=== PATIENT | male | born 1985 | race Caucasian/White ===

== ENCOUNTER → 2019-05-06 | Outpatient (CLI) | payer SELFPAY ==
[2019-05-06 14:40] LABS: Absolute Lymphocyte Count 1.83 X10^3/uL (0.83-4.51); Absolute Neutrophil Count 2.9 X10^3/uL (2.0-7.7); Basophil% 0.9 % (0-1); Eosinophils% 6.4 % (0-5); Hematocrit 45.2 % (40-54); Hemoglobin 15.2 g/dL (13.0-16.5); Lymphocyte # 1.83 X10^3/ul (4.0); Lymphocyte % 32.3 % (19-41); Mean Corp Hgb Conc 33.6 g/dL (32-36); Mean Corpuscular Hgb 28.5 pg (27.0-32.0); Mean Corpuscular Volume 84.8 fL (80-94); Mean Platelet Vol. 10.6 fl (6.2-12.0); Monocyte# 0.46 X10^3/uL; Monocyte% 8.1 % (0-10); Neutrophil # 2.94 X10^3/uL (2.7-7.7); Neutrophil % 51.9 % (47-70); Platelet Count 257 K/mm3 (150-450); RBC Distribution Width CV 11.6 % (11.6-14.6); RBC Distribution Width SD 35.4 fl (35.1-43.9); Red Blood Count 5.33 M/mm3 (4.6-6.2); White Blood Count 5.7 K/mm3 (4.4-11.0)
[2019-05-06 14:41] LABS: Basophil# 0.05 X10^3/uL; Eosinophil# 0.36 X10^3/uL; NRBC Flagged by Analyzer 0 % (0-5)
[2019-05-06 15:07] LABS: Valproic Acid (Depakene) Level 48 ug/mL (50-100)
[2019-05-06 15:09] LABS: ALB/GLOB Ratio 1.2 RATIO (0.9-2.4); AST(SGOT) 20 U/L (15-37); Alanine Aminotransfer ALT/SGPT 34 U/L (16-61); Albumin, Serum 4.1 g/dL (3.2-5.0); Alkaline Phosphatase 98 U/L (45-117); Anion Gap 7 (5-15); BUN 17 mg/dL (7-18); BUN/Creat Ratio 18.2 RATIO (10-20); Calcium,Total 8.7 mg/dL (8.5-10.1); Chloride 108 mmol/L (98-107); Creatinine, Serum 0.93 mg/dL (0.70-1.30); EST Glomerular Filtration Rate 100 mL/min (>60); Est Glom Filt Rate - Afr Amer 121 mL/min (>60); Globulin 3.5 g/dL (2.2-4.2); Glucose 80 mg/dL (74-106); Potassium 4.3 mmol/L (3.5-5.1); Protein, Total 7.6 g/dL (6.4-8.2); Sodium Level 141 mmol/L (136-145); Thyroid Stim Hormone (TSH) 0.94 uIU/mL (0.358-3.74)
== END | disposition home or self-care (01) ==
LOC: LAB 13:13
PROVIDERS: Referring Provider Nurse Practitioner Family; Visit Provider Nurse Practitioner Family
DX: Z79.899 Other long term (current) drug therapy (principal); F19.10 Other psychoactive substance abuse, uncomplicated; R53.83 Other fatigue
CPT/HCPCS: 36415; 80053; 80164; 82140; 84443; 85025

== ENCOUNTER → 2019-06-12 | Outpatient (CLI) | payer SELFPAY ==
[2019-06-12 15:29] LABS: Ammonia < 10.0 umol/L (11-32)
[2019-06-12 17:25] LABS: Cholesterol 180 mg/dL (200); High Density Lipoprotein 47 mg/dL; Triglycerides 76 mg/dL; Very Low Density Lipoprotein 15 mg/dL (5-40)
[2019-06-12 17:32] LABS: Valproic Acid (Depakene) Level 41 ug/mL (50-100)
== END | disposition home or self-care (01) ==
LOC: LAB 14:33
PROVIDERS: Referring Provider Nurse Practitioner Family; Visit Provider Nurse Practitioner Family
DX: R69 Illness, unspecified (principal)
CPT/HCPCS: 36415; 80061; 80164; 82140

== ENCOUNTER 2023-01-16 09:27 | Emergency (ER) | payer MEDICAID, SELFPAY ==
[2023-01-16 09:28] VITALS: BP 158/93; PULSE 80; RESP 14; TEMP 36.2; O2SAT 98; BMI 35.9
--- NOTE | 2023-01-16 09:43 | EKG12_ITS ---
Test Reason : [facility] [place] Pressure : / mmHG Vent. Rate : 076 BPM Atrial Rate : 076 BPM P-R Int : 154 ms QRS Dur : 078 ms QT Int : 346 ms P-R-T Axes : 052 043 023 degrees QTc Int : 389 ms Normal sinus rhythm Normal ECG Confirmed by REBEKA HARRIS MD ([id number]), online editor ISABELLA LUZ ([id number]) on 01/18/2023 11:36:43 AM Referred By: DEIDRA Confirmed By:REBEKA HARRIS MD
--- NOTE | 2023-01-16 09:43 | EX.ED.VIS.PS ---
HPI HPI - Psych History of Present Illness Chief Complaint: Suicidal Narrative Narrative: 37-year-old male with past medical history of depression and anxiety, cutting and burning behavior, presents at the recommendation of his psychiatrist. Usually takes Wellbutrin and Vistaril as needed. He has been taking his Vistaril secondary to anxiety. He had a telehealth visit with his psychiatrist in [place] today who recommended that he come to the emergency department for evaluation. He states he is never been placed in a psychiatric facility. He states he has been holding ice cubes all weekend as a deterrent for cutting himself or burning himself. Is urged to perform self harm has increased. He denies suicidal ideation, but states he wants to cut and burn himself even more. PFSH PFSH Medical History no medical history Allergy/AdvReac Type Severity Reaction Status Date / Time No Known Allergies Allergy Verified 01/16/23 09:31 Social History Smoking Status: Unknown if ever smoked ROS ROS ED ROS Narrative Constitutional: No fever, no chills. HEENT: No sore throat. No neck pain. No loss of vision. No rhinorrhea. Cardiovascular: No chest pain. No palpitations. No pedal edema. Respiratory: No cough, no shortness of breath. Abdominal: No abdominal pain. No nausea. No vomiting. Genitourinary: No dysuria. No hematuria. Musculoskeletal: No myalgias. No arthralgias. Neurologic: No headaches. No dizziness. No lightheadedness. Skin: No rash. No change in color. Psychiatric: Positive depression and anxiety. Increased thoughts of self-harm, especially cutting and burning. EXAM Physical Exam Narrative Exam Narrative: Afebrile. Vital signs noted. HEENT: Normocephalic. Atraumatic. PERRL, EOMI. Neck soft and supple. No point tenderness or step off. Cardiovascular: Regular rate and rhythm. No murmurs, rubs, or gallops appreciated. Respiratory: No tachypnea. Lungs clear to auscultation bilaterally. Gastrointestinal: Abdomen soft, nontender, with normoactive bowel sounds. No rebound or guarding. Neurological: Awake. Alert. Nonfocal, nonlateralizing. Skin: No rash. Normal color. No pallor. Musculoskeletal: No pedal edema. Full range of motion extremities. Psychiatric: Thoughts of self-harm. Positive anxiety. Flat affect/depressed affect. Const Vital Signs: 01/16/23 09:28 Temperature 97.1 F L Temperature Source Temporal Pulse Rate 80 Respiratory Rate 14 Blood Pressure 158/93 H Blood Pressure Mean 114 Pulse Ox 98 Oxygen Delivery Method Room Air MDM MDM MDM Narrative Medical decision making narrative: Medical screening labs will be obtained. I do feel that he will require evaluation by social work or mental health/crisis. I reviewed his laboratory work, and he has a normal white count of 9.3, hemoglobin normal at 15.6, platelet count normal at 306. CMP is grossly unremarkable. Ethyl alcohol less than 3 urine for drugs of abuse positive for cannabinoids and MDMA. At this point in time, after evaluation by crisis, I had a discussion with the counselor. He has an appointment with [facility] on Monday, 2 days from now. Additionally, he is not suicidal, but is just trying to get rid of his thoughts of self-harm, and his cutting behavior and burning behavior. He has been taking his Vistaril for anxiety. He is able to contract for safety without ambivalence. At this point in time, he will be discharged to follow-up with [facility] in 2 days. Return instructions were reviewed. Disposition is discharged home in stable condition. History & Record Review Discussion w/independent historian: Patient Additional record(s) reviewed:: No prior records Lab Data Attestation: I reviewed the patient's lab results. Labs: Laboratory Results - last 24 hr 01/16/23 01/16/23 01/16/23 10:03 10:03 10:03 WBC 9.3 RBC 6.10 Hgb 15.6 Hct 47.7 MCV 78.2 L MCH 25.6 L MCHC 32.7 RDW Std Deviation 37.4 RDW Coeff of Thanh 13.2 Plt Count 306 MPV 10.4 Immature Gran % (Auto) 0.400 Neut % (Auto) 49.3 Lymph % (Auto) 34.5 [place] % (Auto) 7.7 Eos % (Auto) 7.2 H Baso % (Auto) 0.9 Absolute Neuts (auto) 4.6 Absolute Lymphs (auto) 3.20 Nucleated RBC % 0 Sodium 136 Potassium 4.1 Chloride 107 Carbon Dioxide 21.0 Anion Gap 8 BUN 15 Creatinine 1.12 Estim Creat Clear Calc 107.03 Est GFR (MDRD) Af Amer 96 Est GFR (MDRD) Non-Af 79 BUN/Creatinine Ratio 13.4 Glucose 108 H Calcium 9.3 Total Bilirubin 0.30 AST 20 ALT 46 Alkaline Phosphatase 105 Total Protein 7.8 Albumin 3.8 Globulin 4.0 Albumin/Globulin Ratio 1.0 Urine Opiates Screen Urine Methadone Screen Ur Barbiturates Screen Ur Phencyclidine Scrn Ur Amphetamines Screen MDMA (Ecstasy) Screen U Benzodiazepines Scrn Urine Cocaine Screen U Cannabinoids Screen Ur Drug Screen Comment Ethyl Alcohol < 3.0 01/16/23 10:09 WBC RBC Hgb Hct MCV MCH MCHC RDW Std Deviation RDW Coeff of Thanh Plt Count MPV Immature Gran % (Auto) Neut % (Auto) Lymph % (Auto) [place] % (Auto) Eos % (Auto) Baso % (Auto) Absolute Neuts (auto) Absolute Lymphs (auto) Nucleated RBC % Sodium Potassium Chloride Carbon Dioxide Anion Gap BUN Creatinine Estim Creat Clear Calc Est GFR (MDRD) Af Amer Est GFR (MDRD) Non-Af BUN/Creatinine Ratio Glucose Calcium Total Bilirubin AST ALT Alkaline Phosphatase Total Protein Albumin Globulin Albumin/Globulin Ratio Urine Opiates Screen NEGATIVE Urine Methadone Screen NEGATIVE Ur Barbiturates Screen NEGATIVE Ur Phencyclidine Scrn NEGATIVE Ur Amphetamines Screen NEGATIVE MDMA (Ecstasy) Screen POSITIVE H U Benzodiazepines Scrn NEGATIVE Urine Cocaine Screen NEGATIVE U Cannabinoids Screen POSITIVE H Ur Drug Screen Comment Ethyl Alcohol Discharge Plan Triage Chief Complaint: Suicidal ED Provider: Juan Pierson Dx/Rx/DC Orders Clinical Impression: Thoughts of self-harm, Anxiety Instructions: ED Anxiety Reaction, ED Personality Disorder Primary Care Provider: Eliane Beckett Referrals: Care Physician,No Primary [Non-Staff] - Activity Restrictions/Additional Instructions: Follow-up with IOP on Monday. Return with increased thoughts of self-harm, new or worsening symptoms. Disposition Disposition: Home, Self Care
--- NOTE | 2023-01-16 09:49 | NURSING ---
NO OLD EKGS
[2023-01-16 10:25] LABS: Absolute Neutrophil Count 4.6 X10^3/uL (2.0-7.7); Basophil# 0.08 X10^3/uL; Basophil% 0.9 % (0-1); Eosinophil# 0.67 X10^3/uL; Eosinophils% 7.2 % (0-5); Hematocrit 47.7 % (40-54); Hemoglobin 15.6 g/dL (13.0-16.5); Lymphocyte % 34.5 % (19-41); Mean Corp Hgb Conc 32.7 g/dL (32-36); Mean Corpuscular Hgb 25.6 pg (27.0-32.0); Mean Corpuscular Volume 78.2 fL (80-94); Mean Platelet Vol. 10.4 fl (6.2-12.0); Monocyte# 0.71 X10^3/uL; Monocyte% 7.7 % (0-10); NRBC Flagged by Analyzer 0 % (0-5); Neutrophil # 4.57 X10^3/uL (2.7-7.7); Neutrophil % 49.3 % (47-70); Platelet Count 306 K/mm3 (150-450); RBC Distribution Width CV 13.2 % (11.6-14.6); RBC Distribution Width SD 37.4 fl (35.1-43.9); White Blood Count 9.3 K/mm3 (4.4-11.0)
[2023-01-16 10:35] LABS: AST(SGOT) 20 U/L (15-37); Alanine Aminotransfer ALT/SGPT 46 U/L (16-61); Albumin, Serum 3.8 g/dL (3.2-5.0); Alkaline Phosphatase 105 U/L (45-117); Anion Gap 8 (5-15); BUN 15 mg/dL (7-18); BUN/Creat Ratio 13.4 RATIO (10-20); Calcium,Total 9.3 mg/dL (8.5-10.1); Chloride 107 mmol/L (98-107); Creatinine, Serum 1.12 mg/dL (0.70-1.30); EST Glomerular Filtration Rate 79 mL/min (>60); Est Glom Filt Rate - Afr Amer 96 mL/min (>60); Estimated Creatinine Clearance 107.03 ml/min; Glucose 108 mg/dL (74-106); Potassium 4.1 mmol/L (3.5-5.1); Protein, Total 7.8 g/dL (6.4-8.2); Sodium Level 136 mmol/L (136-145)
[2023-01-16 10:51] LABS: Amphetamine Urine VISTA NEGATIVE (<1000 ng/mL); Barbiturate Urine VISTA NEGATIVE (< 200 ng/mL); Benzodiazepine Urine VISTA NEGATIVE (< 200 ng/mL); Cocaine Urine VISTA NEGATIVE (< 300 ng/mL); Ecstacy Urine VISTA POSITIVE (< 500 ng/mL); Methadone Urine VISTA NEGATIVE (< 300 ng/mL); PCP Urine VISTA NEGATIVE (< 25 ng/mL); THC Urine VISTA POSITIVE (< 50 ng/mL); Vista UDS pH Range 5
[2023-01-16 10:59] LABS: Alcohol, Blood (Medical)-Serum < 3.0 mg/dL
[2023-01-16 12:35] VITALS: RESP 16
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
== END 2023-01-16 12:40 | disposition home or self-care (01) ==
PROVIDERS: Emergency Provider Emergency Medicine; PCP Internal Medicine; Visit Provider Emergency Medicine
DX: R45.88 Nonsuicidal self-harm (principal); F41.9 Anxiety disorder, unspecified; F32.A Depression, unspecified; Z79.899 Other long term (current) drug therapy
CPT/HCPCS: 80053; 80307; 82077; 85025; 87426; 93005; 99283

== ENCOUNTER 2023-09-14 10:21 | Emergency (ER) | payer MEDICAID, SELFPAY ==
[2023-09-14 10:22] VITALS: BP 130/97; PULSE 98; RESP 14; TEMP 37.2; O2SAT 99; BMI 31.8
[2023-09-14 10:24] VITALS: BP 130/97; PULSE 98; RESP 14; TEMP 37.2; O2SAT 99
--- NOTE | 2023-09-14 11:27 | EX.ED.DYSGE1 ---
HPI <MILO Vaca - Last Filed: 09/14/23 13:03> History of Present Illness Chief Complaint: Weakness Narrative Narrative: 38-year-old male with history of anxiety, depression, ADHD who presents to the emergency department for 5 days of worsening weakness. Patient states he had a fever, had significant nausea, vomiting and diarrhea. Patient states today, he actually has no pain, however he is just so incredibly weak that he had difficulty getting around. Patient states when he got to the ER, he was collapsed because he was so weak. Patient denies any blood in stool or vomit. Denies any alcohol or drug abuse other than marijuana which she has a prescription for. Patient is here for weakness. [facility] <MILO Vaca - Last Filed: 09/14/23 13:03> [facility] Medical History (Updated 09/14/23 @ 13:02 by MILO Vaca) History of depression Home Medications bupropion HCl 150 mg 24 hr tablet, extended release 150 mg PO DAILY 09/14/23 [History Last Taken Unknown] bupropion HCl 300 mg 24 hr tablet, extended release 300 mg PO DAILY 09/14/23 [History Last Taken Unknown] hydroxyzine pamoate 50 mg capsule 50 mg PO TID PRN PRN anxiety 09/14/23 [History Last Taken Unknown] lisdexamfetamine 30 mg capsule (Vyvanse) 60 mg PO DAILY 09/14/23 [History Last Taken Unknown] ondansetron 4 mg disintegrating tablet 4 mg PO Q8H PRN PRN Nausea #10 tabs 09/14/23 [Rx Last Taken Unknown] Allergy/AdvReac Type Severity Reaction Status Date / Time No Known Allergies Allergy Verified 09/14/23 10:22 Social History Smoking Status: Unknown if ever smoked ROS <MILO Vaca - Last Filed: 09/14/23 13:03> ROS ED ROS Narrative Constitutional: Negative for fever, chills, weight loss. Positive for generalized weakness Eyes: Negative for vision loss, vision change, double vision ENT: Negative for any sore throat, ear pain, congestion Cardiovascular: Negative for any chest pain, tightness, palpitations Respiratory: Negative for any cough, sputum production, hemoptysis, dyspnea, dyspnea on exertion, orthopnea Gastrointestinal: Negative for any abdominal pain,constipation, blood in stool, blood in vomit. Positive for nausea, vomiting, diarrhea : Negative for any urinary frequency, dysuria, retention, blood in urine Muscle skeletal: Negative for any myalgias, arthralgias, neck pain, back pain Neurological: Negative for any headache, syncope, paresthesias, dizziness Skin: Negative for any rashes, lumps, itching, abrasions, lacerations Psychiatric: Negative for any depression, anxiety, stress, suicidal ideation, homicidal ideation Hematologic: Negative for any easy bruising, excessive bruising, easy bleeding Allergies: Negative for any eczema, hives, rash EXAM <MILO Vaca - Last Filed: 09/14/23 13:03> Physical Exam Narrative Exam Narrative: Vital signs reviewed. Patient looks generally well, patient is in no distress. HEET: Head normocephalic atraumatic, TMs clear bilaterally. Posterior pharynx is clear, dry mucous membranes. Nares clear bilaterally. Neck: Supple with no lymphadenopathy or tenderness. No signs of meningismus. Cardiac: Regular rate and rhythm no murmurs gallops or rubs, equal peripheral pulses bilaterally. Respiratory: Lungs clear to auscultation bilaterally. No chest tenderness. Abdomen: Soft, nontender, nondistended. No abdominal bruit or pulsatile masses. No hepatosplenomegaly Extremities: No peripheral edema, no signs of gross trauma or deformity. Active full range of motion of all extremities. Neuro: Cranial nerves II through XII intact, no focal neurological deficits. Skin: Clean dry and intact with no rash, purpura, petechiae, vesicles or pustules. Backs/flank: No CVA tenderness, no midline spinal tenderness, no deformity. Psych: Normal mood and affect. No SI, HI or acute psychosis. Const Vital Signs: 09/14/23 10:22 09/14/23 10:24 09/14/23 10:54 Temperature 99 F 99 F Temperature Source Temporal Temporal Pulse Rate 98 98 Respiratory Rate 14 14 Respiratory Effort Normal Respiratory Pattern Normal Blood Pressure 130/97 H 130/97 H Blood Pressure Mean 108 108 Pulse Ox 99 99 Oxygen Delivery Method Room Air Room Air 09/14/23 12:21 09/14/23 13:57 Temperature Temperature Source Pulse Rate 68 71 Respiratory Rate 16 16 Respiratory Effort Respiratory Pattern Blood Pressure 132/79 H 141/74 H Blood Pressure Mean 96 96 Pulse Ox 97 98 Oxygen Delivery Method Room Air <Dr. Puneet Rao DO - Last Filed: 09/14/23 16:11> Physical Exam Const Vital Signs: 09/14/23 10:22 09/14/23 10:24 09/14/23 10:54 Temperature 99 F 99 F Temperature Source Temporal Temporal Pulse Rate 98 98 Respiratory Rate 14 14 Respiratory Effort Normal Respiratory Pattern Normal Blood Pressure 130/97 H 130/97 H Blood Pressure Mean 108 108 Pulse Ox 99 99 Oxygen Delivery Method Room Air Room Air 09/14/23 12:21 09/14/23 13:57 Temperature Temperature Source Pulse Rate 68 71 Respiratory Rate 16 16 Respiratory Effort Respiratory Pattern Blood Pressure 132/79 H 141/74 H Blood Pressure Mean 96 96 Pulse Ox 97 98 Oxygen Delivery Method Room Air [facility] <MILO Vaca - Last Filed: 09/14/23 13:03> [facility] Lab Data Labs: Laboratory Results - last 24 hr 09/14/23 11:40 WBC 9.0 RBC 6.76 H Hgb 17.1 H Hct 51.1 MCV 75.6 L MCH 25.3 L MCHC 33.5 RDW Std Deviation 34.6 L RDW Coeff of Thanh 13.1 Plt Count 387 MPV 9.7 Immature Gran % (Auto) 0.400 Neut % (Auto) 44.6 L Lymph % (Auto) 40.7 Bertie % (Auto) 10.7 H Eos % (Auto) 2.3 Baso % (Auto) 1.3 H Absolute Neuts (auto) 4.0 Absolute Lymphs (auto) 3.66 Nucleated RBC % 0 Reactive Lymphocytes RARE Sodium 137 Potassium 3.7 Chloride 106 Carbon Dioxide 29.0 Anion Gap 2 L BUN 13 Creatinine 1.24 Estim Creat Clear Calc 109.82 Est GFR (MDRD) Af Amer 85 Est GFR (MDRD) Non-Af 70 BUN/Creatinine Ratio 10.5 Glucose 97 Calcium 9.2 Total Bilirubin 0.50 AST 16 ALT 40 Alkaline Phosphatase 111 Total Protein 8.2 Albumin 4.0 Globulin 4.2 Albumin/Globulin Ratio 1.0 Urine Color Yellow Urine Clarity Sl. Cloudy Urine pH 6.0 Ur Specific [place] 1.025 Urine Protein 30 H Urine Glucose (UA) Normal Urine Ketones 5 H Urine Occult Blood Negative Urine Nitrite Negative Urine Bilirubin 1 H Urine Urobilinogen 1 H Ur Leukocyte Esterase 25 H Urine RBC 0 SEEN Urine WBC 0-5 SEEN Ur Squamous Epith Cells 0-5 SEEN Urine Bacteria 1+ Urine Mucus 0 SEEN Treatment and Re-Evaluation :: Patient appears generally well, patient appears nontoxic, vital signs are stable. Presenting to the emergency department for complaints of weakness, nausea and vomiting. Patient states the nausea vomiting abdominal pain has ceased, however he is still incredibly weak. Patient will receive basic laboratory values, look for electrolyte abnormalities, leukocytosis. Patient be tested for COVID-19 influenza RSV. Urinalysis will also be tested. Differential diagnosis includes viral-like illness, electrolyte abnormality, gastroenteritis. Patient will be reevaluated after receiving IV fluids and IV Zofran. Patient CBC shows some hemoconcentration with a RBCs of 6.76, hemoglobin of 17.1. Patient's chemistries were unremarkable. Patient responded well to IV fluids, patient's urinalysis did show some bacteria however there was squamous cells, negative for any nitrites, I do not believe this is infection. Urine culture will be sent. Patient's COVID-19, influenza, RSV was negative. Patient will be given nausea medicine for home, he will maintain hydration. Patient is happy the plan of care, states he does feel better after the IV fluids. Patient will follow-up outpatient, all questions answered, patient stable for discharge. <Dr. Puneet Rao, DO - Last Filed: 09/14/23 16:11> [facility] Narrative Medical decision making narrative: Patient appears generally well, patient appears nontoxic, vital signs are stable. Presenting to the emergency department for complaints of weakness, nausea and vomiting. Patient states the nausea vomiting abdominal pain has ceased, however he is still incredibly weak. Patient will receive basic laboratory values, look for electrolyte abnormalities, leukocytosis. Patient be tested for COVID-19 influenza RSV. Urinalysis will also be tested. Differential diagnosis includes viral-like illness, electrolyte abnormality, gastroenteritis. Patient will be reevaluated after receiving IV fluids and IV Zofran. Patient CBC shows some hemoconcentration with a RBCs of 6.76, hemoglobin of 17.1. Patient's chemistries were unremarkable. Patient responded well to IV fluids, patient's urinalysis did show some bacteria however there was squamous cells, negative for any nitrites, I do not believe this is infection. Urine culture will be sent. Patient's COVID-19, influenza, RSV was negative. Patient will be given nausea medicine for home, he will maintain hydration. Patient is happy the plan of care, states he does feel better after the IV fluids. Patient will follow-up outpatient, all questions answered, patient stable for discharge. This patient was seen with a PA/ORGAN RECOVERY COORDINATOR Individually assessed they patient including history and physical. I have reviewed everything on the chart that is available and agree with the documentation provided by the PA/ORGAN RECOVERY COORDINATOR including discussion about the assessment, treatment plan, discussion, and return precautions. Patient's workup ultimately normal. Viral testing negative. He is feeling better after being treated with IV fluids, Zofran. He is offered medication for home but states he is no longer symptomatic and wants to be discharged. Return precautions discussed. Lab Data Attestation: I reviewed the patient's lab results. Labs: Laboratory Results - last 24 hr 09/14/23 11:40 WBC 9.0 RBC 6.76 H Hgb 17.1 H Hct 51.1 MCV 75.6 L MCH 25.3 L MCHC 33.5 RDW Std Deviation 34.6 L RDW Coeff of Thanh 13.1 Plt Count 387 MPV 9.7 Immature Gran % (Auto) 0.400 Neut % (Auto) 44.6 L Lymph % (Auto) 40.7 Bertie % (Auto) 10.7 H Eos % (Auto) 2.3 Baso % (Auto) 1.3 H Absolute Neuts (auto) 4.0 Absolute Lymphs (auto) 3.66 Nucleated RBC % 0 Reactive Lymphocytes RARE Sodium 137 Potassium 3.7 Chloride 106 Carbon Dioxide 29.0 Anion Gap 2 L BUN 13 Creatinine 1.24 Estim Creat Clear Calc 109.82 Est GFR (MDRD) Af Amer 85 Est GFR (MDRD) Non-Af 70 BUN/Creatinine Ratio 10.5 Glucose 97 Calcium 9.2 Total Bilirubin 0.50 AST 16 ALT 40 Alkaline Phosphatase 111 Total Protein 8.2 Albumin 4.0 Globulin 4.2 Albumin/Globulin Ratio 1.0 Urine Color Yellow Urine Clarity Sl. Cloudy Urine pH 6.0 Ur Specific [place] 1.025 Urine Protein 30 H Urine Glucose (UA) Normal Urine Ketones 5 H Urine Occult Blood Negative Urine Nitrite Negative Urine Bilirubin 1 H Urine Urobilinogen 1 H Ur Leukocyte Esterase 25 H Urine RBC 0 SEEN Urine WBC 0-5 SEEN Ur Squamous Epith Cells 0-5 SEEN Urine Bacteria 1+ Urine Mucus 0 SEEN Discharge Plan Triage Chief Complaint: Weakness ED Midlevel Provider: Leonel Cameron ED Provider: Puneet Rao Dx/Rx/DC Orders Clinical Impression: Acute dehydration, Viral syndrome Instructions: Dehydration, ED Viral Syndrome (Adult) Prescriptions: New ondansetron 4 mg tablet,disintegrating 4 mg PO Q8H PRN PRN (Reason: Nausea) Qty: 10 0RF No Action bupropion HCl 300 mg tablet extended release 24 hr 300 mg PO DAILY Patient Comments: take 1 tablet by mouth every morning ; TAKE WITH 150 MG XL TO TOTAL 450 MG XL DAILY bupropion HCl 150 mg tablet extended release 24 hr 150 mg PO DAILY Patient Comments: TAKE 1 TABLET BY MOUTH EVERY MORNING DIRECTED WITH 300MG FOR TOTAL DOSE OF 450MG hydroxyzine pamoate 50 mg capsule 50 mg PO TID PRN PRN (Reason: anxiety) Patient Comments: Take 1 capsule by mouth three times a day as needed FOR ANXIETY AND SLEEP lisdexamfetamine [Vyvanse] 30 mg capsule 60 mg PO DAILY Patient Comments: take 2 capsules by mouth daily Primary Care Provider: Eliane Beckett Referrals: Eliane Beckett MD [Primary Care Provider] - Activity Restrictions/Additional Instructions: Please ensure that you maintain hydration. Eat a balanced diet. Return for any worsening symptoms. Disposition Disposition: Home, Self Care Discharge Date/Time: 09/14/23 13:58
[2023-09-14] MEDS: 0.9% Normal Saline (1000mL) 1,000 ML 1000 ML IV (11:38)
[2023-09-14 11:49] LABS: Mucous, Urine 0 SEEN /hpf (<or=2+); Red Blood Cells-Urine 0 SEEN /hpf (0-5)
[2023-09-14 11:51] LABS: Absolute Lymphocyte Count 3.66 X10^3/uL (0.83-4.51); Basophil# 0.12 X10^3/uL; Basophil% 1.3 % (0-1); Eosinophil# 0.21 X10^3/uL; Eosinophils% 2.3 % (0-5); Hematocrit 51.1 % (40-54); Hemoglobin 17.1 g/dL (13.0-16.5); Lymphocyte # 3.66 X10^3/ul (0.83-4.51); Lymphocyte % 40.7 % (19-41); Mean Corp Hgb Conc 33.5 g/dL (32-36); Mean Corpuscular Hgb 25.3 pg (27.0-32.0); Mean Corpuscular Volume 75.6 fL (80-94); Mean Platelet Vol. 9.7 fl (6.2-12.0); Monocyte# 0.96 X10^3/uL; Monocyte% 10.7 % (0-10); NRBC Flagged by Analyzer 0 % (0-5); Neutrophil % 44.6 % (47-70); POSITIVE MORPHOLOGY YES; Platelet Count 387 K/mm3 (150-450); RBC Distribution Width CV 13.1 % (11.6-14.6); RBC Distribution Width SD 34.6 fl (35.1-43.9); Red Blood Count 6.76 M/mm3 (4.6-6.2)
[2023-09-14 11:55] LABS: Color, Urine Yellow (Yellow); Differential Indicated SCAN CRITERIA MET; Glucose, Dipstick Normal (Normal); Ketone-Dipstick 5 mg/dl (Negative); Leukocyte Esterase-Dipstick 25 /ul (Negative); Nitrite-Dipstick Negative (Negative); Occult Blood-Urine Negative /ul (Negative); Protein-Dipstick 30 mg/dl (Negative); Specific Gravity, Urine 1.025 (1.002-1.030); Urine Clarity Sl. Cloudy (Clear); Urine Urobilinogen 1 mg/dl (Normal)
[2023-09-14 11:57] LABS: Urine Bilirubin Dipstick 1 mg/dL (Negative)
[2023-09-14 12:00] LABS: Reactive Lymphocyte RARE
[2023-09-14 12:03] LABS: Bacteria 1+ /hpf (None Seen); Squamous Epithelial Cells - UA 0-5 SEEN /hpf (0-5); White Blood Cells 0-5 SEEN /hpf (0-5)
--- OUTSIDE RECORDS SUMMARY | 2023-09-14 12:06 | XMS RPT_ITS | CCD ---
Author Name Unknown Address [phone] [place] [address] Organization [facility] Care Team Providers Care Research Administrator Name Role Phone Pcp, No Primary Care Provider Bautista Ocampo Primary Care Provider Unavailable Primary Care Provider Ramesh Beckett MD, All D Primary Care Provider RONEY FRASER Referring Unavailable TALAMPAS, ALL D Primary Care Unavailable TALAMPAS, ALL D Primary Care Unavailable TALAMPAS, ALL D Primary Care Unavailable TALAMPAS, ALL D Primary Care Unavailable TALAMPAS, ALL D Primary Care Unavailable TALAMPAS, ALL D Primary Care Unavailable DO, LUIS ANTONIO Attending Unavailable TALAMPAS, ALL D Primary Care Unavailable LUZ MARIA VARGHESE Attending Unavailable IRAM BLAIR Referring Unavailable DO, LUIS ANTONIO Attending Unavailable TALAMPAS, ALL D Primary Care Unavailable TALAMPAS, ALL D Primary Care Unavailable TALAMPAS, ALL D Primary Care Unavailable TALAMPAS, ALL D Primary Care Unavailable TALAMPAS, ALL D Primary Care Unavailable TALAMPAS, ALL D Primary Care Unavailable TALAMPAS, ALL D Primary Care Unavailable TALAMPAS, ALL D Primary Care Unavailable TALAMPAS, ALL D Primary Care Unavailable TALAMPAS, ALL D Primary Care Unavailable TALAMPAS, ALL D Primary Care Unavailable TALAMPAS, ALL D Primary Care Unavailable TALAMPAS, ALL D Primary Care Unavailable TALAMPAS, ALL D Primary Care Unavailable TALAMPAS, ALL D Primary Care Unavailable TALAMPAS, ALL D Primary Care Unavailable DO LUIS ANTONIO Attending Unavailable DO LUIS ANTONIO Attending Unavailable TALAMPAS, ALL D Primary Care Unavailable TALAMPAS, ALL D Primary Care Unavailable DO LUIS ANTONIO Attending Unavailable TALAMPAS, ALL D Primary Care Unavailable TALAMPAS, ALL D Primary Care Unavailable TALAMPAS, ALL D Primary Care Unavailable TALAMPAS, ALL D Primary Care Unavailable TALAMPAS, ALL D Primary Care Unavailable TALAMPAS, ALL D Primary Care Unavailable TALAMPAS, ALL D Primary Care Unavailable TALAMPAS, ALL D Primary Care Unavailable TALAMPAS, ALL D Primary Care Unavailable TALAMPAS, ALL D Primary Care Unavailable TALAMPAS, ALL D Primary Care Unavailable TALAMPAS, ALL D Primary Care Unavailable RONEY FRASER Attending Unavailable BRYANT, ZEE Referring Unavailable TALAMPAS, ALL D Primary Care Unavailable TALAMPAS, ALL D Attending Unavailable TALAMPAS, ALL D Primary Care Unavailable TALAMPAS, ALL D Primary Care Unavailable IRAM BLAIR Attending Unavailable GHAZALA HOLLIS Referring Unavailable BRYANT, ZEE Attending Unavailable TALAMPAS, ALL D Primary Care Unavailable TALAMPAS, ALL D Primary Care Unavailable IRAM BLAIR Attending Unavailable GHAZALA HOLLIS Referring Unavailable DEZ ANGEL Attending Unavailable TJ SHETH Referring Unavailable TALAMPAS, ALL D Primary Care Unavailable RONEY FRASER Attending Unavailable RONEY FRASER Referring Unavailable TALAMPAS, ALL D Primary Care Unavailable TAMI SAN Attending Unavailable TALAMPAS, ALL D Primary Care Unavailable ANTHONY LOERA Attending Unavailable ATHY, ORALIA Garland Referring Unavailable TALAMPAS, ALL D Primary Care Unavailable TALAMPAS, ALL D Primary Care Unavailable ANTHONY LOERA Attending Unavailable TALAMPAS, ALL D Primary Care Unavailable MARISA SOTO Referring Unavailable TALAMPAS, ALL D Primary Care Unavailable ATHY, ORALIA R Referring Unavailable BRYANT, ZEE Referring Unavailable TALAMPAS, ALL D Primary Care Unavailable TALAMPAS, ALL D Attending Unavailable GHAZALA HOLLIS Attending Unavailable TALAMPAS, ALL D Primary Care Unavailable TALAMPAS, ALL D Referring Unavailable Allergies Allergy Classification Reported Allergen(s) Allergy Type Date of Onset Reaction(s) Facility Cats (1 source) Cat Animal Allergy (Dander) 6 Shortness of Breath [facility] Work Phone: (20 sources) Cat; Translations: [CATS] Propensity to adverse reactions 6 Shortness of Breath [facility] Work Phone: Medications Current Medications Medication Drug Class(es) Dates Sig (Normalized) Sig (Original) cyclobenzaprine hydrochloride 10 mg oral tablet (1 source) Muscle Relaxant Start: 05-02-2023 End: 05-09-2023 take 1 tablet by mouth twice daily as needed for muscle spasms cyclobenzaprine (FLEXERIL) 10 mg tablet Indications: Acute midline low back pain without sciatica Take 1 tablet by mouth twice daily as needed for muscle spasm for up to 7 days. 14 tablet 0 05/02/2023 05/09/2023 Active Completed/Discontinued Medications Medication Drug Class(es) Dates Sig (Normalized) Sig (Original) [id number] 200 actuat albuterol 0.09 mg/actuat metered dose inhaler (20 sources) beta2-Adrenergic Agonist Start: 10-19-2022 End: 02-21-2023 take 2 puff(s) by inhalation every four hours as needed albuterol HFA (PROVENTIL HFA, VENTOLIN HFA) 90 mcg/actuation inhaler Inhale 2 Puffs as instructed every 4 hours as needed. 1 Each 2 02/21/2023 Active Problems Active Problems Problem Classification Problem Date Documented Date Episodic/Chronic Adjustment disorders (20 sources) Adjustment disorder with mixed anxiety and depressed mood; Translations: [Adjustment disorder with mixed anxiety and depressed mood] Onset: 09-18-2012 09-18-2012 Chronic Allergic reactions (20 sources) Environmental allergy; Translations: [Other allergy status, other than to drugs and biological substances] 09-12-2012 Episodic Anxiety disorders (20 sources) Anxiety; Translations: [Anxiety disorder, unspecified] Onset: 12-01-2022 12-01-2022 Chronic Asthma (20 sources) Unspecified asthma, uncomplicated; Translations: [Asthma, unspecified type, unspecified] Onset: 07-07-2005 07-07-2005 Chronic Attention-deficit, conduct, and disruptive behavior disorders (4 sources) Attention deficit hyperactivity disorder; Translations: [Attention-deficit hyperactivity disorder, unspecified type] Chronic Attention-deficit, conduct, and disruptive behavior disorders (2 sources) Attention-deficit hyperactivity disorder, unspecified type; Translations: [Attention deficit hyperactivity disorder (ADHD), unspecified ADHD type] Onset: 12-01-2022 Chronic Disorders usually diagnosed in infancy, childhood, or adolescence (20 sources) Attention deficit hyperactivity disorder, predominantly inattentive type; Translations: [Other specified behavioral and emotional disorders with onset usually occurring in childhood and adolescence] Onset: 08-18-2017 Chronic Malaise and fatigue (2 sources) Fatigue; Translations: [Chronic fatigue, unspecified] Onset: 02-28-2023 02-28-2023 Chronic Mood disorders (20 sources) Dysthymia; Translations: [Dysthymic disorder] Onset: 09-18-2012 09-18-2012 Chronic Nausea and vomiting (1 source) Diarrhea and vomiting; Translations: [Vomiting, unspecified] 09-13-2023 Episodic Other nervous system disorders (1 source) Other chronic pain; Translations: [Chronic pain of right knee] Onset: 03-09-2023 Chronic Other non-traumatic joint disorders (3 sources) Pain in right knee; Translations: [Pain in joint, lower leg] Onset: 03-09-2023 02-09-2023 Episodic Other non-traumatic joint disorders (1 source) Hip pain; Translations: [Pain in right hip] 02-09-2023 Episodic Other nutritional; endocrine; and metabolic disorders (1 source) Obesity caused by energy imbalance; Translations: [Other obesity due to excess calories] 02-28-2023 Chronic Other nutritional; endocrine; and metabolic disorders (1 source) Other obesity due to excess calories; Translations: [Class 2 obesity due to excess calories with body mass index (BMI) of 37.0 to 37.9 in adult, unspecified whether serious comorbidity present] Onset: 02-28-2023 Chronic Other nutritional; endocrine; and metabolic disorders (1 source) Body mass index (BMI) 37.0-37.9, adult; Translations: [Class 2 obesity due to excess calories with body mass index (BMI) of 37.0 to 37.9 in adult, unspecified whether serious comorbidity present] Onset: 02-28-2023 Chronic Spondylosis; intervertebral disc disorders; other back problems (2 sources) Lumbar radiculopathy; Translations: [Radiculopathy, lumbar region] 03-27-2023 Episodic Substance-related disorders (1 source) Stimulant abuse; Translations: [Other stimulant abuse, uncomplicated] Chronic Substance-related disorders (1 source) Cannabis abuse; Translations: [Cannabis use, unspecified, uncomplicated] Episodic Unclassified (1 source) IOP Group 3 Onset: 03-06-2023 Unclassified (1 source) Acute midline low back pain without sciatica; Translations: [Acute midline low back pain without sciatica] Onset: 05-02-2023 Unclassified (1 source) No-show for appointment; Translations: [No-show for appointment] Onset: 03-16-2023 Past or Other Problems Problem Classification Problem Date Documented Da te Episodic/Chronic Diabetes mellitus without complication (2 sources) Hyperglycemia; Translations: [Impaired fasting glucose] Onset: 02-28-2023 02-28-2023 Episodic Immunizations and screening for infectious disease (9 sources) Patient encounter status; Translations: [Encounter for immunization] Onset: 12-01-2022 Episodic Other aftercare (1 source) Other half-way (current) drug therapy; Translations: [Encounter for long-term current use of medication] Onset: 02-28-2023 Episodic Other connective tissue disease (20 sources) Pain in right lower limb; Translations: [Pain in right leg] Onset: 12-02-2022 Episodic Other connective tissue disease (2 sources) Pain in right leg; Translations: [Right leg pain] Onset: 12-02-2022 Episodic Other non-traumatic joint disorders (20 sources) Ankle joint pain; Translations: [Pain in unspecified ankle and joints of unspecified foot] Onset: 08-06-2012 08-06-2012 Episodic Other screening for suspected conditions (not mental disorders or infectious disease) (2 sources) Encounter for screening for lipoid disorders; Translations: [Screening, lipid] Onset: 12-01-2022 Episodic Results Test Name Value Interpretation Reference Range Facil ity Vital Signs Date Time Vital Sign Value Performing Clinician Ekta cerna 09-13-2023 13:08-0500 Body temperature 98.2 [degF] Mark Ng APRN.CNP Work Phone: [facility] 09-13-2023 13:08-0500 Body weight 111.58 kg Mark Ng APRN.CNP Work Phone: [facility] 09-13-2023 13:08-0500 Diastolic blood pressure 80 mm[Hg] Mark Ng APRN.CNP Work Phone: [facility] 09-13-2023 13:08-0500 Heart rate 82 /min Mark Ng ELECTRONICS ENGINEERING MANAGER.AREA SUPERVISOR Work Phone: [facility] 09-13-2023 13:08-0500 Respiratory rate 16 /min Mark Ng ELECTRONICS ENGINEERING MANAGER.AREA SUPERVISOR Work Phone: [facility] 09-13-2023 13:08-0500 SaO2% (BldA) [Mass fraction] 98 % Mark Ng ELECTRONICS ENGINEERING MANAGER.AREA SUPERVISOR Work Phone: [facility] 09-13-2023 13:08-0500 Systolic blood pressure 136 mm[Hg] Mark Ng ELECTRONICS ENGINEERING MANAGER.AREA SUPERVISOR Work Phone: [facility] 05-02-2023 12:24-0400 Body temperature 97.9 [degF] Marisa Soto APRN.AREA SUPERVISOR Work Phone: [facility] 05-02-2023 12:24-0400 Body weight 123.38 kg Marisa Soto APRN.AREA SUPERVISOR Work Phone: [facility] 05-02-2023 12:24-0400 Diastolic blood pressure 80 mm[Hg] Marisa Soto APRN.AREA SUPERVISOR Work Phone: [facility] 05-02-2023 12:24-0400 Heart rate 82 /min Marisa Soto APRN.AREA SUPERVISOR Work Phone: [facility] 05-02-2023 12:24-0400 Respiratory rate 22 /min Marisa Soto APRN.AREA SUPERVISOR Work Phone: [facility] 05-02-2023 12:24-0400 SaO2% (BldA) [Mass fraction] 96 % Marisa Soto APRN.AREA SUPERVISOR Work Phone: [facility] 05-02-2023 12:24-0400 Systolic blood pressure 128 mm[Hg] Marisa Soto APRN.AREA SUPERVISOR Work Phone: [facility] 02-28-2023 19:10-0400 Body temperature 98.8 [degF] All Beckett MD Work Phone: [facility] 02-28-2023 19:10-0400 Body weight 122.92 kg All Beckett MD Work Phone: [facility] 02-28-2023 19:10-0400 Diastolic blood pressure 68 mm[Hg] All Beckett MD Work Phone: [facility] 02-28-2023 19:10-0400 Heart rate 95 /min All Beckett MD Work Phone: [facility] 02-28-2023 19:10-0400 Respiratory rate 18 /min All Beckett MD Work Phone: [facility] 02-28-2023 19:10-0400 SaO2% (BldA) [Mass fraction] 98 % All Beckett MD Work Phone: [facility] 02-28-2023 19:10-0400 Systolic blood pressure 110 mm[Hg] All Beckett MD Work Phone: [facility] 01-19-2023 10:00-0400 Body weight 127.01 kg Mm 3 Work Phone: [facility] 12-01-2022 12:58-0400 Body height 185.4 cm Zee Bryant ELECTRONICS ENGINEERING MANAGER.BREAKFAST BAR ATTENDANT Work Phone: [facility] 12-01-2022 12:58-0400 Body weight 126.55 kg Zee Bryant ELECTRONICS ENGINEERING MANAGER.BREAKFAST BAR ATTENDANT Work Phone: [facility] 12-01-2022 12:58-0400 Diastolic blood pressure 82 mm[Hg] Zee Bryant ELECTRONICS ENGINEERING MANAGER.BREAKFAST BAR ATTENDANT Work Phone: [facility] 12-01-2022 12:58-0400 Heart rate 98 /min Zee Bryant ELECTRONICS ENGINEERING MANAGER.BREAKFAST BAR ATTENDANT Work Phone: [facility] 12-01-2022 12:58-0400 Respiratory rate 16 /min Zee Bryant ELECTRONICS ENGINEERING MANAGER.BREAKFAST BAR ATTENDANT Work Phone: [facility] 12-01-2022 12:58-0400 SaO2% (BldA) [Mass fraction] 98 % Zee Bryant ELECTRONICS ENGINEERING MANAGER.BREAKFAST BAR ATTENDANT Work Phone: [facility] 12-01-2022 12:58-0400 Systolic blood pressure 124 mm[Hg] Zee Bryant APRN.BREAKFAST BAR ATTENDANT Work Phone: [facility] 11-23-2022 13:41-0400 Body temperature 98.29 [degF] Oralia Athy PA-C Work Phone: [facility] 11-23-2022 13:41-0400 Body weight 126.83 kg Oralia Athy PA-C Work Phone: [facility] 11-23-2022 13:41-0400 Diastolic blood pressure 90 mm[Hg] Oralia Athy PA-C Work Phone: [facility] 11-23-2022 13:41-0400 Heart rate 85 /min Oralia Athy PA-C Work Phone: [facility] 11-23-2022 13:41-0400 Respiratory rate 21 /min Oralia Athy PA-C Work Phone: [facility] 11-23-2022 13:41-0400 SaO2% (BldA) [Mass fraction] 98 % Oralia Athy PA-C Work Phone: [facility] 11-23-2022 13:41-0400 Systolic blood pressure 118 mm[Hg] Oralia Athy PA-C Work Phone: [facility] Encounters Encounter Date Encounter Type Care Provider Facility Start: 09-13-2023 End: 09-13-2023 Patient encounter procedure Mark Ng APRN.AREA SUPERVISOR Work Phone: [facility] Procedures Date Procedure Procedure Detail Performing Clinician Start: 05-02-2023 Radex sacrum & coccy x minimum 2 views Marisa Soto APRN.AREA SUPERVISOR Work Phone: Start: 09-12-2012 Lipid 1996 panel - S audra or Plasma Mm 3 Work Phone: Plan of Treatment Date Care Activity Detail Author Start: 06-28-2024 Annual PCP Team Associate Professor Of Sociology oscar Disease Visit Annual PCP Team Chronic Disease Visit [facility] Start: 06-28-2024 Covid-19 Vaccine (#1) Covid-19 Vacci ne (#1) [facility] Immunizations Immunization Date Immunization Notes Care Provider Floridalma borja 03-02-2006 Meningococcal, MCV4, unspecified conjugate formulation(groups A, C, Y and W-135) Iram Smith Work Phone: [facility] Work Phone: 03-02-2006 tetanus toxoid, reduced diphtheria toxoid, and acellular pertussis vaccine, adsorbed Iram Smith Work Phone: [facility] Work Phone: 03-05-2001 hepatitis B vaccine, pediatric or pediatric/adolescent dosage Iram Smith Work Phone: [facility] Work Phone: 01-18-2000 hepatitis B vaccine, pediatric or pediatric/adolescent dosage Iram Smith Work Phone: [facility] Work Phone: 12-16-1999 hepatitis B vaccine, pediatric or pediatric/adolescent dosage Iram Smith Work Phone: [facility] Work Phone: 12-16-1999 measles, mumps and rubella virus vaccine Iram Smith Work Phone: [facility] Work Phone: 03-25-1993 diphtheria, tetanus toxoids and acellular pertussis vaccine Iram Smith Work Phone: [facility] Work Phone: 03-25-1993 trivalent poliovirus vaccine, live, oral Iram Smith Work Phone: [facility] Work Phone: 08-07-1992 Chicken Pox (disease) Iram spencer Work Phone: [facility] Work Phone: 12-15-1988 diphtheria, tetanus toxoids and pertussis vaccine Iram Smith Work Phone: [facility] Work Phone: 12-15-1988 haemophilus influenz ae type b vaccine, PRP-D conjugate [facility] Work Phone: [facility] Work Phone: 12-15-1988 trivalent poliovirus vaccine, live, oral [facility] Work Phone: [facility] Work Phone: 09-19-1988 measles, mumps and rubella virus vaccine [facility] Work Phone: [facility] Work Phone: 01-15-1988 diphtheria, tetanus toxoids and pertussis vaccine [facility] Work Phone: [facility] Work Phone: 1987 diphtheria, tetanus toxoids and pertussis vaccine [facility] Work Phone: [facility] Work Phone: 1987 trivalent poliovirus vaccine, live, oral [facility] Work Phone: [facility] Work Phone: 1987 diphtheria, tetanus toxoids and pertussis vaccine [facility] Work Phone: [facility] Work Phone: 1987 trivalent poliovirus vaccine, live, oral [facility] Work Phone: [facility] Work Phone: NEGATED: Highlighted row has not occurred!12-01-2022 tetanus toxoid, reduced diphtheria toxoid, and acellular pertussis vaccine, adsorbed Zee Bryant ELECTRONICS ENGINEERING MANAGER.BREAKFAST BAR ATTENDANT Work Phone: [facility] Work Phone: Payers Date Payer Category Payer Unknown * 2023 Medicaid [id number] 2023 Unknown [id number] 2010 Private Health Insurance xxx [id number] Social History Date Type Detail Facility Start: 05-30-2012 End: 11-23-2022 Tobacco smoking status NHIS Former smoker [facility] History of tobacco use Cigarette Smoker [facility] Work Phone: Start: 05-30-2012 End: 11-23-2022 Tobacco use and exposure Never used [facility] Work Phone: Start: 05-30-2012 Alcohol intake Not Asked [facility] Start: 1985 Sex Assigned At Not on file [facility] History of tobacco use Current smoker [facility] Start: 11-23-2022 End: 01-25-2023 Cigarettes smoked current (pack per day) - Reported 0.3 [facility] Start: 11-23-2022 End: 02-09-2023 Alcohol intake Current drinker of alcohol (finding) [facility] Start: 11-23-2022 Tobacco Comment Rare cigarette [facility] Start: 01-25-2023 End: 02-09-2023 Tobacco use panel [facility] Adult Depression Screening Assessment 5 [facility] Start: 03-27-2023 End: 09-13-2023 Alcohol intake Ex-drinker (finding) [facility] Has the [employer], [employer], or [employer] threatened to shut off services in your home in past 12Mo No [facility] Are you now , , , , never or living with a partner? Refused [facility] How often to you hav e a drink containing alcohol? Never [facility] How hard is it for y ou to pay for the very basics like food, housing, medical care, and heating Very hard [facility] Do you feel stress - tense, restless, nervous, or anxious, or unable to sleep at night because your mind is troubled all the time - these days [OSQ] Very much [facility] (I/We) worried enrrique er (my/our) food would run out before (I/we) got money to buy more. Never true [facility] Clinical Notes 06-04-2012 to 09-13-2023 Mark Ng APRN.AREA SUPERVISOR - 09/13/2023 1:14 PM Marisa Oliver APRN.AREA SUPERVISOR - 05/02/2023 12:51 PM Luis Antonio Morgan MD - 03/30/2023 11:30 AM Roney Cook MD - 03/27/2023 3:07 PM EDT Note Date & Type Note Facility 09-13-2023 History of Presen t illness Narrative Subjective HPI HPI Macho Sanches is a 38 year old male who presents today for CC of diarrhea, vomiting, fever, body aches. This started 4 days ago. Has tried otc medication for relief. Symptoms are worsened by nothing. Denies sick exposures. Reports feeling better today, diarrhea X2, last void in past few hours. Tolerating fluids and solids. .Patient presents with: Diarrhea: bodyaches and fever x 4 days, was vomiting PAST MEDICAL HISTORY Diagnosis Date Asthma seasonal Environmental allergies PAST SURGICAL HISTORY Procedure Laterality Date PAST SURGICAL HISTORY OF left testicle torsion ALLERGIES Cats MEDICATIONS buPROPion XL (WELLBUTRIN XL) 300 mg 24 hr tablet Take 1 tablet by mouth once daily. (Patient taking differently: Take 450 mg by mouth once daily.) lisdexamfetamine (VYVANSE) 30 mg capsule Take 1 capsule by mouth once daily for 30 days. (Patient taking differently: Take 60 mg by mouth once daily.) albuterol HFA (PROVENTIL HFA, VENTOLIN HFA) 90 mcg/actuation inhaler Inhale 2 Puffs as instructed every 4 hours as needed. traZODone (DESYREL) 50 mg tablet Take 50 mg by mouth. hydrOXYzine HCl (ATARAX) 25 mg tablet Take 50 mg by mouth three times a day as needed. meloxicam (MOBIC) 15 mg tablet Take 1 tablet by mouth once daily. FAMILY HISTORY Problem Relation Age of Onset Asthma Mother Breast Cancer Mother Prostate Cancer Father Thyroid Father Hypothyroidism Stroke Maternal Grandfather in 80s Social History Tobacco Use Smoking status: Former Packs/day: 0.30 Years: 1.50 Additional pack years: 0.00 Total pack years: 0.45 Types: Cigarettes Smokeless tobacco: Never Tobacco comments: Rare cigarette Vaping Use Vaping Use: Never used Substance Use Topics Alcohol use: Not Currently Alcohol/week: 5.0 standard drinks of alcohol Types: 5 Cans of Beer (12oz) per week Drug use: Yes Types: Marijuana Review of Systems Constitutional: Positive for fever and malaise/fatigue. HENT: Negative for congestion, ear pain, nosebleeds and sore throat. Respiratory: Negative for cough, shortness of breath and wheezing. Cardiovascular: Negative for chest pain. Gastrointestinal: Positive for diarrhea, nausea and vomiting. Negative for abdominal pain and constipation. Musculoskeletal: Negative for neck pain. Skin: Negative for itching and rash. Neurological: Negative for weakness. Objective Blood pressure 136/80, pulse 82, temperature 36.8 C (98.2 F), resp. rate 16, weight 111.6 kg (246 lb), SpO2 98%. Physical Exam Constitutional: General: He is not in acute distress. Appearance: Normal appearance. He is not toxic-appearing. Cardiovascular: Rate and Rhythm: Normal rate and regular rhythm. Heart sounds: Normal heart sounds. Pulmonary: Effort: Pulmonary effort is normal. Breath sounds: Normal breath sounds. Abdominal: General: Bowel sounds are normal. Palpations: Abdomen is soft. Tenderness: There is no abdominal tenderness. Skin: General: Skin is warm and dry. ASSESSMENT/PLAN: 1. Vomiting and diarrhea - ICD9: 787.03, 787.91, ICD10: R11.10, R19.7 Concerns with reported 13 lb weight loss. Vs and exam negative today Reports s/s improving. Declines lab testing, zofran Push fluids Brat diet discussed Any worsening s/s go to ER Will schedule f/u with pcp Mark Ng APRN.AREA SUPERVISOR documented in this encounter [facility] 05-02-2023 Note HNO ID: [id number] Author: Jimena Stockton RT(R) Service: Radiology Author Type: Technologist Type: Progress Notes Filed: 05/02/2023 1:13 PM Note Text: Radiology Service Progress Note PATIENT NAME: Macho Sanches DATE OF SERVICE: May 02, 2023 TIME: 12:59 PM PATIENT IDENTITY VERIFICATION COMPLETED USING TWO (2) IDENTIFIERS: Name and Date of confirmed by patient verbally. FALL SCREENING: Has the patient had 2 falls in the last year or 1 fall with injury or currently using an Ambulatory Assistive Device (Walker, Cane, Wheelchair, Crutches, etc.)? No PATIENT GENDER DATA: Male PATIENT RELEVANT IMPLANT DATA REVIEWED: Yes RADIOLOGY DEPARTMENT: General X-ray: Exam(s) Completed: Spine X-Ray(s): Lumbar AP / LAT / L5-S1 and Sacrum/Coccyx PERIPHERAL IV DATA: Not applicable SIGNED BY: Jimena Stockton RT(R) May 02, 2023 12:59 PM [facility] 05-02-2023 Note HNO ID: [id number] Author: Marisa Soto APRN.AREA SUPERVISOR Service: ? Author Type: Nurse Practitioner Type: Progress Notes Filed: 05/02/2023 1:29 PM Note Text: Subjective Patient came in with complaints of lower right-sided back pain without any radiating tingling or numbness. Patient says it started yesterday. Patient did not injure it in any way. Patient does have chronic right hip and knee pain. Patient's been seeing orthopedics for that. Has no pain there currently. Has not taken Tylenol or Motrin thus far. Denies any other symptoms. The history is provided by the patient. No ssrs developer was used. Back Pain Review of Systems Constitutional: Negative. Musculoskeletal: Positive for back pain. Skin: Negative. Objective Physical Exam Constitutional: Appearance: Normal appearance. Pulmonary: Effort: Pulmonary effort is normal. Musculoskeletal: Arms: Comments: Patient says he is tender in this area but not when palpated just when shifting positions. No discoloration or swelling noted. Neurological: Mental Status: He is alert. PAST MEDICAL HISTORY Diagnosis Date Asthma seasonal Environmental allergies PAST SURGICAL HISTORY Procedure Laterality Date PAST SURGICAL HISTORY OF left testicle torsion ALLERGIES Cats MEDICATIONS buPROPion XL (WELLBUTRIN XL) 300 mg 24 hr tablet Take 1 tablet by mouth once daily. lisdexamfetamine (VYVANSE) 30 mg capsule Take 1 capsule by mouth once daily for 30 days. albuterol HFA (PROVENTIL HFA, VENTOLIN HFA) 90 mcg/actuation inhaler Inhale 2 Puffs as instructed every 4 hours as needed. meloxicam (MOBIC) 15 mg tablet Take 1 tablet by mouth once daily. traZODone (DESYREL) 50 mg tablet Take 50 mg by mouth. hydrOXYzine HCl (ATARAX) 25 mg tablet Take 25 mg by mouth three times daily as needed. FAMILY HISTORY Problem Relation Age of Onset Asthma Mother Breast Cancer Mother Prostate Cancer Father Thyroid Father Hypothyroidism Stroke Maternal Grandfather in 80s Social History Tobacco Use Smoking status: Former Packs/day: 0.30 Years: 1.50 Additional pack years: 0.00 Total pack years: 0.45 Types: Cigarettes Smokeless tobacco: Never Tobacco comments: Rare cigarette Vaping Use Vaping Use: Never used Substance Use Topics Alcohol use: Not Currently Alcohol/week: 5.0 standard drinks of alcohol Types: 5 Cans of Beer (12oz) per week Drug use: No ASSESSMENT/PLAN: 1. Acute midline low back pain without sciatica - ICD9: 724.2, ICD10: M54.50 - XR SACRUM/COCCYX 3V AP/LAT - XR LUMBAR GENERAL 3V AP/LAT/L5-S1 * * * * Physician Interpretation * * * * EXAM TITLE: XR SACRUM/COCCYX 3V AP/LAT EXAM DATE/TIME: 05/02/2023 1:13 PM COMPARISON: None. CLINICAL INDICATION/HISTORY: Low back pain. TECHNIQUE: AP and lateral views of the sacrum/coccyx are presented. FINDINGS: No acute fractures demonstrated in the sacrum. No subluxation of the coccyx. The visualized other pelvic bones are intact. No significant soft tissue swelling. IMPRESSION IMPRESSION: Unremarkable sacrum/coccyx x-ray. Consultant Internship: LIZ Transcribe Date/Time: May 02 2023 1:13P Dictated by : MD Sima JONES twice a day as needed. Patient was instructed to ice and rest. Patient was educated about proper use of medication supportive therapies. Patient will take patient says he has been to orthopedics but did not do any other Tylenol and he is already on Mobic. Patient will follow-up if signs and symptoms seem to be getting worse not better. Marisa Soto APRN.[facility] 05-02-2023 History of Presen t illness Narrative Images from the original note were not included. Subjective Patient came in with complaints of lower right-sided back pain without any radiating tingling or numbness. Patient says it started yesterday. Patient did not injure it in any way. Patient does have chronic right hip and knee pain. Patient's been seeing orthopedics for that. Has no pain there currently. Has not taken Tylenol or Motrin thus far. Denies any other symptoms. The history is provided by the patient. No ssrs developer was used. Back Pain Review of Systems Constitutional: Negative. Musculoskeletal: Positive for back pain. Skin: Negative. Objective Physical Exam Constitutional: Appearance: Normal appearance. Pulmonary: Effort: Pulmonary effort is normal. Musculoskeletal: Arms: Comments: Patient says he is tender in this area but not when palpated just when shifting positions. No discoloration or swelling noted. Neurological: Mental Status: He is alert. PAST MEDICAL HISTORY Diagnosis Date Asthma seasonal Environmental allergies PAST SURGICAL HISTORY Procedure Laterality Date PAST SURGICAL HISTORY OF left testicle torsion ALLERGIES Cats MEDICATIONS buPROPion XL (WELLBUTRIN XL) 300 mg 24 hr tablet Take 1 tablet by mouth once daily. lisdexamfetamine (VYVANSE) 30 mg capsule Take 1 capsule by mouth once daily for 30 days. albuterol HFA (PROVENTIL HFA, VENTOLIN HFA) 90 mcg/actuation inhaler Inhale 2 Puffs as instructed every 4 hours as needed. meloxicam (MOBIC) 15 mg tablet Take 1 tablet by mouth once daily. traZODone (DESYREL) 50 mg tablet Take 50 mg by mouth. hydrOXYzine HCl (ATARAX) 25 mg tablet Take 25 mg by mouth three times daily as needed. FAMILY HISTORY Problem Relation Age of Onset Asthma Mother Breast Cancer Mother Prostate Cancer Father Thyroid Father Hypothyroidism Stroke Maternal Grandfather in 80s Social History Tobacco Use Smoking status: Former Packs/day: 0.30 Years: 1.50 Additional pack years: 0.00 Total pack years: 0.45 Types: Cigarettes Smokeless tobacco: Never Tobacco comments: Rare cigarette Vaping Use Vaping Use: Never used Substance Use Topics Alcohol use: Not Currently Alcohol/week: 5.0 standard drinks of alcohol Types: 5 Cans of Beer (12oz) per week Drug use: No ASSESSMENT/PLAN: 1. Acute midline low back pain without sciatica - ICD9: 724.2, ICD10: M54.50 - XR SACRUM/COCCYX 3V AP/LAT - XR LUMBAR GENERAL 3V AP/LAT/L5-S1 * * * * Physician Interpretation * * * * EXAM TITLE: XR SACRUM/COCCYX 3V AP/LAT EXAM DATE/TIME: 05/02/2023 1:13 PM COMPARISON: None. CLINICAL INDICATION/HISTORY: Low back pain. TECHNIQUE: AP and lateral views of the sacrum/coccyx are presented. FINDINGS: No acute fractures demonstrated in the sacrum. No subluxation of the coccyx. The visualized other pelvic bones are intact. No significant soft tissue swelling. IMPRESSION IMPRESSION: Unremarkable sacrum/coccyx x-ray. Consultant Internship: LIZ Transcribe Date/Time: May 02 2023 1:13P Dictated by : MARCY RODRIGUES MD Flexeril twice a day as needed. Patient was instructed to ice and rest. Patient was educated about proper use of medication supportive therapies. Patient will take patient says he has been to orthopedics but did not do any other Tylenol and he is already on Mobic. Patient will follow-up if signs and symptoms seem to be getting worse not better. Marisa Soto APRN.AREA SUPERVISOR documented in this encounter [facility] 04-06-2023 Note HNO ID: [id number] Author: Anthony Loera PT Service: ? Author Type: Physical Therapist Type: Progress Notes Filed: 04/06/2023 2:51 PM Note Text: 04/06/2023 [facility] PHYSICAL THERAPY DISCONTINUANCE OF CARE Plan of Care Period: Start of Care Date: 12/02/22 Last Visit Date: 12/19/2022 Therapy Program: The following is a summary of the interventions provided for this episode of care; Therapeutic exercise and Self-[facility] management Assessment: Based on most recent visit, patient was progressing as expected toward functional goals based on home exercise program compliance and documented subjective information on progress. Unable to formally assess goal achievement, as patient has not returned to therapy or scheduled additional follow-up appointments. Reason for Discontinuation of Care: Patient has not returned to therapy or scheduled additional follow-up appointments. Anthony Loera PT [facility] 03-30-2023 Note HNO ID: [id number] Author: Luis Antonio West MD Service: ? Author Type: Physician Type: Progress Notes Filed: 03/31/2023 9:22 PM Note Text: IOP - Outpatient Psychiatry Visit-Pharmacological Management Date/Time: 03/30/23 11:30 AM Method of contact: Redapt I have communicated my name and active licensure. The patient's identity and physical location were verified at the time of this visit. Either the patient or their legal community engagement representative has been informed of the risks and benefits of -- and alternatives to -- treatment through a remote evaluation and consents to proceed with the evaluation remotely. ASSESSMENT: Macho Sanches is a 37 year old year old male who lives with parents in [place], currently on Wellbutrin and Vyvanse for the management of MDD, RICHARD, ADHD who presents for a outpatient psychiatric follow-up appointment to address current medications. The patient had the last visit with me on 03/08/23 and has since noticed improvement in depression symptoms with continued difficulty with anxiety and ADHD symptoms, therefore warranting medication changes as described below. Typical outpatient follow-up to be established with [facility] following this visit. DIAGNOSIS: PRIMARY: MDD, recurrent, severe without psychotic features SECONDARY: RICHARD, ADHD, Stimulant Abuse (history of overusing stimulant medication in the past), Marijuana Abuse GAF: 60-51 Moderate symptoms or moderate difficulty in social, occupational or school functioning. TREATMENT PLAN: - Indicated Labs: No additional labs indicated at this time - Psychotherapy: Appropriate to continue with [facility] - Medications: - Continue: Wellbutrin XL 300 mg daily - Increase: Vyvanse 50 mg daily - Social: engage with others in meaningful ways as permitted by local COVID restrictions - Other: will assist patient in attempting to change provider through [facility] R/B/A of current course of recommended therapy discussed. Questions answered. Follow Up: with resident clinic CC: Medication Management HPI: Mood has been up and down but is still using the skills and finding them helpful. Monday before last (about 1.5 weeks ago) patient felt insulted by his father when he had asked to use the car. Was feeling very low and began having passive suicidal thoughts. It was really hard but he managed to use his skills in that moment and the next day he did a walk in appointment at [facility] to establish for psychotherapy. Has noticed a big difference with the vyvanse and is able to balance stressors easier. Concentration can now be sustained for more than an hour which is making him less anxious about the things he has to do during the day which therefore decreases his anxiety at night, helping him sleep easier without needing Trazodone or Atarax as often compared to previously needing two Atarax or an Atarax and a Trazodone to help him sleep. Not feeling as motivated as he would like but has seen more improvement with the vyvanse than he did previously with the Wellbutrin and would prefer to prioritize vyvanse treatment at this time as previously planned. Denies SI/HI/AVH. Pertinent past psychiatric history reviewed, including: - Recent Hospitalizations - Med trials - Suicide attempts - Legal history Data PHQ-9 03/07/2023 03/07/2023 03/15/2023 Score 16 16 14 (0-4) minimal depression, (5-9) mild depression, (10-14) moderate depression, (15-19) moderately severe depression, (20-27) severe depression PHQ-9 Score 03/15/2023 14 03/07/2023 16 03/07/2023 16 03/02/2023 16 03/02/2023 16 02/21/2023 14 02/08/2023 12 02/08/2023 12 01/23/2023 19 01/19/2023 22 (0-4) minimal depression, (5-9) mild depression, (10-14) moderate depression, (15-19) moderately severe depression, (20-27) severe depression RICHARD - 7 SCORES 03/07/2023 03/07/2023 03/15/2023 RICHARD-7 Score 8 8 7 (0-4) minimal anxiety, (5-9) mild anxiety, (10-14) moderate anxiety, (15-21) severe anxiety RICHARD - 7 SCORES RICHARD-7 Score 03/15/2023 7 03/07/2023 8 03/07/2023 8 03/02/2023 9 03/02/2023 9 02/21/2023 9 02/08/2023 11 02/08/2023 11 01/23/2023 10 01/19/2023 12 (0-4) minimal anxiety, (5-9) mild anxiety, (10-14) moderate anxiety, (15-21) severe anxiety Pertinent lab work AND results over past 6 months: BUN (mg/dL) Date Value 09/12/2012 12 Creatinine (mg/dL) Date Value 09/12/2012 0.92 Potassium (mmol/L) Date Value 09/12/2012 4.1 Alkaline Phosphatase (U/L) Date Value 09/12/2012 75 AST (U/L) Date Value 09/12/2012 22 ALT (U/L) Date Value 09/12/2012 26 Sodium Date Value Ref Range Status 09/12/2012 140 135 - 146 mmol/L Final Albumin (g/dL) Date Value 09/12/2012 4.7 Cholesterol, Total (mg/dL) Date Value 09/12/2012 187 HDL Cholesterol (mg/dL) Date Value 09/12/2012 51 LDL Cholesterol (mg/dL) Date Value 09/12/2012 117 Triglyceride (mg/dL) Date Value 09/12/2012 95 TSH Date Value Ref Range Status 09/12/2012 (more content not included)... [facility] 03-30-2023 History of Presen t illness Narrative Images from the original note were not included. MDIOP - Outpatient Psychiatry Visit-Pharmacological Management Date/Time: 03/30/23 11:30 AM Method of contact: Redapt I have communicated my name and active licensure. The patient's identity and physical location were verified at the time of this visit. Either the patient or their legal community engagement representative has been informed of the risks and benefits of -- and alternatives to -- treatment through a remote evaluation and consents to proceed with the evaluation remotely. ASSESSMENT: Macho Sanches is a 37 year old year old male who lives with parents in [place], currently on Wellbutrin and Vyvanse for the management of MDD, RICHARD, ADHD who presents for a outpatient psychiatric follow-up appointment to address current medications. The patient had the last visit with me on 03/08/23 and has since noticed improvement in depression symptoms with continued difficulty with anxiety and ADHD symptoms, therefore warranting medication changes as described below. Typical outpatient follow-up to be established with [facility] following this visit. DIAGNOSIS: PRIMARY: MDD, recurrent, severe without psychotic features SECONDARY: RICHARD, ADHD, Stimulant Abuse (history of overusing stimulant medication in the past), Marijuana Abuse GAF: 60-51 Moderate symptoms or moderate difficulty in social, occupational or school functioning. TREATMENT PLAN: - Indicated Labs: No additional labs indicated at this time - Psychotherapy: Appropriate to continue with [facility] - Medications: - Continue: Wellbutrin XL 300 mg daily - Increase: Vyvanse 50 mg daily - Social: engage with others in meaningful ways as permitted by local COVID restrictions - Other: will assist patient in attempting to change provider through [facility] R/B/A of current course of recommended therapy discussed. Questions answered. Follow Up: with resident clinic CC: Medication Management HPI: Mood has been up and down but is still using the skills and finding them helpful. Monday before last (about 1.5 weeks ago) patient felt insulted by his father when he had asked to use the car. Was feeling very low and began having passive suicidal thoughts. It was really hard but he managed to use his skills in that moment and the next day he did a walk in appointment at [facility] to establish for psychotherapy. Has noticed a big difference with the vyvanse and is able to balance stressors easier. Concentration can now be sustained for more than an hour which is making him less anxious about the things he has to do during the day which therefore decreases his anxiety at night, helping him sleep easier without needing Trazodone or Atarax as often compared to previously needing two Atarax or an Atarax and a Trazodone to help him sleep. Not feeling as motivated as he would like but has seen more improvement with the vyvanse than he did previously with the Wellbutrin and would prefer to prioritize vyvanse treatment at this time as previously planned. Denies SI/HI/AVH. Pertinent past psychiatric history reviewed, including: - Recent Hospitalizations - Med trials - Suicide attempts - Legal history Data PHQ-9 03/07/2023 03/07/2023 03/15/2023 Score 16 16 14 (0-4) minimal depression, (5-9) mild depression, (10-14) moderate depression, (15-19) moderately severe depression, (20-27) severe depression PHQ-9 Score 03/15/2023 14 03/07/2023 16 03/07/2023 16 03/02/2023 16 03/02/2023 16 02/21/2023 14 02/08/2023 12 02/08/2023 12 01/23/2023 19 01/19/2023 22 (0-4) minimal depression, (5-9) mild depression, (10-14) moderate depression, (15-19) moderately severe depression, (20-27) severe depression RICHARD - 7 SCORES 03/07/2023 03/07/2023 03/15/2023 RICHARD-7 Score 8 8 7 (0-4) minimal anxiety, (5-9) mild anxiety, (10-14) moderate anxiety, (15-21) severe anxiety RICHARD - 7 SCORES RICHARD-7 Score 03/15/2023 7 03/07/2023 8 03/07/2023 8 03/02/2023 9 03/02/2023 9 02/21/2023 9 02/08/2023 11 02/08/2023 11 01/23/2023 10 01/19/2023 12 (0-4) minimal anxiety, (5-9) mild anxiety, (10-14) moderate anxiety, (15-21) severe anxiety Pertinent lab work & results over past 6 months: BUN (mg/dL) Date Value 09/12/2012 12 Creatinine (mg/dL) Date Value 09/12/2012 0.92 Potassium (mmol/L) Date Value 09/12/2012 4.1 Alkaline Phosphatase (U/L) Date Value 09/12/2012 75 AST (U/L) Date Value 09/12/2012 22 ALT (U/L) Date Value 09/12/2012 26 Sodium Date Value Ref Range Status 09/12/2012 140 135 - 146 mmol/L Final Albumin (g/dL) Date Value 09/12/2012 4.7 Cholesterol, Total (mg/dL) Date Value 09/12/2012 187 HDL Cholesterol (mg/dL) Date Value 09/12/2012 51 LDL Cholesterol (mg/dL) Date Value 09/12/2012 117 Triglyceride (mg/dL) Date Value 09/12/2012 95 TSH Date Value Ref Range Status 09/12/2012 3.100 0.400 - 5.500 uU/mL Final No results found for: VITD25 Psych History, Brief: Prior Diagnosis: ADHD, MDD, Stimulant Abuse, Marijuana Abuse Current Provider: Iram Blair CNP ([facility] 01/03/23) Therapist: scheduled to see Palma Hebert in March Current Kiln Remover: None Last Hospitalization: Denies hospitalization, at the ED after a well check ECT: None Suicide Attempts: None Previous Discontinued Psychiatric Med Trials: Abilify, Adderall, Zoloft, Seroquel, Focalin, Effexor, possibly prozac and/or lexapro, Strattera (nausea/ineffective), Vyvanse, Wellbutrin CURRENT MEDICATIONS: Wellbutrin XL 300 mg daily Trazodone 50 mg QHS - rarely needing Atarax 25 mg TID PRN anxiety - rarely needing Vyvanse 30 mg daily Denies any adverse effects of current medication regimen. PDMP website checked and validated. All prescriptions have been APPROPRIATELY filled. No suspicious activity was identified. 03/30/2023 by Luis Atnonio West MD Has filled medical marijuana 10 times in the past 30 days Medical ROS: Musculoskeletal: chronic pain in right knee, right hip and right lower back - has appointment today with ortho to discuss PSYCH: See HPI PAST MEDICAL HISTORY Diagnosis Date Asthma seasonal Environmental allergies PAST SURGICAL HISTORY Procedure Laterality Date PAST SURGICAL HISTORY OF left testicle torsion SUBSTANCE USE HISTORY: Nicotine: None Caffeine: coffee (4 cups per day) Alcohol: No history of use or dependence Marijuana: has been using the past 3 days but not before that, plans not to use as all during IOP Cocaine: No history of use or dependence Opiods: No history of use or dependence SPIRITUALITY: None PFSH: Macho grew up in [place]. He has one younger sister. He says he was lonely in elementary school, and bullied in middle and high school. He says he was cared for at home, and was closer to his mom, but didn't go any further. His mom is a professor at the [employer]. His dad is also employed working with various schools in the [employer]. He doesn't have contact with his sister. He says she was mean as a kid. Macho hs been living in [place] at various times over the years. He moved back in with his parents in October 2022. The patient lives with mother and father - they don't get along well ADLs/IADLs: independent Education: [employer] Employment: Unemployed, not seeking work. Financial concerns: Yes, no income Marital Status: Single (never ) Children: none Current Supports: Include friends. Legal Hx: DUI 2009 Service: No ABUSE HISTORY (physical, mental, verbal, sexual): From Childhood: Bullied in middle and high school Response / Significance to Patient: Affected his self esteem. From Adulthood: None Response / Significance to Patient: NA Did you experience trauma?: Yes TRAUMA HISTORY (physical, mental, verbal, sexual): From Childhood: Bullied in school Response / Significance to Patient: Depression, low self esteem. 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 FAMILY PSYCHIATRIC HISTORY: Paternal family (dad, uncle, and grandmother)-numerous family members with depression, anxiety, alcohol use disorder Denies additional family history PHYSICAL EXAM: There were no vitals taken for this visit. Eyes: Anicteric sclera. Extraocular movements are intact. Neuro: No akathisia appreciated/endorsed MENTAL STATUS: Appearance: Casually dressed and appropriately groomed Behavior: Appropriate, passive but engaged Alertness: Alert Orientation: Person, Place, Time and Situation Speech/Language: The patient demonstrates appropriate tone, prosody, deedee, phonetics, and syntax. Soft Mood: slightly improved depression and anxiety overall Affect: mood congruent, restricted range Thought Form: Coherent Thought Content: Coherent Suicidal Ideations: No suicidal ideation, intent or plan. Homicidal Ideations: No homicidal ideation, intent or plan. Insight: Appropriate Judgment: Appropriate Memory/Cognition: Intact Psychomotor: Psychomotor activity was normal PSYCHIATRY APPOINTMENT: E/M Visit-Pharmacological Management I spent a total of 30 minutes on the date of the service which included preparing to see the patient, [id number] patient care, completing clinical documentation, obtaining and/or reviewing separately obtained history, performing a medically appropriate examination, counseling and educating the patient/family/caregiver, ordering medications, tests, or procedures, and communicating with other HCPs (not separately reported). Luis Antonio West MD documented in this encounter [facility] 03-27-2023 Note HNO ID: [id number] Author: Roney Frasre MD Service: ? Author Type: Physician Type: Progress Notes Filed: 04/24/2023 11:36 PM Note Text: Roney Fraser MD Department of Orthopaedics Orthopaedics [address] [facility] [address] Dept: [phone] Dept March 27, 2023 CHIEF COMPLAINT: Established Patient of the Right Knee (MRI 03/09/2023) HPI Returns today to check on his MRI, also having some back and leg pain. ASSESSMENT: M54.16 Lumbar radiculopathy, chronic (primary encounter diagnosis) PLAN: He has some patellofemoral OA, but the possible meniscus tear is minor and non-surgical. Much of what he is describing today seems to be lumbar related and we'll have him try some PT and then he can follow with non-op spine. OBJECTIVE: Mr. Macho Sanches is a pleasant 37 year old in no apparent distress. Gen:There were no vitals taken for this visit. nl development, obese, no deformities ENT: Normocephalic, normal hearing, moist mucosa CV: Pulses:DP/PT= 2+ and symmetric, capillary refill < 2 secs, no peripheral edema/varicosities Skin: no rash, bruising or lesions. Good turgor. Psych: cooperative and appropriate, alert and oriented x 3, good mood and affect. Musculoskeletal: Stable exam Imaging: IMPRESSION: GRADE IV CHONDROMALACIA PATELLA, WITH FULL-THICKNESS FISSURE AT THE LATERAL FACET. POSSIBLE SMALL FREE EDGE RADIAL TEAR OF THE POSTERIOR HORN OF THE LATERAL MENISCUS, DEMONSTRATED ON 1 IMAGE ONLY. Consultant Internship: LIZ Transcribe Date/Time: Mar 10 2023 9:15P Dictated by : LUZ MARIA WATSON MD This examination was interpreted and the report reviewed and electronically signed by: LUZ MARIA WATSON MD on Mar 10 2023 9:47PM EST Results-Findings * * *Final Report* * * DATE OF EXAM: Mar 09 2023 8:13AM LDM 0213 - MRI KNEE WO IVCON RT / PROCEDURE REASON: multiple diagnoses * * * * Physician Interpretation * * * * MRI KNEE WO IVCON RT HISTORY: Right leg pain Chronic pain of right knee Chronic pain of right knee TECHNIQUE: Routine non-contrast MRI of the knee MQ: MRK_2B COMPARISON: None RESULT: MENISCI: Medial Meniscus: Intact and within normal limits for age. Lateral Meniscus: There is intrasubstance degeneration of the posterior horn with possible small free edge radial tear demonstrated on 1 image only. LIGAMENTS: ACL: Intact. PCL: Intact. MCL: Intact. LCL Complex: Intact ARTICULATIONS: Medial: Within normal limits. Lateral: Within normal limits. Patellofemoral: Grade IV chondromalacia patella with full-thickness fissure at the lateral facet. TENDONS/BURSAE: The distal quadriceps and patellar tendons are intact. The popliteus tendon is intact. BONES AND MARROW: No evidence of fracture or bone marrow replacing process. MUSCLES: Muscle bulk and signal intensity are normal. JOINT FLUID AND SYNOVIUM: No joint effusion or synovitis. No popliteal cyst. SUBCUTANEOUS SPACE: Unremarkable. OTHER: No other significant abnormality identified. Localizer images: No additional findings. Supporting Subjective Information Below: Past Surgical History: PAST SURGICAL HISTORY Procedure Laterality Date PAST SURGICAL HISTORY OF left testicle torsion Medications: Current Outpatient Medications Medication Sig buPROPion XL (WELLBUTRIN XL) 300 mg 24 hr tablet Take 1 tablet by mouth once daily. lisdexamfetamine (VYVANSE) 30 mg capsule Take 1 capsule by mouth once daily for 30 days. albuterol HFA (PROVENTIL HFA, VENTOLIN HFA) 90 mcg/actuation inhaler Inhale 2 Puffs as instructed every 4 hours as needed. meloxicam (MOBIC) 15 mg tablet Take 1 tablet by mouth once daily. traZODone (DESYREL) 50 mg tablet Take 50 mg by mouth. hydrOXYzine HCl (ATARAX) 25 mg tablet Take 25 mg by mouth three times daily as needed. No current facility-administered medications for this visit. Allergies: Cats ROS: General (negative for fatigue, malaise, weight loss/gain) HEENT (negative for headache, earache, recent vision changes, sinus pain, sore throat) Respiratory (no recent shortness of breath, hemoptysis) CV (negative for chest tightness, palpitations) Musculoskeletal (see HPI) Psych (no depression, anxiety) Roney Fraser MD [facility] 03-27-2023 History of Presen t illness Narrative Roney Fraser MD Department of Orthopaedics Orthopaedics [address] [facility] [address] Dept: [phone] Dept March 27, 2023 CHIEF COMPLAINT: Established Patient of the Right Knee (MRI 03/09/2023) HPI Returns today to check on his MRI, also having some back and leg pain. ASSESSMENT: M54.16 Lumbar radiculopathy, chronic (primary encounter diagnosis) PLAN: He has some patellofemoral OA, but the possible meniscus tear is minor and non-surgical. Much of what he is describing today seems to be lumbar related and we'll have him try some PT and then he can follow with non-op spine. OBJECTIVE: Mr. Macho Sanches is a pleasant 37 year old in no apparent distress. Gen:There were no vitals taken for this visit. nl development, obese, no deformities ENT: Normocephalic, normal hearing, moist mucosa CV: Pulses:DP/PT= 2+ and symmetric, capillary refill < 2 secs, no peripheral edema/varicosities Skin: no rash, bruising or lesions. Good turgor. Psych: cooperative and appropriate, alert and oriented x 3, good mood and affect. Musculoskeletal: Stable exam Imaging: IMPRESSION: GRADE IV CHONDROMALACIA PATELLA, WITH FULL-THICKNESS FISSURE AT THE LATERAL FACET. POSSIBLE SMALL FREE EDGE RADIAL TEAR OF THE POSTERIOR HORN OF THE LATERAL MENISCUS, DEMONSTRATED ON 1 IMAGE ONLY. Consultant Internship: LIZ Transcribe Date/Time: Mar 10 2023 9:15P Dictated by : LUZ MARIA WATSON MD This examination was interpreted and the report reviewed and electronically signed by: LUZ MARIA WATSON MD on Mar 10 2023 9:47PM EST Results-Findings * * *Final Report* * * DATE OF EXAM: Mar 09 2023 8:13AM LDM 0213 - MRI KNEE WO IVCON RT / PROCEDURE REASON: multiple diagnoses * * * * Physician Interpretation * * * * MRI KNEE WO IVCON RT HISTORY: Right leg pain Chronic pain of right knee Chronic pain of right knee TECHNIQUE: Routine non-contrast MRI of the knee MQ: MRK_2B COMPARISON: None RESULT: MENISCI: Medial Meniscus: Intact and within normal limits for age. Lateral Meniscus: There is intrasubstance degeneration of the posterior horn with possible small free edge radial tear demonstrated on 1 image only. LIGAMENTS: ACL: Intact. PCL: Intact. MCL: Intact. LCL Complex: Intact ARTICULATIONS: Medial: Within normal limits. Lateral: Within normal limits. Patellofemoral: Grade IV chondromalacia patella with full-thickness fissure at the lateral facet. TENDONS/BURSAE: The distal quadriceps and patellar tendons are intact. The popliteus tendon is intact. BONES AND MARROW: No evidence of fracture or bone marrow replacing process. MUSCLES: Muscle bulk and signal intensity are normal. JOINT FLUID AND SYNOVIUM: No joint effusion or synovitis. No popliteal cyst. SUBCUTANEOUS SPACE: Unremarkable. OTHER: No other significant abnormality identified. Localizer images: No additional findings. Supporting Subjective Information Below: Past Surgical History: PAST SURGICAL HISTORY Procedure Laterality Date PAST SURGICAL HISTORY OF left testicle torsion Medications: Current Outpatient Medications Medication Sig buPROPion XL (WELLBUTRIN XL) 300 mg 24 hr tablet Take 1 tablet by mouth once daily. lisdexamfetamine (VYVANSE) 30 mg capsule Take 1 capsule by mouth once daily for 30 days. albuterol HFA (PROVENTIL HFA, VENTOLIN HFA) 90 mcg/actuation inhaler Inhale 2 Puffs as instructed every 4 hours as needed. meloxicam (MOBIC) 15 mg tablet Take 1 tablet by mouth once daily. traZODone (DESYREL) 50 mg tablet Take 50 mg by mouth. hydrOXYzine HCl (ATARAX) 25 mg tablet Take 25 mg by mouth three times daily as needed. No current facility-administered medications for this visit. Allergies: Cats ROS: General (negative for fatigue, malaise, weight loss/gain) HEENT (negative for headache, earache, recent vision changes, sinus pain, sore throat) Respiratory (no recent shortness of breath, hemoptysis) CV (negative for chest tightness, palpitations) Musculoskeletal (see HPI) Psych (no depression, anxiety) Roney Fraser MD documented in this encounter [facility] 03-16-2023 Note HNO ID: [id number] Author: [facility]z Angel [facility] Service: ? Author Type: Counselor Type: Progress Notes Filed: 03/16/2023 1:19 PM Note Text: No-show for appointment/no charge. KHARI Dunn [facility] 03-16-2023 Miscellaneous Notes Unfortunately, nothing sooner at this time. The patient was added to the wait list. Patient called to schedule appointment with Dr. Fraser to review MRI results and discuss treatment plan. Patient is scheduled on 03/27/23 which was first available at the [facility]. Patient reports that he is in significant pain and is requesting for medical staff to notify him if he can be seen sooner. Confirmed phone number in patient's chart is accurate. documented in this encounter [facility] 03-15-2023 Note HNO ID: [id number] Author: Sophia Alvarado [facility] Service: Behavioral Health IOP (Intensive Outpatient Program) Author Type: Therapist Type: Progress Notes Filed: 03/15/2023 2:13 PM Note Text: BEHAVIORAL HEALTH IOP (INTENSIVE OUTPATIENT PROGRAM) DAILY PROGRESS NOTE VIOP - Patient consented to VIOP through [employer]. SERVICE DATE: March 15, 2023 SERVICE TIME: 9:00 AM Last day INTERVAL PROGRESS: Stable PATIENT'S PROGRESS: Attentive AND Involved BEHAVIOR: Appearance: Fair grooming and hygiene Attitude: Cooperative and Guarded Affect: Anxious and Restricted Mood: Calm and timid Thought Process: Logical, [place], Goal-directed, and Preoccupied Speech: Normal Eye Contact: Good Describe Change Noted Throughout the Day: Consistent GROUP THERAPY: Illness Management Group Start Time: 9:00am End Time: 10:00am Total Time: 60 minutes Number of Therapists: 2 Number of Patients: 10 Problem(s) Number Addressed: 1 Intervention: Active Listening, Clarified, Challenged, Encouraged, Engaged, Explored, Gave Feedback, Observed, Redirected, and Supported Explain: Patients shared a feeling word and two positive traits. They reviewed their treatment plans and identified areas in which they are working and not working. Response: Patient was late and will not be charged. Patient reported feeling calm. He stated his positive traits are easygoing and honest. He stated he has done well with his skill of acceptance, specifically with changes that have happened this week alone. He noted to use tips for Ackerman Mind and turning the mind. He shared he has worked some on body language as well for communicating. He shared he is struggling with opposite action. He stated how this skill has not been a priority like other skills. Coping Strategies Group Start Time: 10:10am End Time: 11:00am Total Time: 50 minutes Number of Therapists: 2 Number of Patients: 10 Problem(s) Number Addressed: 1 Intervention: Active Listening, Clarified, Challenged, Encouraged, Engaged, Explored, Gave Feedback, Observed, Redirected, and Supported Explain: Patients continued education with opposite action using given handouts and peer discussion. Response: Patient participated with reading. He appeared engaged and participatory with non-verbal cues. Process and Emotion Management Group Start Time: 11:10am End Time: 12:00pm Total Time: 50 minutes Number of Therapists: 2 Number of Patients: 10 Problem(s) Number Addressed: 1 Intervention: Active Listening, Clarified, Challenged, Encouraged, Engaged, Explored, Gave Feedback, Observed, Redirected, and Supported Explain: Patients finished education with the topic of opposite action. They shared their feeling word and takeaway from today at group end. Response: Patient appeared engaged and participated in reading. He was quiet. He reported feeling timid. He stated his takeaway from today is learning more about how to work on opposite action and recognizing where he needs to start. He stated he wants to work on the feeling of failure. He shared parting words of wisdom. PLAN: Continue to gain insights into problems. Monitor thinking/complete thought sheets. Incorporate relaxation/coping strategies into daily routine. Discharge to alternative level of care. SOBRIETY (If applicable): N/A Patient Data [place]-SUICIDE SEVERITY RATING SCALE Screen Version - Recent Past month Ask questions that are bolded and underlined. YES/NO Ask Questions 1 and 2 1) Have you wished you were or wished you could go to sleep and not wake up? Yes 2) Have you actually had any thoughts of killing yourself? No If YES to 2, ask questions 3, 4, 5, and 6. If NO to 2, go directly to question 6. 3) Have you been thinking about how you might do this? E.g. ?I thought about taking an overdose but I never made a specific plan as to when where or how I would actually do it?.and I would never go through with it.? 4) Have you had these thoughts and had some intention of acting on them? As opposed to ?I have the thoughts but I definitely will not do anything about them.? 5) Have you started to work out or worked out the details of how to kill yourself? Do you intend to carry out this plan? 6) Have you ever done anything, started to do anything, or prepared to do anything to end your life? Examples: Collected pills, obtained a gun, gave away valuables, wrote a will or suicide note, took out pills but didn't swallow any, held a gun but changed your mind or it was grabbed from your hand, went to the roof but didn't jump; or actually took pills, tried to shoot yourself, cut yourself, tried to hang yourself, etc. If YES, ask: Was this within the past three months? YES/NO No Low Risk Moderate Risk High Risk Patient reported an increase in the severity and frequency of his SI over the last 3 days, however he reported to using skills to help manage and rec (more content not included)... [facility] 03-15-2023 History of Presen t illness Narrative Images from the original note were not included. BEHAVIORAL HEALTH IOP (INTENSIVE OUTPATIENT PROGRAM) DAILY PROGRESS NOTE VIOP - [facility] SERVICE DATE: March 15, 2023 SERVICE TIME: 9:00 AM Last day INTERVAL PROGRESS: Stable PATIENT'S PROGRESS: Attentive & Involved BEHAVIOR: Appearance: Fair grooming and hygiene Attitude: Cooperative and Guarded Affect: Anxious and Restricted Mood: Calm and timid Thought Process: Logical, [place], Goal-directed, and Preoccupied Speech: Normal Eye Contact: Good Describe Change Noted Throughout the Day: Consistent GROUP THERAPY: Illness Management Group Start Time: 9:00am End Time: 10:00am Total Time: 60 minutes Number of Therapists: 2 Number of Patients: 10 Problem(s) Number Addressed: 1 Intervention: Active Listening, Clarified, Challenged, Encouraged, Engaged, Explored, Gave Feedback, Observed, Redirected, and Supported Explain: Patients shared a feeling word and two positive traits. They reviewed their treatment plans and identified areas in which they are working and not working. Response: Patient was late and will not be charged. Patient reported feeling calm. He stated his positive traits are easygoing and honest. He stated he has done well with his skill of acceptance, specifically with changes that have happened this week alone. He noted to use tips for Ackerman Mind and turning the mind. He shared he has worked some on body language as well for communicating. He shared he is struggling with opposite action. He stated how this skill has not been a priority like other skills. Coping Strategies Group Start Time: 10:10am End Time: 11:00am Total Time: 50 minutes Number of Therapists: 2 Number of Patients: 10 Problem(s) Number Addressed: 1 Intervention: Active Listening, Clarified, Challenged, Encouraged, Engaged, Explored, Gave Feedback, Observed, Redirected, and Supported Explain: Patients continued education with opposite action using given handouts and peer discussion. Response: Patient participated with reading. He appeared engaged and participatory with non-verbal cues. Process and Emotion Management Group Start Time: 11:10am End Time: 12:00pm Total Time: 50 minutes Number of Therapists: 2 Number of Patients: 10 Problem(s) Number Addressed: 1 Intervention: Active Listening, Clarified, Challenged, Encouraged, Engaged, Explored, Gave Feedback, Observed, Redirected, and Supported Explain: Patients finished education with the topic of opposite action. They shared their feeling word and takeaway from today at group end. Response: Patient appeared engaged and participated in reading. He was quiet. He reported feeling timid. He stated his takeaway from today is learning more about how to work on opposite action and recognizing where he needs to start. He stated he wants to work on the feeling of failure. He shared parting words of wisdom. PLAN: Continue to gain insights into problems. Monitor thinking/complete thought sheets. Incorporate relaxation/coping strategies into daily routine. Discharge to alternative level of care. SOBRIETY (If applicable): N/A Patient Data [place]-SUICIDE SEVERITY RATING SCALE Screen Version - Recent Past month Ask questions that are bolded and underlined. YES/NO Ask Questions 1 and 2 1) Have you wished you were or wished you could go to sleep and not wake up? Yes 2) Have you actually had any thoughts of killing yourself? No If YES to 2, ask questions 3, 4, 5, and 6. If NO to 2, go directly to question 6. 3) Have you been thinking about how you might do this? E.g. I thought about taking an overdose but I never made a specific plan as to when where or how I would actually do it .and I would never go through with it. 4) Have you had these thoughts and had some intention of acting on them? As opposed to I have the thoughts but I definitely will not do anything about them. 5) Have you started to work out or worked out the details of how to kill yourself? Do you intend to carry out this plan? 6) Have you ever done anything, started to do anything, or prepared to do anything to end your life? Examples: Collected pills, obtained a gun, gave away valuables, wrote a will or suicide note, took out pills but didn't swallow any, held a gun but changed your mind or it was grabbed from your hand, went to the roof but didn't jump; or actually took pills, tried to shoot yourself, cut yourself, tried to hang yourself, etc. If YES, ask: Was this within the past three months? YES/NO No Low Risk Moderate Risk High Risk Patient reported an increase in the severity and frequency of his SI over the last 3 days, however he reported to using skills to help manage and recognizes increased vulnerabilities and triggers. He denied any current plan, means, or intent. He reported to feeling safe. He shared the lack of sleep has had a big influence. He was reminded of safety plan and given resources for crisis. Generalized Anxiety Disorder Scale (RICHARD-7) RICHARD - 7 SCORES 03/07/2023 03/07/2023 03/15/2023 RICHARD-7 Score 8 8 7 (0-4) minimal anxiety, (5-9) mild anxiety, (10-14) moderate anxiety, (15-21) severe anxiety IOP Daily Questionnaire IOP Daily 03/07/2023 03/08/2023 03/09/2023 Today, is your belief in your ability to use your Safety Plan in a crisis at 90%? Yes Yes Yes Today, have you wished you were or wished you could go to sleep and not wake up? Yes - No Today, have you actually had any thoughts of killing yourself? No No No On a scale of 1 to 10 how would you rate your mood now? 4 6 7 Patient Health Questionnaire (PHQ-9) PHQ-9 03/07/2023 03/07/2023 03/15/2023 Score 16 16 14 (0-4) minimal depression, (5-9) mild depression, (10-14) moderate depression, (15-19) moderately severe depression, (20-27) severe depression SIGNATURE: Sophia Alvarado [facility] PATIENT NAME: Macho Sanches DATE: March 15, 2023 TIME: 9:04 AM PAGER/CONTACT #: [phone] documented in this encounter [facility] 03-15-2023 Hospital course Narrative BEHAVIORAL HEALTH IOP (INTENSIVE OUTPATIENT PROGRAM) CLOSING SUMMARY OPENING/ADMIT DATE: 01/23/23 CLOSING/TERMINATION DATE: 03/13/2023 DATE OF LAST CONTACT: 03/13/2023 PRESENTING COMPLAINT: Per assessment with KHARI Haines-Marti on, History of Presenting Complaint: Macho is being referred to the [facility] by Iram Blair CNP whom he recently started seeing. He starts out by saying that he is not suicidal nor has he ever made any suicide attempts. He believes he was misunderstood at his last appointment at which time a wellness check was initiated and the police responded. He says he went to [facility] and was evaluated and discharged home. Macho denies having suicidal thoughts but says he has thoughts of not existing. He has learned to hold ice when he feels upset and this has helped him. He says his parents are the main protective factor. He reports symptoms of depression including no motivation, feeling empty, loss of interest, poor concentration, and no energy. His sleep is all over -he has difficulty falling asleep and waking early. His appetite has increased, and he now weighs 280 lbs. He states he was diagnosed with ADHD in 2018. He describes symptoms of anxiety as primarily freezing. Stressors are having to move back in with his parents at the end of October. He says his health is declining-he has problems with his right leg, which he believes is from playing soccer in high school. He has had PT but it continues to be a problem. He has difficulty walking. He feels his mental health has declined. He was in a relationship of 10 years that his girlfriend broke off in 2018, and tings have been worse since then. He moved back home at that time also, but went back to [place] to try to work on the relationship, but broke it off in October 2021. 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 He says he has had nightmares about this. When asked to rate his level of depression today, he says it's hard to give a number because he feels numb. Macho appeared soft spoken and deferential. Most of his responses were yes sir, no sir . UNRESOLVED PROBLEMS: Patient has remained overall open and willing to the process, though he has struggled with critical thinking, perfectionistic tendencies, and self-sabotaging behaviors throughout IOP. He has worked on challenging them more frequently, though he has some core belief work that needs to be done within individual therapy. GOALS MET: Objective A Short Term Objective Statement (behavioral measurable time frame): Patient will implement learned emotion regulation skills, 3 times per day or as needed, to decrease symptoms related to recurrent depressive and anxious episodes. Patient will report progress to group weekly. Achieved: Patient reported he has worked on this skill the most consistently. He stated he is working on skills for grounding, sleep hygiene, paced breathing, and improving his perspective on his emotions. He shared is challenged by judging his emotions and feeling confused with what his emotions are, though he is working on not attaching as much. GOALS TO CONTINUE ON OUTPATIENT: Objective B Short Term Objective Statement (behavioral measurable time frame): Patient will implement learned tips within the skill of reality acceptance daily. He will work on implementing these skills to manage his difficulty accepting situations/people outside of his control and accepting new limitations for his emotional and physical self. Patient will report progress to group weekly. Moderate progress: Patient reported feeling he thinks about the idea of acceptance almost daily, though he is not actively implementing the tips for acceptance. He shared he is struggling with accepting the environment he is in. he was encouraged to work on these skills more for the smaller things in his life right now. Objective C Short Term Objective Statement (behavioral measurable time frame): Patient will apply learned skill of opposite action daily and implement 3 pleasant/mastery tasks into his daily routine (e.g. cooking, cleaning, self-care, etc.), to address low motivation, depressed mood, and decreased interest in pleasurable activities. Patient will report progress to group weekly. Moderate to significant progress: Patient reported he is using these skills more frequently and is engaging in mastery tasks more to take care of himself. He noted he is working more on building into exercise, cooking for himself, teeth brushing, and showering. MEDICATION SUMMARY: Current Outpatient Medications Medication Sig lisdexamfetamine (VYVANSE) 30 mg capsule Take 1 capsule by mouth once daily for 30 days. albuterol HFA (PROVENTIL HFA, VENTOLIN HFA) 90 mcg/actuation inhaler Inhale 2 Puffs as instructed every 4 hours as needed. meloxicam (MOBIC) 15 mg tablet Take 1 tablet by mouth once daily. buPROPion XL (WELLBUTRIN XL) 300 mg 24 hr tablet Take 1 tablet by mouth once daily. traZODone (DESYREL) 50 mg tablet Take 50 mg by mouth. hydrOXYzine HCl (ATARAX) 25 mg tablet Take 25 mg by mouth three times daily as needed. No current facility-administered medications for this encounter. FINAL DIAGNOSIS: Anxiety Disorder Generalized Anxiety Disorder Mood Disorder Major Depressive Disorder, Recurrent, Severe Without Psychotic Symptoms Substance-Related Disorder Cannabis Use Disorder Stimulant Use REASON FOR CLOSING/TERMINATION: Completed treatment and transitioning to alternative level of care, Outpatient FOLLOW-UP APPOINTMENTS / REFERRALS: Psychiatry: [facility] on 04[facility]18[facility] Luis Antonio West MD with bridge appointment on 03/30 Therapy: Given additional resources after [facility] cancellation SIGNATURE: KHARI Elmore PATIENT NAME: Macho Sanches DATE: March 13, 2023 TIME: 1:54 PM documented in this encounter [facility] 03-14-2023 Miscellaneous Notes The following approved medication requests have been transmitted electronically to [facility] #[id number] per patient request. Requested Prescriptions Pending Prescriptions Disp Refills buPROPion XL (WELLBUTRIN XL) 300 mg 24 hr tablet 30 tablet 0 Sig: Take 1 tablet by mouth once daily. Appointments for Next 60 Days Date Time Provider Location Dept Phone 03/14/2023 9:00 AM [facility] IOP TEAM 3 [facility] 03/15/2023 9:00 AM [facility] IOP TEAM 3 MM [facility] 03/16/2023 1:00 PM DEZ ANGEL [facility] [phone] 03/27/2023 3:20 PM RONEY FRASER [facility] [phone] 03/30/2023 11:30 AM LUIS ANTONIO WEST [facility] [phone] 04/18/2023 8:30 AM RESIDENT 1 PSYC MAIN [facility] [phone] Luis Antonio West MD March 14, 2023 4:16 PM The following medication(s) is being requested: LAST APPT - 03.08.23 NEXT APPT - 03.30.23 Requested Prescriptions Pending Prescriptions Disp Refills buPROPion XL (WELLBUTRIN XL) 300 mg 24 hr tablet 30 tablet 0 Sig: Take 1 tablet by mouth once daily. Please process accordingly Kayla Agarwal documented in this encounter [facility] 03-14-2023 Note HNO ID: [id number] Author: Rachelle Tavares LISW Service: ? Author Type: Net Web Developer Type: Progress Notes Filed: 03/14/2023 6:11 PM Note Text: BEHAVIORAL HEALTH IOP (INTENSIVE OUTPATIENT PROGRAM) DAILY PROGRESS NOTE VIOP - Client consented to VIOP through [employer] SERVICE DATE: March 14, 2023 SERVICE TIME: 9:00 AM INTERVAL PROGRESS: Same PATIENT'S PROGRESS: Attentive AND Involved BEHAVIOR: Appearance: Pleasant Attitude: Cooperative and Withdrawn Affect: Flat Mood: fragile Thought Process: Logical and [place] Speech: Normal Eye Contact: Intermittent Describe Change Noted Throughout the Day: Consistent Patient Data IOP Daily Questionnaire IOP Daily 03/07/2023 03/08/2023 03/09/2023 Today, is your belief in your ability to use your Safety Plan in a crisis at 90%? Yes Yes Yes Today, have you wished you were or wished you could go to sleep and not wake up? Yes - No Today, have you actually had any thoughts of killing yourself? No No No On a scale of 1 to 10 how would you rate your mood now? 4 6 7 GROUP THERAPY: Illness Management Group Start Time: 9:00am End Time: 10:00am Total Time: 60 minutes Number of Therapists: 2 Number of Patients: 9 Problem(s) Number Addressed: 1 Intervention: Active Listening, Clarified, Challenged, Encouraged, Engaged, Explored, Gave Feedback, Observed, Redirected, and Supported Explain: Clients shared a feeling word and two positive traits. They shared something that they feel proud of accomplishing and something that they are struggling with. Response: Macho will not be counted for group 1 due to him arriving late. Macho shared his feeling word of fragile and his positive traits proud and resilient. He shared feeling proud of being trusting of his the resources he has and the skills he has developed. He noted struggling with believing he will get better and that someday this will all be over with. He shared that he is in a lot of physical pain this morning. He said he used distress tolerance to help with the frustration he feels. He uses PMR but has a hard time where he has pain in his knee. He is very frustrated regarding his MRI results and not being able to get in to see someone until the end of March. Coping Strategies Group Start Time: 10:10am End Time: 11:00am Total Time: 50 minutes Number of Therapists: 2 Number of Patients: 11 Problem(s) Number Addressed: 1 Intervention: Active Listening, Clarified, Challenged, Encouraged, Engaged, Explored, Gave Feedback, Observed, Redirected, and Supported Explain: Clients began the topic of opposite action. Clients discussed the importance of identifying what they are accurately feeling as the first step of opposite action and to make sure they do it all the way and over and over again. Clients discussed the difference between when an emotion is justified vs. unjustified. Response: Macho appeared engaged. Process and Emotion Management Group Start Time: 11:10am End Time: 12:00pm Total Time: 50 minutes Number of Therapists: 2 Number of Patients: 11 Problem(s) Number Addressed: 1 Intervention: Active Listening, Clarified, Challenged, Encouraged, Engaged, Explored, Gave Feedback, Observed, Redirected, and Supported Explain: Clients watched a brief video overview of what opposite action is about and how to use it. Clients continued discussing opposite action. Clients shared a feeling word and a takeaway from today. Response: Macho shared his feeling word of sad and his takeaway of that he finds comfort in his depression and so doing opposite action doesn't seem very appealing. PLAN: Continue group treatment as stated in Treatment Plan. Continue to gain insights into problems. Continue to share feelings AND thoughts in group. Monitor thinking/complete thought sheets. Incorporate relaxation/coping strategies into daily routine. SOBRIETY (If applicable): N/A SIGNATURE: ANALI Gracia PATIENT NAME: Macho Sanches DATE: March 14, 2023 TIME: 6:09 PM PAGER/CONTACT #: [phone] [facility] 03-14-2023 History of Presen t illness Narrative BEHAVIORAL HEALTH IOP (INTENSIVE OUTPATIENT PROGRAM) DAILY PROGRESS NOTE VIOP - Client consented to VIOP through [employer] [facility] [employer] SERVICE DATE: March 14, 2023 SERVICE TIME: 9:00 AM INTERVAL PROGRESS: Same PATIENT'S PROGRESS: Attentive & Involved BEHAVIOR: Appearance: Pleasant Attitude: Cooperative and Withdrawn Affect: Flat Mood: fragile Thought Process: Logical and [place] Speech: Normal Eye Contact: Intermittent Describe Change Noted Throughout the Day: Consistent Patient Data IOP Daily Questionnaire IOP Daily 03/07/2023 03/08/2023 03/09/2023 Today, is your belief in your ability to use your Safety Plan in a crisis at 90%? Yes Yes Yes Today, have you wished you were or wished you could go to sleep and not wake up? Yes - No Today, have you actually had any thoughts of killing yourself? No No No On a scale of 1 to 10 how would you rate your mood now? 4 6 7 GROUP THERAPY: Illness Management Group Start Time: 9:00am End Time: 10:00am Total Time: 60 minutes Number of Therapists: 2 Number of Patients: 9 Problem(s) Number Addressed: 1 Intervention: Active Listening, Clarified, Challenged, Encouraged, Engaged, Explored, Gave Feedback, Observed, Redirected, and Supported Explain: Clients shared a feeling word and two positive traits. They shared something that they feel proud of accomplishing and something that they are struggling with. Response: Macho will not be counted for group 1 due to him arriving late. Macho shared his feeling word of fragile and his positive traits proud and resilient. He shared feeling proud of being trusting of his the resources he has and the skills he has developed. He noted struggling with believing he will get better and that someday this will all be over with. He shared that he is in a lot of physical pain this morning. He said he used distress tolerance to help with the frustration he feels. He uses PMR but has a hard time where he has pain in his knee. He is very frustrated regarding his MRI results and not being able to get in to see someone until the end of March. Coping Strategies Group Start Time: 10:10am End Time: 11:00am Total Time: 50 minutes Number of Therapists: 2 Number of Patients: 11 Problem(s) Number Addressed: 1 Intervention: Active Listening, Clarified, Challenged, Encouraged, Engaged, Explored, Gave Feedback, Observed, Redirected, and Supported Explain: Clients began the topic of opposite action. Clients discussed the importance of identifying what they are accurately feeling as the first step of opposite action and to make sure they do it all the way and over and over again. Clients discussed the difference between when an emotion is justified vs. unjustified. Response: Macho appeared engaged. Process and Emotion Management Group Start Time: 11:10am End Time: 12:00pm Total Time: 50 minutes Number of Therapists: 2 Number of Patients: 11 Problem(s) Number Addressed: 1 Intervention: Active Listening, Clarified, Challenged, Encouraged, Engaged, Explored, Gave Feedback, Observed, Redirected, and Supported Explain: Clients watched a brief video overview of what opposite action is about and how to use it. Clients continued discussing opposite action. Clients shared a feeling word and a takeaway from today. Response: Macho shared his feeling word of sad and his takeaway of that he finds comfort in his depression and so doing opposite action doesn't seem very appealing. PLAN: Continue group treatment as stated in Treatment Plan. Continue to gain insights into problems. Continue to share feelings & thoughts in group. Monitor thinking/complete thought sheets. Incorporate relaxation/coping strategies into daily routine. SOBRIETY (If applicable): N/A SIGNATURE: ANALI Gracia PATIENT NAME: Macho Sanches DATE: March 14, 2023 TIME: 6:09 PM PAGER/CONTACT #: [phone] documented in this encounter [facility] 03-13-2023 Note HNO ID: [id number] Author: Sophia Alvarado [facility] Service: Behavioral Health IOP (Intensive Outpatient Program) Author Type: Therapist Type: Progress Notes Filed: 03/13/2023 1:40 PM Note Text: BEHAVIORAL HEALTH IOP (INTENSIVE OUTPATIENT PROGRAM) DAILY PROGRESS NOTE VIOP - Patient consented to VIOP through [employer] [facility]. SERVICE DATE: March 13, 2023 SERVICE TIME: 9:00 AM INTERVAL PROGRESS: Stable PATIENT'S PROGRESS: Limited BEHAVIOR: Appearance: Fair grooming and hygiene Attitude: Cooperative and distracted Affect: Anxious, Distressed, and congruent Mood: Tired, open, and tense Thought Process: Logical, [place], and Preoccupied Speech: Normal and Quiet Eye Contact: Fair Describe Change Noted Throughout the Day: Consistent GROUP THERAPY: Illness Management Group Start Time: 9:00am End Time: 10:00am Total Time: 60 minutes Number of Therapists: 2 Number of Patients: 6 Problem(s) Number Addressed: 1 Intervention: Active Listening, Clarified, Challenged, Encouraged, Engaged, Explored, Gave Feedback, Observed, Redirected, and Supported Explain: Patients shared a feeling word and two positive traits. They discussed their weekend, skills used and concerns. Response: Patient reported feeling physically tired and open. He stated his positive traits are patient and forgiving. He shared his sleep was messed up last night because of physical pain with his leg. He stated his weekend activities included socializing with a friend, stepping outside to [employer] watch, and napping. He stated his sleep was off multiple nights. He noted he did not end up cooking like he had planned. He did report to using skills for emotion regulation, pleasant tasks, and self-compassion with success. Patient cannot be charged for this session because of a conflicting medical appointment. Coping Strategies Group Start Time: 10:10am End Time: 11:00am Total Time: 50 minutes Number of Therapists: 2 Number of Patients: 9 Problem(s) Number Addressed: 1 Intervention: Active Listening, Clarified, Challenged, Encouraged, Engaged, Explored, Gave Feedback, Observed, Redirected, and Supported Explain: Patients continued education with the skills for managing problematic procrastination using given handouts. Response: Patient shared how he struggles with to-do lists and often just keeps adding tasks onto it. He appeared overall engaged and was verbally quiet. He participated with reading. Process and Emotion Management Group Start Time: 11:10am End Time: 12:00pm Total Time: 50 minutes Number of Therapists: 2 Number of Patients: 8 Problem(s) Number Addressed: 1 Intervention: Active Listening, Clarified, Challenged, Encouraged, Engaged, Explored, Gave Feedback, Observed, Redirected, and Supported Explain: Patients finished exploration for the procrastination and motivation topic, specifically learning about the quadrants for time management and tips for building motivation. They shared their feeling word and takeaway from today at group end. Response: Patient appeared observant and was overall quiet. He reported feeling tense. He stated his takeaway from today is ?I try to do things very fast and quickly?, which impacts procrastination and feeding into perfectionistic tendencies. PLAN: Continue group treatment as stated in Treatment Plan. Continue to gain insights into problems. Continue to share feelings AND thoughts in group. Monitor thinking/complete thought sheets. Incorporate relaxation/coping strategies into daily routine. SOBRIETY (If applicable): N/A Patient Data IOP Daily Questionnaire IOP Daily 03/07/2023 03/08/2023 03/09/2023 Today, is your belief in your ability to use your Safety Plan in a crisis at 90%? Yes Yes Yes Today, have you wished you were or wished you could go to sleep and not wake up? Yes - No Today, have you actually had any thoughts of killing yourself? No No No On a scale of 1 to 10 how would you rate your mood now? 4 6 7 SIGNATURE: Sophia Alvarado [facility] PATIENT NAME: Macho Sanches DATE: March 13, 2023 TIME: 8:51 AM PAGER/CONTACT #: [phone] [facility] 03-13-2023 History of Presen t illness Narrative BEHAVIORAL HEALTH IOP (INTENSIVE OUTPATIENT PROGRAM) DAILY PROGRESS NOTE VIOP - Patient consented to VIOP through [employer] [facility]. SERVICE DATE: March 13, 2023 SERVICE TIME: 9:00 AM INTERVAL PROGRESS: Stable PATIENT'S PROGRESS: Limited BEHAVIOR: Appearance: Fair grooming and hygiene Attitude: Cooperative and distracted Affect: Anxious, Distressed, and congruent Mood: Tired, open, and tense Thought Process: Logical, [place], and Preoccupied Speech: Normal and Quiet Eye Contact: Fair Describe Change Noted Throughout the Day: Consistent GROUP THERAPY: Illness Management Group Start Time: 9:00am End Time: 10:00am Total Time: 60 minutes Number of Therapists: 2 Number of Patients: 6 Problem(s) Number Addressed: 1 Intervention: Active Listening, Clarified, Challenged, Encouraged, Engaged, Explored, Gave Feedback, Observed, Redirected, and Supported Explain: Patients shared a feeling word and two positive traits. They discussed their weekend, skills used and concerns. Response: Patient reported feeling physically tired and open. He stated his positive traits are patient and forgiving. He shared his sleep was messed up last night because of physical pain with his leg. He stated his weekend activities included socializing with a friend, stepping outside to [employer] watch, and napping. He stated his sleep was off multiple nights. He noted he did not end up cooking like he had planned. He did report to using skills for emotion regulation, pleasant tasks, and self-compassion with success. Patient cannot be charged for this session because of a conflicting medical appointment. Coping Strategies Group Start Time: 10:10am End Time: 11:00am Total Time: 50 minutes Number of Therapists: 2 Number of Patients: 9 Problem(s) Number Addressed: 1 Intervention: Active Listening, Clarified, Challenged, Encouraged, Engaged, Explored, Gave Feedback, Observed, Redirected, and Supported Explain: Patients continued education with the skills for managing problematic procrastination using given handouts. Response: Patient shared how he struggles with to-do lists and often just keeps adding tasks onto it. He appeared overall engaged and was verbally quiet. He participated with reading. Process and Emotion Management Group Start Time: 11:10am End Time: 12:00pm Total Time: 50 minutes Number of Therapists: 2 Number of Patients: 8 Problem(s) Number Addressed: 1 Intervention: Active Listening, Clarified, Challenged, Encouraged, Engaged, Explored, Gave Feedback, Observed, Redirected, and Supported Explain: Patients finished exploration for the procrastination and motivation topic, specifically learning about the quadrants for time management and tips for building motivation. They shared their feeling word and takeaway from today at group end. Response: Patient appeared observant and was overall quiet. He reported feeling tense. He stated his takeaway from today is I try to do things very fast and quickly , which impacts procrastination and feeding into perfectionistic tendencies. PLAN: Continue group treatment as stated in Treatment Plan. Continue to gain insights into problems. Continue to share feelings & thoughts in group. Monitor thinking/complete thought sheets. Incorporate relaxation/coping strategies into daily routine. SOBRIETY (If applicable): N/A Patient Data IOP Daily Questionnaire IOP Daily 03/07/2023 03/08/2023 03/09/2023 Today, is your belief in your ability to use your Safety Plan in a crisis at 90%? Yes Yes Yes Today, have you wished you were or wished you could go to sleep and not wake up? Yes - No Today, have you actually had any thoughts of killing yourself? No No No On a scale of 1 to 10 how would you rate your mood now? 4 6 7 SIGNATURE: KHARI Elmore PATIENT NAME: Macho Sanches DATE: March 13, 2023 TIME: 8:51 AM PAGER/CONTACT #: [phone] documented in this encounter [facility] 03-09-2023 Note HNO ID: [id number] Author: Sophia Alvarado [facility] Service: Behavioral Health IOP (Intensive Outpatient Program) Author Type: Therapist Type: Progress Notes Filed: 03/09/2023 2:00 PM Note Text: BEHAVIORAL HEALTH IOP (INTENSIVE OUTPATIENT PROGRAM) DAILY PROGRESS NOTE VIOP - Patient consented to VIOP through [facility]. SERVICE DATE: March 09, 2023 SERVICE TIME: 9:00 AM INTERVAL PROGRESS: Improving PATIENT'S PROGRESS: Attentive AND Involved BEHAVIOR: Appearance: Fair grooming and hygiene Attitude: Cooperative Affect: Appropriate Mood: Tired and calm, positive Thought Process: Logical, Goal-directed, and Preoccupied Speech: Normal Eye Contact: Good Describe Change Noted Throughout the Day: Consistent GROUP THERAPY: Illness Management Group Start Time: 9:00am End Time: 10:00am Total Time: 60 minutes Number of Therapists: 2 Number of Patients: 9 Problem(s) Number Addressed: 1 Intervention: Active Listening, Clarified, Challenged, Encouraged, Engaged, Explored, Gave Feedback, Observed, Redirected, and Supported Explain: Patients shared a feeling word and two positive traits. They discussed weekend plans and potential obstacles. Response: Patient was not present for the beginning of this session because of a conflicting MRI appointment. He will not be charged. He reported feeling physically tired and calm. He stated his positive traits are resourceful and diligent. He shared his weekend activities include getting out of the house, cooking, and some online agustín with friends. He reported he plans to use skills for compassion, values work, opposite action, and PMR. Coping Strategies Group Start Time: 10:10am End Time: 11:00am Total Time: 50 minutes Number of Therapists: 2 Number of Patients: 10 Problem(s) Number Addressed: 1 Intervention: Active Listening, Clarified, Challenged, Encouraged, Engaged, Explored, Gave Feedback, Observed, Redirected, and Supported Explain: Patients began education into the skills for procrastination using given handouts and peer discussion. Response: Patient shared that the areas of his life he has problematic procrastination is in trying out new things, health, relationships, and overall development. He shared this has impacted ?skill loss? for him. Process and Emotion Management Group Start Time: 11:10am End Time: 12:00pm Total Time: 50 minutes Number of Therapists: 2 Number of Patients: 10 Problem(s) Number Addressed: 1 Intervention: Active Listening, Clarified, Challenged, Encouraged, Engaged, Explored, Gave Feedback, Observed, Redirected, and Supported Explain: Patients continued exploration into the unhelpful rules and assumptions that impact procrastination cycles. They shared their feeling word and takeaway from today at group end. They shared 3 gratitudes. Response: Patient participated in reading. He appeared observant and shared relevant contributions. He reported feeling positive. He stated his takeaway from today is understanding more about how weak some irrational thinking is and how he can start to challenge them the more he learns and understanding the cycle of procrastination. He shared he is grateful for the space to do IOP, for cooking, and food. PLAN: Continue group treatment as stated in Treatment Plan. Continue to gain insights into problems. Continue to share feelings AND thoughts in group. Monitor thinking/complete thought sheets. Incorporate relaxation/coping strategies into daily routine. SOBRIETY (If applicable): N/A Patient Data IOP Daily Questionnaire IOP Daily 03/07/2023 03/08/2023 03/09/2023 Today, is your belief in your ability to use your Safety Plan in a crisis at 90%? Yes Yes Yes Today, have you wished you were or wished you could go to sleep and not wake up? Yes - No Today, have you actually had any thoughts of killing yourself? No No No On a scale of 1 to 10 how would you rate your mood now? 4 6 7 SIGNATURE: Sophia Alvarado [facility] PATIENT NAME: Macho Sanches DATE: March 09, 2023 TIME: 9:34 AM PAGER/CONTACT #: [phone] [facility] 03-09-2023 Note HNO ID: [id number] Author: Vi Leger RT(R) Service: ? Author Type: Technologist Type: Progress Notes Filed: 03/09/2023 7:40 AM Note Text: Radiology Service Progress Note PATIENT NAME: Macho Sanches DATE OF SERVICE: March 09, 2023 TIME: 7:39 AM PATIENT IDENTITY VERIFICATION COMPLETED USING TWO (2) IDENTIFIERS: Name and Date of confirmed by patient verbally. FALL SCREENING: Has the patient had 2 falls in the last year or 1 fall with injury or currently using an Ambulatory Assistive Device (Walker, Cane, Wheelchair, Crutches, etc.)? No PATIENT GENDER DATA: Male PATIENT RELEVANT IMPLANT DATA REVIEWED: Not Applicable RADIOLOGY DEPARTMENT: MR; Exam(s) Completed: Lower MSK: Knee, right PERIPHERAL IV DATA: Not applicable SIGNED BY: [facility] March 09, 2023 7:39 AM [facility] 03-09-2023 History of Presen t illness Narrative BEHAVIORAL HEALTH IOP (INTENSIVE OUTPATIENT PROGRAM) DAILY PROGRESS NOTE VIOP - Patient consented to VIOP through [facility]. SERVICE DATE: March 09, 2023 SERVICE TIME: 9:00 AM INTERVAL PROGRESS: Improving PATIENT'S PROGRESS: Attentive & Involved BEHAVIOR: Appearance: Fair grooming and hygiene Attitude: Cooperative Affect: Appropriate Mood: Tired and calm, positive Thought Process: Logical, Goal-directed, and Preoccupied Speech: Normal Eye Contact: Good Describe Change Noted Throughout the Day: Consistent GROUP THERAPY: Illness Management Group Start Time: 9:00am End Time: 10:00am Total Time: 60 minutes Number of Therapists: 2 Number of Patients: 9 Problem(s) Number Addressed: 1 Intervention: Active Listening, Clarified, Challenged, Encouraged, Engaged, Explored, Gave Feedback, Observed, Redirected, and Supported Explain: Patients shared a feeling word and two positive traits. They discussed weekend plans and potential obstacles. Response: Patient was not present for the beginning of this session because of a conflicting MRI appointment. He will not be charged. He reported feeling physically tired and calm. He stated his positive traits are resourceful and diligent. He shared his weekend activities include getting out of the house, cooking, and some online agustín with friends. He reported he plans to use skills for compassion, values work, opposite action, and PMR. Coping Strategies Group Start Time: 10:10am End Time: 11:00am Total Time: 50 minutes Number of Therapists: 2 Number of Patients: 10 Problem(s) Number Addressed: 1 Intervention: Active Listening, Clarified, Challenged, Encouraged, Engaged, Explored, Gave Feedback, Observed, Redirected, and Supported Explain: Patients began education into the skills for procrastination using given handouts and peer discussion. Response: Patient shared that the areas of his life he has problematic procrastination is in trying out new things, health, relationships, and overall development. He shared this has impacted skill loss for him. Process and Emotion Management Group Start Time: 11:10am End Time: 12:00pm Total Time: 50 minutes Number of Therapists: 2 Number of Patients: 10 Problem(s) Number Addressed: 1 Intervention: Active Listening, Clarified, Challenged, Encouraged, Engaged, Explored, Gave Feedback, Observed, Redirected, and Supported Explain: Patients continued exploration into the unhelpful rules and assumptions that impact procrastination cycles. They shared their feeling word and takeaway from today at group end. They shared 3 gratitudes. Response: Patient participated in reading. He appeared observant and shared relevant contributions. He reported feeling positive. He stated his takeaway from today is understanding more about how weak some irrational thinking is and how he can start to challenge them the more he learns and understanding the cycle of procrastination. He shared he is grateful for the space to do IOP, for cooking, and food. PLAN: Continue group treatment as stated in Treatment Plan. Continue to gain insights into problems. Continue to share feelings & thoughts in group. Monitor thinking/complete thought sheets. Incorporate relaxation/coping strategies into daily routine. SOBRIETY (If applicable): N/A Patient Data IOP Daily Questionnaire IOP Daily 03/07/2023 03/08/2023 03/09/2023 Today, is your belief in your ability to use your Safety Plan in a crisis at 90%? Yes Yes Yes Today, have you wished you were or wished you could go to sleep and not wake up? Yes - No Today, have you actually had any thoughts of killing yourself? No No No On a scale of 1 to 10 how would you rate your mood now? 4 6 7 SIGNATURE: KHARI Elmore PATIENT NAME: Macho Sanches DATE: March 09, 2023 TIME: 9:34 AM PAGER/CONTACT #: [phone] documented in this encounter [facility] 03-09-2023 History of Presen t illness Narrative Radiology Service Progress Note PATIENT NAME: Macho Sanches DATE OF SERVICE: March 09, 2023 TIME: 7:39 AM PATIENT IDENTITY VERIFICATION COMPLETED USING TWO (2) IDENTIFIERS: Name and Date of confirmed by patient verbally. FALL SCREENING: Has the patient had 2 falls in the last year or 1 fall with injury or currently using an Ambulatory Assistive Device (Walker, Cane, Wheelchair, Crutches, etc.)? No PATIENT GENDER DATA: Male PATIENT RELEVANT IMPLANT DATA REVIEWED: Not Applicable RADIOLOGY DEPARTMENT: MR; Exam(s) Completed: Lower MSK: Knee, right PERIPHERAL IV DATA: Not applicable SIGNED BY: [facility] March 09, 2023 7:39 AM documented in this encounter [facility] 03-08-2023 Note HNO ID: [id number] Author: Luis Antonio West MD Service: ? Author Type: Physician Type: Progress Notes Filed: 03/21/2023 2:54 PM Note Text: IOP - Outpatient Psychiatry Visit-Pharmacological Management Date/Time: March 08, 2023 2:32 PM Method of contact: Redapt I have communicated my name and active licensure. The patient's identity and physical location were verified at the time of this visit. Either the patient or their legal community engagement representative has been informed of the risks and benefits of -- and alternatives to -- treatment through a remote evaluation and consents to proceed with the evaluation remotely. ASSESSMENT: Macho Sanches is a 37 year old year old male who lives with parents in [place], currently on Wellbutrin for the management of MDD, RICHARD, ADHD who presents for a outpatient psychiatric follow-up appointment to address current medications. The patient had the last visit with me on 03/02/23 and has since noticed improvement in depression symptoms with continued difficulty with anxiety and ADHD symptoms, therefore warranting medication changes as described below. Appropriate to continue with MDIOP Group 3. Typical outpatient follow-up to be established with [facility] clinic following completion of MDIOP, will see myself for one bridge appointment before moving to resident clinic. DIAGNOSIS: PRIMARY: MDD, recurrent, severe without psychotic features SECONDARY: RICHARD, ADHD, Stimulant Abuse (history of overusing stimulant medication in the past), Marijuana Abuse GAF: 60-51 Moderate symptoms or moderate difficulty in social, occupational or school functioning. TREATMENT PLAN: - Indicated Labs: No additional labs indicated at this time - Psychotherapy: Appropriate to continue with MDIOP Group 3 - Medications: - Continue: Wellbutrin XL 300 mg daily Vyvanse 30 mg daily - Social: engage with others in meaningful ways as permitted by local COVID restrictions - Other: will assist patient in attempting to change provider through [facility] R/B/A of current course of recommended therapy discussed. Questions answered. Follow Up: with me for bridge appointment prior to new evaluation with resident clinic CC: Medication Management HPI: Going well, feels like he has been learning a lot in group this week but has been dedicating to the on the job experience . Feels he has been doing really well. [place] physically sick the first day on the vyvanse but has been trying to focus on building a schedule and eating meals regularly. Mood has been really good the past 2 days. He likes the state of being that he is in. Feeling better and using the skills. Some trouble with sleep since starting the Vyvanse staying up a bit later and then will fall asleep naturally. Not interested in any medication as he wants to use his skills and sleep hygiene to manage this setback. No longer utilizing the Trazodone regularly. Denies SI, HI, AVH. Pertinent past psychiatric history reviewed, including: - Recent Hospitalizations - Med trials - Suicide attempts - Legal history Data PHQ-9 03/02/2023 03/07/2023 03/07/2023 Score 16 16 16 (0-4) minimal depression, (5-9) mild depression, (10-14) moderate depression, (15-19) moderately severe depression, (20-27) severe depression PHQ-9 Score 03/07/2023 16 03/07/2023 16 03/02/2023 16 03/02/2023 16 02/21/2023 14 02/08/2023 12 02/08/2023 12 01/23/2023 19 01/19/2023 22 01/18/2023 21 (0-4) minimal depression, (5-9) mild depression, (10-14) moderate depression, (15-19) moderately severe depression, (20-27) severe depression RICHARD - 7 SCORES 03/02/2023 03/07/2023 03/07/2023 RICHARD-7 Score 9 8 8 (0-4) minimal anxiety, (5-9) mild anxiety, (10-14) moderate anxiety, (15-21) severe anxiety RICHARD - 7 SCORES RICHARD-7 Score 03/07/2023 8 03/07/2023 8 03/02/2023 9 03/02/2023 9 02/21/2023 9 02/08/2023 11 02/08/2023 11 01/23/2023 10 01/19/2023 12 01/18/2023 13 (0-4) minimal anxiety, (5-9) mild anxiety, (10-14) moderate anxiety, (15-21) severe anxiety Pertinent lab work AND results over past 6 months: BUN (mg/dL) Date Value 09/12/2012 12 Creatinine (mg/dL) Date Value 09/12/2012 0.92 Potassium (mmol/L) Date Value 09/12/2012 4.1 Alkaline Phosphatase (U/L) Date Value 09/12/2012 75 AST (U/L) Date Value 09/12/2012 22 ALT (U/L) Date Value 09/12/2012 26 Sodium Date Value Ref Range Status 09/12/2012 140 135 - 146 mmol/L Final Albumin (g/dL) Date Value 09/12/2012 4.7 Cholesterol, Total (mg/dL) Date Value 09/12/2012 187 HDL Cholesterol (mg/dL) Date Value 09/12/2012 51 LDL Cholesterol (mg/dL) Date Value 09/12/2012 117 Triglyceride (mg/dL) Date Value 09/12/2012 95 TSH Date Value Ref Range Status 09/12/2012 3.100 0.400 - 5.500 uU/mL Final No results found for: VITD25 Psych History, Brief: Prior Diagnosis: ADHD, MDD, Stimulant Abuse, Marijuana Abuse Current Provider: Iram Blair CNP (established (more content not included)... [facility] 03-08-2023 History of Presen t illness Narrative Images from the original note were not included. MDIOP - Outpatient Psychiatry Visit-Pharmacological Management Date/Time: March 08, 2023 2:32 PM Method of contact: Redapt I have communicated my name and active licensure. The patient's identity and physical location were verified at the time of this visit. Either the patient or their legal community engagement representative has been informed of the risks and benefits of -- and alternatives to -- treatment through a remote evaluation and consents to proceed with the evaluation remotely. ASSESSMENT: Macho Sanches is a 37 year old year old male who lives with parents in [place], currently on Wellbutrin for the management of MDD, RICHARD, ADHD who presents for a outpatient psychiatric follow-up appointment to address current medications. The patient had the last visit with wi on 03/02/23 and has since noticed improvement in depression symptoms with continued difficulty with anxiety and ADHD symptoms, therefore warranting medication changes as described below. Appropriate to continue with MDIOP Group 3. Typical outpatient follow-up to be established with [facility] Res[facility] clinic following completion of MDIOP, will see myself for one bridge appointment before moving to resident clinic. DIAGNOSIS: PRIMARY: MDD, recurrent, severe without psychotic features SECONDARY: RICHARD, ADHD, Stimulant Abuse (history of overusing stimulant medication in the past), Marijuana Abuse GAF: 60-51 Moderate symptoms or moderate difficulty in social, occupational or school functioning. TREATMENT PLAN: - Indicated Labs: No additional labs indicated at this time - Psychotherapy: Appropriate to continue with MDIOP Group 3 - Medications: - Continue: Wellbutrin XL 300 mg daily Vyvanse 30 mg daily - Social: engage with others in meaningful ways as permitted by local COVID restrictions - Other: will assist patient in attempting to change provider through [facility] R/B/A of current course of recommended therapy discussed. Questions answered. Follow Up: with me for bridge appointment prior to new evaluation with resident clinic CC: Medication Management HPI: Going well, feels like he has been learning a lot in group this week but has been dedicating to the on the job experience . Feels he has been doing really well. [place] physically sick the first day on the vyvanse but has been trying to focus on building a schedule and eating meals regularly. Mood has been really good the past 2 days. He likes the state of being that he is in. Feeling better and using the skills. Some trouble with sleep since starting the Vyvanse staying up a bit later and then will fall asleep naturally. Not interested in any medication as he wants to use his skills and sleep hygiene to manage this setback. No longer utilizing the Trazodone regularly. Denies SI, HI, AVH. Pertinent past psychiatric history reviewed, including: - Recent Hospitalizations - Med trials - Suicide attempts - Legal history KP Data PHQ-9 03/02/2023 03/07/2023 03/07/2023 Score 16 16 16 (0-4) minimal depression, (5-9) mild depression, (10-14) moderate depression, (15-19) moderately severe depression, (20-27) severe depression PHQ-9 Score 03/07/2023 16 03/07/2023 16 03/02/2023 16 03/02/2023 16 02/21/2023 14 02/08/2023 12 02/08/2023 12 01/23/2023 19 01/19/2023 22 01/18/2023 21 (0-4) minimal depression, (5-9) mild depression, (10-14) moderate depression, (15-19) moderately severe depression, (20-27) severe depression RICHARD - 7 SCORES 03/02/2023 03/07/2023 03/07/2023 RICHARD-7 Score 9 8 8 (0-4) minimal anxiety, (5-9) mild anxiety, (10-14) moderate anxiety, (15-21) severe anxiety RICHARD - 7 SCORES RICHARD-7 Score 03/07/2023 8 03/07/2023 8 03/02/2023 9 03/02/2023 9 02/21/2023 9 02/08/2023 11 02/08/2023 11 01/23/2023 10 01/19/2023 12 01/18/2023 13 (0-4) minimal anxiety, (5-9) mild anxiety, (10-14) moderate anxiety, (15-21) severe anxiety Pertinent lab work & results over past 6 months: BUN (mg/dL) Date Value 09/12/2012 12 Creatinine (mg/dL) Date Value 09/12/2012 0.92 Potassium (mmol/L) Date Value 09/12/2012 4.1 Alkaline Phosphatase (U/L) Date Value 09/12/2012 75 AST (U/L) Date Value 09/12/2012 22 ALT (U/L) Date Value 09/12/2012 26 Sodium Date Value Ref Range Status 09/12/2012 140 135 - 146 mmol/L Final Albumin (g/dL) Date Value 09/12/2012 4.7 Cholesterol, Total (mg/dL) Date Value 09/12/2012 187 HDL Cholesterol (mg/dL) Date Value 09/12/2012 51 LDL Cholesterol (mg/dL) Date Value 09/12/2012 117 Triglyceride (mg/dL) Date Value 09/12/2012 95 TSH Date Value Ref Range Status 09/12/2012 3.100 0.400 - 5.500 uU/mL Final No results found for: VITD25 Psych History, Brief: Prior Diagnosis: ADHD, MDD, Stimulant Abuse, Marijuana Abuse Current Provider: Iram Blair CNP ([facility] care 01/03/23) Therapist: scheduled to see Palma Ambrosio in March Current Kiln Remover: None Last Hospitalization: Denies hospitalization, at the ED after a well check ECT: None Suicide Attempts: None Previous Discontinued Psychiatric Med Trials: Abilify, Adderall, Zoloft, Seroquel, Focalin, Effexor, possibly prozac and/or lexapro, Strattera (nausea/ineffective) CURRENT MEDICATIONS: Wellbutrin XL 300 mg daily Trazodone 50 mg QHS - has not been using Atarax 25 mg TID PRN anxiety - not needing Vyvanse 30 mg daily Denies any adverse effects of current medication regimen. PDMP website checked and validated. All prescriptions have been APPROPRIATELY filled. No suspicious activity was identified. 03/02/2023 by Luis Antonio eWst MD Has not filled medical marijuana at all this month Medical ROS: Musculoskeletal: chronic pain in right knee, right hip and right lower back - has appointment today with ortho to discuss PSYCH: See HPI PAST MEDICAL HISTORY Diagnosis Date Asthma seasonal Environmental allergies PAST SURGICAL HISTORY Procedure Laterality Date PAST SURGICAL HISTORY OF left testicle torsion SUBSTANCE USE HISTORY: Nicotine: None Caffeine: coffee (4 cups per day) Alcohol: No history of use or dependence Marijuana: has been using the past 3 days but not before that, plans not to use as all during IOP Cocaine: No history of use or dependence Opiods: No history of use or dependence SPIRITUALITY: None PFSH: Macho grew up in [place]. He has one younger sister. He says he was lonely in elementary school, and bullied in middle and high school. He says he was cared for at home, and was closer to his mom, but didn't go any further. His mom is a professor at the [employer]. His dad is also employed working with various schools in the [place] area. He doesn't have contact with his sister. He says she was mean as a kid. Macho hs been living in [place] at various times over the years. He moved back in with his parents in October 2022. The patient lives with mother and father - they don't get along well ADLs/IADLs: independent Education: [employer] Employment: Unemployed, not seeking work. Financial concerns: Yes, no income Marital Status: Single (never ) Children: none Current Supports: Include friends. Legal Hx: 2009 Service: No ABUSE HISTORY (physical, mental, verbal, sexual): From Childhood: Bullied in middle and high school Response / Significance to Patient: Affected his self esteem. From Adulthood: None Response / Significance to Patient: NA Did you experience trauma?: Yes TRAUMA HISTORY (physical, mental, verbal, sexual): From Childhood: Bullied in school Response / Significance to Patient: Depression, low self esteem. 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 FAMILY PSYCHIATRIC HISTORY: Paternal family (dad, uncle, and grandmother)-numerous family members with depression, anxiety, alcohol use disorder Denies additional family history PHYSICAL EXAM: There were no vitals taken for this visit. Eyes: Anicteric sclera. Extraocular movements are intact. Neuro: No akathisia appreciated/endorsed MENTAL STATUS: Appearance: Casually dressed and appropriately groomed Behavior: Appropriate Alertness: Alert Orientation: Person, Place, Time and Situation Speech/Language: The patient demonstrates appropriate tone, prosody, deedee, phonetics, and syntax Mood: improved motivation and mood Affect: mood congruent, restricted range Thought Form: Coherent Thought Content: Coherent Suicidal Ideations: No suicidal ideation, intent or plan. Homicidal Ideations: No homicidal ideation, intent or plan. Insight: Appropriate Judgment: Appropriate Memory/Cognition: Intact Psychomotor: Psychomotor activity was normal PSYCHIATRY APPOINTMENT: E/M Visit-Pharmacological Management I spent a total of 30 minutes on the date of the service which included preparing to see the patient, [id number] patient care, completing clinical documentation, obtaining and/or reviewing separately obtained history, performing a medically appropriate examination, counseling and educating the patient/family/caregiver, ordering medications, tests, or procedures, and communicating with other HCPs (not separately reported). Luis Antonio West MD documented in this encounter [facility] 03-08-2023 Note HNO ID: [id number] Author: Sophia Alvarado [facility] Service: Behavioral Health IOP (Intensive Outpatient Program) Author Type: Therapist Type: Progress Notes Filed: 03/08/2023 11:58 AM Note Text: BEHAVIORAL HEALTH IOP (INTENSIVE OUTPATIENT PROGRAM) DAILY PROGRESS NOTE VIOP - Patient consented to VIOP through Zoom for [facility]. SERVICE DATE: March 08, 2023 SERVICE TIME: 9:00 AM INTERVAL PROGRESS: Improving PATIENT'S PROGRESS: Attentive AND Involved BEHAVIOR: Appearance: Fair grooming and hygiene Attitude: Cooperative Affect: Appropriate and Euthymic Mood: Content, calm, and light Thought Process: Logical and Goal-directed Speech: Normal Eye Contact: Good Describe Change Noted Throughout the Day: Consistent GROUP THERAPY: Illness Management Group Start Time: 9:00am End Time: 10:00am Total Time: 60 minutes Number of Therapists: 2 Number of Patients: 8 Problem(s) Number Addressed: 1 Intervention: Active Listening, Clarified, Challenged, Encouraged, Engaged, Explored, Gave Feedback, Observed, Redirected, and Supported Explain: Patients shared a feeling word and two positive traits. They reviewed their treatment plans and identified areas in which they are working and not working. Response: Patient reported feeling content and calm. He stated his positive traits are proactive and easy-going. He was supportive of his peers. He shared from his treatment goals that he is feeling more successful with his goal of opposite action. He challenged himself this week with this skill by reframing ?I can't? statements and setting intentions with his values. He noted he has also been prioritizing emotion regulation more this week. He explored how reality acceptance has been both needed and challenging for him. Coping Strategies Group Start Time: 10:10am End Time: 11:00am Total Time: 50 minutes Number of Therapists: 2 Number of Patients: 10 Problem(s) Number Addressed: 1 Intervention: Active Listening, Clarified, Challenged, Encouraged, Engaged, Explored, Gave Feedback, Observed, Redirected, and Supported Explain: Patients were educated on the skill of thought records. They worked individually through their own examples with the guidance of the therapists. Response: Patient worked quietly and individually on his thought record. He asked relevant questions. Process and Emotion Management Group Start Time: 11:10am End Time: 12:00pm Total Time: 50 minutes Number of Therapists: 2 Number of Patients: 11 Problem(s) Number Addressed: 1 Intervention: Active Listening, Clarified, Challenged, Encouraged, Engaged, Explored, Gave Feedback, Observed, Redirected, and Supported Explain: Patients explored the topic of values and worked on understanding their core values and how to live into their values. They shared their feeling word and takeaway from today at group end. Response: Patient worked quietly on identifying core values. He reported how impactful it was for him to identify more with his value system and those that didn't resonate as much. He reported feeling light. He stated his takeaway from today is ?there are a lot of things about myself that I am proud of and respect?. PLAN: Continue group treatment as stated in Treatment Plan. Continue to gain insights into problems. Continue to share feelings AND thoughts in group. Monitor thinking/complete thought sheets. Incorporate relaxation/coping strategies into daily routine. SOBRIETY (If applicable): N/A Patient Data IOP Daily Questionnaire IOP Daily 03/01/2023 03/02/2023 03/07/2023 Today, is your belief in your ability to use your Safety Plan in a crisis at 90%? Yes Yes Yes Today, have you wished you were or wished you could go to sleep and not wake up? Yes No Yes Today, have you actually had any thoughts of killing yourself? No No No On a scale of 1 to 10 how would you rate your mood now? 3 5 4 SIGNATURE: KHARI Elmore PATIENT NAME: Macho Sanches DATE: March 08, 2023 TIME: 9:04 AM PAGER/CONTACT #: [phone] [facility] 03-08-2023 Note HNO ID: [id number] Author: Sophia Alvarado LPCC Service: Behavioral Health IOP (Intensive Outpatient Program) Author Type: Therapist Type: Plan of Care Filed: 03/08/2023 12:36 PM Note Text: , IOP TEAM NOTE IOP TEAM MEETING DATE: 03/08/2023 RECENT ASSESSMENTS/TREATMENT PLAN REVIEWS: Per KHARI Haines, assessment. Treatment goal review completed on 02/15/23. SUICIDE RISK AND MITIGATION PLAN Low to moderate risk. Patient completed their safety plan and has a copy. Patient has reported no current safety concerns and no current plan or intent. He reports to having fleeting SI. WEEKLY REVIEW OF CLIENT PROGRESS: Patient has struggled this past week with relapsing into worsening symptoms and has been lacking with consistent skill use. He has reported insight into this concern, which has also impacted his motivation and critical judgements. He is working on building back into his skill use, specifically prioritizing PMR, distress tolerance, emotional waves, and mastery tasks. He has been encouraged to reframe the relapse as beneficial for himself and focus on smaller more attainable steps. He did report an increase in the frequency of his SI/ wishes, however he has not current plans or intent and reports to feeling safe. He made significant progress today in group with affirmations and understanding the respect he has for his value system and what it looks like when he doesn't live into them. DISCHARGE PLANNING/RECOMMENDATIONS: Patient is set for a tentative discharge date of 03/15/23. Patient is scheduled with Kraig Wu APN. For medication management on 03/13 at 930am and Yessenia Mendoza LPC for individual therapy on 03/16 at 11am. This consensus plan was developed by [facility] treatment team which met via teams on 03/08/2023. Team Members Participation in this Plan of Care: Attending: Dr. West Therapists: Sophia Alvarado [facility] Nurse Practitioner: Cassandra Austin CNP DOCUMENTED BY: KHARI Elmore PATIENT NAME: Macho Sanches DATE: March 08, 2023 TIME: 2:35 PM [facility] 03-08-2023 History of Presen t illness Narrative BEHAVIORAL HEALTH IOP (INTENSIVE OUTPATIENT PROGRAM) DAILY PROGRESS NOTE VIOP - Patient consented to VIOP through [employer]. SERVICE DATE: March 08, 2023 SERVICE TIME: 9:00 AM INTERVAL PROGRESS: Improving PATIENT'S PROGRESS: Attentive & Involved BEHAVIOR: Appearance: Fair grooming and hygiene Attitude: Cooperative Affect: Appropriate and Euthymic Mood: Content, calm, and light Thought Process: Logical and Goal-directed Speech: Normal Eye Contact: Good Describe Change Noted Throughout the Day: Consistent GROUP THERAPY: Illness Management Group Start Time: 9:00am End Time: 10:00am Total Time: 60 minutes Number of Therapists: 2 Number of Patients: 8 Problem(s) Number Addressed: 1 Intervention: Active Listening, Clarified, Challenged, Encouraged, Engaged, Explored, Gave Feedback, Observed, Redirected, and Supported Explain: Patients shared a feeling word and two positive traits. They reviewed their treatment plans and identified areas in which they are working and not working. Response: Patient reported feeling content and calm. He stated his positive traits are proactive and easy-going. He was supportive of his peers. He shared from his treatment goals that he is feeling more successful with his goal of opposite action. He challenged himself this week with this skill by reframing I can't statements and setting intentions with his values. He noted he has also been prioritizing emotion regulation more this week. He explored how reality acceptance has been both needed and challenging for him. Coping Strategies Group Start Time: 10:10am End Time: 11:00am Total Time: 50 minutes Number of Therapists: 2 Number of Patients: 10 Problem(s) Number Addressed: 1 Intervention: Active Listening, Clarified, Challenged, Encouraged, Engaged, Explored, Gave Feedback, Observed, Redirected, and Supported Explain: Patients were educated on the skill of thought records. They worked individually through their own examples with the guidance of the therapists. Response: Patient worked quietly and individually on his thought record. He asked relevant questions. Process and Emotion Management Group Start Time: 11:10am End Time: 12:00pm Total Time: 50 minutes Number of Therapists: 2 Number of Patients: 11 Problem(s) Number Addressed: 1 Intervention: Active Listening, Clarified, Challenged, Encouraged, Engaged, Explored, Gave Feedback, Observed, Redirected, and Supported Explain: Patients explored the topic of values and worked on understanding their core values and how to live into their values. They shared their feeling word and takeaway from today at group end. Response: Patient worked quietly on identifying core values. He reported how impactful it was for him to identify more with his value system and those that didn't resonate as much. He reported feeling light. He stated his takeaway from today is there are a lot of things about myself that I am proud of and respect . PLAN: Continue group treatment as stated in Treatment Plan. Continue to gain insights into problems. Continue to share feelings & thoughts in group. Monitor thinking/complete thought sheets. Incorporate relaxation/coping strategies into daily routine. SOBRIETY (If applicable): N/A Patient Data IOP Daily Questionnaire IOP Daily 03/01/2023 03/02/2023 03/07/2023 Today, is your belief in your ability to use your Safety Plan in a crisis at 90%? Yes Yes Yes Today, have you wished you were or wished you could go to sleep and not wake up? Yes No Yes Today, have you actually had any thoughts of killing yourself? No No No On a scale of 1 to 10 how would you rate your mood now? 3 5 4 SIGNATURE: KHARI Elmore PATIENT NAME: Macho Sanches DATE: March 08, 2023 TIME: 9:04 AM PAGER/CONTACT #: [phone] documented in this encounter [facility] 03-08-2023 Miscellaneous Notes , IOP TEAM NOTE IOP TEAM MEETING DATE: 03/08/2023 RECENT ASSESSMENTS/TREATMENT PLAN REVIEWS: Per KHARI Haines, assessment. Treatment goal review completed on 02/15/23. SUICIDE RISK AND MITIGATION PLAN Low to moderate risk. Patient completed their safety plan and has a copy. Patient has reported no current safety concerns and no current plan or intent. He reports to having fleeting SI. WEEKLY REVIEW OF CLIENT PROGRESS: Patient has struggled this past week with relapsing into worsening symptoms and has been lacking with consistent skill use. He has reported insight into this concern, which has also impacted his motivation and critical judgements. He is working on building back into his skill use, specifically prioritizing PMR, distress tolerance, emotional waves, and mastery tasks. He has been encouraged to reframe the relapse as beneficial for himself and focus on smaller more attainable steps. He did report an increase in the frequency of his SI/ wishes, however he has not current plans or intent and reports to feeling safe. He made significant progress today in group with affirmations and understanding the respect he has for his value system and what it looks like when he doesn't live into them. DISCHARGE PLANNING/RECOMMENDATIONS: Patient is set for a tentative discharge date of 03/15/23. Patient is scheduled with Kraig Wu APN. For medication management on 03/13 at 930am and Yessenia Mendoza LPC for individual therapy on 03/16 at 11am. This consensus plan was developed by IOP treatment team which met via teams on 03/08/2023. Team Members Participation in this Plan of Care: Attending: Dr. West Therapists: KHARI Elmore LISW Nurse Practitioner: Cassandra Austin CNP DOCUMENTED BY: KHARI Elmore PATIENT NAME: Macho Sanches DATE: March 08, 2023 TIME: 2:35 PM documented in this encounter [facility] 03-07-2023 Note HNO ID: [id number] Author: Sophia Alvarado LPCC Service: Behavioral Health IOP (Intensive Outpatient Program) Author Type: Therapist Type: Progress Notes Filed: 03/07/2023 12:04 PM Note Text: BEHAVIORAL HEALTH IOP (INTENSIVE OUTPATIENT PROGRAM) DAILY PROGRESS NOTE VIOP - Patient consented to VIOP through [facility] for [facility]. SERVICE DATE: March 07, 2023 SERVICE TIME: 9:00 AM INTERVAL PROGRESS: Stable PATIENT'S PROGRESS: Attentive AND Involved BEHAVIOR: Appearance: Disheveled Attitude: Cooperative Affect: Appropriate and Anxious Mood: Steady, calm, frustrated, scared, content, angry Thought Process: Logical, Perseverative, Goal-directed, and Preoccupied Speech: Normal Eye Contact: Fair Describe Change Noted Throughout the Day: Consistent GROUP THERAPY: Illness Management Group Start Time: 9:00am End Time: 10:00am Total Time: 60 minutes Number of Therapists: 2 Number of Patients: 8 Problem(s) Number Addressed: 1 Intervention: Active Listening, Clarified, Challenged, Encouraged, Engaged, Explored, Gave Feedback, Observed, Redirected, and Supported Explain: Patients shared a feeling word and two positive traits. They reviewed the results of their PHQ-9 and RICHARD-7 questionnaires and explored areas in need of skill implementation. Response: Patient reported feeling content, angry, frustrated, and scared. He stated his positive traits are awesome and cool. He shared a lot of his emotions are being influenced by how much he realized yesterday of his struggles, like his rumination and critical thinking. He stated he is struggling with feeling down, depressed, and SI. He shared he worked on some PMR and TIPP, which has been useful and relaxing. He noted that learning how to identify his emotions and talking about them is working. He was encouraged to work back on getting out the house more, even if just sitting outside for a little bit. Coping Strategies Group Start Time: 10:10am End Time: 11:00am Total Time: 50 minutes Number of Therapists: 2 Number of Patients: 9 Problem(s) Number Addressed: 1 Intervention: Active Listening, Clarified, Challenged, Encouraged, Engaged, Explored, Gave Feedback, Observed, Redirected, and Supported Explain: Patients continued education into the handout for cognitive distortions. Response: Patient participated in reading. He appeared engaged and participated with non-verbal cues. Process and Emotion Management Group Start Time: 11:10am End Time: 12:00pm Total Time: 50 minutes Number of Therapists: 2 Number of Patients: 9 Problem(s) Number Addressed: 1 Intervention: Active Listening, Clarified, Challenged, Encouraged, Engaged, Explored, Gave Feedback, Observed, Redirected, and Supported Explain: Patients finished exploration on the topic of cognitive distortions and were introduced to thought records. They shared their feeling word and takeaway from today at group end. Response: Patient appeared engaged and participatory with non-verbal cues. He reported feeling steady and calm. He stated his takeaway from today is how much he needs to work on his distortions and building into patience. He stated he wants to work on identifying the distortion of ?making feelings facts?. PLAN: Continue group treatment as stated in Treatment Plan. Continue to gain insights into problems. Continue to share feelings AND thoughts in group. Monitor thinking/complete thought sheets. Incorporate relaxation/coping strategies into daily routine. SOBRIETY (If applicable): N/A Patient Data [place]-SUICIDE SEVERITY RATING SCALE Screen Version - Recent Past month Ask questions that are bolded and underlined. YES/NO Ask Questions 1 and 2 1) Have you wished you were or wished you could go to sleep and not wake up? Yes 2) Have you actually had any thoughts of killing yourself? No If YES to 2, ask questions 3, 4, 5, and 6. If NO to 2, go directly to question 6. 3) Have you been thinking about how you might do this? E.g. ?I thought about taking an overdose but I never made a specific plan as to when where or how I would actually do it?.and I would never go through with it.? 4) Have you had these thoughts and had some intention of acting on them? As opposed to ?I have the thoughts but I definitely will not do anything about them.? 5) Have you started to work out or worked out the details of how to kill yourself? Do you intend to carry out this plan? 6) Have you ever done anything, started to do anything, or prepared to do anything to end your life? Examples: Collected pills, obtained a gun, gave away valuables, wrote a will or suicide note, took out pills but didn't swallow any, held a gun but changed your mind or it was grabbed from your hand, went to the roof but didn't jump; or actually took pills, tried to shoot yourself, cut yourself, tried to hang yourself, etc. If YES, ask: Was this within the past three months? YE (more content not included)... [facility] 03-07-2023 History of Presen t illness Narrative Images from the original note were not included. BEHAVIORAL HEALTH IOP (INTENSIVE OUTPATIENT PROGRAM) DAILY PROGRESS NOTE VIOP - Patient consented to VIOP through [facility]. SERVICE DATE: March 07, 2023 SERVICE TIME: 9:00 AM INTERVAL PROGRESS: Stable PATIENT'S PROGRESS: Attentive & Involved BEHAVIOR: Appearance: Disheveled Attitude: Cooperative Affect: Appropriate and Anxious Mood: Steady, calm, frustrated, scared, content, angry Thought Process: Logical, Perseverative, Goal-directed, and Preoccupied Speech: Normal Eye Contact: Fair Describe Change Noted Throughout the Day: Consistent GROUP THERAPY: Illness Management Group Start Time: 9:00am End Time: 10:00am Total Time: 60 minutes Number of Therapists: 2 Number of Patients: 8 Problem(s) Number Addressed: 1 Intervention: Active Listening, Clarified, Challenged, Encouraged, Engaged, Explored, Gave Feedback, Observed, Redirected, and Supported Explain: Patients shared a feeling word and two positive traits. They reviewed the results of their PHQ-9 and RICHARD-7 questionnaires and explored areas in need of skill implementation. Response: Patient reported feeling content, angry, frustrated, and scared. He stated his positive traits are awesome and cool. He shared a lot of his emotions are being influenced by how much he realized yesterday of his struggles, like his rumination and critical thinking. He stated he is struggling with feeling down, depressed, and SI. He shared he worked on some PMR and TIPP, which has been useful and relaxing. He noted that learning how to identify his emotions and talking about them is working. He was encouraged to work back on getting out the house more, even if just sitting outside for a little bit. Coping Strategies Group Start Time: 10:10am End Time: 11:00am Total Time: 50 minutes Number of Therapists: 2 Number of Patients: 9 Problem(s) Number Addressed: 1 Intervention: Active Listening, Clarified, Challenged, Encouraged, Engaged, Explored, Gave Feedback, Observed, Redirected, and Supported Explain: Patients continued education into the handout for cognitive distortions. Response: Patient participated in reading. He appeared engaged and participated with non-verbal cues. Process and Emotion Management Group Start Time: 11:10am End Time: 12:00pm Total Time: 50 minutes Number of Therapists: 2 Number of Patients: 9 Problem(s) Number Addressed: 1 Intervention: Active Listening, Clarified, Challenged, Encouraged, Engaged, Explored, Gave Feedback, Observed, Redirected, and Supported Explain: Patients finished exploration on the topic of cognitive distortions and were introduced to thought records. They shared their feeling word and takeaway from today at group end. Response: Patient appeared engaged and participatory with non-verbal cues. He reported feeling steady and calm. He stated his takeaway from today is how much he needs to work on his distortions and building into patience. He stated he wants to work on identifying the distortion of making feelings facts . PLAN: Continue group treatment as stated in Treatment Plan. Continue to gain insights into problems. Continue to share feelings & thoughts in group. Monitor thinking/complete thought sheets. Incorporate relaxation/coping strategies into daily routine. SOBRIETY (If applicable): N/A Patient Data [place]-SUICIDE SEVERITY RATING SCALE Screen Version - Recent Past month Ask questions that are bolded and underlined. YES/NO Ask Questions 1 and 2 1) Have you wished you were or wished you could go to sleep and not wake up? Yes 2) Have you actually had any thoughts of killing yourself? No If YES to 2, ask questions 3, 4, 5, and 6. If NO to 2, go directly to question 6. 3) Have you been thinking about how you might do this? E.g. I thought about taking an overdose but I never made a specific plan as to when where or how I would actually do it .and I would never go through with it. 4) Have you had these thoughts and had some intention of acting on them? As opposed to I have the thoughts but I definitely will not do anything about them. 5) Have you started to work out or worked out the details of how to kill yourself? Do you intend to carry out this plan? 6) Have you ever done anything, started to do anything, or prepared to do anything to end your life? Examples: Collected pills, obtained a gun, gave away valuables, wrote a will or suicide note, took out pills but didn't swallow any, held a gun but changed your mind or it was grabbed from your hand, went to the roof but didn't jump; or actually took pills, tried to shoot yourself, cut yourself, tried to hang yourself, etc. If YES, ask: Was this within the past three months? YES/NO No Low Risk Moderate Risk High Risk Patient reported he has had an increase in the frequency of his SI over the last 2 weeks. He reported no current plan, means, or intent. He shared the severity of the thoughts have remained stable. He is aware of possible triggers for the increase as well. He reported to using skills for mindfulness, emotion regulation, paced breathing, and distractions when thoughts arise. He reported benefit to using these skills. Generalized Anxiety Disorder Scale (RICHARD-7) RICHARD - 7 SCORES 03/02/2023 03/07/2023 03/07/2023 RICHARD-7 Score 9 8 8 (0-4) minimal anxiety, (5-9) mild anxiety, (10-14) moderate anxiety, (15-21) severe anxiety IOP Daily Questionnaire IOP Daily 03/01/2023 03/02/2023 03/07/2023 Today, is your belief in your ability to use your Safety Plan in a crisis at 90%? Yes Yes Yes Today, have you wished you were or wished you could go to sleep and not wake up? Yes No Yes Today, have you actually had any thoughts of killing yourself? No No No On a scale of 1 to 10 how would you rate your mood now? 3 5 4 Patient Health Questionnaire (PHQ-9) PHQ-9 03/02/2023 03/07/2023 03/07/2023 Score 16 16 16 (0-4) minimal depression, (5-9) mild depression, (10-14) moderate depression, (15-19) moderately severe depression, (20-27) severe depression SIGNATURE: KHARI Elmore PATIENT NAME: Macho Sanches DATE: March 07, 2023 TIME: 8:52 AM PAGER/CONTACT #: [phone] documented in this encounter [facility] 03-06-2023 Miscellaneous Notes Periodic checks are recommended. Note he declines. TC to patient who verbalized understanding of providers message below. Patient states he does not want this testing completed and feels there is no reason to have it done at this time. FLORECITA Hua It is to check his asthma. OK to send him a letter to advise if can't reach by phone. Schedule if willing. Attempted to contact patient regarding message below but no answer and voice mailbox is full. I called pt to schedule his spirometry test. He seemed confused as to why this was ordered and didn't remember having the discussion with Sophy about the test. Please advise and Contact patient. documented in this encounter [facility] 03-06-2023 Note HNO ID: [id number] Author: Sophia Alvarado LPCC Service: Behavioral Health IOP (Intensive Outpatient Program) Author Type: Therapist Type: Progress Notes Filed: 03/06/2023 12:06 PM Note Text: BEHAVIORAL HEALTH IOP (INTENSIVE OUTPATIENT PROGRAM) DAILY PROGRESS NOTE VIOP - Patient consented to VIOP through [facility] for [facility]. SERVICE DATE: March 06, 2023 SERVICE TIME: 9:00 AM INTERVAL PROGRESS: Deteriorating PATIENT'S PROGRESS: Limited BEHAVIOR: Appearance: Fair grooming and hygiene Attitude: Cooperative, Guarded, and Perseverative Affect: Anxious, Sad, Tearful, Restricted, and Distressed Mood: Frustrated and confused Thought Process: Perseverative and Preoccupied Speech: Normal and Quiet Eye Contact: Fair Describe Change Noted Throughout the Day: Declined GROUP THERAPY: Illness Management Group Start Time: 9:00am End Time: 10:00am Total Time: 60 minutes Number of Therapists: 2 Number of Patients: 11 Problem(s) Number Addressed: 1 Intervention: Active Listening, Clarified, Challenged, Encouraged, Engaged, Explored, Gave Feedback, Observed, Redirected, and Supported Explain: Patients shared a feeling word and two positive traits. They discussed their weekend, skills used and concerns. Response: Patient reported feeling frustrated. He stated his positive traits are patient and brave. he stated he worked on boundary setting. He stated he spent a lot of time outside to separate from parents. He explored how nightmares and poor boundaries influenced his mood and that his parents are highly influencing it all. He was encouraged to work on some self-compassion and identifying distortions. Coping Strategies Group Start Time: 10:10am End Time: 11:00am Total Time: 50 minutes Number of Therapists: 2 Number of Patients: 11 Problem(s) Number Addressed: 1 Intervention: Active Listening, Clarified, Challenged, Encouraged, Engaged, Explored, Gave Feedback, Observed, Redirected, and Supported Explain: Patients began exploration into the topic of cognitive distortions using given handouts and a short video. Response: Patient shared the difficulty he faces with distortions and how it has become a cyclical pattern. He was observant and appeared to struggle with emotions as evidenced by his body language. Process and Emotion Management Group Start Time: 11:10am End Time: 12:00pm Total Time: 50 minutes Number of Therapists: 2 Number of Patients: 11 Problem(s) Number Addressed: 1 Intervention: Active Listening, Clarified, Challenged, Encouraged, Engaged, Explored, Gave Feedback, Observed, Redirected, and Supported Explain: Patients continued education into cognitive distortions. They shared their feeling word and takeaway from today at group end. Response: Patient was quiet and struggled with eye contact. He appeared to be struggling with emotional overload throughout today's discussion. He reported feeling confused. He stated his takeaway from today is ?I have lots of skills to use?. He appeared emotionally withdrawn. PLAN: Continue group treatment as stated in Treatment Plan. Continue to gain insights into problems. Continue to share feelings AND thoughts in group. Monitor thinking/complete thought sheets. Incorporate relaxation/coping strategies into daily routine. SOBRIETY (If applicable): N/A Patient Data IOP Daily Questionnaire IOP Daily 02/28/2023 03/01/2023 03/02/2023 Today, is your belief in your ability to use your Safety Plan in a crisis at 90%? Yes Yes Yes Today, have you wished you were or wished you could go to sleep and not wake up? No Yes No Today, have you actually had any thoughts of killing yourself? No No No On a scale of 1 to 10 how would you rate your mood now? 6 3 5 SIGNATURE: Sophia Alvarado [facility] PATIENT NAME: Macho Sanches DATE: March 06, 2023 TIME: 8:42 AM PAGER/CONTACT #: [phone] [facility] 03-06-2023 History of Presen t illness Narrative BEHAVIORAL HEALTH IOP (INTENSIVE OUTPATIENT PROGRAM) DAILY PROGRESS NOTE VIOP - Patient consented to VIOP through [facility]. SERVICE DATE: March 06, 2023 SERVICE TIME: 9:00 AM INTERVAL PROGRESS: Deteriorating PATIENT'S PROGRESS: Limited BEHAVIOR: Appearance: Fair grooming and hygiene Attitude: Cooperative, Guarded, and Perseverative Affect: Anxious, Sad, Tearful, Restricted, and Distressed Mood: Frustrated and confused Thought Process: Perseverative and Preoccupied Speech: Normal and Quiet Eye Contact: Fair Describe Change Noted Throughout the Day: Declined GROUP THERAPY: Illness Management Group Start Time: 9:00am End Time: 10:00am Total Time: 60 minutes Number of Therapists: 2 Number of Patients: 11 Problem(s) Number Addressed: 1 Intervention: Active Listening, Clarified, Challenged, Encouraged, Engaged, Explored, Gave Feedback, Observed, Redirected, and Supported Explain: Patients shared a feeling word and two positive traits. They discussed their weekend, skills used and concerns. Response: Patient reported feeling frustrated. He stated his positive traits are patient and brave. he stated he worked on boundary setting. He stated he spent a lot of time outside to separate from parents. He explored how nightmares and poor boundaries influenced his mood and that his parents are highly influencing it all. He was encouraged to work on some self-compassion and identifying distortions. Coping Strategies Group Start Time: 10:10am End Time: 11:00am Total Time: 50 minutes Number of Therapists: 2 Number of Patients: 11 Problem(s) Number Addressed: 1 Intervention: Active Listening, Clarified, Challenged, Encouraged, Engaged, Explored, Gave Feedback, Observed, Redirected, and Supported Explain: Patients began exploration into the topic of cognitive distortions using given handouts and a short video. Response: Patient shared the difficulty he faces with distortions and how it has become a cyclical pattern. He was observant and appeared to struggle with emotions as evidenced by his body language. Process and Emotion Management Group Start Time: 11:10am End Time: 12:00pm Total Time: 50 minutes Number of Therapists: 2 Number of Patients: 11 Problem(s) Number Addressed: 1 Intervention: Active Listening, Clarified, Challenged, Encouraged, Engaged, Explored, Gave Feedback, Observed, Redirected, and Supported Explain: Patients continued education into cognitive distortions. They shared their feeling word and takeaway from today at group end. Response: Patient was quiet and struggled with eye contact. He appeared to be struggling with emotional overload throughout today's discussion. He reported feeling confused. He stated his takeaway from today is I have lots of skills to use . He appeared emotionally withdrawn. PLAN: Continue group treatment as stated in Treatment Plan. Continue to gain insights into problems. Continue to share feelings & thoughts in group. Monitor thinking/complete thought sheets. Incorporate relaxation/coping strategies into daily routine. SOBRIETY (If applicable): N/A Patient Data IOP Daily Questionnaire IOP Daily 02/28/2023 03/01/2023 03/02/2023 Today, is your belief in your ability to use your Safety Plan in a crisis at 90%? Yes Yes Yes Today, have you wished you were or wished you could go to sleep and not wake up? No Yes No Today, have you actually had any thoughts of killing yourself? No No No On a scale of 1 to 10 how would you rate your mood now? 6 3 5 SIGNATURE: KHARI Elmore PATIENT NAME: Macho Sanches DATE: March 06, 2023 TIME: 8:42 AM PAGER/CONTACT #: [phone] documented in this encounter [facility] 03-02-2023 Note HNO ID: [id number] Author: Lusi Antonio West MD Service: ? Author Type: Physician Type: Progress Notes Filed: 03/07/2023 3:35 PM Note Text: RAMAKRISHNA - Outpatient Psychiatry Visit-Pharmacological Management Date/Time: March 02, 2023 2:10 PM Method of contact: Redapt I have communicated my name and active licensure. The patient's identity and physical location were verified at the time of this visit. Either the patient or their legal community engagement representative has been informed of the risks and benefits of -- and alternatives to -- treatment through a remote evaluation and consents to proceed with the evaluation remotely. ASSESSMENT: Macho Sanches is a 37 year old year old male who lives with parents in [place], currently on Wellbutrin for the management of MDD, RICHARD, ADHD who presents for a outpatient psychiatric follow-up appointment to address current medications. The patient had the last visit with me on 02/09/23 and has since noticed improvement in depression symptoms with continued difficulty with anxiety and ADHD symptoms, therefore warranting medication changes as described below. [facility] Typical outpatient follow-up to be changed to [facility] following discharge from [facility]. DIAGNOSIS: PRIMARY: MDD, recurrent, severe without psychotic features SECONDARY: RICHARD, ADHD, Stimulant Abuse, Marijuana Abuse GAF: 60-51 Moderate symptoms or moderate difficulty in social, occupational or school functioning. TREATMENT PLAN: - Indicated Labs: No additional labs indicated at this time - Psychotherapy: Appropriate to continue with [facility] Group 3 - Medications: - Continue: Wellbutrin XL 300 mg daily Trazodone 50 mg QHS PRN insomnia - using regularly with good benefit - Discontinue: Strattera 40 mg daily - Start: Vyvanse 30 mg daily - Social: engage with others in meaningful ways as permitted by local COVID restrictions - Other: will assist patient in attempting to change provider through [facility] R/B/A of current course of recommended therapy discussed. Questions answered. Follow Up: with me in 1 week (03/08/23 at 2:30 PM) CC: Medication Management HPI: Patient reports that he has been working really hard in group and feels he is getting a lot out of it. Trying to get over Most recently, primarily, has been having issues setting boundaries. Is also struggling with rumination but has been trying to recognize that, so that he can stop himself. Struggling to have compassion for himself and realizes that he is always looked to external sources for self validation, including past relationships expecting others to do double time and caring for him rather than having compassion for himself. Is trying to remedy this. Would like to discuss antidepressants and says he has never had great luck with them. Was on Abilify before and it brought back thoughts of self-harm. Since starting Strattera was experiencing nausea and dizziness. Stopped taking it yesterday. Has noted in the past that stimulants have increased his anxiety. However, when he was on Strattera he noticed that he did have some improvements in his mood. Discussed benefits of titrating Wellbutrin versus starting Vyvanse as well as risks upon committing use of Vyvanse and Wellbutrin. Patient expressed interest in starting Vyvanse as a priority rather than titrating Wellbutrin given the improvements that he noted when he was taking Strattera. Will reach out to team if he is having any issues or concerns with starting this medication. Will plan to follow-up in 1 week. Denies SI, HI, AVH. Pertinent past psychiatric history reviewed, including: - Recent Hospitalizations - Med trials - Suicide attempts - Legal history KP Data PHQ-9 02/21/2023 03/02/2023 03/02/2023 Score 14 16 16 (0-4) minimal depression, (5-9) mild depression, (10-14) moderate depression, (15-19) moderately severe depression, (20-27) severe depression PHQ-9 Score 03/02/2023 16 03/02/2023 16 02/21/2023 14 02/08/2023 12 02/08/2023 12 01/23/2023 19 01/19/2023 22 01/18/2023 21 01/12/2023 15 01/03/2023 27 (0-4) minimal depression, (5-9) mild depression, (10-14) moderate depression, (15-19) moderately severe depression, (20-27) severe depression RICHARD - 7 SCORES 02/21/2023 03/02/2023 03/02/2023 RICHARD-7 Score 9 9 9 (0-4) minimal anxiety, (5-9) mild anxiety, (10-14) moderate anxiety, (15-21) severe anxiety RICHARD - 7 SCORES RICHARD-7 Score 03/02/2023 9 03/02/2023 9 02/21/2023 9 02/08/2023 11 02/08/2023 11 01/23/2023 10 01/19/2023 12 01/18/2023 13 01/12/2023 11 01/03/2023 18 (0-4) minimal anxiety, (5-9) mild anxiety, (10-14) moderate anxiety, (15-21) severe anxiety Pertinent lab work AND results over past 6 months: BUN (mg/dL) Date Value 09/12/2012 12 Creatinine (mg/dL) Date Value 09/12/2012 0.92 Potassium (mmol/L) Date Value 09/12/2012 4.1 Alkaline Phosphatase (U/L) Date Value 09/12/2012 75 AST (U/L) Date Valu (more content not included)... [facility] 03-02-2023 History of Presen t illness Narrative Images from the original note were not included. [facility] - Outpatient Psychiatry Visit-Pharmacological Management Date/Time: March 02, 2023 2:10 PM Method of contact: Redapt I have communicated my name and active licensure. The patient's identity and physical location were verified at the time of this visit. Either the patient or their legal community engagement representative has been informed of the risks and benefits of -- and alternatives to -- treatment through a remote evaluation and consents to proceed with the evaluation remotely. ASSESSMENT: Macho Sanches is a 37 year old year old male who lives with parents in [place], currently on Wellbutrin for the management of MDD, RICHARD, ADHD who presents for a outpatient psychiatric follow-up appointment to address current medications. The patient had the last visit with wi on 02/09/23 and has since noticed improvement in depression symptoms with continued difficulty with anxiety and ADHD symptoms, therefore warranting medication changes as described below. Appropriate to continue with [facility] 3. Typical outpatient follow-up to be changed to [facility] following discharge from [facility]. DIAGNOSIS: PRIMARY: MDD, recurrent, severe without psychotic features SECONDARY: RICHARD, ADHD, Stimulant Abuse, Marijuana Abuse GAF: 60-51 Moderate symptoms or moderate difficulty in social, occupational or school functioning. TREATMENT PLAN: - Indicated Labs: No additional labs indicated at this time - Psychotherapy: Appropriate to continue with [facility] Group 3 - Medications: - Continue: Wellbutrin XL 300 mg daily Trazodone 50 mg QHS PRN insomnia - using regularly with good benefit - Discontinue: Strattera 40 mg daily - Start: Vyvanse 30 mg daily - Social: engage with others in meaningful ways as permitted by local COVID restrictions - Other: will assist patient in attempting to change provider through [facility] R/B/A of current course of recommended therapy discussed. Questions answered. Follow Up: with me in 1 week (03/08/23 at 2:30 PM) CC: Medication Management HPI: Patient reports that he has been working really hard in group and feels he is getting a lot out of it. Trying to get over Most recently, primarily, has been having issues setting boundaries. Is also struggling with rumination but has been trying to recognize that, so that he can stop himself. Struggling to have compassion for himself and realizes that he is always looked to external sources for self validation, including past relationships expecting others to do double time and caring for him rather than having compassion for himself. Is trying to remedy this. Would like to discuss antidepressants and says he has never had great luck with them. Was on Abilify before and it brought back thoughts of self-harm. Since starting Strattera was experiencing nausea and dizziness. Stopped taking it yesterday. Has noted in the past that stimulants have increased his anxiety. However, when he was on Strattera he noticed that he did have some improvements in his mood. Discussed benefits of titrating Wellbutrin versus starting Vyvanse as well as risks upon committing use of Vyvanse and Wellbutrin. Patient expressed interest in starting Vyvanse as a priority rather than titrating Wellbutrin given the improvements that he noted when he was taking Strattera. Will reach out to team if he is having any issues or concerns with starting this medication. Will plan to follow-up in 1 week. Denies SI, ANGEL, AVH. Pertinent past psychiatric history reviewed, including: - Recent Hospitalizations - Med trials - Suicide attempts - Legal history Data PHQ-9 02/21/2023 03/02/2023 03/02/2023 Score 14 16 16 (0-4) minimal depression, (5-9) mild depression, (10-14) moderate depression, (15-19) moderately severe depression, (20-27) severe depression PHQ-9 Score 03/02/2023 16 03/02/2023 16 02/21/2023 14 02/08/2023 12 02/08/2023 12 01/23/2023 19 01/19/2023 22 01/18/2023 21 01/12/2023 15 01/03/2023 27 (0-4) minimal depression, (5-9) mild depression, (10-14) moderate depression, (15-19) moderately severe depression, (20-27) severe depression RICHARD - 7 SCORES 02/21/2023 03/02/2023 03/02/2023 RICHARD-7 Score 9 9 9 (0-4) minimal anxiety, (5-9) mild anxiety, (10-14) moderate anxiety, (15-21) severe anxiety RICHARD - 7 SCORES RICHARD-7 Score 03/02/2023 9 03/02/2023 9 02/21/2023 9 02/08/2023 11 02/08/2023 11 01/23/2023 10 01/19/2023 12 01/18/2023 13 01/12/2023 11 01/03/2023 18 (0-4) minimal anxiety, (5-9) mild anxiety, (10-14) moderate anxiety, (15-21) severe anxiety Pertinent lab work & results over past 6 months: BUN (mg/dL) Date Value 09/12/2012 12 Creatinine (mg/dL) Date Value 09/12/2012 0.92 Potassium (mmol/L) Date Value 09/12/2012 4.1 Alkaline Phosphatase (U/L) Date Value 09/12/2012 75 AST (U/L) Date Value 09/12/2012 22 ALT (U/L) Date Value 09/12/2012 26 Sodium Date Value Ref Range Status 09/12/2012 140 135 - 146 mmol/L Final Albumin (g/dL) Date Value 09/12/2012 4.7 Cholesterol, Total (mg/dL) Date Value 09/12/2012 187 HDL Cholesterol (mg/dL) Date Value 09/12/2012 51 LDL Cholesterol (mg/dL) Date Value 09/12/2012 117 Triglyceride (mg/dL) Date Value 09/12/2012 95 TSH Date Value Ref Range Status 09/12/2012 3.100 0.400 - 5.500 uU/mL Final No results found for: VITD25 Psych History, Brief: Prior Diagnosis: ADHD, MDD, Stimulant Abuse, Marijuana Abuse Current Provider: Iram Blair CNP ([facility] 01/03/23) Therapist: scheduled to see Palma Ambrosio in March Current Kiln Remover: None Last Hospitalization: Denies hospitalization, at the ED after a well check ECT: None Suicide Attempts: None Previous Discontinued Psychiatric Med Trials: Abilify, Adderall, Zoloft, Seroquel, Focalin, Effexor, possibly prozac and/or lexapro, Strattera (nausea/ineffective) CURRENT MEDICATIONS: Wellbutrin XL 300 mg daily Trazodone 50 mg QHS Atarax 25 mg TID PRN anxiety Strattera 40 mg daily -stopped taking yesterday due to side effects Denies any adverse effects of current medication regimen. PDMP website checked and validated. All prescriptions have been APPROPRIATELY filled. No suspicious activity was identified. 03/02/2023 by Luis Antonio West MD Has not filled medical marijuana at all this month Medical ROS: Musculoskeletal: chronic pain in right knee, right hip and right lower back - has appointment today with ortho to discuss PSYCH: See HPI PAST MEDICAL HISTORY Diagnosis Date Asthma seasonal Environmental allergies PAST SURGICAL HISTORY Procedure Laterality Date PAST SURGICAL HISTORY OF left testicle torsion SUBSTANCE USE HISTORY: Nicotine: None Caffeine: coffee (4 cups per day) Alcohol: No history of use or dependence Marijuana: has been using the past 3 days but not before that, plans not to use as all during IOP Cocaine: No history of use or dependence Opiods: No history of use or dependence SPIRITUALITY: None PFSH: Macho grew up in [place]. He has one younger sister. He says he was lonely in elementary school, and bullied in middle and high school. He says he was cared for at home, and was closer to his mom, but didn't go any further. His mom is a professor at the [employer]. His dad is also employed working with various schools in the [employer]. He doesn't have contact with his sister. He says she was mean as a kid. Macho hs been living in [place] at various times over the years. He moved back in with his parents in October 2022. The patient lives with mother and father - they don't get along well ADLs/IADLs: independent Education: [id number] Employment: Unemployed, not seeking work. Financial concerns: Yes, no income Marital Status: Single (never ) Children: none Current Supports: Include friends. Legal Hx: DUI 2009 Service: No ABUSE HISTORY (physical, mental, verbal, sexual): From Childhood: Bullied in middle and high school Response / Significance to Patient: Affected his self esteem. From Adulthood: None Response / Significance to Patient: NA Did you experience trauma?: Yes TRAUMA HISTORY (physical, mental, verbal, sexual): From Childhood: Bullied in school Response / Significance to Patient: Depression, low self esteem. 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 FAMILY PSYCHIATRIC HISTORY: Paternal family (dad, uncle, and grandmother)-numerous family members with depression, anxiety, alcohol use disorder Denies additional family history PHYSICAL EXAM: There were no vitals taken for this visit. Eyes: Anicteric sclera. Extraocular movements are intact. Neuro: No akathisia appreciated/endorsed MENTAL STATUS: Appearance: Casually dressed and appropriately groomed Behavior: Appropriate Alertness: Alert Orientation: Person, Place, Time and Situation Speech/Language: The patient demonstrates appropriate tone, prosody, deedee, phonetics, and syntax Mood: depressed with very low motivation Affect: mood congruent, restricted range Thought Form: Coherent Thought Content: Coherent Suicidal Ideations: No suicidal ideation, intent or plan. Homicidal Ideations: No homicidal ideation, intent or plan. Insight: Appropriate Judgment: Appropriate Memory/Cognition: Intact Psychomotor: Psychomotor activity was normal PSYCHIATRY APPOINTMENT: E/M Visit-Pharmacological Management I spent a total of 30 minutes on the date of the service which included preparing to see the patient, [id number] patient care, completing clinical documentation, obtaining and/or reviewing separately obtained history, performing a medically appropriate examination, counseling and educating the patient/family/caregiver, ordering medications, tests, or procedures, and communicating with other HCPs (not separately reported). Luis Antonio West MD documented in this encounter [facility] 03-02-2023 Note HNO ID: [id number] Author: Sophia Alvarado [facility] Service: Behavioral Health IOP (Intensive Outpatient Program) Author Type: Therapist Type: Progress Notes Filed: 03/02/2023 12:08 PM Note Text: BEHAVIORAL HEALTH IOP (INTENSIVE OUTPATIENT PROGRAM) DAILY PROGRESS NOTE VIOP - Patient consented to VIOP through [facility]. SERVICE DATE: March 02, 2023 SERVICE TIME: 9:00 AM INTERVAL PROGRESS: Stable PATIENT'S PROGRESS: Attentive AND Involved BEHAVIOR: Appearance: Fair grooming and hygiene Attitude: Cooperative Affect: Anxious, Restricted, and Distressed Mood: Overwhelmed, content, and scared Thought Process: Logical, [place], and Preoccupied Speech: Normal and Quiet Eye Contact: Fair Describe Change Noted Throughout the Day: Consistent GROUP THERAPY: Illness Management Group Start Time: 9:00am End Time: 10:00am Total Time: 60 minutes Number of Therapists: 2 Number of Patients: 11 Problem(s) Number Addressed: 1 Intervention: Active Listening, Clarified, Challenged, Encouraged, Engaged, Explored, Gave Feedback, Observed, Redirected, and Supported Explain: Patients shared a feeling word and two positive traits. They discussed weekend plans and potential obstacles. Response: Patient reported feeling content and scared. He stated his positive traits are brave and patient. He shared his weekend activities include some cooking, journaling, and getting outside. He stated he is open to trying out the PMR exercise this weekend to help manage his pain. He noted he is going to work on some mastery skills and focus on getting out of his comfort zone. Coping Strategies Group Start Time: 10:10am End Time: 11:00am Total Time: 50 minutes Number of Therapists: 2 Number of Patients: 11 Problem(s) Number Addressed: 1 Intervention: Active Listening, Clarified, Challenged, Encouraged, Engaged, Explored, Gave Feedback, Observed, Redirected, and Supported Explain: Patients were educated on tips for building and preserving better boundaries using given handouts and peer discussion. Response: Patient appeared engaged. He was participatory. He shared an experience in his past that plays a role on his boundary work, which was with bullying and with his parents. Process and Emotion Management Group Start Time: 11:10am End Time: 12:00pm Total Time: 50 minutes Number of Therapists: 2 Number of Patients: 10 Problem(s) Number Addressed: 1 Intervention: Active Listening, Clarified, Challenged, Encouraged, Engaged, Explored, Gave Feedback, Observed, Redirected, and Supported Explain: Patients finished exploration on the skills for boundary building, specifically reviewing fair fighting rules. They shared their feeling word and takeaway from today at group end. They shared gratitudes. Response: Patient shared that he has found throughout this discussion that he has no boundaries with himself and was encouraged to work on compassion and self-worth. He reported feeling overwhelmed. He stated his takeaway from today is seeing how many folks in group are caregivers and work in clinical settings. He stated he is grateful for himself, his skills, and group. PLAN: Continue group treatment as stated in Treatment Plan. Continue to gain insights into problems. Continue to share feelings AND thoughts in group. Monitor thinking/complete thought sheets. Incorporate relaxation/coping strategies into daily routine. SOBRIETY (If applicable): N/A Patient Data IOP Daily Questionnaire IOP Daily 02/28/2023 03/01/2023 03/02/2023 Today, is your belief in your ability to use your Safety Plan in a crisis at 90%? Yes Yes Yes Today, have you wished you were or wished you could go to sleep and not wake up? No Yes No Today, have you actually had any thoughts of killing yourself? No No No On a scale of 1 to 10 how would you rate your mood now? 6 3 5 SIGNATURE: Sophia Alvarado [facility] PATIENT NAME: Macho Sanches DATE: March 02, 2023 TIME: 8:56 AM PAGER/CONTACT #: [phone] [facility] 03-02-2023 History of Presen t illness Narrative BEHAVIORAL HEALTH IOP (INTENSIVE OUTPATIENT PROGRAM) DAILY PROGRESS NOTE VIOP - Patient consented to VIOP through [facility]. SERVICE DATE: March 02, 2023 SERVICE TIME: 9:00 AM INTERVAL PROGRESS: Stable PATIENT'S PROGRESS: Attentive & Involved BEHAVIOR: Appearance: Fair grooming and hygiene Attitude: Cooperative Affect: Anxious, Restricted, and Distressed Mood: Overwhelmed, content, and scared Thought Process: Logical, [place], and Preoccupied Speech: Normal and Quiet Eye Contact: Fair Describe Change Noted Throughout the Day: Consistent GROUP THERAPY: Illness Management Group Start Time: 9:00am End Time: 10:00am Total Time: 60 minutes Number of Therapists: 2 Number of Patients: 11 Problem(s) Number Addressed: 1 Intervention: Active Listening, Clarified, Challenged, Encouraged, Engaged, Explored, Gave Feedback, Observed, Redirected, and Supported Explain: Patients shared a feeling word and two positive traits. They discussed weekend plans and potential obstacles. Response: Patient reported feeling content and scared. He stated his positive traits are brave and patient. He shared his weekend activities include some cooking, journaling, and getting outside. He stated he is open to trying out the PMR exercise this weekend to help manage his pain. He noted he is going to work on some mastery skills and focus on getting out of his comfort zone. Coping Strategies Group Start Time: 10:10am End Time: 11:00am Total Time: 50 minutes Number of Therapists: 2 Number of Patients: 11 Problem(s) Number Addressed: 1 Intervention: Active Listening, Clarified, Challenged, Encouraged, Engaged, Explored, Gave Feedback, Observed, Redirected, and Supported Explain: Patients were educated on tips for building and preserving better boundaries using given handouts and peer discussion. Response: Patient appeared engaged. He was participatory. He shared an experience in his past that plays a role on his boundary work, which was with bullying and with his parents. Process and Emotion Management Group Start Time: 11:10am End Time: 12:00pm Total Time: 50 minutes Number of Therapists: 2 Number of Patients: 10 Problem(s) Number Addressed: 1 Intervention: Active Listening, Clarified, Challenged, Encouraged, Engaged, Explored, Gave Feedback, Observed, Redirected, and Supported Explain: Patients finished exploration on the skills for boundary building, specifically reviewing fair fighting rules. They shared their feeling word and takeaway from today at group end. They shared gratitudes. Response: Patient shared that he has found throughout this discussion that he has no boundaries with himself and was encouraged to work on compassion and self-worth. He reported feeling overwhelmed. He stated his takeaway from today is seeing how many folks in group are caregivers and work in clinical settings. He stated he is grateful for himself, his skills, and group. PLAN: Continue group treatment as stated in Treatment Plan. Continue to gain insights into problems. Continue to share feelings & thoughts in group. Monitor thinking/complete thought sheets. Incorporate relaxation/coping strategies into daily routine. SOBRIETY (If applicable): N/A Patient Data IOP Daily Questionnaire IOP Daily 02/28/2023 03/01/2023 03/02/2023 Today, is your belief in your ability to use your Safety Plan in a crisis at 90%? Yes Yes Yes Today, have you wished you were or wished you could go to sleep and not wake up? No Yes No Today, have you actually had any thoughts of killing yourself? No No No On a scale of 1 to 10 how would you rate your mood now? 6 3 5 SIGNATURE: KHARI Elmore PATIENT NAME: Macho Sanches DATE: March 02, 2023 TIME: 8:56 AM PAGER/CONTACT #: [phone] documented in this encounter [facility] 03-01-2023 Note HNO ID: [id number] Author: Sophia Alvarado LPCC Service: Behavioral Health IOP (Intensive Outpatient Program) Author Type: Therapist Type: Progress Notes Filed: 03/01/2023 11:52 AM Note Text: BEHAVIORAL HEALTH IOP (INTENSIVE OUTPATIENT PROGRAM) DAILY PROGRESS NOTE VIOP - Patient consented to VIOP through Zoom for [facility]. SERVICE DATE: March 01, 2023 SERVICE TIME: 9:00 AM INTERVAL PROGRESS: Deteriorating PATIENT'S PROGRESS: Attentive AND Involved BEHAVIOR: Appearance: Disheveled Attitude: Cooperative and Perseverative Affect: Sad, Restricted, and Distressed, congruent Mood: Miserable, empty, and relaxed Thought Process: Perseverative and Preoccupied Speech: Normal and Quiet Eye Contact: Good Describe Change Noted Throughout the Day: Consistent GROUP THERAPY: Illness Management Group Start Time: 9:00am End Time: 10:00am Total Time: 60 minutes Number of Therapists: 2 Number of Patients: 9 Problem(s) Number Addressed: 1 Intervention: Active Listening, Clarified, Challenged, Encouraged, Engaged, Explored, Gave Feedback, Observed, Redirected, and Supported Explain: Patients shared a feeling word and two positive traits. They reviewed their treatment plans and identified areas in which they are working and not working. Response: Patient reported feeling miserable and empty. He stated his positive traits brave and resilient. He shared he does not feel well physically and has also been noticing mental fatigue and increased rumination. He shared his routine has changed, his eating patterns have decreased, and his pain has increased this past week. He shared he is struggling more this week with his skills for anxiety and rumination and emotion regulation. He was encouraged to work on what is in his control today and focus on identifying what it means for him to ?feel happy?, recognizing that some activities may not build into that anymore. Coping Strategies Group Start Time: 10:10am End Time: 11:00am Total Time: 50 minutes Number of Therapists: 2 Number of Patients: 9 Problem(s) Number Addressed: 1 Intervention: Active Listening, Clarified, Challenged, Encouraged, Engaged, Explored, Gave Feedback, Observed, Redirected, and Supported Explain: Patients continued education into the skills for boundary setting. They learned about the difference between loos, rigid, and firm boundaries. They also reviewed the importance of taking responsibility and symptoms of fusion. Response: Patient appeared engaged and participated verbally in the discussion. He shared that he feels his physical boundaries are firm and emotional are very loose. He shared that he has struggled his internal sense of identity and mistakes often damage his sense of self-worth and esteem. Process and Emotion Management Group Start Time: 11:10am End Time: 12:00pm Total Time: 50 minutes Number of Therapists: 2 Number of Patients: 9 Problem(s) Number Addressed: 1 Intervention: Active Listening, Clarified, Challenged, Encouraged, Engaged, Explored, Gave Feedback, Observed, Redirected, and Supported Explain: Patients learned skills for managing others' reactions and tips for building and preserving boundaries. They shared their feeling word and takeaway from today at group end. Response: Patient appeared engaged. He was quiet and participatory with non-verbal cues. He reported feeling calm. He stated his takeaway from today is understanding what boundary setting means for him and how he needs to focus on his needs and feelings more. He also shared that another takeaway was talking about his rumination. PLAN: Continue group treatment as stated in Treatment Plan. Continue to gain insights into problems. Continue to share feelings AND thoughts in group. Monitor thinking/complete thought sheets. Incorporate relaxation/coping strategies into daily routine. SOBRIETY (If applicable): N/A Patient Data IOP Daily Questionnaire IOP Daily 02/26/2023 02/28/2023 03/01/2023 Today, is your belief in your ability to use your Safety Plan in a crisis at 90%? Yes Yes Yes Today, have you wished you were or wished you could go to sleep and not wake up? No No Yes Today, have you actually had any thoughts of killing yourself? No No No On a scale of 1 to 10 how would you rate your mood now? 6 6 3 SIGNATURE: Sophia Alvarado [facility] PATIENT NAME: Macho Sanches DATE: March 01, 2023 TIME: 10:29 AM PAGER/CONTACT #: [phone] [facility] 03-01-2023 Note HNO ID: [id number] Author: [facility]varado [facility] Service: [facility] IOP (Intensive Outpatient Program) Author Type: Therapist Type: Plan of Care Filed: 03/01/2023 12:28 PM Note Text: , IOP TEAM NOTE IOP TEAM MEETING DATE: 03/01/2023 RECENT ASSESSMENTS/TREATMENT PLAN REVIEWS: Per Ish Varghese [facility], assessment. Treatment goal review completed on 02/15/23. SUICIDE RISK AND MITIGATION PLAN Low to moderate risk. Patient completed their safety plan and has a copy. Patient has reported no current safety concerns and no current plan or intent. He reports to having fleeting SI. WEEKLY REVIEW OF CLIENT PROGRESS: Patient has continued to shown good progress and insight into presenting concerns and needs. He has continued to foster willingness and vulnerability with the group. He privately spoke with IOP therapist, Rachelle Tavares, on Monday about the progress he has made with his own safety concerns. He shared how he has no current concerns for his safety, which is new for him and he finds the support and skills within group to be very effective for him. He also worked this week on addressing what he is proud of which includes the work he has put in, even though he does struggle with meeting himself where he is at often. Patient continues to grow in skill use and is showing great benefit from VIOP. He shared some concerns with needing additional IOP after discharge and was encouraged to view how that may not impact him in he best way. He was given an additional extension with us until he sees his individual therapist. He reported to concerns with his ADHD med and encouraged to bring up in his med check. He also shared today that he is struggling with pain, library monitor routine has changed, and starving himself to lose weight. He was reminded of emotional vulnerabilities and given resources/guidance. DISCHARGE PLANNING/RECOMMENDATIONS: Patient is set for a tentative discharge date of 03/15/23. Patient is scheduled with Kraig Wu APN. For medication management on 03/13 at 930am and Yessenia Mendoza LPC for individual therapy on 03/16 at 11am. This consensus plan was developed by [facility] treatment team which met via teams on 03/01/2023. Team Members Participation in this Plan of Care: Attending: Dr. West Therapists: KHARI Elmore LISW Nurse: Iram Gold RN DOCUMENTED BY: KHARI Elmoer PATIENT NAME: Macho Sanches DATE: March 01, 2023 TIME: 2:35 PM [facility] 03-01-2023 History of Presen t illness Narrative BEHAVIORAL HEALTH IOP (INTENSIVE OUTPATIENT PROGRAM) DAILY PROGRESS NOTE VIOP - Patient consented to VIOP through [employer]. SERVICE DATE: March 01, 2023 SERVICE TIME: 9:00 AM INTERVAL PROGRESS: Deteriorating PATIENT'S PROGRESS: Attentive & Involved BEHAVIOR: Appearance: Disheveled Attitude: Cooperative and Perseverative Affect: Sad, Restricted, and Distressed, congruent Mood: Miserable, empty, and relaxed Thought Process: Perseverative and Preoccupied Speech: Normal and Quiet Eye Contact: Good Describe Change Noted Throughout the Day: Consistent GROUP THERAPY: Illness Management Group Start Time: 9:00am End Time: 10:00am Total Time: 60 minutes Number of Therapists: 2 Number of Patients: 9 Problem(s) Number Addressed: 1 Intervention: Active Listening, Clarified, Challenged, Encouraged, Engaged, Explored, Gave Feedback, Observed, Redirected, and Supported Explain: Patients shared a feeling word and two positive traits. They reviewed their treatment plans and identified areas in which they are working and not working. Response: Patient reported feeling miserable and empty. He stated his positive traits brave and resilient. He shared he does not feel well physically and has also been noticing mental fatigue and increased rumination. He shared his routine has changed, his eating patterns have decreased, and his pain has increased this past week. He shared he is struggling more this week with his skills for anxiety and rumination and emotion regulation. He was encouraged to work on what is in his control today and focus on identifying what it means for him to feel happy , recognizing that some activities may not build into that anymore. Coping Strategies Group Start Time: 10:10am End Time: 11:00am Total Time: 50 minutes Number of Therapists: 2 Number of Patients: 9 Problem(s) Number Addressed: 1 Intervention: Active Listening, Clarified, Challenged, Encouraged, Engaged, Explored, Gave Feedback, Observed, Redirected, and Supported Explain: Patients continued education into the skills for boundary setting. They learned about the difference between loos, rigid, and firm boundaries. They also reviewed the importance of taking responsibility and symptoms of fusion. Response: Patient appeared engaged and participated verbally in the discussion. He shared that he feels his physical boundaries are firm and emotional are very loose. He shared that he has struggled his internal sense of identity and mistakes often damage his sense of self-worth and esteem. Process and Emotion Management Group Start Time: 11:10am End Time: 12:00pm Total Time: 50 minutes Number of Therapists: 2 Number of Patients: 9 Problem(s) Number Addressed: 1 Intervention: Active Listening, Clarified, Challenged, Encouraged, Engaged, Explored, Gave Feedback, Observed, Redirected, and Supported Explain: Patients learned skills for managing others' reactions and tips for building and preserving boundaries. They shared their feeling word and takeaway from today at group end. Response: Patient appeared engaged. He was quiet and participatory with non-verbal cues. He reported feeling calm. He stated his takeaway from today is understanding what boundary setting means for him and how he needs to focus on his needs and feelings more. He also shared that another takeaway was talking about his rumination. PLAN: Continue group treatment as stated in Treatment Plan. Continue to gain insights into problems. Continue to share feelings & thoughts in group. Monitor thinking/complete thought sheets. Incorporate relaxation/coping strategies into daily routine. SOBRIETY (If applicable): N/A Patient Data IOP Daily Questionnaire IOP Daily 02/26/2023 02/28/2023 03/01/2023 Today, is your belief in your ability to use your Safety Plan in a crisis at 90%? Yes Yes Yes Today, have you wished you were or wished you could go to sleep and not wake up? No No Yes Today, have you actually had any thoughts of killing yourself? No No No On a scale of 1 to 10 how would you rate your mood now? 6 6 3 SIGNATURE: Sophia Alvarado [facility] PATIENT NAME: Macho Sanches DATE: March 01, 2023 TIME: 10:29 AM PAGER/CONTACT #: [phone] documented in this encounter [facility] 03-01-2023 Miscellaneous Notes , IOP TEAM NOTE IOP TEAM MEETING DATE: 03/01/2023 RECENT ASSESSMENTS/TREATMENT PLAN REVIEWS: Per KHARI Haines, assessment. Treatment goal review completed on 02/15/23. SUICIDE RISK AND MITIGATION PLAN Low to moderate risk. Patient completed their safety plan and has a copy. Patient has reported no current safety concerns and no current plan or intent. He reports to having fleeting SI. WEEKLY REVIEW OF CLIENT PROGRESS: Patient has continued to shown good progress and insight into presenting concerns and needs. He has continued to foster willingness and vulnerability with the group. He privately spoke with [facility] therapist, Rachelle Tavares, on Monday about the progress he has made with his own safety concerns. He shared how he has no current concerns for his safety, which is new for him and he finds the support and skills within group to be very effective for him. He also worked this week on addressing what he is proud of which includes the work he has put in, even though he does struggle with meeting himself where he is at often. Patient continues to grow in skill use and is showing great benefit from VIOP. He shared some concerns with needing additional IOP after discharge and was encouraged to view how that may not impact him in he best way. He was given an additional extension with us until he sees his individual therapist. He reported to concerns with his ADHD med and encouraged to bring up in his med check. He also shared today that he is struggling with pain, library monitor routine has changed, and starving himself to lose weight. He was reminded of emotional vulnerabilities and given resources/guidance. DISCHARGE PLANNING/RECOMMENDATIONS: Patient is set for a tentative discharge date of 03/15/23. Patient is scheduled with Kraig Wu APN. For medication management on 03/13 at 930am and Yessenia Mendoza LPC for individual therapy on 03/16 at 11am. This consensus plan was developed by [facility] treatment team which met via teams on 03/01/2023. Team Members Participation in this Plan of Care: Attending: Dr. West Therapists: KHARI Elmore LISW Nurse: Iram Gold RN DOCUMENTED BY: KHARI Elmore PATIENT NAME: aMcho Sanches DATE: March 01, 2023 TIME: 2:35 PM documented in this encounter [facility] 02-28-2023 Note HNO ID: [id number] Author: All Beckett MD Service: ? Author Type: Physician Type: Progress Notes Filed: 04/03/2023 12:10 AM Note Text: This note was created using [email or web address]. Subjective Macho Sanches is a 37 year old male. HISTORY Macho Sanches is a 37 year old gentleman here to be formally established with me. Noted that saw Zee in November Has had trouble with weight loss Asking for referral for liposuction. Wants to take pressure off areas like where has pinched nerve in back and issue with right knee pain. Waiting for MRI. IOP program with [facility]. Has been eating healthy foods the past 2 months. Has lost weight. Weight gain due to mental health issues and also medications. Noted chronic right knee pain. Saw Dr. Fraser. Started March last year. Past 2 months has gotten worse. Had injury in college in 2007. Playing soccer and planted foot. Swayed right to left. Also had ankle pain. Has had hip pain. Right now the knee pain is worse than other joints. Gets tight muscles in hip area. Does try to walk correctly as possible. Numbness lateral thigh. Pain lateral leg and knee. Ice helps Chronic low back pain--intermittent. Chiropractor helps. Stays hydrated. Did have stress eating and eating out of boredom. In 2019 weight was under 200 pounds and felt much better then. PAST MEDICAL HISTORY Diagnosis Date Asthma seasonal Environmental allergies Current Outpatient Medications Medication Sig albuterol HFA (PROVENTIL HFA, VENTOLIN HFA) 90 mcg/actuation inhaler Inhale 2 Puffs as instructed every 4 hours as needed. atomoxetine (STRATTERA) 40 mg capsule Take 1 capsule by mouth once daily. meloxicam (MOBIC) 15 mg tablet Take 1 tablet by mouth once daily. buPROPion XL (WELLBUTRIN XL) 300 mg 24 hr tablet Take 1 tablet by mouth once daily. traZODone (DESYREL) 50 mg tablet Take 50 mg by mouth. hydrOXYzine HCl (ATARAX) 25 mg tablet Take 25 mg by mouth three times daily as needed. No current facility-administered medications for this visit. ALLERGIES Allergen Reactions Cats Shortness of Breath PAST SURGICAL HISTORY Procedure Laterality Date PAST SURGICAL HISTORY OF left testicle torsion FAMILY HISTORY Problem Relation Age of Onset Asthma Mother Breast Cancer Mother Prostate Cancer Father Thyroid Father Hypothyroidism Stroke Maternal Grandfather in 80s Social History Tobacco Use Smoking status: Former Packs/day: 0.30 Years: 1.50 Total pack years: 0.45 Types: Cigarettes Smokeless tobacco: Never Tobacco comments: Rare cigarette Substance Use Topics Alcohol use: Yes Alcohol/week: 5.0 standard drinks of alcohol Types: 5 Cans of Beer (12oz) per week Drug use: No Review of Systems Objective BP 110/68 Pulse 95 Temp 37.1 ?C (98.8 ?F) Resp 18 Wt 122.9 kg (271 lb) SpO2 98% BMI 35.75 kg/m? Last 5 Encounter Wt Readings: Date: Wt: 02/28/2023 122.9 kg (271 lb) 01/23/2023 127 kg (280 lb) 12/01/2022 126.6 kg (279 lb) 11/23/2022 126.8 kg (279 lb 9.6 oz) 05/21/2013 104.8 kg (231 lb) No waist measurement recorded Estimated body mass index is 35.75 kg/m? as calculated from the following: Height as of 12/01/22: 185.4 cm (6' 1 ). Weight as of this encounter: 122.9 kg (271 lb). Last 5 Encounter BP Readings: Date: BP: 02/28/2023 110/68 12/01/2022 124/82 11/23/2022 118/90 05/21/2013 110/68 09/12/2012 114/64 Physical Exam Vitals reviewed. Constitutional: Appearance: Normal appearance. He is obese. HENT: Head: Normocephalic. Right Ear: Tympanic membrane, ear canal and external ear normal. Left Ear: Tympanic membrane, ear canal and external ear normal. Mouth/Throat: Mouth: Mucous membranes are moist. Pharynx: Oropharynx is clear. Eyes: Extraocular Movements: Extraocular movements intact. Conjunctiva/sclera: Conjunctivae normal. Cardiovascular: Rate and Rhythm: Normal rate and regular rhythm. Pulses: Normal pulses. Heart sounds: Normal heart sounds. Pulmonary: Effort: Pulmonary effort is normal. Breath sounds: Normal breath sounds. Abdominal: General: Abdomen is flat. There is no distension. Palpations: Abdomen is soft. There is no mass. Musculoskeletal: Cervical back: Normal range of motion. Skin: General: Skin is warm and dry. Neurological: General: No focal deficit present. Mental Status: He is alert and oriented to person, place, and time. Psychiatric: Attention and Perception: Attention and perception normal. Mood and Affect: Mood and affect normal. Speech: Speech normal. Behavior: Behavior normal. Thought Content: Thought content normal. Cognition and Memory: Cognition normal. Judgment: Judgment normal. Assessment and Plan Encounter Diagnosis ICD-10-CM 1. Elevated fasting glucose R73.01 COMP METABOLIC PANEL HGB A1C 2. Chronic fatigue R53.82 COMP METABOLIC PANEL TSH BLD T4 FREE/FREE THYROX T3 FREE BLD HGB A1C 3. Class 2 obesity due to ex (more content not included)... [facility] 02-28-2023 History of Presen t illness Narrative This note was created using [email or web address]. Subjective Macho Sanches is a 37 year old male. HISTORY Macho Sanches is a 37 year old gentleman here to be formally established with me. Noted that saw Zee in November Has had trouble with weight loss Asking for referral for liposuction. Wants to take pressure off areas like where has pinched nerve in back and issue with right knee pain. Waiting for MRI. IOP program with [facility]. Has been eating healthy foods the past 2 months. Has lost weight. Weight gain due to mental health issues and also medications. Noted chronic right knee pain. Saw Dr. Fraser. Started March last year. Past 2 months has gotten worse. Had injury in college in 2007. Playing soccer and planted foot. Swayed right to left. Also had ankle pain. Has had hip pain. Right now the knee pain is worse than other joints. Gets tight muscles in hip area. Does try to walk correctly as possible. Numbness lateral thigh. Pain lateral leg and knee. Ice helps Chronic low back pain--intermittent. Chiropractor helps. Stays hydrated. Did have stress eating and eating out of boredom. In 2019 weight was under 200 pounds and felt much better then. PAST MEDICAL HISTORY Diagnosis Date Asthma seasonal Environmental allergies Current Outpatient Medications Medication Sig albuterol HFA (PROVENTIL HFA, VENTOLIN HFA) 90 mcg/actuation inhaler Inhale 2 Puffs as instructed every 4 hours as needed. atomoxetine (STRATTERA) 40 mg capsule Take 1 capsule by mouth once daily. meloxicam (MOBIC) 15 mg tablet Take 1 tablet by mouth once daily. buPROPion XL (WELLBUTRIN XL) 300 mg 24 hr tablet Take 1 tablet by mouth once daily. traZODone (DESYREL) 50 mg tablet Take 50 mg by mouth. hydrOXYzine HCl (ATARAX) 25 mg tablet Take 25 mg by mouth three times daily as needed. No current facility-administered medications for this visit. ALLERGIES Allergen Reactions Cats Shortness of Breath PAST SURGICAL HISTORY Procedure Laterality Date PAST SURGICAL HISTORY OF left testicle torsion FAMILY HISTORY Problem Relation Age of Onset Asthma Mother Breast Cancer Mother Prostate Cancer Father Thyroid Father Hypothyroidism Stroke Maternal Grandfather in 80s Social History Tobacco Use Smoking status: Former Packs/day: 0.30 Years: 1.50 Total pack years: 0.45 Types: Cigarettes Smokeless tobacco: Never Tobacco comments: Rare cigarette Substance Use Topics Alcohol use: Yes Alcohol/week: 5.0 standard drinks of alcohol Types: 5 Cans of Beer (12oz) per week Drug use: No Review of Systems Objective BP 110/68 Pulse 95 Temp 37.1 C (98.8 F) Resp 18 Wt 122.9 kg (271 lb) SpO2 98% BMI 35.75 kg/m Last 5 Encounter Wt Readings: Date: Wt: 02/28/2023 122.9 kg (271 lb) 01/23/2023 127 kg (280 lb) 12/01/2022 126.6 kg (279 lb) 11/23/2022 126.8 kg (279 lb 9.6 oz) 05/21/2013 104.8 kg (231 lb) No waist measurement recorded Estimated body mass index is 35.75 kg/m as calculated from the following: Height as of 12/01/22: 185.4 cm (6' 1 ). Weight as of this encounter: 122.9 kg (271 lb). Last 5 Encounter BP Readings: Date: BP: 02/28/2023 110/68 12/01/2022 124/82 11/23/2022 118/90 05/21/2013 110/68 09/12/2012 114/64 Physical Exam Vitals reviewed. Constitutional: Appearance: Normal appearance. He is obese. HENT: Head: Normocephalic. Right Ear: Tympanic membrane, ear canal and external ear normal. Left Ear: Tympanic membrane, ear canal and external ear normal. Mouth/Throat: Mouth: Mucous membranes are moist. Pharynx: Oropharynx is clear. Eyes: Extraocular Movements: Extraocular movements intact. Conjunctiva/sclera: Conjunctivae normal. Cardiovascular: Rate and Rhythm: Normal rate and regular rhythm. Pulses: Normal pulses. Heart sounds: Normal heart sounds. Pulmonary: Effort: Pulmonary effort is normal. Breath sounds: Normal breath sounds. Abdominal: General: Abdomen is flat. There is no distension. Palpations: Abdomen is soft. There is no mass. Musculoskeletal: Cervical back: Normal range of motion. Skin: General: Skin is warm and dry. Neurological: General: No focal deficit present. Mental Status: He is alert and oriented to person, place, and time. Psychiatric: Attention and Perception: Attention and perception normal. Mood and Affect: Mood and affect normal. Speech: Speech normal. Behavior: Behavior normal. Thought Content: Thought content normal. Cognition and Memory: Cognition normal. Judgment: Judgment normal. Assessment and Plan Encounter Diagnosis ICD-10-CM 1. Elevated fasting glucose R73.01 COMP METABOLIC PANEL HGB A1C 2. Chronic fatigue R53.82 COMP METABOLIC PANEL TSH BLD T4 FREE/FREE THYROX T3 FREE BLD HGB A1C 3. Class 2 obesity due to excess calories with body mass index (BMI) of 37.0 to 37.9 in adult, unspecified whether serious comorbidity present E66.09 COMP METABOLIC PANEL Z68.37 TSH BLD T4 FREE/FREE THYROX T3 FREE BLD HGB A1C 4. Mild intermittent asthma without complication J45.20 SPIROMETRY - BASELINE AND POST DILATOR 5. Screening, lipid Z13.220 LIPID PANEL BASIC 6. Encounter for long-term current use of medication Z79.899 COMP METABOLIC PANEL TSH BLD T4 FREE/FREE THYROX T3 FREE BLD HGB A1C LIPID PANEL BASIC Above issues addressed with patient. Patient involved in shared decision making for management of medical issues. History and medications reviewed. Epic updated as needed Refills and/or prescriptions taken care of and meds adjusted as indicated after reviewed history, exam and labs. Health Maintenance reviewed. Updated record and/or ordered tests as recorded. Encouraged on efforts at healthy diet and regular exercise and adequate sleep. I spent a total of 54 minutes on the date of the service which included [id number] patient care, completing clinical documentation, obtaining and/or reviewing separately obtained history, performing a medically appropriate examination, counseling and educating the patient/family/caregiver, and ordering medications, tests, or procedures. All Beckett MD documented in this encounter [facility] 02-28-2023 Note HNO ID: [id number] Author: Sophia Alvarado [facility] Service: Behavioral Health IOP (Intensive Outpatient Program) Author Type: Therapist Type: Progress Notes Filed: 02/28/2023 1:25 PM Note Text: BEHAVIORAL HEALTH IOP (INTENSIVE OUTPATIENT PROGRAM) DAILY PROGRESS NOTE VIOP - Patient consented to VIOP through [employer]. SERVICE DATE: February 28, 2023 SERVICE TIME: 9:00 AM INTERVAL PROGRESS: Improving PATIENT'S PROGRESS: Attentive AND Involved BEHAVIOR: Appearance: Fair grooming and hygiene Attitude: Cooperative Affect: Anxious, Euthymic, and Restricted Mood: Steady and strong Thought Process: Logical, Goal-directed, and Preoccupied Speech: Normal Eye Contact: Good Describe Change Noted Throughout the Day: Consistent GROUP THERAPY: Illness Management Group Start Time: 9:00am End Time: 10:00am Total Time: 60 minutes Number of Therapists: 2 Number of Patients: 10 Problem(s) Number Addressed: 1 Intervention: Active Listening, Clarified, Challenged, Encouraged, Engaged, Explored, Gave Feedback, Observed, Redirected, and Supported Explain: Patients shared a feeling word and two positive traits. They shared something that they feel proud of accomplishing and something that they are struggling with. Response: Patient reported feeling steady. He stated his positive traits are patient and disciplined. He stated he is feeling proud of giving himself credit with all the work he is doing since joining [facility]. He shared he is struggling with understanding and accepting the things he has not been able to do until now with his skill use. He explored that some of this includes working on ways to be uncomfortable and getting out of ?survival mode?. Coping Strategies Group Start Time: 10:10am End Time: 11:00am Total Time: 50 minutes Number of Therapists: 2 Number of Patients: 9 Problem(s) Number Addressed: 1 Intervention: Active Listening, Clarified, Challenged, Encouraged, Engaged, Explored, Gave Feedback, Observed, Redirected, and Supported Explain: Patients explored skills for building assertive communication, specifically learning ways to say no, avoid manipulation, and considering other factors that impact communication skills. Response: Patient appeared engaged and participatory with his non-verbal cues. Process and Emotion Management Group Start Time: 11:10am End Time: 12:00pm Total Time: 50 minutes Number of Therapists: 2 Number of Patients: 9 Problem(s) Number Addressed: 1 Intervention: Active Listening, Clarified, Challenged, Encouraged, Engaged, Explored, Gave Feedback, Observed, Redirected, and Supported Explain: Patients began education into the topic of boundary setting using given handouts. They shared their feeling word and takeaway from today at group end. Response: Patient shared what boundaries are, which are being able to ?set the space you are needing?. He reported feeling strong. He stated his takeaway from today is that boundaries are a space for others as much as for him, that he needed to set personal boundaries too. PLAN: Continue group treatment as stated in Treatment Plan. Continue to gain insights into problems. Continue to share feelings AND thoughts in group. Monitor thinking/complete thought sheets. Incorporate relaxation/coping strategies into daily routine. SOBRIETY (If applicable): N/A Patient Data IOP Daily Questionnaire IOP Daily 02/23/2023 02/26/2023 02/28/2023 Today, is your belief in your ability to use your Safety Plan in a crisis at 90%? Yes Yes Yes Today, have you wished you were or wished you could go to sleep and not wake up? No No No Today, have you actually had any thoughts of killing yourself? No No No On a scale of 1 to 10 how would you rate your mood now? 3 6 6 SIGNATURE: Sophia Alvarado [facility] PATIENT NAME: Macho Sanches DATE: February 28, 2023 TIME: 8:54 AM PAGER/CONTACT #: [phone] [place] [id number] History of Presen t illness Narrative BEHAVIORAL HEALTH IOP (INTENSIVE OUTPATIENT PROGRAM) DAILY PROGRESS NOTE VIOP - Patient consented to VIOP through [employer]. SERVICE DATE: February 28, 2023 SERVICE TIME: 9:00 AM INTERVAL PROGRESS: Improving PATIENT'S PROGRESS: Attentive & Involved BEHAVIOR: Appearance: Fair grooming and hygiene Attitude: Cooperative Affect: Anxious, Euthymic, and Restricted Mood: Steady and strong Thought Process: Logical, Goal-directed, and Preoccupied Speech: Normal Eye Contact: Good Describe Change Noted Throughout the Day: Consistent GROUP THERAPY: Illness Management Group Start Time: 9:00am End Time: 10:00am Total Time: 60 minutes Number of Therapists: 2 Number of Patients: 10 Problem(s) Number Addressed: 1 Intervention: Active Listening, Clarified, Challenged, Encouraged, Engaged, Explored, Gave Feedback, Observed, Redirected, and Supported Explain: Patients shared a feeling word and two positive traits. They shared something that they feel proud of accomplishing and something that they are struggling with. Response: Patient reported feeling steady. He stated his positive traits are patient and disciplined. He stated he is feeling proud of giving himself credit with all the work he is doing since joining [facility]. He shared he is struggling with understanding and accepting the things he has not been able to do until now with his skill use. He explored that some of this includes working on ways to be uncomfortable and getting out of survival mode . Coping Strategies Group Start Time: 10:10am End Time: 11:00am Total Time: 50 minutes Number of Therapists: 2 Number of Patients: 9 Problem(s) Number Addressed: 1 Intervention: Active Listening, Clarified, Challenged, Encouraged, Engaged, Explored, Gave Feedback, Observed, Redirected, and Supported Explain: Patients explored skills for building assertive communication, specifically learning ways to say no, avoid manipulation, and considering other factors that impact communication skills. Response: Patient appeared engaged and participatory with his non-verbal cues. Process and Emotion Management Group Start Time: 11:10am End Time: 12:00pm Total Time: 50 minutes Number of Therapists: 2 Number of Patients: 9 Problem(s) Number Addressed: 1 Intervention: Active Listening, Clarified, Challenged, Encouraged, Engaged, Explored, Gave Feedback, Observed, Redirected, and Supported Explain: Patients began education into the topic of boundary setting using given handouts. They shared their feeling word and takeaway from today at group end. Response: Patient shared what boundaries are, which are being able to set the space you are needing . He reported feeling strong. He stated his takeaway from today is that boundaries are a space for others as much as for him, that he needed to set personal boundaries too. PLAN: Continue group treatment as stated in Treatment Plan. Continue to gain insights into problems. Continue to share feelings & thoughts in group. Monitor thinking/complete thought sheets. Incorporate relaxation/coping strategies into daily routine. SOBRIETY (If applicable): N/A Patient Data IOP Daily Questionnaire IOP Daily 02/23/2023 02/26/2023 02/28/2023 Today, is your belief in your ability to use your Safety Plan in a crisis at 90%? Yes Yes Yes Today, have you wished you were or wished you could go to sleep and not wake up? No No No Today, have you actually had any thoughts of killing yourself? No No No On a scale of 1 to 10 how would you rate your mood now? 3 6 6 SIGNATURE: K[facility]AR[facility] PATIENT NAME: Macho Sanches DATE: February 28, 2023 TIME: 8:54 AM PAGER/CONTACT #: [phone] documented in this encounter [facility] 02-27-2023 Note HNO ID: [id number] Author: Sophia Alvarado [facility] Service: Behavioral Health IOP (Intensive Outpatient Program) Author Type: Therapist Type: Progress Notes Filed: 02/27/2023 11:51 AM Note Text: BEHAVIORAL HEALTH IOP (INTENSIVE OUTPATIENT PROGRAM) DAILY PROGRESS NOTE VIOP - Patient consented to VIOP through [facility]. SERVICE DATE: February 27, 2023 SERVICE TIME: 9:00 AM INTERVAL PROGRESS: Stable PATIENT'S PROGRESS: Attentive AND Involved BEHAVIOR: Appearance: Pleasant Attitude: Cooperative Affect: Anxious and Restricted Mood: Tense and terrified Thought Process: Logical, Perseverative, and Preoccupied Speech: Normal and Quiet Eye Contact: Good Describe Change Noted Throughout the Day: Consistent GROUP THERAPY: Illness Management Group Start Time: 9:00am End Time: 10:00am Total Time: 60 minutes Number of Therapists: 2 Number of Patients: 11 Problem(s) Number Addressed: 1 Intervention: Active Listening, Clarified, Challenged, Encouraged, Engaged, Explored, Gave Feedback, Observed, Redirected, and Supported Explain: Patients shared a feeling word and two positive traits. They discussed their weekend, skills used and concerns. Response: Patient reported feeling tense. He stated his positive traits are communicative and gentle. He shared his weekend tasks included doing activities around the house. He shared he struggled with many triggers at home and past memories impacting his mood. He shared he worked on engaging skills for emotion regulation, however he had a challenging time overall over this weekend. Coping Strategies Group Start Time: 10:10am End Time: 11:00am Total Time: 50 minutes Number of Therapists: 2 Number of Patients: 11 Problem(s) Number Addressed: 1 Intervention: Active Listening, Clarified, Challenged, Encouraged, Engaged, Explored, Gave Feedback, Observed, Redirected, and Supported Explain: Patients continued education into the topic of communication, specifically learning ways to be assertive. Response: Patient shared he struggles with telling himself that he has the right to be happy. He appeared overall observant. Process and Emotion Management Group Start Time: 11:10am End Time: 12:00pm Total Time: 50 minutes Number of Therapists: 2 Number of Patients: 11 Problem(s) Number Addressed: 1 Intervention: Active Listening, Clarified, Challenged, Encouraged, Engaged, Explored, Gave Feedback, Observed, Redirected, and Supported Explain: Patients explored further into communication skills, such as ?I? statements, making requests, and learning to say no. They shared their feeling word and takeaway from today at group end. Response: Patient participated in reading. He appeared engaged and to be participatory with non-verbals. He shared he feels he will struggle with the assertive formula with his parents specifically. He reported feeling terrified. He stated his takeaway from today is how the personal bill of rights resonated with him and how he has often told himself the complete opposite to those rights, like being happy. He shared he feels goes against his natural instinct. PLAN: Continue group treatment as stated in Treatment Plan. Continue to gain insights into problems. Continue to share feelings AND thoughts in group. Monitor thinking/complete thought sheets. Incorporate relaxation/coping strategies into daily routine. SOBRIETY (If applicable): N/A Patient Data IOP Daily Questionnaire IOP Daily 02/22/2023 02/23/2023 02/26/2023 Today, is your belief in your ability to use your Safety Plan in a crisis at 90%? Yes Yes Yes Today, have you wished you were or wished you could go to sleep and not wake up? No No No Today, have you actually had any thoughts of killing yourself? No No No On a scale of 1 to 10 how would you rate your mood now? 3 3 6 SIGNATURE: Sophia Alvarado [facility] PATIENT NAME: Macho Sanches DATE: February 27, 2023 TIME: 8:56 AM PAGER/CONTACT #: [phone] [facility] 02-27-2023 History of Presen t illness Narrative BEHAVIORAL HEALTH IOP (INTENSIVE OUTPATIENT PROGRAM) DAILY PROGRESS NOTE VIOP - Patient consented to VIOP through [employer]. SERVICE DATE: February 27, 2023 SERVICE TIME: 9:00 AM INTERVAL PROGRESS: Stable PATIENT'S PROGRESS: Attentive & Involved BEHAVIOR: Appearance: Pleasant Attitude: Cooperative Affect: Anxious and Restricted Mood: Tense and terrified Thought Process: Logical, Perseverative, and Preoccupied Speech: Normal and Quiet Eye Contact: Good Describe Change Noted Throughout the Day: Consistent GROUP THERAPY: Illness Management Group Start Time: 9:00am End Time: 10:00am Total Time: 60 minutes Number of Therapists: 2 Number of Patients: 11 Problem(s) Number Addressed: 1 Intervention: Active Listening, Clarified, Challenged, Encouraged, Engaged, Explored, Gave Feedback, Observed, Redirected, and Supported Explain: Patients shared a feeling word and two positive traits. They discussed their weekend, skills used and concerns. Response: Patient reported feeling tense. He stated his positive traits are communicative and gentle. He shared his weekend tasks included doing activities around the house. He shared he struggled with many triggers at home and past memories impacting his mood. He shared he worked on engaging skills for emotion regulation, however he had a challenging time overall over this weekend. Coping Strategies Group Start Time: 10:10am End Time: 11:00am Total Time: 50 minutes Number of Therapists: 2 Number of Patients: 11 Problem(s) Number Addressed: 1 Intervention: Active Listening, Clarified, Challenged, Encouraged, Engaged, Explored, Gave Feedback, Observed, Redirected, and Supported Explain: Patients continued education into the topic of communication, specifically learning ways to be assertive. Response: Patient shared he struggles with telling himself that he has the right to be happy. He appeared overall observant. Process and Emotion Management Group Start Time: 11:10am End Time: 12:00pm Total Time: 50 minutes Number of Therapists: 2 Number of Patients: 11 Problem(s) Number Addressed: 1 Intervention: Active Listening, Clarified, Challenged, Encouraged, Engaged, Explored, Gave Feedback, Observed, Redirected, and Supported Explain: Patients explored further into communication skills, such as I statements, making requests, and learning to say no. They shared their feeling word and takeaway from today at group end. Response: Patient participated in reading. He appeared engaged and to be participatory with non-verbals. He shared he feels he will struggle with the assertive formula with his parents specifically. He reported feeling terrified. He stated his takeaway from today is how the personal bill of rights resonated with him and how he has often told himself the complete opposite to those rights, like being happy. He shared he feels goes against his natural instinct. PLAN: Continue group treatment as stated in Treatment Plan. Continue to gain insights into problems. Continue to share feelings & thoughts in group. Monitor thinking/complete thought sheets. Incorporate relaxation/coping strategies into daily routine. SOBRIETY (If applicable): N/A Patient Data IOP Daily Questionnaire IOP Daily 02/22/2023 02/23/2023 02/26/2023 Today, is your belief in your ability to use your Safety Plan in a crisis at 90%? Yes Yes Yes Today, have you wished you were or wished you could go to sleep and not wake up? No No No Today, have you actually had any thoughts of killing yourself? No No No On a scale of 1 to 10 how would you rate your mood now? 3 3 6 SIGNATURE: Sophia Alvarado [facility] PATIENT NAME: Macho Sanches DATE: February 27, 2023 TIME: 8:56 AM PAGER/CONTACT #: [phone] documented in this encounter [facility] 02-23-2023 Note HNO ID: [id number] Author: Sophia Alvarado [facility] Service: Behavioral Health IOP (Intensive Outpatient Program) Author Type: Therapist Type: Progress Notes Filed: 02/23/2023 12:00 PM Note Text: BEHAVIORAL HEALTH IOP (INTENSIVE OUTPATIENT PROGRAM) DAILY PROGRESS NOTE VIOP - Patient consented to VIOP through [facility] for [facility]. SERVICE DATE: February 23, 2023 SERVICE TIME: 9:00 AM INTERVAL PROGRESS: Improving PATIENT'S PROGRESS: Attentive AND Involved BEHAVIOR: Appearance: Disheveled Attitude: Cooperative Affect: Euthymic and Restricted Mood: Miserable, overwhelmed, and peaceful Thought Process: Logical, Perseverative, and Goal-directed Speech: Normal, quiet Eye Contact: Good Describe Change Noted Throughout the Day: Consistent GROUP THERAPY: Illness Management Group Start Time: 9:00am End Time: 10:00am Total Time: 60 minutes Number of Therapists: 2 Number of Patients: 11 Problem(s) Number Addressed: 1 Intervention: Active Listening, Clarified, Challenged, Encouraged, Engaged, Explored, Gave Feedback, Observed, Redirected, and Supported Explain: Patients shared a feeling word and two positive traits. They discussed weekend plans and potential obstacles. Response: Patient reported feeling miserable and overwhelmed. He stated his positive traits are determined and patient. He stated his weekend activities include reviewing and organizing his IOP material and write down some skills, cook, and getting out of the house. He stated he plans to use some distress tolerance, opposite action, and emotion regulation this weekend. He shared no current concerns. Coping Strategies Group Start Time: 10:10am End Time: 11:00am Total Time: 50 minutes Number of Therapists: 2 Number of Patients: 11 Problem(s) Number Addressed: 1 Intervention: Active Listening, Clarified, Challenged, Encouraged, Engaged, Explored, Gave Feedback, Observed, Redirected, and Supported Explain: Patients began education into the different styles of communication using given handouts and peer discussion. Response: Patient appeared engaged as evidenced by non-verbal cues. He was quiet and did participate with body language. Process and Emotion Management Group Start Time: 11:10am End Time: 12:00pm Total Time: 50 minutes Number of Therapists: 2 Number of Patients: 11 Problem(s) Number Addressed: 1 Intervention: Active Listening, Clarified, Challenged, Encouraged, Engaged, Explored, Gave Feedback, Observed, Redirected, and Supported Explain: Patients were educated on skills for assertiveness using given materials. They shared their feeling word and takeaway from today at group end. They shared gratitudes. Response: Patient shared he has struggled with passive and aggressive communication. He shared how this highly impacted his last relationship. He shared he has struggled with this for a while though and does try to ?make himself as small as possible?. He reported feeling peaceful. He shared his takeaway from today is learning more about the importance of body language for communication. He reported being grateful for his ability to empower himself, his time to use skills, and the support he receives. PLAN: Continue group treatment as stated in Treatment Plan. Continue to gain insights into problems. Continue to share feelings AND thoughts in group. Monitor thinking/complete thought sheets. Incorporate relaxation/coping strategies into daily routine. SOBRIETY (If applicable): N/A Patient Data IOP Daily Questionnaire IOP Daily 02/21/2023 02/22/2023 02/23/2023 Today, is your belief in your ability to use your Safety Plan in a crisis at 90%? Yes Yes Yes Today, have you wished you were or wished you could go to sleep and not wake up? No No No Today, have you actually had any thoughts of killing yourself? No No No On a scale of 1 to 10 how would you rate your mood now? 4 3 3 SIGNATURE: Sophia Alvarado [facility] PATIENT NAME: Macho Sanches DATE: February 23, 2023 TIME: 8:57 AM PAGER/CONTACT #: [phone] [facility] 02-23-2023 History of Presen t illness Narrative BEHAVIORAL HEALTH IOP (INTENSIVE OUTPATIENT PROGRAM) DAILY PROGRESS NOTE VIOP - Patient consented to VIOP through [facility]. SERVICE DATE: February 23, 2023 SERVICE TIME: 9:00 AM INTERVAL PROGRESS: Improving PATIENT'S PROGRESS: Attentive & Involved BEHAVIOR: Appearance: Disheveled Attitude: Cooperative Affect: Euthymic and Restricted Mood: Miserable, overwhelmed, and peaceful Thought Process: Logical, Perseverative, and Goal-directed Speech: Normal, quiet Eye Contact: Good Describe Change Noted Throughout the Day: Consistent GROUP THERAPY: Illness Management Group Start Time: 9:00am End Time: 10:00am Total Time: 60 minutes Number of Therapists: 2 Number of Patients: 11 Problem(s) Number Addressed: 1 Intervention: Active Listening, Clarified, Challenged, Encouraged, Engaged, Explored, Gave Feedback, Observed, Redirected, and Supported Explain: Patients shared a feeling word and two positive traits. They discussed weekend plans and potential obstacles. Response: Patient reported feeling miserable and overwhelmed. He stated his positive traits are determined and patient. He stated his weekend activities include reviewing and organizing his IOP material and write down some skills, cook, and getting out of the house. He stated he plans to use some distress tolerance, opposite action, and emotion regulation this weekend. He shared no current concerns. Coping Strategies Group Start Time: 10:10am End Time: 11:00am Total Time: 50 minutes Number of Therapists: 2 Number of Patients: 11 Problem(s) Number Addressed: 1 Intervention: Active Listening, Clarified, Challenged, Encouraged, Engaged, Explored, Gave Feedback, Observed, Redirected, and Supported Explain: Patients began education into the different styles of communication using given handouts and peer discussion. Response: Patient appeared engaged as evidenced by non-verbal cues. He was quiet and did participate with body language. Process and Emotion Management Group Start Time: 11:10am End Time: 12:00pm Total Time: 50 minutes Number of Therapists: 2 Number of Patients: 11 Problem(s) Number Addressed: 1 Intervention: Active Listening, Clarified, Challenged, Encouraged, Engaged, Explored, Gave Feedback, Observed, Redirected, and Supported Explain: Patients were educated on skills for assertiveness using given materials. They shared their feeling word and takeaway from today at group end. They shared gratitudes. Response: Patient shared he has struggled with passive and aggressive communication. He shared how this highly impacted his last relationship. He shared he has struggled with this for a while though and does try to make himself as small as possible . He reported feeling peaceful. He shared his takeaway from today is learning more about the importance of body language for communication. He reported being grateful for his ability to empower himself, his time to use skills, and the support he receives. PLAN: Continue group treatment as stated in Treatment Plan. Continue to gain insights into problems. Continue to share feelings & thoughts in group. Monitor thinking/complete thought sheets. Incorporate relaxation/coping strategies into daily routine. SOBRIETY (If applicable): N/A Patient Data IOP Daily Questionnaire IOP Daily 02/21/2023 02/22/2023 02/23/2023 Today, is your belief in your ability to use your Safety Plan in a crisis at 90%? Yes Yes Yes Today, have you wished you were or wished you could go to sleep and not wake up? No No No Today, have you actually had any thoughts of killing yourself? No No No On a scale of 1 to 10 how would you rate your mood now? 4 3 3 SIGNATURE: KHARI Elmore PATIENT NAME: Macho Sanches DATE: February 23, 2023 TIME: 8:57 AM PAGER/CONTACT #: [phone] documented in this encounter [facility] 02-22-2023 Note HNO ID: [id number] Author: Sophia Alvarado LPCC Service: Behavioral Health IOP (Intensive Outpatient Program) Author Type: Therapist Type: Progress Notes Filed: 02/22/2023 11:57 AM Note Text: BEHAVIORAL HEALTH IOP (INTENSIVE OUTPATIENT PROGRAM) DAILY PROGRESS NOTE VIOP - [facility] SERVICE DATE: February 22, 2023 SERVICE TIME: 9:00 AM INTERVAL PROGRESS: Stable PATIENT'S PROGRESS: Attentive AND Involved BEHAVIOR: Appearance: Pleasant Attitude: Cooperative Affect: Anxious and Restricted Mood: Frustrated, sad, and exhausted Thought Process: Logical, [place], Perseverative, Goal-directed, and Preoccupied Speech: Normal and Quiet Eye Contact: Good Describe Change Noted Throughout the Day: Consistent GROUP THERAPY: Illness Management Group Start Time: 9:00am End Time: 10:00am Total Time: 60 minutes Number of Therapists: 2 Number of Patients: 8 Problem(s) Number Addressed: 1 Intervention: Active Listening, Clarified, Challenged, Encouraged, Engaged, Explored, Gave Feedback, Observed, Redirected, and Supported Explain: Patients shared a feeling word and two positive traits. They reviewed their treatment plans and identified areas in which they are working and not working. Response: Patient reported feeling frustrated, angry and sad. He stated his positive traits are determined and resourceful. He shared he is struggling a little more with his emotion regulation skills. He discussed how his emotions have been much higher than the previous weeks, so he is struggling to understand and ?emily? it. He was encouraged to use distress tolerance in these moments then move into emotional regulation. He stated he feels he is using his tool for opposite action is working for him though he is struggling with overthinking it and being critical. He was encouraged to work on some rumination tips as well. Coping Strategies Group Start Time: 10:10am End Time: 11:00am Total Time: 50 minutes Number of Therapists: 2 Number of Patients: 8 Problem(s) Number Addressed: 1 Intervention: Active Listening, Clarified, Challenged, Encouraged, Engaged, Explored, Gave Feedback, Observed, Redirected, and Supported Explain: Patients continued education into the mindfulness skills, specifically looking at Ackerman Mind and the ?what? skills. They used given handouts and a short video and participated in activities to practice the skills. Response: Patient shared an example of being in emotional mind when he was on a roundtrip. He appeared observant and to be using skills for grounding. He shared he found some success with the observe activity. He participated in reading. He talked about the difficulty he has with participating and being in a ?flow?. He shared work at times used to be. Process and Emotion Management Group Start Time: 11:10am End Time: 12:00pm Total Time: 50 minutes Number of Therapists: 2 Number of Patients: 7 Problem(s) Number Addressed: 1 Intervention: Active Listening, Clarified, Challenged, Encouraged, Engaged, Explored, Gave Feedback, Observed, Redirected, and Supported Explain: Patients finished exploration on the topic of mindfulness. They specifically reviewed the ?how? skills and participated in guided activities. They shared their feeling word and takeaway from today at group end. Response: Patient participated in reading. He appeared observant and was participatory in activities. He reported feeling exhausted. He stated his takeaway from today is learning about mindful eating and cooking and that cooking can be a flow activity. He stated he wants to work on noticing his judgements and half smiling/willing hands. PLAN: Continue group treatment as stated in Treatment Plan. Continue to gain insights into problems. Continue to share feelings AND thoughts in group. Monitor thinking/complete thought sheets. Incorporate relaxation/coping strategies into daily routine. SOBRIETY (If applicable): N/A Patient Data IOP Daily Questionnaire IOP Daily 02/20/2023 02/21/2023 02/22/2023 Today, is your belief in your ability to use your Safety Plan in a crisis at 90%? Yes Yes Yes Today, have you wished you were or wished you could go to sleep and not wake up? No No No Today, have you actually had any thoughts of killing yourself? No No No On a scale of 1 to 10 how would you rate your mood now? 6 4 3 SIGNATURE: Sophia Alvarado [facility] PATIENT NAME: Macho Sanches DATE: February 22, 2023 TIME: 8:39 AM PAGER/CONTACT #: [phone] [facility] 02-22-2023 History of Presen t illness Narrative BEHAVIORAL HEALTH IOP (INTENSIVE OUTPATIENT PROGRAM) DAILY PROGRESS NOTE VIOP - Patient consented to VIOP through [employer]. SERVICE DATE: February 22, 2023 SERVICE TIME: 9:00 AM INTERVAL PROGRESS: Stable PATIENT'S PROGRESS: Attentive & Involved BEHAVIOR: Appearance: Pleasant Attitude: Cooperative Affect: Anxious and Restricted Mood: Frustrated, sad, and exhausted Thought Process: Logical, [place], Perseverative, Goal-directed, and Preoccupied Speech: Normal and Quiet Eye Contact: Good Describe Change Noted Throughout the Day: Consistent GROUP THERAPY: Illness Management Group Start Time: 9:00am End Time: 10:00am Total Time: 60 minutes Number of Therapists: 2 Number of Patients: 8 Problem(s) Number Addressed: 1 Intervention: Active Listening, Clarified, Challenged, Encouraged, Engaged, Explored, Gave Feedback, Observed, Redirected, and Supported Explain: Patients shared a feeling word and two positive traits. They reviewed their treatment plans and identified areas in which they are working and not working. Response: Patient reported feeling frustrated, angry and sad. He stated his positive traits are determined and resourceful. He shared he is struggling a little more with his emotion regulation skills. He discussed how his emotions have been much higher than the previous weeks, so he is struggling to understand and emily it. He was encouraged to use distress tolerance in these moments then move into emotional regulation. He stated he feels he is using his tool for opposite action is working for him though he is struggling with overthinking it and being critical. He was encouraged to work on some rumination tips as well. Coping Strategies Group Start Time: 10:10am End Time: 11:00am Total Time: 50 minutes Number of Therapists: 2 Number of Patients: 8 Problem(s) Number Addressed: 1 Intervention: Active Listening, Clarified, Challenged, Encouraged, Engaged, Explored, Gave Feedback, Observed, Redirected, and Supported Explain: Patients continued education into the mindfulness skills, specifically looking at Ackerman Mind and the what skills. They used given handouts and a short video and participated in activities to practice the skills. Response: Patient shared an example of being in emotional mind when he was on a roundtrip. He appeared observant and to be using skills for grounding. He shared he found some success with the observe activity. He participated in reading. He talked about the difficulty he has with participating and being in a flow . He shared work at times used to be. Process and Emotion Management Group Start Time: 11:10am End Time: 12:00pm Total Time: 50 minutes Number of Therapists: 2 Number of Patients: 7 Problem(s) Number Addressed: 1 Intervention: Active Listening, Clarified, Challenged, Encouraged, Engaged, Explored, Gave Feedback, Observed, Redirected, and Supported Explain: Patients finished exploration on the topic of mindfulness. They specifically reviewed the how skills and participated in guided activities. They shared their feeling word and takeaway from today at group end. Response: Patient participated in reading. He appeared observant and was participatory in activities. He reported feeling exhausted. He stated his takeaway from today is learning about mindful eating and cooking and that cooking can be a flow activity. He stated he wants to work on noticing his judgements and half smiling/willing hands. PLAN: Continue group treatment as stated in Treatment Plan. Continue to gain insights into problems. Continue to share feelings & thoughts in group. Monitor thinking/complete thought sheets. Incorporate relaxation/coping strategies into daily routine. SOBRIETY (If applicable): N/A Patient Data IOP Daily Questionnaire IOP Daily 02/20/2023 02/21/2023 02/22/2023 Today, is your belief in your ability to use your Safety Plan in a crisis at 90%? Yes Yes Yes Today, have you wished you were or wished you could go to sleep and not wake up? No No No Today, have you actually had any thoughts of killing yourself? No No No On a scale of 1 to 10 how would you rate your mood now? 6 4 3 SIGNATURE: KHARI Elmore PATIENT NAME: Macho Sanches DATE: February 22, 2023 TIME: 8:39 AM PAGER/CONTACT #: [phone] documented in this encounter [facility] 02-21-2023 Miscellaneous Notes Last office visit: 12/01/2022 Next appointment scheduled: 06/28/2023 Patient phones requesting refills as follows: Requested Prescriptions Pending Prescriptions Disp Refills albuterol HFA (PROVENTIL HFA, VENTOLIN HFA) 90 mcg/actuation inhaler Sig: Inhale 2 Puffs as instructed every 4 hours as needed. Annabel Cruz LPN documented in this encounter [facility] 02-21-2023 Note HNO ID: [id number] Author: Sophia Alvarado LPCC Service: Behavioral Health IOP (Intensive Outpatient Program) Author Type: Therapist Type: Plan of Care Filed: 02/21/2023 2:07 PM Note Text: , IOP TEAM NOTE IOP TEAM MEETING DATE: 02/21/2023 RECENT ASSESSMENTS/TREATMENT PLAN REVIEWS: Per KHARI Haines, assessment. Treatment goal review completed on 02/15/23. SUICIDE RISK AND MITIGATION PLAN Low to moderate risk. Patient completed their safety plan and has a copy. Patient has reported no current safety concerns and no current plan or intent. He reports to having fleeting SI. WEEKLY REVIEW OF CLIENT PROGRESS: Patient has continued to make improvements and find successes with skill use. He is actively reporting to engaging in skills for emotional regulation, acceptance, and opposite action. He has shared he feels these skills continue to be a challenge for him, though he finds them useful. Patient has scheduled with his therapy and medication management providers at [facility]. He has also been extended by one week for VIOP. DISCHARGE PLANNING/RECOMMENDATIONS: Patient is set for a tentative discharge date of 03/09/23. Patient has scheduled for individual therapy and medication management at [facility] for march. Team did not meet this week. DOCUMENTED BY: KHARI Elmore PATIENT NAME: Macho Sanches DATE: February 21, 2023 TIME: 2:35 PM [facility] 02-21-2023 Note HNO ID: [id number] Author: Sophia Alvarado LPCC Service: Behavioral Health IOP (Intensive Outpatient Program) Author Type: Therapist Type: Progress Notes Filed: 02/21/2023 12:50 PM Note Text: BEHAVIORAL HEALTH IOP (INTENSIVE OUTPATIENT PROGRAM) DAILY PROGRESS NOTE VIOP - Patient consented to VIOP through [facility] [employer]. SERVICE DATE: February 21, 2023 SERVICE TIME: 9:00 AM INTERVAL PROGRESS: Improving PATIENT'S PROGRESS: Attentive AND Involved BEHAVIOR: Appearance: Fair grooming and hygiene Attitude: Cooperative Affect: Anxious and Restricted Mood: Sad Thought Process: Logical, [place], Goal-directed, and Preoccupied Speech: Quiet Eye Contact: Good Describe Change Noted Throughout the Day: Consistent GROUP THERAPY: Illness Management Group Start Time: 9:00am End Time: 10:00am Total Time: 60 minutes Number of Therapists: 2 Number of Patients: 12 Problem(s) Number Addressed: 1 Intervention: Active Listening, Clarified, Challenged, Encouraged, Engaged, Explored, Gave Feedback, Observed, Redirected, and Supported Explain: Patients shared a feeling word and two positive traits. They reviewed the results of their PHQ-9 and RICHARD-7 questionnaires and explored areas in need of skill implementation. Response: Patient reported feeling sad. He stated his positive traits are patient and determined. He shared he is struggling with not finding pleasure in activities. He noted he forced himself recently to play some video games and could not find any pete within it. He was encouraged to work on trying out new activities, as some past ones are not as enjoyable anymore. He was also encouraged to work on skills for self-compassion with his progress and expectations. Coping Strategies Group Start Time: 10:10am End Time: 11:00am Total Time: 50 minutes Number of Therapists: 2 Number of Patients: 12 Problem(s) Number Addressed: 1 Intervention: Active Listening, Clarified, Challenged, Encouraged, Engaged, Explored, Gave Feedback, Observed, Redirected, and Supported Explain: Patients finished education into the skills for distress tolerance, specifically self-soothe and IMPROVE the moment. They participated in a short, guided imagery activity. Response: Patient appeared observant and participatory. He shared he struggled with the imagery activity, though he worked on putting himself into a space that did have unpleasant memories associated with it. Process and Emotion Management Group Start Time: 11:10am End Time: 12:00pm Total Time: 50 minutes Number of Therapists: 2 Number of Patients: 12 Problem(s) Number Addressed: 1 Intervention: Active Listening, Clarified, Challenged, Encouraged, Engaged, Explored, Gave Feedback, Observed, Redirected, and Supported Explain: Patients began exploration on the skills for mindfulness using given handouts. They shared their feeling word and takeaway from today at group end. Response: Patient appeared observant and was quiet. He participated via non-verbal cues. He did share he has engaged in mindful practice through yoga and other mindful movements. He reported feeling sad. He stated his takeaway from today is learning new ways he can validate his emotions and have encouraging words to say to himself. PLAN: Continue group treatment as stated in Treatment Plan. Continue to gain insights into problems. Continue to share feelings AND thoughts in group. Monitor thinking/complete thought sheets. Incorporate relaxation/coping strategies into daily routine. SOBRIETY (If applicable): N/A Patient Data [place]-SUICIDE SEVERITY RATING SCALE Screen Version - Recent Past month Ask questions that are bolded and underlined. YES/NO Ask Questions 1 and 2 1) Have you wished you were or wished you could go to sleep and not wake up? Yes 2) Have you actually had any thoughts of killing yourself? No If YES to 2, ask questions 3, 4, 5, and 6. If NO to 2, go directly to question 6. 3) Have you been thinking about how you might do this? E.g. ?I thought about taking an overdose but I never made a specific plan as to when where or how I would actually do it?.and I would never go through with it.? 4) Have you had these thoughts and had some intention of acting on them? As opposed to ?I have the thoughts but I definitely will not do anything about them.? 5) Have you started to work out or worked out the details of how to kill yourself? Do you intend to carry out this plan? 6) Have you ever done anything, started to do anything, or prepared to do anything to end your life? Examples: Collected pills, obtained a gun, gave away valuables, wrote a will or suicide note, took out pills but didn't swallow any, held a gun but changed your mind or it was grabbed from your hand, went to the roof but didn't jump; or actually took pills, tried to shoot yourself, cut yourself, tried to hang yourself, etc. If YES, ask: Was this within (more content not included)... [facility] 02-21-2023 History of Presen t illness Narrative Images from the original note were not included. BEHAVIORAL HEALTH IOP (INTENSIVE OUTPATIENT PROGRAM) DAILY PROGRESS NOTE VIOP - Patient consented to VIOP through [facility] for [facility]. SERVICE DATE: February 21, 2023 SERVICE TIME: 9:00 AM INTERVAL PROGRESS: Improving PATIENT'S PROGRESS: Attentive & Involved BEHAVIOR: Appearance: Fair grooming and hygiene Attitude: Cooperative Affect: Anxious and Restricted Mood: Sad Thought Process: Logical, [place], Goal-directed, and Preoccupied Speech: Quiet Eye Contact: Good Describe Change Noted Throughout the Day: Consistent GROUP THERAPY: Illness Management Group Start Time: 9:00am End Time: 10:00am Total Time: 60 minutes Number of Therapists: 2 Number of Patients: 12 Problem(s) Number Addressed: 1 Intervention: Active Listening, Clarified, Challenged, Encouraged, Engaged, Explored, Gave Feedback, Observed, Redirected, and Supported Explain: Patients shared a feeling word and two positive traits. They reviewed the results of their PHQ-9 and RICHARD-7 questionnaires and explored areas in need of skill implementation. Response: Patient reported feeling sad. He stated his positive traits are patient and determined. He shared he is struggling with not finding pleasure in activities. He noted he forced himself recently to play some video games and could not find any pete within it. He was encouraged to work on trying out new activities, as some past ones are not as enjoyable anymore. He was also encouraged to work on skills for self-compassion with his progress and expectations. Coping Strategies Group Start Time: 10:10am End Time: 11:00am Total Time: 50 minutes Number of Therapists: 2 Number of Patients: 12 Problem(s) Number Addressed: 1 Intervention: Active Listening, Clarified, Challenged, Encouraged, Engaged, Explored, Gave Feedback, Observed, Redirected, and Supported Explain: Patients finished education into the skills for distress tolerance, specifically self-soothe and IMPROVE the moment. They participated in a short, guided imagery activity. Response: Patient appeared observant and participatory. He shared he struggled with the imagery activity, though he worked on putting himself into a space that did have unpleasant memories associated with it. Process and Emotion Management Group Start Time: 11:10am End Time: 12:00pm Total Time: 50 minutes Number of Therapists: 2 Number of Patients: 12 Problem(s) Number Addressed: 1 Intervention: Active Listening, Clarified, Challenged, Encouraged, Engaged, Explored, Gave Feedback, Observed, Redirected, and Supported Explain: Patients began exploration on the skills for mindfulness using given handouts. They shared their feeling word and takeaway from today at group end. Response: Patient appeared observant and was quiet. He participated via non-verbal cues. He did share he has engaged in mindful practice through yoga and other mindful movements. He reported feeling sad. He stated his takeaway from today is learning new ways he can validate his emotions and have encouraging words to say to himself. PLAN: Continue group treatment as stated in Treatment Plan. Continue to gain insights into problems. Continue to share feelings & thoughts in group. Monitor thinking/complete thought sheets. Incorporate relaxation/coping strategies into daily routine. SOBRIETY (If applicable): N/A Patient Data [place]-SUICIDE SEVERITY RATING SCALE Screen Version - Recent Past month Ask questions that are bolded and underlined. YES/NO Ask Questions 1 and 2 1) Have you wished you were or wished you could go to sleep and not wake up? Yes 2) Have you actually had any thoughts of killing yourself? No If YES to 2, ask questions 3, 4, 5, and 6. If NO to 2, go directly to question 6. 3) Have you been thinking about how you might do this? E.g. I thought about taking an overdose but I never made a specific plan as to when where or how I would actually do it .and I would never go through with it. 4) Have you had these thoughts and had some intention of acting on them? As opposed to I have the thoughts but I definitely will not do anything about them. 5) Have you started to work out or worked out the details of how to kill yourself? Do you intend to carry out this plan? 6) Have you ever done anything, started to do anything, or prepared to do anything to end your life? Examples: Collected pills, obtained a gun, gave away valuables, wrote a will or suicide note, took out pills but didn't swallow any, held a gun but changed your mind or it was grabbed from your hand, went to the roof but didn't jump; or actually took pills, tried to shoot yourself, cut yourself, tried to hang yourself, etc. If YES, ask: Was this within the past three months? YES/NO No Low Risk Moderate Risk High Risk Patient reported that his fleeting and passive SI has continued to decrease in severity and frequency. He reported no current means, plan, or intent. He shared he currently feels very safe and has no reported safety concerns. He was reminded of his safety plan and resources if these change. Generalized Anxiety Disorder Scale (RICHARD-7) RICHARD - 7 SCORES 02/08/2023 02/08/2023 02/21/2023 RICHARD-7 Score 11 11 9 (0-4) minimal anxiety, (5-9) mild anxiety, (10-14) moderate anxiety, (15-21) severe anxiety IOP Daily Questionnaire IOP Daily 02/15/2023 02/20/2023 02/21/2023 Today, is your belief in your ability to use your Safety Plan in a crisis at 90%? Yes Yes Yes Today, have you wished you were or wished you could go to sleep and not wake up? No No No Today, have you actually had any thoughts of killing yourself? No No No On a scale of 1 to 10 how would you rate your mood now? 5 6 4 Patient Health Questionnaire (PHQ-9) PHQ-9 02/08/2023 02/08/2023 02/21/2023 Score 12 12 14 (0-4) minimal depression, (5-9) mild depression, (10-14) moderate depression, (15-19) moderately severe depression, (20-27) severe depression SIGNATURE: KHARI Elmore PATIENT NAME: Macho Sanches DATE: February 21, 2023 TIME: 8:45 AM PAGER/CONTACT #: [phone] documented in this encounter [facility] 02-21-2023 Miscellaneous Notes , IOP TEAM NOTE IOP TEAM MEETING DATE: 02/21/2023 RECENT ASSESSMENTS/TREATMENT PLAN REVIEWS: Per KHARI Haines, assessment. Treatment goal review completed on 02/15/23. SUICIDE RISK AND MITIGATION PLAN Low to moderate risk. Patient completed their safety plan and has a copy. Patient has reported no current safety concerns and no current plan or intent. He reports to having fleeting SI. WEEKLY REVIEW OF CLIENT PROGRESS: Patient has continued to make improvements and find successes with skill use. He is actively reporting to engaging in skills for emotional regulation, acceptance, and opposite action. He has shared he feels these skills continue to be a challenge for him, though he finds them useful. Patient has scheduled with his therapy and medication management providers at [facility]. He has also been extended by one week for VIOP. DISCHARGE PLANNING/RECOMMENDATIONS: Patient is set for a tentative discharge date of 03/09/23. Patient has scheduled for individual therapy and medication management at [facility] for march. Team did not meet this week. DOCUMENTED BY: KHARI Elmore PATIENT NAME: Macho Sanches DATE: February 21, 2023 TIME: 2:35 PM documented in this encounter [facility] 02-20-2023 Note HNO ID: [id number] Author: KHARI Elmore Service: Behavioral Health IOP (Intensive Outpatient Program) Author Type: Therapist Type: Progress Notes Filed: 02/20/2023 11:53 AM Note Text: BEHAVIORAL HEALTH IOP (INTENSIVE OUTPATIENT PROGRAM) DAILY PROGRESS NOTE VIOP - Patient consented to VIOP through [facility] for [facility]. SERVICE DATE: February 20, 2023 SERVICE TIME: 9:00 AM INTERVAL PROGRESS: Stable PATIENT'S PROGRESS: Attentive AND Involved BEHAVIOR: Appearance: Disheveled Attitude: Cooperative Affect: Anxious and Restricted Mood: Tense and energetic Thought Process: Logical, [place], Perseverative, and Preoccupied Speech: Normal Eye Contact: Fair Describe Change Noted Throughout the Day: Consistent GROUP THERAPY: Illness Management Group Start Time: 9:00am End Time: 10:00am Total Time: 60 minutes Number of Therapists: 2 Number of Patients: 10 Problem(s) Number Addressed: 1 Intervention: Active Listening, Clarified, Challenged, Encouraged, Engaged, Explored, Gave Feedback, Observed, Redirected, and Supported Explain: Patients shared a feeling word and two positive traits. They discussed their weekend, skills used and concerns. Response: Patient reported feeling tense. He stated his positive traits are determined and sensitive. He stated his weekend activities included traveling to [place] to help his ex. He stated he used skills for acceptance, grounding, paced breathing, emotion regulation, and exercise. Coping Strategies Group Start Time: 10:10am End Time: 11:00am Total Time: 50 minutes Number of Therapists: 2 Number of Patients: 12 Problem(s) Number Addressed: 1 Intervention: Active Listening, Clarified, Challenged, Encouraged, Engaged, Explored, Gave Feedback, Observed, Redirected, and Supported Explain: Patients continued education into the skills for distress tolerance using given materials and group discussion. Response: Patient appeared observant and participatory. He was quiet. Process and Emotion Management Group Start Time: 11:10am End Time: 12:00pm Total Time: 50 minutes Number of Therapists: 2 Number of Patients: 12 Problem(s) Number Addressed: 1 Intervention: Active Listening, Clarified, Challenged, Encouraged, Engaged, Explored, Gave Feedback, Observed, Redirected, and Supported Explain: Patients continued exploration for the topic of distress tolerance. They shared their feeling word and takeaway from today at group end. Response: Patient was quiet. He appeared participatory and observant. He shared on his thoughts and emotions on the music activity. He reported feeling energetic. He stated his takeaway from today is learning more about distractions. PLAN: Continue group treatment as stated in Treatment Plan. Continue to gain insights into problems. Continue to share feelings AND thoughts in group. Monitor thinking/complete thought sheets. Incorporate relaxation/coping strategies into daily routine. SOBRIETY (If applicable): N/A Patient Data IOP Daily Questionnaire IOP Daily 02/14/2023 02/15/2023 02/20/2023 Today, is your belief in your ability to use your Safety Plan in a crisis at 90%? Yes Yes Yes Today, have you wished you were or wished you could go to sleep and not wake up? No No No Today, have you actually had any thoughts of killing yourself? No No No On a scale of 1 to 10 how would you rate your mood now? 4 5 6 SIGNATURE: Sophia Alvarado [facility] PATIENT NAME: Macho Sanches DATE: February 20, 2023 TIME: 7:49 AM PAGER/CONTACT #: [phone] [facility] 02-20-2023 History of Presen t illness Narrative BEHAVIORAL HEALTH IOP (INTENSIVE OUTPATIENT PROGRAM) DAILY PROGRESS NOTE VIOP - Patient consented to VIOP through [employer]. SERVICE DATE: February 20, 2023 SERVICE TIME: 9:00 AM INTERVAL PROGRESS: Stable PATIENT'S PROGRESS: Attentive & Involved BEHAVIOR: Appearance: Disheveled Attitude: Cooperative Affect: Anxious and Restricted Mood: Tense and energetic Thought Process: Logical, [place], Perseverative, and Preoccupied Speech: Normal Eye Contact: Fair Describe Change Noted Throughout the Day: Consistent GROUP THERAPY: Illness Management Group Start Time: 9:00am End Time: 10:00am Total Time: 60 minutes Number of Therapists: 2 Number of Patients: 10 Problem(s) Number Addressed: 1 Intervention: Active Listening, Clarified, Challenged, Encouraged, Engaged, Explored, Gave Feedback, Observed, Redirected, and Supported Explain: Patients shared a feeling word and two positive traits. They discussed their weekend, skills used and concerns. Response: Patient reported feeling tense. He stated his positive traits are determined and sensitive. He stated his weekend activities included traveling to [place] to help his ex. He stated he used skills for acceptance, grounding, paced breathing, emotion regulation, and exercise. Coping Strategies Group Start Time: 10:10am End Time: 11:00am Total Time: 50 minutes Number of Therapists: 2 Number of Patients: 12 Problem(s) Number Addressed: 1 Intervention: Active Listening, Clarified, Challenged, Encouraged, Engaged, Explored, Gave Feedback, Observed, Redirected, and Supported Explain: Patients continued education into the skills for distress tolerance using given materials and group discussion. Response: Patient appeared observant and participatory. He was quiet. Process and Emotion Management Group Start Time: 11:10am End Time: 12:00pm Total Time: 50 minutes Number of Therapists: 2 Number of Patients: 12 Problem(s) Number Addressed: 1 Intervention: Active Listening, Clarified, Challenged, Encouraged, Engaged, Explored, Gave Feedback, Observed, Redirected, and Supported Explain: Patients continued exploration for the topic of distress tolerance. They shared their feeling word and takeaway from today at group end. Response: Patient was quiet. He appeared participatory and observant. He shared on his thoughts and emotions on the music activity. He reported feeling energetic. He stated his takeaway from today is learning more about distractions. PLAN: Continue group treatment as stated in Treatment Plan. Continue to gain insights into problems. Continue to share feelings & thoughts in group. Monitor thinking/complete thought sheets. Incorporate relaxation/coping strategies into daily routine. SOBRIETY (If applicable): N/A Patient Data IOP Daily Questionnaire IOP Daily 02/14/2023 02/15/2023 02/20/2023 Today, is your belief in your ability to use your Safety Plan in a crisis at 90%? Yes Yes Yes Today, have you wished you were or wished you could go to sleep and not wake up? No No No Today, have you actually had any thoughts of killing yourself? No No No On a scale of 1 to 10 how would you rate your mood now? 4 5 6 SIGNATURE: KHARI Elmore PATIENT NAME: Macho Sanches DATE: February 20, 2023 TIME: 7:49 AM PAGER/CONTACT #: [phone] documented in this encounter [facility] 02-16-2023 Note HNO ID: [id number] Author: ANALI Gracia Service: ? Author Type: Net Web Developer Type: Progress Notes Filed: 02/16/2023 10:56 AM Note Text: BEHAVIORAL HEALTH IOP (INTENSIVE OUTPATIENT PROGRAM) APPOINTMENT CANCELLATION COMMUNICATION DATE: 02/16/2023 Scheduled Intensive Outpatient Program appointment for Macho Sanches was on 02/16/2023 at 9:00 AM. This therapist called and emailed Macho asking if he would be joining group today. He answered at 10:55am and said he would not be in group due to having back spasms all night and not sleeping. He said he will be in group on Monday. SIGNATURE: ANALI Gracia PATIENT NAME: Macho Sanches DATE: February 16, 2023 TIME: 10:55 AM [facility] 02-16-2023 History of Presen t illness Narrative BEHAVIORAL HEALTH IOP (INTENSIVE OUTPATIENT PROGRAM) APPOINTMENT CANCELLATION COMMUNICATION DATE: 02/16/2023 Scheduled Intensive Outpatient Program appointment for Macho Sanches was on 02/16/2023 at 9:00 AM. This therapist called and emailed Macho asking if he would be joining group today. He answered at 10:55am and said he would not be in group due to having back spasms all night and not sleeping. He said he will be in group on Monday. SIGNATURE: ANALI Gracia PATIENT NAME: Macho Sanches DATE: February 16, 2023 TIME: 10:55 AM documented in this encounter [facility] 02-15-2023 Note HNO ID: [id number] Author: Sophia Alvarado [facility] Service: Behavioral Health IOP (Intensive Outpatient Program) Author Type: Therapist Type: Progress Notes Filed: 02/15/2023 12:01 PM Note Text: BEHAVIORAL HEALTH IOP (INTENSIVE OUTPATIENT PROGRAM) DAILY PROGRESS NOTE VIOP - Patient consented to VIOP through [employer] for [facility]. SERVICE DATE: February 15, 2023 SERVICE TIME: 9:00 AM INTERVAL PROGRESS: Stable PATIENT'S PROGRESS: Attentive AND Involved BEHAVIOR: Appearance: Pleasant Attitude: Cooperative and Perseverative Affect: Anxious, Euthymic, and Distressed Mood: Overwhelmed, frustrated, confused, and peaceful Thought Process: Logical, [place], Perseverative, Goal-directed, and Preoccupied Speech: Normal Eye Contact: Good Describe Change Noted Throughout the Day: Consistent GROUP THERAPY: Illness Management Group Start Time: 9:00am End Time: 10:00am Total Time: 60 minutes Number of Therapists: 2 Number of Patients: 10 Problem(s) Number Addressed: 1 Intervention: Active Listening, Clarified, Challenged, Encouraged, Engaged, Explored, Gave Feedback, Observed, Redirected, and Supported Explain: Patients shared a feeling word and two positive traits. They reviewed their treatment plans and identified areas in which they are working and not working. Response: Patient reported feeling overwhelmed, frustrated, and confused. He stated his positive traits are brave and shy. He went through a full review of his goals. He shared he is working more on his skills for regulating his emotions, though he is also struggling with this and acceptance. He briefly explored how he is struggling with overthinking his skills and perfectionistic tendencies. He was encouraged to break down his goals further this week and prioritize acceptance in smaller ways. Coping Strategies Group Start Time: 10:10am End Time: 11:00am Total Time: 50 minutes Number of Therapists: 2 Number of Patients: 10 Problem(s) Number Addressed: 1 Intervention: Active Listening, Clarified, Challenged, Encouraged, Engaged, Explored, Gave Feedback, Observed, Redirected, and Supported Explain: Patients continued education into emotion regulation skills, specifically reviewing tips for sleep hygiene and watching an educational video on emotional agility. Response: Patient was quiet overall, though he participated with body language and non-verbal cues. Process and Emotion Management Group Start Time: 11:10am End Time: 12:00pm Total Time: 50 minutes Number of Therapists: 2 Number of Patients: 10 Problem(s) Number Addressed: 1 Intervention: Active Listening, Clarified, Challenged, Encouraged, Engaged, Explored, Gave Feedback, Observed, Redirected, and Supported Explain: Patients continued education with emotion regulation, specifically learning about mindfulness of current emotions and some emotional resilience tips. They shared their feeling word and takeaway from today at group end. Response: Patient participated in reading. He reported feeling peaceful. He shared his takeaway from today is learning more about how he needs to work more on acceptance, especially with emotions. PLAN: Continue group treatment as stated in Treatment Plan. Continue to gain insights into problems. Continue to share feelings AND thoughts in group. Monitor thinking/complete thought sheets. Incorporate relaxation/coping strategies into daily routine. SOBRIETY (If applicable): N/A Patient Data IOP Daily Questionnaire IOP Daily 02/13/2023 02/14/2023 02/15/2023 Today, is your belief in your ability to use your Safety Plan in a crisis at 90%? Yes Yes Yes Today, have you wished you were or wished you could go to sleep and not wake up? Yes No No Today, have you actually had any thoughts of killing yourself? No No No On a scale of 1 to 10 how would you rate your mood now? 2 4 5 SIGNATURE: Celestinehannah KHARI Alvarado PATIENT NAME: Macho Sanches DATE: February 15, 2023 TIME: 8:58 AM PAGER/CONTACT #: [phone] [facility] 02-15-2023 Note HNO ID: [id number] Author: KHARI Elmore Service: Behavioral Health IOP (Intensive Outpatient Program) Author Type: Therapist Type: Plan of Care Filed: 02/15/2023 10:26 AM Note Text: TREATMENT PLAN REVIEW OUTLINE Date of Review: 02/14/2023 Date of Admission: January 23, 2023 Program Name/Level of Care: [facility] Current Length of Stay: 4 weeks Identifying Information: Macho Sanches is a 37 year old Single male diagnosed with recurrent and severe MDD, RICHARD, stimulant use disorder and cannabis use disorder The client is scheduled to attend group sessions: Four days per week for 6 weeks Observable Symptomatology and Clinical Response: Patient has shown some hesitancy and restraint within the group setting, particularly at the beginning of his stay in [facility]. After the first week or so, he began to open up and appear more willing to the process. He presented as less superficial and more cooperative and vulnerable with the group and IOP team. He has since also not continued to ask for stimulant medications, which was something he felt he needed. He has shown more vulnerability with the IOP therapists and receptiveness to challenges. He still presents overall as perseverative, though he fluctuates between concrete and logical/goal-oriented thinking. He also still struggles at times, though less frequent recently, with evasiveness. He has worked more consistently recently on implementing learned skills and being open to skills he once wrote off, though he continues to report he tends to self-sabotage and get in his own way when making progress. He has shared more recently that he has pushed away more pleasant feelings because they have felt unnatural and uncomfortable. Specific Master Treatment Plan Problems/Goal Status Report: Objective A Short Term Objective Statement (behavioral measurable time frame): Patient will implement learned emotion regulation skills, 3 times per day or as needed, to decrease symptoms related to recurrent depressive and anxious episodes. Patient will report progress to group weekly. Achieved: Patient reported he has worked on this skill the most consistently. He stated he is working on skills for grounding, sleep hygiene, paced breathing, and improving his perspective on his emotions. He shared is challenged by judging his emotions and feeling confused with what his emotions are, though he is working on not attaching as much. Objective B Short Term Objective Statement (behavioral measurable time frame): Patient will implement learned tips within the skill of reality acceptance daily. He will work on implementing these skills to manage his difficulty accepting situations/people outside of his control and accepting new limitations for his emotional and physical self. Patient will report progress to group weekly. Moderate progress: Patient reported feeling he thinks about the idea of acceptance almost daily, though he is not actively implementing the tips for acceptance. He shared he is struggling with accepting the environment he is in. he was encouraged to work on these skills more for the smaller things in his life right now. Objective C Short Term Objective Statement (behavioral measurable time frame): Patient will apply learned skill of opposite action daily and implement 3 pleasant/mastery tasks into his daily routine (e.g. cooking, cleaning, self-care, etc.), to address low motivation, depressed mood, and decreased interest in pleasurable activities. Patient will report progress to group weekly. Moderate to significant progress: Patient reported he is using these skills more frequently and is engaging in mastery tasks more to take care of himself. He noted he is working more on building into exercise, cooking for himself, teeth brushing, and showering. Additional Treatment Concerns and/or Client Needs: Patient has been encouraged to reach out and schedule for an earlier time for individual therapy, as well as resources outside of the clinic for medication management. He has presented with concerns with his current medication provider and interest in someone new. Recommendations AND Medical Necessity of Continued Treatment: Patient will benefit from continued treatment in the VIOP to address current concerns, manage progress toward treatment goals, and improve overall functioning. If patient were to be discharged at this time she could be at risk for needing a higher level of care. SIGNATURE: Sophia Alvarado [facility] PATIENT NAME: Macho Sanches DATE: February 14, 2023 TIME: 3:51 PM PAGER/CONTACT #: [facility] 02-15-2023 History of Presen t illness Narrative BEHAVIORAL HEALTH IOP (INTENSIVE OUTPATIENT PROGRAM) DAILY PROGRESS NOTE VIOP - [facility] SERVICE DATE: February 15, 2023 SERVICE TIME: 9:00 AM INTERVAL PROGRESS: Stable PATIENT'S PROGRESS: Attentive & Involved BEHAVIOR: Appearance: Pleasant Attitude: Cooperative and Perseverative Affect: Anxious, Euthymic, and Distressed Mood: Overwhelmed, frustrated, confused, and peaceful Thought Process: Logical, [place], Perseverative, Goal-directed, and Preoccupied Speech: Normal Eye Contact: Good Describe Change Noted Throughout the Day: Consistent GROUP THERAPY: Illness Management Group Start Time: 9:00am End Time: 10:00am Total Time: 60 minutes Number of Therapists: 2 Number of Patients: 10 Problem(s) Number Addressed: 1 Intervention: Active Listening, Clarified, Challenged, Encouraged, Engaged, Explored, Gave Feedback, Observed, Redirected, and Supported Explain: Patients shared a feeling word and two positive traits. They reviewed their treatment plans and identified areas in which they are working and not working. Response: Patient reported feeling overwhelmed, frustrated, and confused. He stated his positive traits are brave and shy. He went through a full review of his goals. He shared he is working more on his skills for regulating his emotions, though he is also struggling with this and acceptance. He briefly explored how he is struggling with overthinking his skills and perfectionistic tendencies. He was encouraged to break down his goals further this week and prioritize acceptance in smaller ways. Coping Strategies Group Start Time: 10:10am End Time: 11:00am Total Time: 50 minutes Number of Therapists: 2 Number of Patients: 10 Problem(s) Number Addressed: 1 Intervention: Active Listening, Clarified, Challenged, Encouraged, Engaged, Explored, Gave Feedback, Observed, Redirected, and Supported Explain: Patients continued education into emotion regulation skills, specifically reviewing tips for sleep hygiene and watching an educational video on emotional agility. Response: Patient was quiet overall, though he participated with body language and non-verbal cues. Process and Emotion Management Group Start Time: 11:10am End Time: 12:00pm Total Time: 50 minutes Number of Therapists: 2 Number of Patients: 10 Problem(s) Number Addressed: 1 Intervention: Active Listening, Clarified, Challenged, Encouraged, Engaged, Explored, Gave Feedback, Observed, Redirected, and Supported Explain: Patients continued education with emotion regulation, specifically learning about mindfulness of current emotions and some emotional resilience tips. They shared their feeling word and takeaway from today at group end. Response: Patient participated in reading. He reported feeling peaceful. He shared his takeaway from today is learning more about how he needs to work more on acceptance, especially with emotions. PLAN: Continue group treatment as stated in Treatment Plan. Continue to gain insights into problems. Continue to share feelings & thoughts in group. Monitor thinking/complete thought sheets. Incorporate relaxation/coping strategies into daily routine. SOBRIETY (If applicable): N/A Patient Data IOP Daily Questionnaire IOP Daily 02/13/2023 02/14/2023 02/15/2023 Today, is your belief in your ability to use your Safety Plan in a crisis at 90%? Yes Yes Yes Today, have you wished you were or wished you could go to sleep and not wake up? Yes No No Today, have you actually had any thoughts of killing yourself? No No No On a scale of 1 to 10 how would you rate your mood now? 2 4 5 SIGNATURE: KHARI Elmore PATIENT NAME: Macho Sanches DATE: February 15, 2023 TIME: 8:58 AM PAGER/CONTACT #: [phone] documented in this encounter [facility] 02-15-2023 Miscellaneous Notes TREATMENT PLAN REVIEW OUTLINE Date of Review: 02/14/2023 Date of Admission: January 23, 2023 Program Name/Level of Care: [facility] Current Length of Stay: 4 weeks Identifying Information: Macho Sanches is a 37 year old Single male diagnosed with recurrent and severe MDD, RICHARD, stimulant use disorder and cannabis use disorder The client is scheduled to attend group sessions: Four days per week for 6 weeks Observable Symptomatology and Clinical Response: Patient has shown some hesitancy and restraint within the group setting, particularly at the beginning of his stay in [facility]. After the first week or so, he began to open up and appear more willing to the process. He presented as less superficial and more cooperative and vulnerable with the group and IOP team. He has since also not continued to ask for stimulant medications, which was something he felt he needed. He has shown more vulnerability with the IOP therapists and receptiveness to challenges. He still presents overall as perseverative, though he fluctuates between concrete and logical/goal-oriented thinking. He also still struggles at times, though less frequent recently, with evasiveness. He has worked more consistently recently on implementing learned skills and being open to skills he once wrote off, though he continues to report he tends to self-sabotage and get in his own way when making progress. He has shared more recently that he has pushed away more pleasant feelings because they have felt unnatural and uncomfortable. Specific Master Treatment Plan Problems/Goal Status Report: Objective A Short Term Objective Statement (behavioral measurable time frame): Patient will implement learned emotion regulation skills, 3 times per day or as needed, to decrease symptoms related to recurrent depressive and anxious episodes. Patient will report progress to group weekly. Achieved: Patient reported he has worked on this skill the most consistently. He stated he is working on skills for grounding, sleep hygiene, paced breathing, and improving his perspective on his emotions. He shared is challenged by judging his emotions and feeling confused with what his emotions are, though he is working on not attaching as much. Objective B Short Term Objective Statement (behavioral measurable time frame): Patient will implement learned tips within the skill of reality acceptance daily. He will work on implementing these skills to manage his difficulty accepting situations/people outside of his control and accepting new limitations for his emotional and physical self. Patient will report progress to group weekly. Moderate progress: Patient reported feeling he thinks about the idea of acceptance almost daily, though he is not actively implementing the tips for acceptance. He shared he is struggling with accepting the environment he is in. he was encouraged to work on these skills more for the smaller things in his life right now. Objective C Short Term Objective Statement (behavioral measurable time frame): Patient will apply learned skill of opposite action daily and implement 3 pleasant/mastery tasks into his daily routine (e.g. cooking, cleaning, self-care, etc.), to address low motivation, depressed mood, and decreased interest in pleasurable activities. Patient will report progress to group weekly. Moderate to significant progress: Patient reported he is using these skills more frequently and is engaging in mastery tasks more to take care of himself. He noted he is working more on building into exercise, cooking for himself, teeth brushing, and showering. Additional Treatment Concerns and/or Client Needs: Patient has been encouraged to reach out and schedule for an earlier time for individual therapy, as well as resources outside of the clinic for medication management. He has presented with concerns with his current medication provider and interest in someone new. Recommendations & Medical Necessity of Continued Treatment: Patient will benefit from continued treatment in the VIOP to address current concerns, manage progress toward treatment goals, and improve overall functioning. If patient were to be discharged at this time she could be at risk for needing a higher level of care. SIGNATURE: KHARI Elmore PATIENT NAME: Macho Sanches DATE: February 14, 2023 TIME: 3:51 PM PAGER/CONTACT #: documented in this encounter [facility] 02-14-2023 Note HNO ID: [id number] Author: KHARI Elmore Service: Behavioral Health IOP (Intensive Outpatient Program) Author Type: Therapist Type: Progress Notes Filed: 02/14/2023 12:02 PM Note Text: BEHAVIORAL HEALTH IOP (INTENSIVE OUTPATIENT PROGRAM) DAILY PROGRESS NOTE VIOP - Patient consented to VIOP through Zoom for [facility]. SERVICE DATE: February 14, 2023 SERVICE TIME: 9:00 AM INTERVAL PROGRESS: Stable PATIENT'S PROGRESS: Attentive AND Involved BEHAVIOR: Appearance: Fair grooming and hygiene Attitude: Cooperative Affect: Restricted Mood: Anxious, emotionally tired, and sad Thought Process: Logical, [place], Perseverative, Goal-directed, and Preoccupied Speech: Normal Eye Contact: Good Describe Change Noted Throughout the Day: Consistent GROUP THERAPY: Illness Management Group Start Time: 9:00am End Time: 10:00am Total Time: 60 minutes Number of Therapists: 2 Number of Patients: 11 Problem(s) Number Addressed: 1 Intervention: Active Listening, Clarified, Challenged, Encouraged, Engaged, Explored, Gave Feedback, Observed, Redirected, and Supported Explain: Patients shared a feeling word and two positive traits. They shared something that they feel proud of accomplishing and something that they are struggling with. Response: Patient reported feeling very anxious. He stated his positive traits are shy and cautious. He shared he is unsure what is exactly influencing his anxiety and panic this morning, though he is struggling with irrational thinking about what he deserves to feel. He reported he is feeling proud of the work he is putting in during IOP. He shared he is struggling with understanding that emotions are just emotions and that I do not have to react to all of them, like his anxiety and fear. He noted he wants to work on detaching from his emotions. Coping Strategies Group Start Time: 10:10am End Time: 11:00am Total Time: 50 minutes Number of Therapists: 2 Number of Patients: 10 Problem(s) Number Addressed: 1 Intervention: Active Listening, Clarified, Challenged, Encouraged, Engaged, Explored, Gave Feedback, Observed, Redirected, and Supported Explain: Patients began education into the topic of emotion regulation using given materials and peer discussion. Response: Patient participated with reading. He shared he struggles emotional overload and emotional myths. He shared he's struggled a lot with his for his emotions of anger, fear, and anxiety. Process and Emotion Management Group Start Time: 11:10am End Time: 12:00pm Total Time: 50 minutes Number of Therapists: 2 Number of Patients: 10 Problem(s) Number Addressed: 1 Intervention: Active Listening, Clarified, Challenged, Encouraged, Engaged, Explored, Gave Feedback, Observed, Redirected, and Supported Explain: Patients continued education with emotion regulation skills, specifically looking at healthy perspectives on emotions and STRONG. They shared their feeling word and takeaway from today at group end. Response: Patient appeared observant and was quiet. He reported feeling sad and emotionally exhausted. He stated his takeaway from today is learning more about how he needs to tune in more to himself and his emotions. PLAN: Continue group treatment as stated in Treatment Plan. Continue to gain insights into problems. Continue to share feelings AND thoughts in group. Monitor thinking/complete thought sheets. Incorporate relaxation/coping strategies into daily routine. SOBRIETY (If applicable): N/A Patient Data IOP Daily Questionnaire IOP Daily 02/09/2023 02/13/2023 02/14/2023 Today, is your belief in your ability to use your Safety Plan in a crisis at 90%? Yes Yes Yes Today, have you wished you were or wished you could go to sleep and not wake up? No Yes No Today, have you actually had any thoughts of killing yourself? No No No On a scale of 1 to 10 how would you rate your mood now? 7 2 4 SIGNATURE: KHARI Elmore PATIENT NAME: Macho Sanches DATE: February 14, 2023 TIME: 8:51 AM PAGER/CONTACT #: [phone] [facility] 02-13-2023 Note HNO ID: [id number] Author: KHARI Elmore Service: Behavioral Health IOP (Intensive Outpatient Program) Author Type: Therapist Type: Progress Notes Filed: 02/13/2023 12:28 PM Note Text: BEHAVIORAL HEALTH IOP (INTENSIVE OUTPATIENT PROGRAM) DAILY PROGRESS NOTE VIOP - Patient consented to VIOP through Zoom for [facility]. SERVICE DATE: February 13, 2023 SERVICE TIME: 9:00 AM INTERVAL PROGRESS: Stable PATIENT'S PROGRESS: Attentive AND Involved BEHAVIOR: Appearance: Pleasant Attitude: Cooperative Affect: Appropriate and Restricted Mood: Hopeless, frustrated, sad, excited, and hopeful Thought Process: Logical, [place], Perseverative, and Goal-directed Speech: Normal Eye Contact: Good Describe Change Noted Throughout the Day: Consistent GROUP THERAPY: Illness Management Group Start Time: 9:00am End Time: 10:00am Total Time: 60 minutes Number of Therapists: 2 Number of Patients: 9 Problem(s) Number Addressed: 1 Intervention: Active Listening, Clarified, Challenged, Encouraged, Engaged, Explored, Gave Feedback, Observed, Redirected, and Supported Explain: Patients shared a feeling word and two positive traits. They discussed their weekend, skills used and concerns. Response: Patient reported feeling sad, hopeless, and frustrated. He stated his positive traits are cautious and hopeful. He stated his weekend activities include connecting with friends. He shared he struggled with isolation this weekend, as well as grieving a friend's relationship. He noted he found the weekend challenging because he used skills to help with his mood, which worked, and he felt uncomfortable feeling more pleasant. He briefly processed the challenges he is facing with his current home environment and feeling isolated, losing out on things and relationships. Coping Strategies Group Start Time: 10:10am End Time: 11:00am Total Time: 50 minutes Number of Therapists: 2 Number of Patients: 7 Problem(s) Number Addressed: 1 Intervention: Active Listening, Clarified, Challenged, Encouraged, Engaged, Explored, Gave Feedback, Observed, Redirected, and Supported Explain: Patients began education into the topic of SMART goals using given materials. Response: Patient reported he wants to work on a SMART goal this week of journaling. He worked on his SMART goal quietly. Process and Emotion Management Group Start Time: 11:10am End Time: 12:00pm Total Time: 50 minutes Number of Therapists: 2 Number of Patients: 8 Problem(s) Number Addressed: 1 Intervention: Active Listening, Clarified, Challenged, Encouraged, Engaged, Explored, Gave Feedback, Observed, Redirected, and Supported Explain: Patients finished exploration of setting SMART goals by hearing from the group on their goals for the next week. They shared their feeling word and takeaway from today at group end. Response: Patient reported he will work on journaling more this week with his SMART goal. He shared he can work on doing at least 3 minutes, 1x this week. This is a new goal for him as he is not currently journaling. He reported feeling hopeful and excited. He stated his takeaway from today is having more actionable ways to journal through SMART goals. PLAN: Continue group treatment as stated in Treatment Plan. Continue to gain insights into problems. Continue to share feelings AND thoughts in group. Monitor thinking/complete thought sheets. Incorporate relaxation/coping strategies into daily routine. SOBRIETY (If applicable): N/A Patient Data IOP Daily Questionnaire IOP Daily 02/08/2023 02/09/2023 02/13/2023 Today, is your belief in your ability to use your Safety Plan in a crisis at 90%? Yes Yes Yes Today, have you wished you were or wished you could go to sleep and not wake up? No No Yes Today, have you actually had any thoughts of killing yourself? No No No On a scale of 1 to 10 how would you rate your mood now? 7 7 2 SIGNATURE: Sophia Alvarado [facility] PATIENT NAME: Macho Sanches DATE: February 13, 2023 TIME: 8:54 AM PAGER/CONTACT #: [phone] [facility] 02-13-2023 History of Presen t illness Narrative BEHAVIORAL HEALTH IOP (INTENSIVE OUTPATIENT PROGRAM) DAILY PROGRESS NOTE VIOP - Patient consented to VIOP through [employer]. SERVICE DATE: February 13, 2023 SERVICE TIME: 9:00 AM INTERVAL PROGRESS: Stable PATIENT'S PROGRESS: Attentive & Involved BEHAVIOR: Appearance: Pleasant Attitude: Cooperative Affect: Appropriate and Restricted Mood: Hopeless, frustrated, sad, excited, and hopeful Thought Process: Logical, [place], Perseverative, and Goal-directed Speech: Normal Eye Contact: Good Describe Change Noted Throughout the Day: Consistent GROUP THERAPY: Illness Management Group Start Time: 9:00am End Time: 10:00am Total Time: 60 minutes Number of Therapists: 2 Number of Patients: 9 Problem(s) Number Addressed: 1 Intervention: Active Listening, Clarified, Challenged, Encouraged, Engaged, Explored, Gave Feedback, Observed, Redirected, and Supported Explain: Patients shared a feeling word and two positive traits. They discussed their weekend, skills used and concerns. Response: Patient reported feeling sad, hopeless, and frustrated. He stated his positive traits are cautious and hopeful. He stated his weekend activities include connecting with friends. He shared he struggled with isolation this weekend, as well as grieving a friend's relationship. He noted he found the weekend challenging because he used skills to help with his mood, which worked, and he felt uncomfortable feeling more pleasant. He briefly processed the challenges he is facing with his current home environment and feeling isolated, losing out on things and relationships. Coping Strategies Group Start Time: 10:10am End Time: 11:00am Total Time: 50 minutes Number of Therapists: 2 Number of Patients: 7 Problem(s) Number Addressed: 1 Intervention: Active Listening, Clarified, Challenged, Encouraged, Engaged, Explored, Gave Feedback, Observed, Redirected, and Supported Explain: Patients began education into the topic of SMART goals using given materials. Response: Patient reported he wants to work on a SMART goal this week of journaling. He worked on his SMART goal quietly. Process and Emotion Management Group Start Time: 11:10am End Time: 12:00pm Total Time: 50 minutes Number of Therapists: 2 Number of Patients: 8 Problem(s) Number Addressed: 1 Intervention: Active Listening, Clarified, Challenged, Encouraged, Engaged, Explored, Gave Feedback, Observed, Redirected, and Supported Explain: Patients finished exploration of setting SMART goals by hearing from the group on their goals for the next week. They shared their feeling word and takeaway from today at group end. Response: Patient reported he will work on journaling more this week with his SMART goal. He shared he can work on doing at least 3 minutes, 1x this week. This is a new goal for him as he is not currently journaling. He reported feeling hopeful and excited. He stated his takeaway from today is having more actionable ways to journal through SMART goals. PLAN: Continue group treatment as stated in Treatment Plan. Continue to gain insights into problems. Continue to share feelings & thoughts in group. Monitor thinking/complete thought sheets. Incorporate relaxation/coping strategies into daily routine. SOBRIETY (If applicable): N/A Patient Data IOP Daily Questionnaire IOP Daily 02/08/2023 02/09/2023 02/13/2023 Today, is your belief in your ability to use your Safety Plan in a crisis at 90%? Yes Yes Yes Today, have you wished you were or wished you could go to sleep and not wake up? No No Yes Today, have you actually had any thoughts of killing yourself? No No No On a scale of 1 to 10 how would you rate your mood now? 7 7 2 SIGNATURE: KHARI Elmore PATIENT NAME: Macho Sanches DATE: February 13, 2023 TIME: 8:54 AM PAGER/CONTACT #: [phone] documented in this encounter [facility] 02-09-2023 Note HNO ID: [id number] Author: Roney Fraser MD Service: ? Author Type: Physician Type: Progress Notes Filed: 03/01/2023 12:58 PM Note Text: Roney Fraser MD Department of Orthopaedics Orthopa[facility] [address] [facility] [address] Dept: [phone] Dept February 09, 2023 CHIEF COMPLAINT: Pain and New of the Right Knee HPI Pt reports having worsening problems with the righ knee, primarily. Pain can be 8/10 at times, intermittent. Positional. He feels it may be related to an injury many years ago that did not get thoroughly investigated. Describes catching and clicking in the knee. ASSESSMENT: M25.561, G89.29 Chronic pain of right knee (primary encounter diagnosis) M79.604 Right leg pain M25.551, G89.29 Chronic pain of right hip PLAN: I do not see an attempt at physical therapy. He has not been on any prescription NSAIDs. He is having mechanical symptoms in the knee consistent with a meniscus tear. I'll start him on Meloxicam and order an MRI to evaluate the meniscus. FOLLOW UP INSTRUCTIONS: After imaging. Mr. Macho Sanches was advised as to contrast therapies and/or to take analgesics/anti-inflammatories as needed and all contraindications were reviewed. OBJECTIVE: Mr. Macho Sanches is a pleasant 37 year old in no apparent distress. Gen:There were no vitals taken for this visit. nl development, obese, no deformities ENT: Normocephalic, normal hearing, moist mucosa CV: Pulses:DP/PT= 2+ and symmetric, capillary refill < 2 secs, no peripheral edema/varicosities Skin: no rash, bruising or lesions. Good turgor. Psych: cooperative and appropriate, alert and oriented x 3, good mood and affect. Musculoskeletal: Patient walks with mild antalgia, normal station. Hip motion without pain. Knee withscant effusion. Patella tracks normally. There is no patellar crepitance. No pain along the medial or lateral facets. Range of motion 5-125. Positive medial, without lateral joint line pain on palpation. Ligamentous exam stable on varus and valgus stress testing at 0 and 30 degrees. Brian's examination is negative. Posterior drawer is negative. Painful [place], without palpable click. Positive Thesally's. Extremity is warm and well perfused. Sensation is grossly intact to light touch, subjectively. IMAGING: IMPRESSION: No acute osseous abnormality Consultant Internship: [facility] Transcribe Date/Time: Nov 23 2022 2:24P Dictated by : ANGELICA ANTUNEZ MD This examination was interpreted and the report reviewed and electronically signed by: ANGELICA ANTUNEZ MD on Nov 23 2022 2:26PM EST Results-Findings * * *Final Report* * * DATE OF EXAM: Nov 23 2022 2:17PM WOX [id number] - XR KNEE 4V AP/PA BOTH+LAT/PIERRE RT / PROCEDURE REASON: Right leg pain * * * * Physician Interpretation * * * * EXAMINATION: XR KNEE 4V AP/PA BOTH+LAT/PIERRE RT CLINICAL HISTORY: Right leg pain Technique: XR KNEE 4V AP/PA BOTH+LAT/PIERRE RT -- RIGHT with 4 views on 4 images Comparison: None RESULT: No acute fracture or dislocation. Joint spaces are maintained. IMPRESSION: No acute osseous abnormality Consultant Internship: LIZ Transcribe Date/Time: Nov 23 2022 2:23P Dictated by : ANGELICA ANTUNEZ MD This examination was interpreted and the report reviewed and electronically signed by: ANGELICA ANTUNEZ MD on Nov 23 2022 2:24PM EST Results-Findings * * *Final Report* * * DATE OF EXAM: Nov 23 2022 2:17PM WOX [id number] - XR HIP 3V PELV+ AP/LAT RT / PROCEDURE REASON: Right leg pain * * * * Physician Interpretation * * * * EXAMINATION: XR HIP 3V PELV+ AP/LAT RT CLINICAL HISTORY: Right leg pain Technique: XR HIP 3V PELV+ AP/LAT RT -- RIGHT with 3 views on 3 images Comparison: None RESULT: No acute fracture or dislocation. Joint spaces are maintained. Supporting Subjective Information Below: Past Medical History: PAST MEDICAL HISTORY Diagnosis Date Asthma seasonal Environmental allergies Past Surgical History: PAST SURGICAL HISTORY Procedure Laterality Date PAST SURGICAL HISTORY OF left testicle torsion Family History: FAMILY HISTORY Problem Relation Age of Onset Asthma Mother Breast Cancer Mother Prostate Cancer Father Thyroid Father Hypothyroidism Stroke Maternal Grandfather in 80s Social History: Social History Tobacco Use Smoking status: Former Packs/day: 0.30 Years: 1.50 Pack years: 0.45 Types: Cigarettes Smokeless tobacco: Never Tobacco comments: Rare cigarette Substance Use Topics Alcohol use: Yes Alcohol/week: 5.0 standard drinks Types: 5 Cans of Beer (12oz) per week Drug use: No Medications: Current Outpatient Medications Medication Sig atomoxetine (STRATTERA) 40 mg capsule Take 1 capsule by mouth once daily. buPROPion XL (WELLBUTRIN XL) 300 mg 24 hr tablet Take 1 tablet by mouth once daily. albuterol HFA (PROVENTIL HFA, VENTOLIN HFA) 90 mcg/actuation inhaler Inhale (more content not included)... [facility] 02-09-2023 Note HNO ID: [id number] Author: Luis Antonio West MD Service: ? Author Type: Physician Type: Progress Notes Filed: 02/09/2023 2:24 PM Note Text: [facility] - Outpatient Psychiatry Visit-Pharmacological Management Date/Time: February 09, 2023 1:53 PM Method of contact: Redapt I have communicated my name and active licensure. The patient's identity and physical location were verified at the time of this visit. Either the patient or their legal community engagement representative has been informed of the risks and benefits of -- and alternatives to -- treatment through a remote evaluation and consents to proceed with the evaluation remotely. ASSESSMENT: Macho Sanches is a 37 year old year old male who lives with parents in [place], currently on Wellbutrin for the management of MDD, RICHARD, ADHD who presents for a outpatient psychiatric follow-up appointment to address current medications. The patient had the last visit with me on 01/19/23 and has since noticed improvement in depression symptoms with continued difficulty with anxiety and ADHD symptoms, therefore warranting medication changes as described below. Appropriate to continue with [facility] Group 3. Tentative date of discharge 03/02/23. Typical outpatient follow-up to be changed following discharge from [facility]. DIAGNOSIS: PRIMARY: MDD, recurrent, severe without psychotic features SECONDARY: RICHARD, ADHD, Stimulant Abuse, Marijuana Abuse GAF: 60-51 Moderate symptoms or moderate difficulty in social, occupational or school functioning. TREATMENT PLAN: - Indicated Labs: No additional labs indicated at this time - Psychotherapy: Appropriate to continue with MDIOP Group 3 - Medications: - Continue: Wellbutrin XL 300 mg daily Trazodone 50 mg QHS PRN insomnia - using regularly with good benefit - Add: Strattera 40 mg daily - Social: engage with others in meaningful ways as permitted by local COVID restrictions - Other: will assist patient in attempting to change provider through [facility] R/B/A of current course of recommended therapy discussed. Questions answered. Follow Up: with me in 2 weeks as previously scheduled CC: Medication Management HPI: Things have been going really well . Feels like the program has helped a lot. A lot of things have helped, particularly the emotional regulation and opposite action. Has been sleeping well and eating well. Taking Trazodone 50 mg QHS to help his sleep be more regular and he is feeling more rested in the morning without feeling groggy from the medication. Patient interested in discussing management of ADHD symptoms. States he has noticed significant improvement in depression since starting in IOP but anxiety remains relatively high and is worried that starting a stimulant would increase anxiety as it has in the past and he doesn't want to lose the progress he has made. Discussed risks of concurrent use of Wellbutrin and Stratterra, however, given history and risk of abuse with stimulant medication will pursue non stimulant management of ADHD at this time. Patient will reach out to treatment team if he experiences appetite suppression, nausea/vomiting, tachycardia, increased BP or other symptoms when starting this medication. Psychosis - None SI - None HI - None Pertinent past psychiatric history reviewed, including: - Recent Hospitalizations - Med trials - Suicide attempts - Legal history Data PHQ-9 01/23/2023 02/08/2023 02/08/2023 Score 19 12 12 (0-4) minimal depression, (5-9) mild depression, (10-14) moderate depression, (15-19) moderately severe depression, (20-27) severe depression PHQ-9 Score 02/08/2023 12 02/08/2023 12 01/23/2023 19 01/19/2023 22 01/18/2023 21 01/12/2023 15 01/03/2023 27 12/09/2022 21 (0-4) minimal depression, (5-9) mild depression, (10-14) moderate depression, (15-19) moderately severe depression, (20-27) severe depression RICHARD - 7 SCORES 01/23/2023 02/08/2023 02/08/2023 RICHARD-7 Score 10 11 11 (0-4) minimal anxiety, (5-9) mild anxiety, (10-14) moderate anxiety, (15-21) severe anxiety RICHARD - 7 SCORES RICHARD-7 Score 02/08/2023 11 02/08/2023 11 01/23/2023 10 01/19/2023 12 01/18/2023 13 01/12/2023 11 01/03/2023 18 12/09/2022 10 (0-4) minimal anxiety, (5-9) mild anxiety, (10-14) moderate anxiety, (15-21) severe anxiety Pertinent lab work AND results over past 6 months: BUN (mg/dL) Date Value 09/12/2012 12 Creatinine (mg/dL) Date Value 09/12/2012 0.92 Potassium (mmol/L) Date Value 09/12/2012 4.1 Alkaline Phosphatase (U/L) Date Value 09/12/2012 75 AST (U/L) Date Value 09/12/2012 22 ALT (U/L) Date Value 09/12/2012 26 Sodium Date Value Ref Range Status 09/12/2012 140 135 - 146 mmol/L Final Albumin (g/dL) Date Value 09/12/2012 4.7 Cholesterol, Total (mg/dL) Date Value 09/12/2012 187 HDL Cholesterol (mg/dL) Date Value 09/12/2012 51 LDL Cholesterol (mg/dL) Date Value 09/12/2012 117 Triglyceride (mg/dL) Date Value 09/12/2012 95 T (more content not included)... [facility] 02-09-2023 History of Presen t illness Narrative Roney Fraser MD Department of Orthopaedics Orthopaedics [address] [facility] [address] Dept: [phone] Dept February 09, 2023 CHIEF COMPLAINT: Pain and New of the Right Knee HPI Pt reports having worsening problems with the righ knee, primarily. Pain can be 8/10 at times, intermittent. Positional. He feels it may be related to an injury many years ago that did not get thoroughly investigated. Describes catching and clicking in the knee. ASSESSMENT: M25.561, G89.29 Chronic pain of right knee (primary encounter diagnosis) M79.604 Right leg pain M25.551, G89.29 Chronic pain of right hip PLAN: I do not see an attempt at physical therapy. He has not been on any prescription NSAIDs. He is having mechanical symptoms in the knee consistent with a meniscus tear. I'll start him on Meloxicam and order an MRI to evaluate the meniscus. FOLLOW UP INSTRUCTIONS: After imaging. Mr. Macho Sanches was advised as to contrast therapies and/or to take analgesics/anti-inflammatories as needed and all contraindications were reviewed. OBJECTIVE: Mr. Macho Sanches is a pleasant 37 year old in no apparent distress. Gen:There were no vitals taken for this visit. nl development, obese, no deformities ENT: Normocephalic, normal hearing, moist mucosa CV: Pulses:DP/PT= 2+ and symmetric, capillary refill < 2 secs, no peripheral edema/varicosities Skin: no rash, bruising or lesions. Good turgor. Psych: cooperative and appropriate, alert and oriented x 3, good mood and affect. Musculoskeletal: Patient walks with mild antalgia, normal station. Hip motion without pain. Knee withscant effusion. Patella tracks normally. There is no patellar crepitance. No pain along the medial or lateral facets. Range of motion 5-125. Positive medial, without lateral joint line pain on palpation. Ligamentous exam stable on varus and valgus stress testing at 0 and 30 degrees. Brian's examination is negative. Posterior drawer is negative. Painful McMurrays, without palpable click. Positive Thesally's. Extremity is warm and well perfused. Sensation is grossly intact to light touch, subjectively. IMAGING: IMPRESSION: No acute osseous abnormality Consultant [facility] Transcribe Date/Time: Nov 23 2022 2:24P Dictated by : ANGELICA ANTUNEZ MD This examination was interpreted and the report reviewed and electronically signed by: ANGELICA ANTUNEZ MD on Nov 23 2022 2:26PM EST Results-Findings * * *Final Report* * * DATE OF EXAM: Nov 23 2022 2:17PM WOX [id number] - XR KNEE 4V AP/PA BOTH+LAT/PIERRE RT / PROCEDURE REASON: Right leg pain * * * * Physician Interpretation * * * * EXAMINATION: XR KNEE 4V AP/PA BOTH+LAT/PIERRE RT CLINICAL HISTORY: Right leg pain Technique: XR KNEE 4V AP/PA BOTH+LAT/PIERRE RT -- RIGHT with 4 views on 4 images Comparison: None RESULT: No acute fracture or dislocation. Joint spaces are maintained. IMPRESSION: No acute osseous abnormality Consultant Internship: [facility] Transcribe Date/Time: Nov 23 2022 2:23P Dictated by : ANGELICA ANTUNEZ MD This examination was interpreted and the report reviewed and electronically signed by: ANGELICA ANTUNEZ MD on Nov 23 2022 2:24PM EST Results-Findings * * *Final Report* * * DATE OF EXAM: Nov 23 2022 2:17PM WOX [id number] - XR HIP 3V PELV+ AP/LAT RT / PROCEDURE REASON: Right leg pain * * * * Physician Interpretation * * * * EXAMINATION: XR HIP 3V PELV+ AP/LAT RT CLINICAL HISTORY: Right leg pain Technique: XR HIP 3V PELV+ AP/LAT RT -- RIGHT with 3 views on 3 images Comparison: None RESULT: No acute fracture or dislocation. Joint spaces are maintained. Supporting Subjective Information Below: Past Medical History: PAST MEDICAL HISTORY Diagnosis Date Asthma seasonal Environmental allergies Past Surgical History: PAST SURGICAL HISTORY Procedure Laterality Date PAST SURGICAL HISTORY OF left testicle torsion Family History: FAMILY HISTORY Problem Relation Age of Onset Asthma Mother Breast Cancer Mother Prostate Cancer Father Thyroid Father Hypothyroidism Stroke Maternal Grandfather in 80s Social History: Social History Tobacco Use Smoking status: Former Packs/day: 0.30 Years: 1.50 Pack years: 0.45 Types: Cigarettes Smokeless tobacco: Never Tobacco comments: Rare cigarette Substance Use Topics Alcohol use: Yes Alcohol/week: 5.0 standard drinks Types: 5 Cans of Beer (12oz) per week Drug use: No Medications: Current Outpatient Medications Medication Sig atomoxetine (STRATTERA) 40 mg capsule Take 1 capsule by mouth once daily. buPROPion XL (WELLBUTRIN XL) 300 mg 24 hr tablet Take 1 tablet by mouth once daily. albuterol HFA (PROVENTIL HFA, VENTOLIN HFA) 90 mcg/actuation inhaler Inhale 2 Puffs as instructed every 4 hours as needed. traZODone (DESYREL) 50 mg tablet Take 50 mg by mouth. hydrOXYzine HCl (ATARAX) 25 mg tablet Take 25 mg by mouth three times daily as needed. No current facility-administered medications for this visit. Allergies: Cats ROS: General (negative for fatigue, malaise, weight loss/gain) HEENT (negative for headache, earache, recent vision changes, sinus pain, sore throat) Respiratory (no recent shortness of breath, hemoptysis) CV (negative for chest tightness, palpitations) Musculoskeletal (see HPI) Psych (no depression, anxiety) REFERRING PHYSICIAN: Consultation requested by Zee Bryant for an opinion regarding knee pain. My final recommendations will be communicated back to the requesting physician by way of shared Medical record or letter to requesting physician via US mail. Zee Bryant [id number] [facility] [id number] All Beckett MD [address] [facility] [id number] Roney Fraser MD documented in this encounter [facility] 02-09-2023 History of Presen t illness Narrative Images from the original note were not included. MDIOP - Outpatient Psychiatry Visit-Pharmacological Management Date/Time: February 09, 2023 1:53 PM Method of contact: Redapt I have communicated my name and active licensure. The patient's identity and physical location were verified at the time of this visit. Either the patient or their legal community engagement representative has been informed of the risks and benefits of -- and alternatives to -- treatment through a remote evaluation and consents to proceed with the evaluation remotely. ASSESSMENT: Macho Sanches is a 37 year old year old male who lives with parents in [place], currently on Wellbutrin for the management of MDD, RICHARD, ADHD who presents for a outpatient psychiatric follow-up appointment to address current medications. The patient had the last visit with me on 01/19/23 and has since noticed improvement in depression symptoms with continued difficulty with anxiety and ADHD symptoms, therefore warranting medication changes as described below. Appropriate to continue with MDIOP Group 3. Tentative date of discharge 03/02/23. Typical outpatient follow-up to be changed following discharge from MDIOP. DIAGNOSIS: PRIMARY: MDD, recurrent, severe without psychotic features SECONDARY: RICHARD, ADHD, Stimulant Abuse, Marijuana Abuse GAF: 60-51 Moderate symptoms or moderate difficulty in social, occupational or school functioning. TREATMENT PLAN: - Indicated Labs: No additional labs indicated at this time - Psychotherapy: Appropriate to continue with MDIOP Group 3 - Medications: - Continue: Wellbutrin XL 300 mg daily Trazodone 50 mg QHS PRN insomnia - using regularly with good benefit - Add: Strattera 40 mg daily - Social: engage with others in meaningful ways as permitted by local COVID restrictions - Other: will assist patient in attempting to change provider through [facility] R/B/A of current course of recommended therapy discussed. Questions answered. Follow Up: with me in 2 weeks as previously scheduled CC: Medication Management HPI: Things have been going really well . Feels like the program has helped a lot. A lot of things have helped, particularly the emotional regulation and opposite action. Has been sleeping well and eating well. Taking Trazodone 50 mg QHS to help his sleep be more regular and he is feeling more rested in the morning without feeling groggy from the medication. Patient interested in discussing management of ADHD symptoms. States he has noticed significant improvement in depression since starting in IOP but anxiety remains relatively high and is worried that starting a stimulant would increase anxiety as it has in the past and he doesn't want to lose the progress he has made. Discussed risks of concurrent use of Wellbutrin and Stratterra, however, given history and risk of abuse with stimulant medication will pursue non stimulant management of ADHD at this time. Patient will reach out to treatment team if he experiences appetite suppression, nausea/vomiting, tachycardia, increased BP or other symptoms when starting this medication. Psychosis - None SI - None HI - None Pertinent past psychiatric history reviewed, including: - Recent Hospitalizations - Med trials - Suicide attempts - Legal history KP Data PHQ-9 01/23/2023 02/08/2023 02/08/2023 Score 19 12 12 (0-4) minimal depression, (5-9) mild depression, (10-14) moderate depression, (15-19) moderately severe depression, (20-27) severe depression PHQ-9 Score 02/08/2023 12 02/08/2023 12 01/23/2023 19 01/19/2023 22 01/18/2023 21 01/12/2023 15 01/03/2023 27 12/09/2022 21 (0-4) minimal depression, (5-9) mild depression, (10-14) moderate depression, (15-19) moderately severe depression, (20-27) severe depression RICHARD - 7 SCORES 01/23/2023 02/08/2023 02/08/2023 RICHARD-7 Score 10 11 11 (0-4) minimal anxiety, (5-9) mild anxiety, (10-14) moderate anxiety, (15-21) severe anxiety RICHARD - 7 SCORES RICHARD-7 Score 02/08/2023 11 02/08/2023 11 01/23/2023 10 01/19/2023 12 01/18/2023 13 01/12/2023 11 01/03/2023 18 12/09/2022 10 (0-4) minimal anxiety, (5-9) mild anxiety, (10-14) moderate anxiety, (15-21) severe anxiety Pertinent lab work & results over past 6 months: BUN (mg/dL) Date Value 09/12/2012 12 Creatinine (mg/dL) Date Value 09/12/2012 0.92 Potassium (mmol/L) Date Value 09/12/2012 4.1 Alkaline Phosphatase (U/L) Date Value 09/12/2012 75 AST (U/L) Date Value 09/12/2012 22 ALT (U/L) Date Value 09/12/2012 26 Sodium Date Value Ref Range Status 09/12/2012 140 135 - 146 mmol/L Final Albumin (g/dL) Date Value 09/12/2012 4.7 Cholesterol, Total (mg/dL) Date Value 09/12/2012 187 HDL Cholesterol (mg/dL) Date Value 09/12/2012 51 LDL Cholesterol (mg/dL) Date Value 09/12/2012 117 Triglyceride (mg/dL) Date Value 09/12/2012 95 TSH Date Value Ref Range Status 09/12/2012 3.100 0.400 - 5.500 uU/mL Final No results found for: VITD25 Psych History, Brief: Prior Diagnosis: ADHD, MDD, Stimulant Abuse, Marijuana Abuse Current Provider: Iram Blair CNP (established care 01/03/23) Therapist: scheduled to see Palma Ambrosio in March Current Kiln Remover: None Last Hospitalization: Denies hospitalization, at the ED after a well check ECT: None Suicide Attempts: None Previous Discontinued Psychiatric Med Trials: Abilify, Adderall, Zoloft, Seroquel, Focalin CURRENT MEDICATIONS: Wellbutrin XL 300 mg daily Trazodone 50 mg QHS Atarax 25 mg TID PRN anxiety Effexor 75 mg daily - from Jane Treadwell CNP in [place], [place] - dispensed 90 day supply on 01/20/23, has not been taking Denies any adverse effects of current medication regimen. PDMP website checked and validated. All prescriptions have been APPROPRIATELY filled. No suspicious activity was identified. 02/09/2023 by Luis Antonio West MD Medical ROS: Musculoskeletal: chronic pain in right knee, right hip and right lower back - has appointment today with ortho to discuss PSYCH: See HPI PAST MEDICAL HISTORY Diagnosis Date Asthma seasonal Environmental allergies PAST SURGICAL HISTORY Procedure Laterality Date PAST SURGICAL HISTORY OF left testicle torsion SUBSTANCE USE HISTORY: Nicotine: None Caffeine: coffee (4 cups per day) Alcohol: No history of use or dependence Marijuana: has been using the past 3 days but not before that, plans not to use as all during IOP Cocaine: No history of use or dependence Opiods: No history of use or dependence SPIRITUALITY: None PFSH: Macho grew up in [place]. He has one younger sister. He says he was lonely in elementary school, and bullied in middle and high school. He says he was cared for at home, and was closer to his mom, but didn't go any further. His mom is a professor at the [employer]. His dad is also employed working with various schools in the [employer]. He doesn't have contact with his sister. He says she was mean as a kid. Macho hs been living in [place] at various times over the years. He moved back in with his parents in October 2022. The patient lives with mother and father - they don't get along well ADLs/IADLs: independent Education: [employer] Employment: Unemployed, not seeking work. Financial concerns: Yes, no income Marital Status: Single (never ) Children: none Current Supports: Include friends. Legal Hx: DUI 2009 Service: No ABUSE HISTORY (physical, mental, verbal, sexual): From Childhood: Bullied in middle and high school Response / Significance to Patient: Affected his self esteem. From Adulthood: None Response / Significance to Patient: NA Did you experience trauma?: Yes TRAUMA HISTORY (physical, mental, verbal, sexual): From Childhood: Bullied in school Response / Significance to Patient: Depression, low self esteem. 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 FAMILY PSYCHIATRIC HISTORY: Paternal family (dad, uncle, and grandmother)-numerous family members with depression, anxiety, alcohol use disorder Denies additional family history PHYSICAL EXAM: There were no vitals taken for this visit. Eyes: Anicteric sclera. Extraocular movements are intact. Neuro: No akathisia appreciated/endorsed MENTAL STATUS: Appearance: Casually dressed and appropriately groomed Behavior: Appropriate Alertness: Alert Orientation: Person, Place, Time and Situation Speech/Language: The patient demonstrates appropriate tone, prosody, deedee, phonetics, and syntax Mood: improved, less depressed, still anxious Affect: mood congruent, less irritable, normal range Thought Form: Coherent Thought Content: Coherent Suicidal Ideations: No suicidal ideation, intent or plan. Homicidal Ideations: No homicidal ideation, intent or plan. Insight: Appropriate Judgment: Appropriate Memory/Cognition: Intact Psychomotor: Psychomotor activity was normal PSYCHIATRY APPOINTMENT: E/M Visit-Pharmacological Management I spent a total of 30 minutes on the date of the service which included preparing to see the patient, [id number] patient care, completing clinical documentation, obtaining and/or reviewing separately obtained history, performing a medically appropriate examination, counseling and educating the patient/family/caregiver, ordering medications, tests, or procedures, and communicating with other HCPs (not separately reported). Luis Antonio West MD documented in this encounter [facility] 02-09-2023 Note HNO ID: [id number] Author: Sophia Alvarado [facility] Service: Behavioral Health IOP (Intensive Outpatient Program) Author Type: Therapist Type: Progress Notes Filed: 02/09/2023 12:04 PM Note Text: BEHAVIORAL HEALTH IOP (INTENSIVE OUTPATIENT PROGRAM) DAILY PROGRESS NOTE VIOP - Patient consented to VIOP through Zoom for [facility]. SERVICE DATE: February 09, 2023 SERVICE TIME: 9:00 AM INTERVAL PROGRESS: Stable PATIENT'S PROGRESS: Attentive AND Involved BEHAVIOR: Appearance: Fair grooming and hygiene Attitude: Cooperative Affect: Anxious, Restricted, and Distressed, congruent at times Mood: Frustrated and content Thought Process: [place], Perseverative, and Preoccupied Speech: Quiet Eye Contact: Good Describe Change Noted Throughout the Day: Consistent GROUP THERAPY: Illness Management Group Start Time: 9:00am End Time: 10:00am Total Time: 60 minutes Number of Therapists: 2 Number of Patients: 7 Problem(s) Number Addressed: 1 Intervention: Active Listening, Clarified, Challenged, Encouraged, Engaged, Explored, Gave Feedback, Observed, Redirected, and Supported Explain: Patients shared a feeling word and two positive traits. They discussed weekend plans and potential obstacles. Response: Patient reported feeling frustrated. He stated his positive traits are balanced and careful. He reported his weekend plans include working more on his sleep hygiene, going for walks, and connecting with friends online. Concern for the ?open space of his time?, specifically time management and learning how to be flexible. Coping Strategies Group Start Time: 10:10am End Time: 11:00am Total Time: 50 minutes Number of Therapists: 2 Number of Patients: 9 Problem(s) Number Addressed: 1 Intervention: Active Listening, Clarified, Challenged, Encouraged, Engaged, Explored, Gave Feedback, Observed, Redirected, and Supported Explain: Patients were educated on the stages of change using given materials. Response: Patient appeared engaged and participatory. He shared he struggles with making changes and some consequences include unpleasant emotions and rumination patterns. He talked about struggles he has with making changes with his sleep routine. He stated that his sleep schedule and body movement is what he wants to focus on. He stated he wants to make a new change for putting in skills for emotion regulation with feelings of anxiety. Process and Emotion Management Group Start Time: 11:10am End Time: 12:00pm Total Time: 50 minutes Number of Therapists: 2 Number of Patients: 9 Problem(s) Number Addressed: 1 Intervention: Active Listening, Clarified, Challenged, Encouraged, Engaged, Explored, Gave Feedback, Observed, Redirected, and Supported Explain: Patients finished exploration on the topic of stages of change. They shared their feeling word and takeaway from today at group end. Response: Patient appeared observant and was quiet. He was quiet. He reported the homework tip is wants to use is ?give it time?. He reported feeling content. He stated his takeaway from today is to learn more about the stages of change and to see where he was. He reported being grateful for the people he loves, the roof over his head, and food to eat. PLAN: Continue group treatment as stated in Treatment Plan. Continue to gain insights into problems. Continue to share feelings AND thoughts in group. Monitor thinking/complete thought sheets. Incorporate relaxation/coping strategies into daily routine. SOBRIETY (If applicable): N/A Patient Data IOP Daily Questionnaire IOP Daily 02/06/2023 02/08/2023 02/09/2023 Today, is your belief in your ability to use your Safety Plan in a crisis at 90%? Yes Yes Yes Today, have you wished you were or wished you could go to sleep and not wake up? No No No Today, have you actually had any thoughts of killing yourself? No No No On a scale of 1 to 10 how would you rate your mood now? 7 02 10 SIGNATURE: Sophia Alvarado [facility] PATIENT NAME: Macho Sanches DATE: February 09, 2023 TIME: 8:46 AM PAGER/CONTACT #: [phone] [facility] 02-09-2023 History of Presen t illness Narrative BEHAVIORAL HEALTH IOP (INTENSIVE OUTPATIENT PROGRAM) DAILY PROGRESS NOTE VIOP - Patient consented to VIOP through Zoom for Healthcare. SERVICE DATE: February 09, 2023 SERVICE TIME: 9:00 AM INTERVAL PROGRESS: Stable PATIENT'S PROGRESS: Attentive & Involved BEHAVIOR: Appearance: Fair grooming and hygiene Attitude: Cooperative Affect: Anxious, Restricted, and Distressed, congruent at times Mood: Frustrated and content Thought Process: [place], Perseverative, and Preoccupied Speech: Quiet Eye Contact: Good Describe Change Noted Throughout the Day: Consistent GROUP THERAPY: Illness Management Group Start Time: 9:00am End Time: 10:00am Total Time: 60 minutes Number of Therapists: 2 Number of Patients: 7 Problem(s) Number Addressed: 1 Intervention: Active Listening, Clarified, Challenged, Encouraged, Engaged, Explored, Gave Feedback, Observed, Redirected, and Supported Explain: Patients shared a feeling word and two positive traits. They discussed weekend plans and potential obstacles. Response: Patient reported feeling frustrated. He stated his positive traits are balanced and careful. He reported his weekend plans include working more on his sleep hygiene, going for walks, and connecting with friends online. Concern for the open space of his time , specifically time management and learning how to be flexible. Coping Strategies Group Start Time: 10:10am End Time: 11:00am Total Time: 50 minutes Number of Therapists: 2 Number of Patients: 9 Problem(s) Number Addressed: 1 Intervention: Active Listening, Clarified, Challenged, Encouraged, Engaged, Explored, Gave Feedback, Observed, Redirected, and Supported Explain: Patients were educated on the stages of change using given materials. Response: Patient appeared engaged and participatory. He shared he struggles with making changes and some consequences include unpleasant emotions and rumination patterns. He talked about struggles he has with making changes with his sleep routine. He stated that his sleep schedule and body movement is what he wants to focus on. He stated he wants to make a new change for putting in skills for emotion regulation with feelings of anxiety. Process and Emotion Management Group Start Time: 11:10am End Time: 12:00pm Total Time: 50 minutes Number of Therapists: 2 Number of Patients: 9 Problem(s) Number Addressed: 1 Intervention: Active Listening, Clarified, Challenged, Encouraged, Engaged, Explored, Gave Feedback, Observed, Redirected, and Supported Explain: Patients finished exploration on the topic of stages of change. They shared their feeling word and takeaway from today at group end. Response: Patient appeared observant and was quiet. He was quiet. He reported the homework tip is wants to use is give it time . He reported feeling content. He stated his takeaway from today is to learn more about the stages of change and to see where he was. He reported being grateful for the people he loves, the roof over his head, and food to eat. PLAN: Continue group treatment as stated in Treatment Plan. Continue to gain insights into problems. Continue to share feelings & thoughts in group. Monitor thinking/complete thought sheets. Incorporate relaxation/coping strategies into daily routine. SOBRIETY (If applicable): N/A Patient Data IOP Daily Questionnaire IOP Daily 02/06/2023 02/08/2023 02/09/2023 Today, is your belief in your ability to use your Safety Plan in a crisis at 90%? Yes Yes Yes Today, have you wished you were or wished you could go to sleep and not wake up? No No No Today, have you actually had any thoughts of killing yourself? No No No On a scale of 1 to 10 how would you rate your mood now? 7 7 7 SIGNATURE: KHARI Elmore PATIENT NAME: Macho Sanches DATE: February 09, 2023 TIME: 8:46 AM PAGER/CONTACT #: [phone] documented in this encounter [facility] 02-08-2023 Note HNO ID: [id number] Author: KHARI Elmore Service: Behavioral Health IOP (Intensive Outpatient Program) Author Type: Therapist Type: Progress Notes Filed: 02/08/2023 11:52 AM Note Text: BEHAVIORAL HEALTH IOP (INTENSIVE OUTPATIENT PROGRAM) DAILY PROGRESS NOTE VIOP - Patient consented to VIOP through [facility]. SERVICE DATE: February 08, 2023 SERVICE TIME: 9:00 AM INTERVAL PROGRESS: Same PATIENT'S PROGRESS: Attentive AND Involved BEHAVIOR: Appearance: Fair grooming and hygiene Attitude: Cooperative, Guarded, Evasive, and Perseverative Affect: Anxious and Restricted Mood: Anxious Thought Process: Logical, [place], Perseverative, and Preoccupied Speech: Normal Eye Contact: Fair Describe Change Noted Throughout the Day: Consistent GROUP THERAPY: Illness Management Group Start Time: 9:00am End Time: 10:00am Total Time: 60 minutes Number of Therapists: 2 Number of Patients: 6 Problem(s) Number Addressed: 1 Intervention: Active Listening, Clarified, Challenged, Encouraged, Engaged, Explored, Gave Feedback, Observed, Redirected, and Supported Explain: Patients shared a feeling word and two positive traits. They reviewed their treatment plans and identified areas in which they are working and not working. Response: Patient reported feeling very anxious. He stated his positive traits are determined and loving. He shared his emotion being related to a dental appointment this afternoon, triggers with his parents, and a lack of sleep. He stated he is struggling a lot with his skill of acceptance. He noted he feels this is going to be a consistent struggle for him in general, however he is working on it daily with his leg pain. He reported he is doing better with his goal for managing emotions. He noted he is working on having a healthier relationship with his emotions and learning to accept them. He also noted to using skills for distractions. Coping Strategies Group Start Time: 10:10am End Time: 11:00am Total Time: 50 minutes Number of Therapists: 2 Number of Patients: 8 Problem(s) Number Addressed: 1 Intervention: Active Listening, Clarified, Challenged, Encouraged, Engaged, Explored, Gave Feedback, Observed, Redirected, and Supported Explain: Patients continued education with the skills for self-compassion using given handouts and peer discussion. Response: Patient participated in reading. He appeared to be observant with the conversation and shared with his body language. He shared he is going to work on building in more self-compassionate phrases and practicing compassion meditations. Process and Emotion Management Group Start Time: 11:10am End Time: 12:00pm Total Time: 50 minutes Number of Therapists: 2 Number of Patients: 6 Problem(s) Number Addressed: 1 Intervention: Active Listening, Clarified, Challenged, Encouraged, Engaged, Explored, Gave Feedback, Observed, Redirected, and Supported Explain: Patients participated in a guided meditation to practice self-compassion. They finished education on the skill of compassion using given handouts. They shared their feeling word and takeaway from today at group end. Response: Patient reported he ?threw his back out? over break and was in too much pain. He reported he needed to step away and rest before another appointment. He left this session and will not be charged. PLAN: Continue group treatment as stated in Treatment Plan. Continue to gain insights into problems. Continue to share feelings AND thoughts in group. Incorporate relaxation/coping strategies into daily routine. SOBRIETY (If applicable): N/A Patient Data Generalized Anxiety Disorder Scale (RICHARD-7) RICHARD - 7 SCORES 01/23/2023 02/08/2023 02/08/2023 RICHARD-7 Score 10 11 11 (0-4) minimal anxiety, (5-9) mild anxiety, (10-14) moderate anxiety, (15-21) severe anxiety IOP Daily Questionnaire IOP Daily 01/30/2023 02/06/2023 02/08/2023 Today, is your belief in your ability to use your Safety Plan in a crisis at 90%? Yes Yes Yes Today, have you wished you were or wished you could go to sleep and not wake up? No No No Today, have you actually had any thoughts of killing yourself? No No No On a scale of 1 to 10 how would you rate your mood now? 8 7 7 Patient Health Questionnaire (PHQ-9) PHQ-9 01/23/2023 02/08/2023 02/08/2023 Score 19 12 12 (0-4) minimal depression, (5-9) mild depression, (10-14) moderate depression, (15-19) moderately severe depression, (20-27) severe depression SIGNATURE: KHARI Elmore PATIENT NAME: Macho Sanches DATE: February 08, 2023 TIME: 8:55 AM PAGER/CONTACT #: [phone] [facility] 02-06-2023 Note HNO ID: [id number] Author: KHARI Elmore Service: Behavioral Health IOP (Intensive Outpatient Program) Author Type: Therapist Type: Plan of Care Filed: 02/06/2023 12:40 PM Note Text: , IOP TEAM NOTE IOP TEAM MEETING DATE: RECENT ASSESSMENTS/TREATMENT PLAN REVIEWS: Per Ish Varghese [facility], assessment. SUICIDE RISK AND MITIGATION PLAN Low to moderate risk. Patient completed their safety plan and has a copy. Patient has reported no current safety concerns and no current plan or intent. He reports to having fleeting SI. WEEKLY REVIEW OF CLIENT PROGRESS: Patient has continued to develop more comfort and openness in group. He does appear to struggle often with concrete and perseverative thinking patterns, as well as can come off as evasive with his responsibility or needs. He is opening up more with his peer and this therapist and as reported gratitude for the program. He has noted he feels that group is helping him and he is enjoying being challenged, though he reports distressing feelings often from the insight gained and challenges of skills. He shared he is working on small steps with his sleep hygiene (avoiding naps/decreasing naps and consistent bedtimes), opposite action, and grounding. He reported he feels safe and wants to stay in IOP, though he worries about the lack of structure, skill use, and support after and has been thinking he may need additional support (I.e. inpatient stay or another IOP). He was validated on his concerns and encouraged to continue open communication on these concerns and needs. DISCHARGE PLANNING/RECOMMENDATIONS: Patient is set for a tentative discharge date of 03/02/23. Patient has been provided with referrals for psychiatry and individual therapy to be scheduled for after IOP. This consensus plan was developed by [facility] treatment team which met via teams on 02/06/2023. Team Members Participation in this Plan of Care: Attending: Dr. West Therapists: [facility]var[facility] Nurse: Iram Gold RN DOCUMENTED BY: Sophia Alvarado [facility] PATIENT NAME: Macho Sanches DATE: February 06, 2023 TIME: 2:35 PM [facility] 02-06-2023 Miscellaneous Notes , [facility] TEAM NOTE IOP TEAM MEETING DATE: RECENT ASSESSMENTS/TREATMENT PLAN REVIEWS: Per KHARI Haines, assessment. SUICIDE RISK AND MITIGATION PLAN Low to moderate risk. Patient completed their safety plan and has a copy. Patient has reported no current safety concerns and no current plan or intent. He reports to having fleeting SI. WEEKLY REVIEW OF CLIENT PROGRESS: Patient has continued to develop more comfort and openness in group. He does appear to struggle often with concrete and perseverative thinking patterns, as well as can come off as evasive with his responsibility or needs. He is opening up more with his peer and this therapist and as reported gratitude for the program. He has noted he feels that group is helping him and he is enjoying being challenged, though he reports distressing feelings often from the insight gained and challenges of skills. He shared he is working on small steps with his sleep hygiene (avoiding naps/decreasing naps and consistent bedtimes), opposite action, and grounding. He reported he feels safe and wants to stay in IOP, though he worries about the lack of structure, skill use, and support after and has been thinking he may need additional support (I.e. inpatient stay or another IOP). He was validated on his concerns and encouraged to continue open communication on these concerns and needs. DISCHARGE PLANNING/RECOMMENDATIONS: Patient is set for a tentative discharge date of 03/02/23. Patient has been provided with referrals for psychiatry and individual therapy to be scheduled for after IOP. This consensus plan was developed by [facility] treatment team which met via teams on 02/06/2023. Team Members Participation in this Plan of Care: Attending: Dr. West Therapists: KHARI Elmore LISW Nurse: Iram Gold RN DOCUMENTED BY: KHARI Elmore PATIENT NAME: Macho Sanches DATE: February 06, 2023 TIME: 2:35 PM documented in this encounter [facility] 02-06-2023 Note HNO ID: [id number] Author: KHARI Elmore Service: Behavioral Health IOP (Intensive Outpatient Program) Author Type: Therapist Type: Progress Notes Filed: 02/06/2023 12:01 PM Note Text: BEHAVIORAL HEALTH IOP (INTENSIVE OUTPATIENT PROGRAM) DAILY PROGRESS NOTE VIOP - Patient consented to VIOP through [facility]. SERVICE DATE: February 06, 2023 SERVICE TIME: 9:00 AM INTERVAL PROGRESS: Same PATIENT'S PROGRESS: Attentive AND Involved BEHAVIOR: Appearance: Fair grooming and hygiene Attitude: Cooperative, perseverative Affect: Restricted and restrained, discomfort Mood: Peaceful, sad, and vulnerable Thought Process: Logical, [place], Perseverative, and Preoccupied, evasive and perseverative Speech: Normal and Quiet Eye Contact: Fair Describe Change Noted Throughout the Day: Consistent GROUP THERAPY: Illness Management Group Start Time: 9:00am End Time: 10:00am Total Time: 60 minutes Number of Therapists: 2 Number of Patients: 5 Problem(s) Number Addressed: 1 Intervention: Active Listening, Clarified, Challenged, Encouraged, Engaged, Explored, Gave Feedback, Observed, Redirected, and Supported Explain: Patients shared a feeling word and two positive traits. They discussed their weekend, skills used and concerns. Response: Patient reported feeling peaceful. He stated his positive traits are ready and willing. He stated his weekend plans included reading, went for bikes, worked on his sleep hygiene, and went to the library. He stated he used skills for mindfulness (meditation, PMR, paced breathing), opposite action, pleasant tasks, and grounding. Coping Strategies Group Start Time: 10:10am End Time: 11:00am Total Time: 50 minutes Number of Therapists: 2 Number of Patients: 6 Problem(s) Number Addressed: 1 Intervention: Active Listening, Clarified, Challenged, Encouraged, Engaged, Explored, Gave Feedback, Observed, Redirected, and Supported Explain: Patients began education into the skill of self-compassion using peer discussion and given materials. Response: Patient shared his definition of what self-compassion is, which includes being able to love himself and care for himself as he does for others. He appeared observant. He shared he found the video really challenging because it is such a hard topic for him. Process and Emotion Management Group Start Time: 11:10am End Time: 12:00pm Total Time: 50 minutes Number of Therapists: 2 Number of Patients: 6 Problem(s) Number Addressed: 1 Intervention: Active Listening, Clarified, Challenged, Encouraged, Engaged, Explored, Gave Feedback, Observed, Redirected, and Supported Explain: Patients continued exploration of skills for self-compassion. They shared their feeling word and takeaway from today at group end. Response: Patient participated in reading. He shared that the tip he wants to work on for self-compassion is building into his emotional resilience skills. He reported feeling sad, vulnerable, and ?beating himself up?. He stated his takeaway from today is ?thinking and focusing more on my behavior?. PLAN: Continue group treatment as stated in Treatment Plan. Continue to gain insights into problems. Continue to share feelings AND thoughts in group. Monitor thinking/complete thought sheets. Incorporate relaxation/coping strategies into daily routine. SOBRIETY (If applicable): N/A Patient Data IOP Daily Questionnaire IOP Daily 01/25/2023 01/30/2023 02/06/2023 Today, is your belief in your ability to use your Safety Plan in a crisis at 90%? Yes Yes Yes Today, have you wished you were or wished you could go to sleep and not wake up? No No No Today, have you actually had any thoughts of killing yourself? No No No On a scale of 1 to 10 how would you rate your mood now? 5 8 7 SIGNATURE: Sophia Alvarado [facility] PATIENT NAME: Macho Sanches DATE: February 06, 2023 TIME: 8:50 AM PAGER/CONTACT #: [phone] [facility] 02-06-2023 History of Presen t illness Narrative BEHAVIORAL HEALTH IOP (INTENSIVE OUTPATIENT PROGRAM) DAILY PROGRESS NOTE VIOP - Patient consented to VIOP through [facility]. SERVICE DATE: February 06, 2023 SERVICE TIME: 9:00 AM INTERVAL PROGRESS: Same PATIENT'S PROGRESS: Attentive & Involved BEHAVIOR: Appearance: Fair grooming and hygiene Attitude: Cooperative, perseverative Affect: Restricted and restrained, discomfort Mood: Peaceful, sad, and vulnerable Thought Process: Logical, [place], Perseverative, and Preoccupied, evasive and perseverative Speech: Normal and Quiet Eye Contact: Fair Describe Change Noted Throughout the Day: Consistent GROUP THERAPY: Illness Management Group Start Time: 9:00am End Time: 10:00am Total Time: 60 minutes Number of Therapists: 2 Number of Patients: 5 Problem(s) Number Addressed: 1 Intervention: Active Listening, Clarified, Challenged, Encouraged, Engaged, Explored, Gave Feedback, Observed, Redirected, and Supported Explain: Patients shared a feeling word and two positive traits. They discussed their weekend, skills used and concerns. Response: Patient reported feeling peaceful. He stated his positive traits are ready and willing. He stated his weekend plans included reading, went for bikes, worked on his sleep hygiene, and went to the library. He stated he used skills for mindfulness (meditation, PMR, paced breathing), opposite action, pleasant tasks, and grounding. Coping Strategies Group Start Time: 10:10am End Time: 11:00am Total Time: 50 minutes Number of Therapists: 2 Number of Patients: 6 Problem(s) Number Addressed: 1 Intervention: Active Listening, Clarified, Challenged, Encouraged, Engaged, Explored, Gave Feedback, Observed, Redirected, and Supported Explain: Patients began education into the skill of self-compassion using peer discussion and given materials. Response: Patient shared his definition of what self-compassion is, which includes being able to love himself and care for himself as he does for others. He appeared observant. He shared he found the video really challenging because it is such a hard topic for him. Process and Emotion Management Group Start Time: 11:10am End Time: 12:00pm Total Time: 50 minutes Number of Therapists: 2 Number of Patients: 6 Problem(s) Number Addressed: 1 Intervention: Active Listening, Clarified, Challenged, Encouraged, Engaged, Explored, Gave Feedback, Observed, Redirected, and Supported Explain: Patients continued exploration of skills for self-compassion. They shared their feeling word and takeaway from today at group end. Response: Patient participated in reading. He shared that the tip he wants to work on for self-compassion is building into his emotional resilience skills. He reported feeling sad, vulnerable, and beating himself up . He stated his takeaway from today is thinking and focusing more on my behavior . PLAN: Continue group treatment as stated in Treatment Plan. Continue to gain insights into problems. Continue to share feelings & thoughts in group. Monitor thinking/complete thought sheets. Incorporate relaxation/coping strategies into daily routine. SOBRIETY (If applicable): N/A Patient Data IOP Daily Questionnaire IOP Daily 01/25/2023 01/30/2023 02/06/2023 Today, is your belief in your ability to use your Safety Plan in a crisis at 90%? Yes Yes Yes Today, have you wished you were or wished you could go to sleep and not wake up? No No No Today, have you actually had any thoughts of killing yourself? No No No On a scale of 1 to 10 how would you rate your mood now? 5 8 7 SIGNATURE: KHARI Elmore PATIENT NAME: Macho Sanches DATE: February 06, 2023 TIME: 8:50 AM PAGER/CONTACT #: [phone] documented in this encounter [facility] 02-02-2023 Note HNO ID: [id number] Author: KHARI Elmore Service: Behavioral Health IOP (Intensive Outpatient Program) Author Type: Therapist Type: Progress Notes Filed: 02/02/2023 1:17 PM Note Text: BEHAVIORAL HEALTH IOP (INTENSIVE OUTPATIENT PROGRAM) DAILY PROGRESS NOTE VIOP - Patient consented to VIOP through [facility] [employer]. SERVICE DATE: February 02, 2023 SERVICE TIME: 9:00 AM INTERVAL PROGRESS: Stable PATIENT'S PROGRESS: Attentive AND Involved BEHAVIOR: Appearance: Fair grooming and hygiene Attitude: Cooperative and Perseverative Affect: Anxious, Tearful, and Restricted Mood: Overwhelmed and mentally exhausted Thought Process: Logical, [place], Perseverative, Goal-directed, and Preoccupied Speech: Normal Eye Contact: Fair Describe Change Noted Throughout the Day: Consistent GROUP THERAPY: Illness Management Group Start Time: 9:00am End Time: 10:00am Total Time: 60 minutes Number of Therapists: 1 Number of Patients: 4 Problem(s) Number Addressed: 1 Intervention: Active Listening, Clarified, Challenged, Encouraged, Engaged, Explored, Gave Feedback, Observed, Redirected, and Supported Explain: Patients shared a feeling word and two positive traits. They discussed weekend plans and potential obstacles. Response: Patient reported feeling overwhelmed. He stated his positive traits are helpful and shy. He reported his weekend plans include going to the library, getting out for a walk, and working on sleep hygiene. He shared something he is concerned with getting back into unhelpful cycles/routines over the weekend and managing more distressing moods. Coping Strategies Group Start Time: 10:10am End Time: 11:00am Total Time: 50 minutes Number of Therapists: 1 Number of Patients: 5 Problem(s) Number Addressed: 1 Intervention: Active Listening, Clarified, Challenged, Encouraged, Engaged, Explored, Gave Feedback, Observed, Redirected, and Supported Explain: Patients reviewed the homework. They were educated on skills for managing stress suing the handouts. Response: Patient shared use of the homework for challenging his avoidance cycle by going out to eat with his mom. He shared he used some grounding skills to manage emotions during the event. Process and Emotion Management Group Start Time: 11:10am End Time: 12:00pm Total Time: 50 minutes Number of Therapists: 1 Number of Patients: 5 Problem(s) Number Addressed: 1 Intervention: Active Listening, Clarified, Challenged, Encouraged, Engaged, Explored, Gave Feedback, Observed, Redirected, and Supported Explain: Patients reviewed tips for managing rumination with the given materials and peer discussion. They shared their feeling word and takeaway from today at group end. They shared 3 gratitudes Response: Patient participated with reading. He shared with non-verbal cues that he struggles with rumination. He reported feeling mentally exhausted. He stated his takeaway from today is the common humanity of group work. He reported being grateful for the roof over his head, for himself, and his family's support. PLAN: Continue group treatment as stated in Treatment Plan. Continue to gain insights into problems. Continue to share feelings AND thoughts in group. Monitor thinking/complete thought sheets. Incorporate relaxation/coping strategies into daily routine. SOBRIETY (If applicable): N/A Patient Data IOP Daily Questionnaire IOP Daily 01/24/2023 01/25/2023 01/30/2023 Today, is your belief in your ability to use your Safety Plan in a crisis at 90%? Yes Yes Yes Today, have you wished you were or wished you could go to sleep and not wake up? No No No Today, have you actually had any thoughts of killing yourself? No No No On a scale of 1 to 10 how would you rate your mood now? 8 5 8 SIGNATURE: KHARI Elmore PATIENT NAME: Macho Sanches DATE: February 02, 2023 TIME: 8:13 AM PAGER/CONTACT #: [phone] [facility] 02-01-2023 Note HNO ID: [id number] Author: KHARI Elmore Service: Behavioral Health IOP (Intensive Outpatient Program) Author Type: Therapist Type: Progress Notes Filed: 02/01/2023 1:40 PM Note Text: BEHAVIORAL HEALTH IOP (INTENSIVE OUTPATIENT PROGRAM) DAILY PROGRESS NOTE VIOP - Patient consented to VIOP through [facility]. SERVICE DATE: February 01, 2023 SERVICE TIME: 9:00 AM INTERVAL PROGRESS: Same PATIENT'S PROGRESS: Attentive AND Involved BEHAVIOR: Appearance: Fair grooming and hygiene Attitude: Cooperative, Guarded, Evasive, and Perseverative Affect: Anxious, Restricted, and Irritable Mood: Angry, sad, unhappy, frustrated, and disrespected Thought Process: [place], Perseverative, and Preoccupied Speech: Normal Eye Contact: Fair Describe Change Noted Throughout the Day: Consistent GROUP THERAPY: Illness Management Group Start Time: 9:00am End Time: 10:00am Total Time: 60 minutes Number of Therapists: 1 Number of Patients: 5 Problem(s) Number Addressed: 1 Intervention: Active Listening, Clarified, Challenged, Encouraged, Engaged, Explored, Gave Feedback, Observed, Redirected, and Supported Explain: Patients shared a feeling word and two positive traits. They reviewed their treatment plans and identified areas in which they are working and not working. Response: Patient reported feeling angry, frustrated, and disrespected. He stated his positive traits are shy and sensitive. He reported he is working more on his goal for reality acceptance. He shared her feels very reactionary, explosive, and as he is ?being sucker punched?. He shared he is struggling with acceptance and procrastination as well. He explored how his ?big feelings? impact his skill use at times, though all have been challenging for him. He shared he has been using his PRN med and napping to manage high emotions. Coping Strategies Group Start Time: 10:10am End Time: 11:00am Total Time: 50 minutes Number of Therapists: 1 Number of Patients: 7 Problem(s) Number Addressed: 1 Intervention: Active Listening, Clarified, Challenged, Encouraged, Engaged, Explored, Gave Feedback, Observed, Redirected, and Supported Explain: Patients continued education into the topic of anxiety and stress, focusing on how the amygdala works and the avoidance cycle. They watched an educational video on neuroplasticity and how to rewire the anxious brain. Response: Patient was quiet and did not engage in majority of the discussion. He did share how challenging he finds the skills needed for his avoidance cycle and how hard it is going to be to allow himself to feel his emotions. He stated he feels his ?spidey-sense? for his emotions is just off. Process and Emotion Management Group Start Time: 11:10am End Time: 12:00pm Total Time: 50 minutes Number of Therapists: 1 Number of Patients: 6 Problem(s) Number Addressed: 1 Intervention: Active Listening, Clarified, Challenged, Encouraged, Engaged, Explored, Gave Feedback, Observed, Redirected, and Supported Explain: Patients were educated on the AWARE skill using given handouts. They shared their feeling word and takeaway from today at group end. Response: Patient shared he struggles with putting himself in uncomfortable situations because of pre-conceived expectations for how things will go. He reported feeling sad. He stated his takeaway from today is learning how he needs to manage his expectations more realistically. PLAN: Continue group treatment as stated in Treatment Plan. Continue to gain insights into problems. Continue to share feelings AND thoughts in group. Monitor thinking/complete thought sheets. Incorporate relaxation/coping strategies into daily routine. SOBRIETY (If applicable): N/A Patient Data IOP Daily Questionnaire IOP Daily 01/24/2023 01/25/2023 01/30/2023 Today, is your belief in your ability to use your Safety Plan in a crisis at 90%? Yes Yes Yes Today, have you wished you were or wished you could go to sleep and not wake up? No No No Today, have you actually had any thoughts of killing yourself? No No No On a scale of 1 to 10 how would you rate your mood now? 8 5 8 SIGNATURE: Sophia Alvarado [facility] PATIENT NAME: Macho Sanches DATE: February 01, 2023 TIME: 9:04 AM PAGER/CONTACT #: [phone] [facility] 02-01-2023 History of Presen t illness Narrative BEHAVIORAL HEALTH IOP (INTENSIVE OUTPATIENT PROGRAM) DAILY PROGRESS NOTE VIOP - Patient consented to VIOP through [facility] [facility]. SERVICE DATE: February 01, 2023 SERVICE TIME: 9:00 AM INTERVAL PROGRESS: Same PATIENT'S PROGRESS: Attentive & Involved BEHAVIOR: Appearance: Fair grooming and hygiene Attitude: Cooperative, Guarded, Evasive, and Perseverative Affect: Anxious, Restricted, and Irritable Mood: Angry, sad, unhappy, frustrated, and disrespected Thought Process: [place], Perseverative, and Preoccupied Speech: Normal Eye Contact: Fair Describe Change Noted Throughout the Day: Consistent GROUP THERAPY: Illness Management Group Start Time: 9:00am End Time: 10:00am Total Time: 60 minutes Number of Therapists: 1 Number of Patients: 5 Problem(s) Number Addressed: 1 Intervention: Active Listening, Clarified, Challenged, Encouraged, Engaged, Explored, Gave Feedback, Observed, Redirected, and Supported Explain: Patients shared a feeling word and two positive traits. They reviewed their treatment plans and identified areas in which they are working and not working. Response: Patient reported feeling angry, frustrated, and disrespected. He stated his positive traits are shy and sensitive. He reported he is working more on his goal for reality acceptance. He shared her feels very reactionary, explosive, and as he is being sucker punched . He shared he is struggling with acceptance and procrastination as well. He explored how his big feelings impact his skill use at times, though all have been challenging for him. He shared he has been using his PRN med and napping to manage high emotions. Coping Strategies Group Start Time: 10:10am End Time: 11:00am Total Time: 50 minutes Number of Therapists: 1 Number of Patients: 7 Problem(s) Number Addressed: 1 Intervention: Active Listening, Clarified, Challenged, Encouraged, Engaged, Explored, Gave Feedback, Observed, Redirected, and Supported Explain: Patients continued education into the topic of anxiety and stress, focusing on how the amygdala works and the avoidance cycle. They watched an educational video on neuroplasticity and how to rewire the anxious brain. Response: Patient was quiet and did not engage in majority of the discussion. He did share how challenging he finds the skills needed for his avoidance cycle and how hard it is going to be to allow himself to feel his emotions. He stated he feels his spidey-sense for his emotions is just off. Process and Emotion Management Group Start Time: 11:10am End Time: 12:00pm Total Time: 50 minutes Number of Therapists: 1 Number of Patients: 6 Problem(s) Number Addressed: 1 Intervention: Active Listening, Clarified, Challenged, Encouraged, Engaged, Explored, Gave Feedback, Observed, Redirected, and Supported Explain: Patients were educated on the AWARE skill using given handouts. They shared their feeling word and takeaway from today at group end. Response: Patient shared he struggles with putting himself in uncomfortable situations because of pre-conceived expectations for how things will go. He reported feeling sad. He stated his takeaway from today is learning how he needs to manage his expectations more realistically. PLAN: Continue group treatment as stated in Treatment Plan. Continue to gain insights into problems. Continue to share feelings & thoughts in group. Monitor thinking/complete thought sheets. Incorporate relaxation/coping strategies into daily routine. SOBRIETY (If applicable): N/A Patient Data IOP Daily Questionnaire IOP Daily 01/24/2023 01/25/2023 01/30/2023 Today, is your belief in your ability to use your Safety Plan in a crisis at 90%? Yes Yes Yes Today, have you wished you were or wished you could go to sleep and not wake up? No No No Today, have you actually had any thoughts of killing yourself? No No No On a scale of 1 to 10 how would you rate your mood now? 8 5 8 SIGNATURE: KHARI Elmore PATIENT NAME: Macho Sanches DATE: February 01, 2023 TIME: 9:04 AM PAGER/CONTACT #: [phone] documented in this encounter [facility] 01-31-2023 Note HNO ID: [id number] Author: KHARI Elmore Service: Behavioral Health IOP (Intensive Outpatient Program) Author Type: Therapist Type: Progress Notes Filed: 01/31/2023 8:52 AM Note Text: BEHAVIORAL HEALTH IOP (INTENSIVE OUTPATIENT PROGRAM) APPOINTMENT CANCELLATION COMMUNICATION DATE: 01/31/2023 Scheduled Intensive Outpatient Program appointment for Macho Sanches was on 01/31/23 at 9am. Patient canceled the appointment. Per patient email: Hello and good morning, I've got the flu or something, woke up this morning and it feels like a truck has hit me. I won't be in for today's meetings. Is there anything you need from me? p.s. I wanted to say that you have been doing an awesome job and I really appreciate the help you are giving me. -Macho SIGNATURE: KHARI Elmore PATIENT NAME: Mahco Sanches DATE: January 31, 2023 TIME: 8:52 AM [facility] 01-31-2023 History of Presen t illness Narrative BEHAVIORAL HEALTH IOP (INTENSIVE OUTPATIENT PROGRAM) APPOINTMENT CANCELLATION COMMUNICATION DATE: 01/31/2023 Scheduled Intensive Outpatient Program appointment for Macho Sanches was on 01/31/23 at 9am. Patient canceled the appointment. Per patient email: Kathleen and good morning, I've got the flu or something, woke up this morning and it feels like a truck has hit me. I won't be in for today's meetings. Is there anything you need from me? p.s. I wanted to say that you have been doing an awesome job and I really appreciate the help you are giving me. -Macho SIGNATURE: KHARI Elmore PATIENT NAME: Macho Sanches DATE: January 31, 2023 TIME: 8:52 AM documented in this encounter [facility] 01-30-2023 Note HNO ID: [id number] Author: KHARI Elmore Service: Behavioral Health IOP (Intensive Outpatient Program) Author Type: Therapist Type: Plan of Care Filed: 01/30/2023 12:55 PM Note Text: , IOP TEAM NOTE IOP TEAM MEETING DATE: 01/30/2023 RECENT ASSESSMENTS/TREATMENT PLAN REVIEWS: Per KHARI Haines, assessment. SUICIDE RISK AND MITIGATION PLAN Low to moderate risk. Patient completed their safety plan and has a copy. Patient has reported no current safety concerns and no current plan or intent. He reports to having fleeting SI. WEEKLY REVIEW OF CLIENT PROGRESS: Patient has completed his first week of VIOP. He has appeared more open as the week as progressed, though he presents with some evasiveness, irritability, restraint with body language, guardedness, and concrete thinking. He often struggles with perseverative thinking, which is highly revolved around his want for stimulant medications and difficulty with focus. He has completed his safety plan and treatment plan. He is set to work on skills for opposite action, emotion regulation, and acceptance. Patient has shared distressing feelings he has struggled with this week surrounding the topic of procrastination and motivation and how this is a big trigger for him. DISCHARGE PLANNING/RECOMMENDATIONS: Patient is set for a tentative discharge date of 03/02/23. Patient has been provided with referrals for psychiatry and individual therapy to be scheduled for after IOP. This consensus plan was developed by IOP treatment team which met via teams on 01/30/2023. Team Members Participation in this Plan of Care: Attending: Dr. West Therapists: KHARI Elmore DOCUMENTED BY: KHARI Elmore PATIENT NAME: Macho Sanches DATE: January 26, 2023 TIME: 2:35 PM [facility] 01-30-2023 Note HNO ID: [id number] Author: KHARI Elmore Service: Behavioral Health IOP (Intensive Outpatient Program) Author Type: Therapist Type: Progress Notes Filed: 01/30/2023 1:26 PM Note Text: BEHAVIORAL HEALTH IOP (INTENSIVE OUTPATIENT PROGRAM) DAILY PROGRESS NOTE VIOP - Patient consented to VIOP through [employer] for [facility]. SERVICE DATE: January 30, 2023 SERVICE TIME: 9:00 AM INTERVAL PROGRESS: Same PATIENT'S PROGRESS: Attentive AND Involved BEHAVIOR: Appearance: Fair grooming and hygiene Attitude: Cooperative and Perseverative Affect: Restricted Mood: Open Thought Process: Logical, [place], Perseverative, and Preoccupied Speech: Normal Eye Contact: Fair Describe Change Noted Throughout the Day: Consistent GROUP THERAPY: Illness Management Group Start Time: 9:00am End Time: 10:00am Total Time: 60 minutes Number of Therapists: 1 Number of Patients: Problem(s) Number Addressed: 1 Intervention: Active Listening, Clarified, Challenged, Encouraged, Engaged, Explored, Gave Feedback, Observed, Redirected, and Supported Explain: Patients shared a feeling word and two positive traits. They discussed their weekend, skills used and concerns. Response: EPIC down and no patient present/no group. No patient will be charged. Coping Strategies Group Start Time: 10:10am End Time: 11:00am Total Time: 50 minutes Number of Therapists: 1 Number of Patients: 6 Problem(s) Number Addressed: 1 Intervention: Active Listening, Clarified, Challenged, Encouraged, Engaged, Explored, Gave Feedback, Observed, Redirected, and Supported Explain: Patients were educated on the skill of reality acceptance using given handouts and peer discussion. Response: Patient appeared engaged and participatory. He shared that his threat within willfulness is not following through with plans because of fear of change. He participated in reading. Process and Emotion Management Group Start Time: 11:10am End Time: 12:00pm Total Time: 50 minutes Number of Therapists: 1 Number of Patients: 6 Problem(s) Number Addressed: 1 Intervention: Active Listening, Clarified, Challenged, Encouraged, Engaged, Explored, Gave Feedback, Observed, Redirected, and Supported Explain: Patients finished exploration on the skills within reality acceptance, specifically turning the mind, willing hands, and half smiling. They participated in a short meditation to use the skills. They shared their feeling word and takeaway from today at group end. Response: Patient shared he engaged in the skill of willing hands during the meditation. He shared he found it challenging and noticed other parts of his body that were then tense. He shared he wants to work on it while lying down next time. He shared that he is struggling with accepting his lack of freedom, control, and sleep routine now. He reported feeling open. He stated his takeaway from today is learning more about to embody patience to use skills. PLAN: Continue group treatment as stated in Treatment Plan. Continue to gain insights into problems. Continue to share feelings AND thoughts in group. Incorporate relaxation/coping strategies into daily routine. SOBRIETY (If applicable): N/A Patient Data IOP Daily Questionnaire IOP Daily 01/24/2023 01/25/2023 01/30/2023 Today, is your belief in your ability to use your Safety Plan in a crisis at 90%? Yes Yes Yes Today, have you wished you were or wished you could go to sleep and not wake up? No No No Today, have you actually had any thoughts of killing yourself? No No No On a scale of 1 to 10 how would you rate your mood now? 8 5 8 SIGNATURE: Sophia Alvarado [facility] PATIENT NAME: Macoh Sanches DATE: January 30, 2023 TIME: 1:25 PM PAGER/CONTACT #: [phone] [facility] 01-30-2023 History of Presen t illness Narrative BEHAVIORAL HEALTH IOP (INTENSIVE OUTPATIENT PROGRAM) DAILY PROGRESS NOTE VIOP - Patient consented to VIOP through [facility]. SERVICE DATE: January 30, 2023 SERVICE TIME: 9:00 AM INTERVAL PROGRESS: Same PATIENT'S PROGRESS: Attentive & Involved BEHAVIOR: Appearance: Fair grooming and hygiene Attitude: Cooperative and Perseverative Affect: Restricted Mood: Open Thought Process: Logical, [place], Perseverative, and Preoccupied Speech: Normal Eye Contact: Fair Describe Change Noted Throughout the Day: Consistent GROUP THERAPY: Illness Management Group Start Time: 9:00am End Time: 10:00am Total Time: 60 minutes Number of Therapists: 1 Number of Patients: Problem(s) Number Addressed: 1 Intervention: Active Listening, Clarified, Challenged, Encouraged, Engaged, Explored, Gave Feedback, Observed, Redirected, and Supported Explain: Patients shared a feeling word and two positive traits. They discussed their weekend, skills used and concerns. Response: EPIC down and no patient present/no group. No patient will be charged. Coping Strategies Group Start Time: 10:10am End Time: 11:00am Total Time: 50 minutes Number of Therapists: 1 Number of Patients: 6 Problem(s) Number Addressed: 1 Intervention: Active Listening, Clarified, Challenged, Encouraged, Engaged, Explored, Gave Feedback, Observed, Redirected, and Supported Explain: Patients were educated on the skill of reality acceptance using given handouts and peer discussion. Response: Patient appeared engaged and participatory. He shared that his threat within willfulness is not following through with plans because of fear of change. He participated in reading. Process and Emotion Management Group Start Time: 11:10am End Time: 12:00pm Total Time: 50 minutes Number of Therapists: 1 Number of Patients: 6 Problem(s) Number Addressed: 1 Intervention: Active Listening, Clarified, Challenged, Encouraged, Engaged, Explored, Gave Feedback, Observed, Redirected, and Supported Explain: Patients finished exploration on the skills within reality acceptance, specifically turning the mind, willing hands, and half smiling. They participated in a short meditation to use the skills. They shared their feeling word and takeaway from today at group end. Response: Patient shared he engaged in the skill of willing hands during the meditation. He shared he found it challenging and noticed other parts of his body that were then tense. He shared he wants to work on it while lying down next time. He shared that he is struggling with accepting his lack of freedom, control, and sleep routine now. He reported feeling open. He stated his takeaway from today is learning more about to embody patience to use skills. PLAN: Continue group treatment as stated in Treatment Plan. Continue to gain insights into problems. Continue to share feelings & thoughts in group. Incorporate relaxation/coping strategies into daily routine. SOBRIETY (If applicable): N/A Patient Data IOP Daily Questionnaire IOP Daily 01/24/2023 01/25/2023 01/30/2023 Today, is your belief in your ability to use your Safety Plan in a crisis at 90%? Yes Yes Yes Today, have you wished you were or wished you could go to sleep and not wake up? No No No Today, have you actually had any thoughts of killing yourself? No No No On a scale of 1 to 10 how would you rate your mood now? 8 5 8 SIGNATURE: KHARI Elmore PATIENT NAME: Macho Sanches DATE: January 30, 2023 TIME: 1:25 PM PAGER/CONTACT #: [phone] documented in this encounter [facility] 01-30-2023 Miscellaneous Notes , IOP TEAM NOTE IOP TEAM MEETING DATE: 01/30/2023 RECENT ASSESSMENTS/TREATMENT PLAN REVIEWS: Per KHARI Haines, assessment. SUICIDE RISK AND MITIGATION PLAN Low to moderate risk. Patient completed their safety plan and has a copy. Patient has reported no current safety concerns and no current plan or intent. He reports to having fleeting SI. WEEKLY REVIEW OF CLIENT PROGRESS: Patient has completed his first week of VIOP. He has appeared more open as the week as progressed, though he presents with some evasiveness, irritability, restraint with body language, guardedness, and concrete thinking. He often struggles with perseverative thinking, which is highly revolved around his want for stimulant medications and difficulty with focus. He has completed his safety plan and treatment plan. He is set to work on skills for opposite action, emotion regulation, and acceptance. Patient has shared distressing feelings he has struggled with this week surrounding the topic of procrastination and motivation and how this is a big trigger for him. DISCHARGE PLANNING/RECOMMENDATIONS: Patient is set for a tentative discharge date of 03/02/23. Patient has been provided with referrals for psychiatry and individual therapy to be scheduled for after IOP. This consensus plan was developed by IOP treatment team which met via teams on 01/30/2023. Team Members Participation in this Plan of Care: Attending: Dr. West Therapists: KHARI Elmore DOCUMENTED BY: KHARI Elmore PATIENT NAME: Macho Sanches DATE: January 26, 2023 TIME: 2:35 PM documented in this encounter [facility] 01-26-2023 Note HNO ID: [id number] Author: KHARI Elmore Service: Behavioral Health IOP (Intensive Outpatient Program) Author Type: Therapist Type: Progress Notes Filed: 01/26/2023 12:13 PM Note Text: BEHAVIORAL HEALTH IOP (INTENSIVE OUTPATIENT PROGRAM) DAILY PROGRESS NOTE VIOP - Patient consented to VIOP through [employer] for [facility]. SERVICE DATE: January 26, 2023 SERVICE TIME: 9:00 AM INTERVAL PROGRESS: Same PATIENT'S PROGRESS: Attentive AND Involved BEHAVIOR: Appearance: Fair grooming and hygiene Attitude: Cooperative Affect: Anxious and Restricted Mood: Fortified and strong Thought Process: Logical, [place], Perseverative, and Preoccupied Speech: Normal Eye Contact: Fair Describe Change Noted Throughout the Day: Consistent GROUP THERAPY: Illness Management Group Start Time: 9:00am End Time: 10:00am Total Time: 60 minutes Number of Therapists: 1 Number of Patients: 6 Problem(s) Number Addressed: 1 Intervention: Active Listening, Clarified, Challenged, Encouraged, Engaged, Explored, Gave Feedback, Observed, Redirected, and Supported Explain: Patients shared a feeling word and two positive traits. They discussed weekend plans and potential obstacles. Response: Patient reported feeling fortified. He stated his positive traits are patient and diligent. She stated his weekend plans include making dinner, working on some his goals, and possibly taking a cab to get out of the house. He briefly explored concerns he has with managing his mood and reactions, especially around his parents. He was educated on the STOP skill and paced breathing. He was encouraged to work on these skills and remind himself the skills are for changing his reactions, not his parents. Coping Strategies Group Start Time: 10:10am End Time: 11:00am Total Time: 50 minutes Number of Therapists: 1 Number of Patients: 7 Problem(s) Number Addressed: 1 Intervention: Active Listening, Clarified, Challenged, Encouraged, Engaged, Explored, Gave Feedback, Observed, Redirected, and Supported Explain: Patients were educated on the topic of opposite action using given materials. Response: Patient shared he used the time setting tips for yesterday with success. He reported that the emotion of anxiety is one he can use for this skill. He stated that the action urge is running away. Process and Emotion Management Group Start Time: 11:10am End Time: 12:00pm Total Time: 50 minutes Number of Therapists: 1 Number of Patients: 7 Problem(s) Number Addressed: 1 Intervention: Active Listening, Clarified, Challenged, Encouraged, Engaged, Explored, Gave Feedback, Observed, Redirected, and Supported Explain: Patients finished exploration of the skill of opposite action and worked in small group discussions. They shared their feeling word and takeaway from today at group end. Response: Patient shared he plans to use opposite action for anger this weekend. He reported feeling fortified and strong. He stated his takeaway from today is learning how to take baby steps. He reported feeling grateful for my strength, the space to do this, and the future. PLAN: Continue group treatment as stated in Treatment Plan. Continue to gain insights into problems. Continue to share feelings AND thoughts in group. Incorporate relaxation/coping strategies into daily routine. SOBRIETY (If applicable): N/A Patient Data IOP Daily Questionnaire IOP Daily 01/23/2023 01/24/2023 01/25/2023 Today, is your belief in your ability to use your Safety Plan in a crisis at 90%? Yes Yes Yes Today, have you wished you were or wished you could go to sleep and not wake up? No No No Today, have you actually had any thoughts of killing yourself? No No No On a scale of 1 to 10 how would you rate your mood now? 6 8 5 SIGNATURE: KHARI Elmore PATIENT NAME: Macho Sanches DATE: January 26, 2023 TIME: 8:52 AM PAGER/CONTACT #: [phone] [facility] 01-25-2023 Note HNO ID: [id number] Author: KHARI Elmore Service: Behavioral Health IOP (Intensive Outpatient Program) Author Type: Therapist Type: Progress Notes Filed: 01/25/2023 2:05 PM Note Text: BEHAVIORAL HEALTH IOP (INTENSIVE OUTPATIENT PROGRAM) DAILY PROGRESS NOTE VIOP - Patient consented to VIOP through [employer] for [facility]. SERVICE DATE: January 25, 2023 SERVICE TIME: 9:00 AM INTERVAL PROGRESS: Same PATIENT'S PROGRESS: Attentive AND Involved BEHAVIOR: Appearance: Fair grooming and hygiene Attitude: Cooperative, Reassurance-seeking, and Perseverative Affect: Anxious, Flat, and restrained , incongruent at times Mood: Calm and confused Thought Process: [place], Perseverative, and Preoccupied Speech: Normal Eye Contact: Fair Describe Change Noted Throughout the Day: Consistent GROUP THERAPY: Illness Management Group Start Time: 9:00am End Time: 10:00am Total Time: 60 minutes Number of Therapists: 1 Number of Patients: 7 Problem(s) Number Addressed: 1 Intervention: Active Listening, Clarified, Challenged, Encouraged, Engaged, Explored, Gave Feedback, Observed, Redirected, and Supported Explain: Patients shared a feeling word and two positive traits. They reviewed their treatment plans and identified areas in which they are working and not working. Response: Patient reported feeling calm. He stated his positive traits are adaptable and inventive. Patient has just received his treatment plan and not begun working on objectives. He has no current questions or concerns with the goals. Coping Strategies Group Start Time: 10:10am End Time: 11:00am Total Time: 50 minutes Number of Therapists: 1 Number of Patients: 7 Problem(s) Number Addressed: 1 Intervention: Active Listening, Clarified, Challenged, Encouraged, Engaged, Explored, Gave Feedback, Observed, Redirected, and Supported Explain: Patients continued exploration into the topic of procrastination, specifically learning tips for time management and strategies for procrastination. Response: Patient appeared observant and was overall quiet. He did share that time management tends to be one of his biggest issues and a big trigger for him in his functioning. He noted via non-verbal cues he struggles with managing urgent and not important tasks too often. Process and Emotion Management Group Start Time: 11:10am End Time: 12:00pm Total Time: 50 minutes Number of Therapists: 1 Number of Patients: 7 Problem(s) Number Addressed: 1 Intervention: Active Listening, Clarified, Challenged, Encouraged, Engaged, Explored, Gave Feedback, Observed, Redirected, and Supported Explain: Patients were educated on the tips for building motivation using given handouts and peer discussion. They shared their feeling word and takeaway from today at group end. Response: Patient reported feeling confused. He stated his takeaway from today is learning more about how he has struggled to-do lists and needing to start smaller with them. PLAN: Continue group treatment as stated in Treatment Plan. Continue to gain insights into problems. Continue to share feelings AND thoughts in group. Incorporate relaxation/coping strategies into daily routine. SOBRIETY (If applicable): N/A Patient Data IOP Daily Questionnaire IOP Daily 01/23/2023 01/24/2023 01/25/2023 Today, is your belief in your ability to use your Safety Plan in a crisis at 90%? Yes Yes Yes Today, have you wished you were or wished you could go to sleep and not wake up? No No No Today, have you actually had any thoughts of killing yourself? No No No On a scale of 1 to 10 how would you rate your mood now? 6 8 5 SIGNATURE: Sophia Alvarado [facility] PATIENT NAME: Macho Sanches DATE: January 25, 2023 TIME: 8:48 AM PAGER/CONTACT #: [phone] [facility] 01-25-2023 History of Presen t illness Narrative BEHAVIORAL HEALTH IOP (INTENSIVE OUTPATIENT PROGRAM) DAILY PROGRESS NOTE VIOP - Patient consented to VIOP through [facility]. SERVICE DATE: January 25, 2023 SERVICE TIME: 9:00 AM INTERVAL PROGRESS: Same PATIENT'S PROGRESS: Attentive & Involved BEHAVIOR: Appearance: Fair grooming and hygiene Attitude: Cooperative, Reassurance-seeking, and Perseverative Affect: Anxious, Flat, and restrained , incongruent at times Mood: Calm and confused Thought Process: [place], Perseverative, and Preoccupied Speech: Normal Eye Contact: Fair Describe Change Noted Throughout the Day: Consistent GROUP THERAPY: Illness Management Group Start Time: 9:00am End Time: 10:00am Total Time: 60 minutes Number of Therapists: 1 Number of Patients: 7 Problem(s) Number Addressed: 1 Intervention: Active Listening, Clarified, Challenged, Encouraged, Engaged, Explored, Gave Feedback, Observed, Redirected, and Supported Explain: Patients shared a feeling word and two positive traits. They reviewed their treatment plans and identified areas in which they are working and not working. Response: Patient reported feeling calm. He stated his positive traits are adaptable and inventive. Patient has just received his treatment plan and not begun working on objectives. He has no current questions or concerns with the goals. Coping Strategies Group Start Time: 10:10am End Time: 11:00am Total Time: 50 minutes Number of Therapists: 1 Number of Patients: 7 Problem(s) Number Addressed: 1 Intervention: Active Listening, Clarified, Challenged, Encouraged, Engaged, Explored, Gave Feedback, Observed, Redirected, and Supported Explain: Patients continued exploration into the topic of procrastination, specifically learning tips for time management and strategies for procrastination. Response: Patient appeared observant and was overall quiet. He did share that time management tends to be one of his biggest issues and a big trigger for him in his functioning. He noted via non-verbal cues he struggles with managing urgent and not important tasks too often. Process and Emotion Management Group Start Time: 11:10am End Time: 12:00pm Total Time: 50 minutes Number of Therapists: 1 Number of Patients: 7 Problem(s) Number Addressed: 1 Intervention: Active Listening, Clarified, Challenged, Encouraged, Engaged, Explored, Gave Feedback, Observed, Redirected, and Supported Explain: Patients were educated on the tips for building motivation using given handouts and peer discussion. They shared their feeling word and takeaway from today at group end. Response: Patient reported feeling confused. He stated his takeaway from today is learning more about how he has struggled to-do lists and needing to start smaller with them. PLAN: Continue group treatment as stated in Treatment Plan. Continue to gain insights into problems. Continue to share feelings & thoughts in group. Incorporate relaxation/coping strategies into daily routine. SOBRIETY (If applicable): N/A Patient Data IOP Daily Questionnaire IOP Daily 01/23/2023 01/24/2023 01/25/2023 Today, is your belief in your ability to use your Safety Plan in a crisis at 90%? Yes Yes Yes Today, have you wished you were or wished you could go to sleep and not wake up? No No No Today, have you actually had any thoughts of killing yourself? No No No On a scale of 1 to 10 how would you rate your mood now? 6 8 5 SIGNATURE: KHARI Elmore PATIENT NAME: Macho Sanches DATE: January 25, 2023 TIME: 8:48 AM PAGER/CONTACT #: [phone] documented in this encounter [facility] 01-24-2023 Note HNO ID: [id number] Author: KHARI Elmore Service: Behavioral Health IOP (Intensive Outpatient Program) Author Type: Therapist Type: Progress Notes Filed: 01/24/2023 3:13 PM Note Text: BEHAVIORAL HEALTH IOP (INTENSIVE OUTPATIENT PROGRAM) DAILY PROGRESS NOTE VIOP - Patient consented to VIOP through Zoom for [facility]. SERVICE DATE: January 24, 2023 SERVICE TIME: 9:00 AM INTERVAL PROGRESS: Same PATIENT'S PROGRESS: Attentive AND Involved BEHAVIOR: Appearance: Disheveled Attitude: Cooperative, Guarded, Immature, Superficially cooperative, Evasive, and Perseverative Affect: Flat, Distressed, Irritable, and restrained, evasive Mood: Positive, sad, scared, and mad Thought Process: [place], Perseverative, and Preoccupied Speech: Normal Eye Contact: Fair Describe Change Noted Throughout the Day: Consistent GROUP THERAPY: Illness Management Group Start Time: 9:00am End Time: 10:00am Total Time: 60 minutes Number of Therapists: 1 Number of Patients: 8 Problem(s) Number Addressed: 1 Intervention: Active Listening, Clarified, Challenged, Encouraged, Engaged, Explored, Gave Feedback, Observed, Redirected, and Supported Explain: Patients shared a feeling word and two positive traits. They reviewed the results of their PHQ-9 and RICHARD-7 questionnaires and explored areas in need of skill implementation. Response: Patient reported feeling positive. He stated his positive traits are calm and excited. He reported he is struggling with troubling concentration. He was encouraged to recognize that this symptom is a struggle even in IOP when using skills when other symptoms are unmanaged and that it is valid to feel distress when having difficulty with concentration. He was encouraged to work on identifying skills he already uses to find ways to distract and manage the emotions being influenced, however he presented with concrete insight and thinking and stated he does not have any. He appeared to show restrained, distressed, flat affect, as well as an evasive attitude for exploring current functioning and responsibility of his to implement skills. He was also validated on his experience and encouraged to receive support from his peers in group. Patient met with this therapist at first break. He reported he felt triggered by being asked about coping skills and that I ?asked him about how to cope with concentration issues? and that he clearly does not know how. Therapist gently reiterated that the check-in was about looking at coping skills for his emotions during that time and that he appeared to misperceive the question. Patient went on to ask again about stimulants and stated that he feels like a ?piranha? when asking. He was reminded of conversation with Dr. West-that no discussion of stimulant use will be discussed until he shows he is managing his depressive and anxious symptoms while in VIOP and scores/observations reflect that. Patient does appear to be trying to manipulate this therapist in convincing Dr. West to prescribe him stimulants as he shares he just ?cannot focus in group? without the meds. This is the second conversation this therapist has had with him about stimulants since admittance yesterday. Coping Strategies Group Start Time: 10:10am End Time: 11:00am Total Time: 50 minutes Number of Therapists: 1 Number of Patients: 8 Problem(s) Number Addressed: 1 Intervention: Active Listening, Clarified, Challenged, Encouraged, Engaged, Explored, Gave Feedback, Observed, Redirected, and Supported Explain: Patients began education into the topic of procrastination using given handouts and peer discussion. Response: Patient shared that he feels he is ?past the excuses stage? and just says ?no? when needing to complete any of his tasks anymore. He presented with limited insight on his responsibility and did share he feels this procrastination cycle is a major concern for him. Process and Emotion Management Group Start Time: 11:10am End Time: 12:00pm Total Time: 50 minutes Number of Therapists: 1 Number of Patients: 8 Problem(s) Number Addressed: 1 Intervention: Active Listening, Clarified, Challenged, Encouraged, Engaged, Explored, Gave Feedback, Observed, Redirected, and Supported Explain: Patients continued education into procrastination, specifically learning about unhelpful rules and assumptions and consequences for procrastinating. They shared their feeling word and takeaway from today at group end. Response: Patient shared that he procrastinates in most areas in his life. He shared he feels he has lost so much from procrastinating and this started more when he left his job. He explored with the group the difference between depleted energy from unresolved depressive and anxious symptoms and emotional/physical burnout. He was supported by peers. He reported feeling sad, scared, and mad. He stated his takeaway from today is ?I feel I have left a (more content not included)... [facility] 01-24-2023 Note HNO ID: [id number] Author: Sophia Alvarado [facility] Service: Behavioral Health IOP (Intensive Outpatient Program) Author Type: Therapist Type: Plan of Care Filed: 01/24/2023 1:28 PM Note Text: SAFETY PLAN Patient Name: Macho Sanches Date of this Plan: 01/24/2023 Step 1: Warning signs - Things that may trigger me to feel that terribly again: 1. Irritability 2. Tense muscles 3. Feeling overwhelmed Step 2: Internal coping strategies - Things I can do to take my mind off my problems without contacting another person: Deep breathing 02/10/02/10 Exercise Mindfulness / Grounding Techniques Step 3: People and social settings that provide a distraction - Where could I go or who could I see that would help me feel better: Name: Belkis Lakeshia Name: Cem Carcamo Place: My Backyard Place: [facility] Step 4: People I can ask for help - Who can I contact and talk to about how I am feeling: Name: Cem Carlos Alberto Name: Mary Cordero Name: Lacey Godinez Will I share this plan with any of the above people: Yes Step 5: Professionals or agencies I can contact during a crisis: Adam Booker Mobile Crisis/Suicide Prevention Line / [phone] Text ?4Hope? to 859000 National Suicide Prevention Lifeline Phone: 923 [facility] Hotline [facility] Hotline [facility] Hotline Cl[facility] Mental Health Hotline [place] Crisis Hotline [place] Crisis Hotline Clinician Name: Iram Blair Phone: through [email or web address] Clinician Pager or Emergency Contact #: N/A Emergency Services Phone: [phone] Step 6: Making the environment safe - What do I need to get rid of, who can stay with me, or where can I stay in order to feel safe: Finding an open environment Listening to music Removing or moving away from a source of anxiety / depression Step 7: Access to this information - Where will I keep this plan so that I can easily access it when needed: printed copy in kitchen Copy on my phone The one thing that is most important to me and worth living for is: for myself, to make improvements and being better me Patient reported that he feels 100% confident to use it if he feels unsafe. Sophia Alvarado [facility] 01/24/2023 [facility] 01-24-2023 History of Presen t illness Narrative BEHAVIORAL HEALTH IOP (INTENSIVE OUTPATIENT PROGRAM) DAILY PROGRESS NOTE VIOP - Patient consented to VIOP through [facility]. SERVICE DATE: January 24, 2023 SERVICE TIME: 9:00 AM INTERVAL PROGRESS: Same PATIENT'S PROGRESS: Attentive & Involved BEHAVIOR: Appearance: Disheveled Attitude: Cooperative, Guarded, Immature, Superficially cooperative, Evasive, and Perseverative Affect: Flat, Distressed, Irritable, and restrained, evasive Mood: Positive, sad, scared, and mad Thought Process: [place], Perseverative, and Preoccupied Speech: Normal Eye Contact: Fair Describe Change Noted Throughout the Day: Consistent GROUP THERAPY: Illness Management Group Start Time: 9:00am End Time: 10:00am Total Time: 60 minutes Number of Therapists: 1 Number of Patients: 8 Problem(s) Number Addressed: 1 Intervention: Active Listening, Clarified, Challenged, Encouraged, Engaged, Explored, Gave Feedback, Observed, Redirected, and Supported Explain: Patients shared a feeling word and two positive traits. They reviewed the results of their PHQ-9 and RICHARD-7 questionnaires and explored areas in need of skill implementation. Response: Patient reported feeling positive. He stated his positive traits are calm and excited. He reported he is struggling with troubling concentration. He was encouraged to recognize that this symptom is a struggle even in IOP when using skills when other symptoms are unmanaged and that it is valid to feel distress when having difficulty with concentration. He was encouraged to work on identifying skills he already uses to find ways to distract and manage the emotions being influenced, however he presented with concrete insight and thinking and stated he does not have any. He appeared to show restrained, distressed, flat affect, as well as an evasive attitude for exploring current functioning and responsibility of his to implement skills. He was also validated on his experience and encouraged to receive support from his peers in group. Patient met with this therapist at first break. He reported he felt triggered by being asked about coping skills and that I asked him about how to cope with concentration issues and that he clearly does not know how. Therapist gently reiterated that the check-in was about looking at coping skills for his emotions during that time and that he appeared to misperceive the question. Patient went on to ask again about stimulants and stated that he feels like a piranha when asking. He was reminded of conversation with Dr. West-that no discussion of stimulant use will be discussed until he shows he is managing his depressive and anxious symptoms while in VIOP and scores/observations reflect that. Patient does appear to be trying to manipulate this therapist in convincing Dr. West to prescribe him stimulants as he shares he just cannot focus in group without the meds. This is the second conversation this therapist has had with him about stimulants since admittance yesterday. Coping Strategies Group Start Time: 10:10am End Time: 11:00am Total Time: 50 minutes Number of Therapists: 1 Number of Patients: 8 Problem(s) Number Addressed: 1 Intervention: Active Listening, Clarified, Challenged, Encouraged, Engaged, Explored, Gave Feedback, Observed, Redirected, and Supported Explain: Patients began education into the topic of procrastination using given handouts and peer discussion. Response: Patient shared that he feels he is past the excuses stage and just says no when needing to complete any of his tasks anymore. He presented with limited insight on his responsibility and did share he feels this procrastination cycle is a major concern for him. Process and Emotion Management Group Start Time: 11:10am End Time: 12:00pm Total Time: 50 minutes Number of Therapists: 1 Number of Patients: 8 Problem(s) Number Addressed: 1 Intervention: Active Listening, Clarified, Challenged, Encouraged, Engaged, Explored, Gave Feedback, Observed, Redirected, and Supported Explain: Patients continued education into procrastination, specifically learning about unhelpful rules and assumptions and consequences for procrastinating. They shared their feeling word and takeaway from today at group end. Response: Patient shared that he procrastinates in most areas in his life. He shared he feels he has lost so much from procrastinating and this started more when he left his job. He explored with the group the difference between depleted energy from unresolved depressive and anxious symptoms and emotional/physical burnout. He was supported by peers. He reported feeling sad, scared, and mad. He stated his takeaway from today is I feel I have left a trail of breadcrumbs and clues to how he hasn't been managing his symptoms. PLAN: Continue group treatment as stated in Treatment Plan. Continue to gain insights into problems. Continue to share feelings & thoughts in group. Monitor thinking/complete thought sheets. Incorporate relaxation/coping strategies into daily routine. SOBRIETY (If applicable): N/A Patient Data Generalized Anxiety Disorder Scale (RICHARD-7) RICHARD - 7 SCORES 01/18/2023 01/19/2023 01/23/2023 RICHARD-7 Score 13 12 10 (0-4) minimal anxiety, (5-9) mild anxiety, (10-14) moderate anxiety, (15-21) severe anxiety IOP Daily Questionnaire IOP Daily 01/23/2023 01/24/2023 Today, is your belief in your ability to use your Safety Plan in a crisis at 90%? Yes Yes Today, have you wished you were or wished you could go to sleep and not wake up? No No Today, have you actually had any thoughts of killing yourself? No No On a scale of 1 to 10 how would you rate your mood now? 6 8 Patient Health Questionnaire (PHQ-9) PHQ-9 01/18/2023 01/19/2023 01/23/2023 Score 21 22 19 (0-4) minimal depression, (5-9) mild depression, (10-14) moderate depression, (15-19) moderately severe depression, (20-27) severe depression SIGNATURE: KHARI Elmore PATIENT NAME: Macho Sanches DATE: January 24, 2023 TIME: 8:14 AM PAGER/CONTACT #: [phone] documented in this encounter [facility] 01-24-2023 Miscellaneous Notes SAFETY PLAN Patient Name: Macho Sanches Date of this Plan: 01/24/2023 Step 1: Warning signs - Things that may trigger me to feel that terribly again: 1. Irritability 2. Tense muscles 3. Feeling overwhelmed Step 2: Internal coping strategies - Things I can do to take my mind off my problems without contacting another person: Deep breathing Exercise Mindfulness / Grounding Techniques Step 3: People and social settings that provide a distraction - Where could I go or who could I see that would help me feel better: Name: Belkis Asher Name: Cem Carcamo Place: My Backyard Place: [facility] Step 4: People I can ask for help - Who can I contact and talk to about how I am feeling: Name: Cem Carcamo Name: Mary Cordero Name: aLcey Godinez Will I share this plan with any of the above people: Yes Step 5: Professionals or agencies I can contact during a crisis: Adam Booker Mobile Crisis/Suicide Prevention Line / 246.841.7391 Text 4Hope to 069515 National Suicide Prevention Lifeline Phone: 331 [facility] Path Hotline [facility] Hotline [facility] Mental Health Hotline [facility] Mental Health Hotline [facility] Crisis Hotline [facility] Crisis Hotline Clinician Name: Iram Blair Phone: through [email or web address] Clinician Pager or Emergency Contact #: N/A Emergency Services Phone: [phone] Step 6: Making the environment safe - What do I need to get rid of, who can stay with me, or where can I stay in order to feel safe: Finding an open environment Listening to music Removing or moving away from a source of anxiety / depression Step 7: Access to this information - Where will I keep this plan so that I can easily access it when needed: printed copy in kitchen Copy on my phone The one thing that is most important to me and worth living for is: for myself, to make improvements and being better me Patient reported that he feels 100% confident to use it if he feels unsafe. KHARI Elmore 01/24/2023 documented in this encounter [facility] 01-23-2023 Note HNO ID: [id number] Author: KHARI Elmore Service: Behavioral Health IOP (Intensive Outpatient Program) Author Type: Therapist Type: Progress Notes Filed: 01/23/2023 2:33 PM Note Text: BEHAVIORAL HEALTH IOP (INTENSIVE OUTPATIENT PROGRAM) DAILY PROGRESS NOTE VIOP - Patient consented to VIOP through [employer] for [facility]. SERVICE DATE: January 23, 2023 SERVICE TIME: 9:00 AM INTERVAL PROGRESS: First day PATIENT'S PROGRESS: Attentive AND Involved BEHAVIOR: Appearance: Fair grooming and hygiene Attitude: Cooperative, Guarded, and Withdrawn Affect: Flat, restrained, discomfort, irritable at times Mood: Empty, numb, unfocused, and scattered Thought Process: [place], Perseverative, Goal-directed, and Preoccupied Speech: Quiet and Slow Eye Contact: Fair Describe Change Noted Throughout the Day: Consistent GROUP THERAPY: Illness Management Group Start Time: 9:00am End Time: 10:00am Total Time: 60 minutes Number of Therapists: 1 Number of Patients: 6 Problem(s) Number Addressed: 1 Intervention: Active Listening, Clarified, Challenged, Encouraged, Engaged, Explored, Gave Feedback, Observed, Redirected, and Supported Explain: Patients shared a feeling word and two positive traits. They discussed their weekend, skills used and concerns. Response: Patient reported feeling empty and numb. He stated his positive traits are patient and kind. He shared his weekend activities and skills used. He stated he cooked breakfast for his dad yesterday. He shared he really enjoys cooking, but hasn't been doing it for a while. He reported he also worked on getting to bed ?at a good time? to get up for group. Coping Strategies Group Start Time: 10:10am End Time: 11:00am Total Time: 50 minutes Number of Therapists: 1 Number of Patients: 6 Problem(s) Number Addressed: 1 Intervention: Active Listening, Clarified, Challenged, Encouraged, Engaged, Explored, Gave Feedback, Observed, Redirected, and Supported Explain: Patients continued education into the cognitive distortion examples using given handouts and peer discussion. Response: Patient was overall quiet, though he appeared observant as evidenced by non-verbal cues. He asked relevant questions. Process and Emotion Management Group Start Time: 11:10am End Time: 12:00pm Total Time: 50 minutes Number of Therapists: 1 Number of Patients: 7 Problem(s) Number Addressed: 1 Intervention: Active Listening, Clarified, Challenged, Encouraged, Engaged, Explored, Gave Feedback, Observed, Redirected, and Supported Explain: Patients worked individually on their thought records to challenge irrational thinking. Group members shared questions and examples during the discussion. They shared their feeling word and takeaway from today at group end. Response: Patient shared his example briefly with the thought record. He shared he worked on reframing control fallacy thinking, specifically with a situation with his parents. Patient reported ?choppy?, scattered, and unfocused. He stated his takeaway from today ?I like being able to be given a process? with the skill today. PLAN: Continue group treatment as stated in Treatment Plan. Continue to gain insights into problems. Continue to share feelings AND thoughts in group. Monitor thinking/complete thought sheets. Incorporate relaxation/coping strategies into daily routine. SOBRIETY (If applicable): N/A Patient Data Generalized Anxiety Disorder Scale (RICHARD-7) RICHARD - 7 SCORES 01/18/2023 01/19/2023 01/23/2023 RICHARD-7 Score 13 12 10 (0-4) minimal anxiety, (5-9) mild anxiety, (10-14) moderate anxiety, (15-21) severe anxiety IOP Daily Questionnaire IOP Daily 01/23/2023 Today, is your belief in your ability to use your Safety Plan in a crisis at 90%? Yes Today, have you wished you were or wished you could go to sleep and not wake up? No Today, have you actually had any thoughts of killing yourself? No On a scale of 1 to 10 how would you rate your mood now? 6 Patient Health Questionnaire (PHQ-9) PHQ-9 01/18/2023 01/19/2023 01/23/2023 Score 21 22 19 (0-4) minimal depression, (5-9) mild depression, (10-14) moderate depression, (15-19) moderately severe depression, (20-27) severe [place]-SUICIDE SEVERITY RATING SCALE Screen Version - Recent Past month Ask questions that are bolded and underlined. YES/NO Ask Questions 1 and 2 1) Have you wished you were or wished you could go to sleep and not wake up? Yes 2) Have you actually had any thoughts of killing yourself? No If YES to 2, ask questions 3, 4, 5, and 6. If NO to 2, go directly to question 6. 3) Have you been thinking about how you might do this? E.g. ?I thought about taking an overdose but I never made a specific plan as to when where or how I would actually do it?.and I would never go through with it.? 4) Have you had these thoughts and had some intention of acting on them? As opposed to ?I have the thoughts but (more content not included)... [facility] 01-23-2023 Note HNO ID: [id number] [facility]: [facility] Service: [facility] Health IOP (Intensive Outpatient Program) Author Type: Therapist Type: Plan of Care Filed: 03/15/2023 11:29 AM Note Text: MASTER TREATMENT PLAN SERVICE DATE: 01/23/2023 ADMISSION DATE: 01/23/23 SERVICE TIME: 12:00 PM Team Members Participating in the Plan of Care: Program Physician: Dr. Анна MD Primary Therapist: Sophia [facility]varado [facility] Registered Nurse: Iram Gold RN ASSESSMENT Diagnosis: Anxiety Disorder Generalized Anxiety Disorder Mood Disorders Depressive Disorders- Major Depressive Disorder, Recurrent, Severe Without Psychotic Symptoms Cannabis Use Disorder Stimulant Use Disorder Estimated LOS: 4-6 weeks Problem: Depressive and anxious symptoms As Evidenced by: Feelings of emptiness and numbness, feelings of helplessness and hopelessness, difficulty with sleep, anxious, panic, feelings of incapability, difficulty with acceptance, irritability, trouble regulating emotions, history of self-harm (cutting and burning), history of fleeting SI, inconsistent eating patterns, inappropriate guilt, decreased concentration, decreased motivation, low energy, and fatigue. Resulting in (Functional Impact): Functional impair with ADLs, interpersonal relationships, self-worth, work, communication, and overall daily functioning needs. Half-Way Goal/Discharge Criteria: Patient reported he would like to work on accepting what he cannot control, managing his emotions, and challenging his ?oppositional? behaviors. Goal Relevant Strengths/Supports: Patient reported he feels he is kind, patient, and a good listener. He reported he enjoys cooking and ?stories?. Date Open: 01/23/23 Goal-(in patient's own words) ?managing my emotions, understanding my emotions Objective A Short Term Objective Statement (behavioral measurable time frame): Patient will implement learned emotion regulation skills, 3 times per week or as needed to decrease symptoms related to recurrent depressive and anxious episodes. Patient will report progress to group weekly. Date Initiated: 01/23/23 Target Date: 03/02/23 Review Date: 02/15/23 Intervention - IOP level of care and medication evaluation and treatment. Goal-(in patient's own words) ?I need to accept, but I know I don't want to Objective B Short Term Objective Statement (behavioral measurable time frame): Patient will implement learned tips within the skill of reality acceptance, daily. He will work on implementing these skills to manage his difficulty accepting situations/people outside of his control and accepting new limitations for his emotional and physical self. Patient will report progress to group weekly. Date Initiated: 01/23/23 Target Date: 03/02/23 Review Date: 02/15/23 Intervention - IOP level of care and medication evaluation and treatment. Goal-(in patient's own words) my oppositional behaviors, taking care of myself Objective C Short Term Objective Statement (behavioral measurable time frame): Patient will apply learned skill of opposite action daily and implement 3 pleasant/mastery tasks into his daily routine (e.g. cooking, cleaning, self-care, etc.), to address low motivation, depressed mood, and decreased interest in pleasurable activities. Patient will report progress to group weekly. Date Initiated: 01/23/23 Target Date: 03/02/23 Review Date: 02/15/23 Intervention - IOP level of care and medication evaluation and treatment. Goal-(in patient's own words) ? Objective D Short Term Objective Statement (behavioral measurable time frame): Date Initiated: 01/23/23 Target Date: 03/02/23 Review Date: 02/15/23 Intervention - IOP level of care and medication evaluation and treatment. Problems identified integral to treatment and referred out: To follow-up with care in his area for ongoing medication needs upon discharge Problems identified but deferred, not a priority: Cannabis use and stimulant use disorders/history. Patient does not demonstrate good insight into concerns that these disorders present with and is unsure if will be addressed during IOP. Problems identified but patient declined to address: N/A DOCUMENTED BY: KHARI Elmore PATIENT NAME: Macho Sanches DATE: January 23, 2023 TIME: 2:09 PM [facility] 01-23-2023 Note HNO ID: [id number] Author: KHARI Elmore Service: Behavioral Health IOP (Intensive Outpatient Program) Author Type: Therapist Type: Plan of Care Filed: 01/23/2023 2:09 PM Note Text: IOP TEAM NOTE IOP TEAM MEETING DATE: 01/23/2023 RECENT ASSESSMENTS/TREATMENT PLAN REVIEWS: [facility]. SUICIDE RISK AND MITIGATION PLAN Low to moderate risk. He presents with a history of NSSI and SI. He reported last NSSI being around 8 months ago and that his SI is fleeting, without plan or intent. WEEKLY REVIEW OF CLIENT PROGRESS: Patient has completed his first day of VIOP. He appeared overall open to the process and engaged. He had a difficult time answering certain questions and presenting insight on his current emotions and needs. He appeared to struggle with concrete thinking. He shared he feels his concentration and focus levels are a big struggle and he feels a stimulant would be beneficial. This therapist discussed with the team and will continue to reiterate need for the patient to manage depressive and anxious symptoms before any conversations of a possible stimulant med being added (as well as discussed with Dr. West in his initial meeting). He presented with a distressing affect when meeting individually and appeared to be struggling with emotional distress which presented as discomfort and restraint non-verbally. He has completed his treatment plan with this therapist and is working on safety plan on his own. DISCHARGE PLANNING/RECOMMENDATIONS: Patient is set for a tentative discharge date of 03/02/23. Patient will be provided with referrals for psychiatry and individual therapy to be scheduled for after IOP, specifically closer to his area ([place]). This consensus plan was developed by IOP treatment team which met via teams on 01/23/2023. Team Members Participation in this Plan of Care: Attending: Dr. West Therapists: KHARI Elmore Nurse: Iram Gold RN DOCUMENTED BY: KHARI Elmore PATIENT NAME: Macho Sanches DATE: January 23, 2023 TIME: 1:57 PM [facility] 01-23-2023 History of Presen t illness Narrative Images from the original note were not included. BEHAVIORAL HEALTH IOP (INTENSIVE OUTPATIENT PROGRAM) DAILY PROGRESS NOTE VIOP - Patient consented to VIOP through Zoom for [facility]. SERVICE DATE: January 23, 2023 SERVICE TIME: 9:00 AM INTERVAL PROGRESS: First day PATIENT'S PROGRESS: Attentive & Involved BEHAVIOR: Appearance: Fair grooming and hygiene Attitude: Cooperative, Guarded, and Withdrawn Affect: Flat, restrained, discomfort, irritable at times Mood: Empty, numb, unfocused, and scattered Thought Process: [place], Perseverative, Goal-directed, and Preoccupied Speech: Quiet and Slow Eye Contact: Fair Describe Change Noted Throughout the Day: Consistent GROUP THERAPY: Illness Management Group Start Time: 9:00am End Time: 10:00am Total Time: 60 minutes Number of Therapists: 1 Number of Patients: 6 Problem(s) Number Addressed: 1 Intervention: Active Listening, Clarified, Challenged, Encouraged, Engaged, Explored, Gave Feedback, Observed, Redirected, and Supported Explain: Patients shared a feeling word and two positive traits. They discussed their weekend, skills used and concerns. Response: Patient reported feeling empty and numb. He stated his positive traits are patient and kind. He shared his weekend activities and skills used. He stated he cooked breakfast for his dad yesterday. He shared he really enjoys cooking, but hasn't been doing it for a while. He reported he also worked on getting to bed at a good time to get up for group. Coping Strategies Group Start Time: 10:10am End Time: 11:00am Total Time: 50 minutes Number of Therapists: 1 Number of Patients: 6 Problem(s) Number Addressed: 1 Intervention: Active Listening, Clarified, Challenged, Encouraged, Engaged, Explored, Gave Feedback, Observed, Redirected, and Supported Explain: Patients continued education into the cognitive distortion examples using given handouts and peer discussion. Response: Patient was overall quiet, though he appeared observant as evidenced by non-verbal cues. He asked relevant questions. Process and Emotion Management Group Start Time: 11:10am End Time: 12:00pm Total Time: 50 minutes Number of Therapists: 1 Number of Patients: 7 Problem(s) Number Addressed: 1 Intervention: Active Listening, Clarified, Challenged, Encouraged, Engaged, Explored, Gave Feedback, Observed, Redirected, and Supported Explain: Patients worked individually on their thought records to challenge irrational thinking. Group members shared questions and examples during the discussion. They shared their feeling word and takeaway from today at group end. Response: Patient shared his example briefly with the thought record. He shared he worked on reframing control fallacy thinking, specifically with a situation with his parents. Patient reported choppy , scattered, and unfocused. He stated his takeaway from today I like being able to be given a process with the skill today. PLAN: Continue group treatment as stated in Treatment Plan. Continue to gain insights into problems. Continue to share feelings & thoughts in group. Monitor thinking/complete thought sheets. Incorporate relaxation/coping strategies into daily routine. SOBRIETY (If applicable): N/A Patient Data Generalized Anxiety Disorder Scale (RICHARD-7) RICHARD - 7 SCORES 01/18/2023 01/19/2023 01/23/2023 RICHARD-7 Score 13 12 10 (0-4) minimal anxiety, (5-9) mild anxiety, (10-14) moderate anxiety, (15-21) severe anxiety IOP Daily Questionnaire IOP Daily 01/23/2023 Today, is your belief in your ability to use your Safety Plan in a crisis at 90%? Yes Today, have you wished you were or wished you could go to sleep and not wake up? No Today, have you actually had any thoughts of killing yourself? No On a scale of 1 to 10 how would you rate your mood now? 6 Patient Health Questionnaire (PHQ-9) PHQ-9 01/18/2023 01/19/2023 01/23/2023 Score 21 22 19 (0-4) minimal depression, (5-9) mild depression, (10-14) moderate depression, (15-19) moderately severe depression, (20-27) severe [place]-SUICIDE SEVERITY RATING SCALE Screen Version - Recent Past month Ask questions that are bolded and underlined. YES/NO Ask Questions 1 and 2 1) Have you wished you were or wished you could go to sleep and not wake up? Yes 2) Have you actually had any thoughts of killing yourself? No If YES to 2, ask questions 3, 4, 5, and 6. If NO to 2, go directly to question 6. 3) Have you been thinking about how you might do this? E.g. I thought about taking an overdose but I never made a specific plan as to when where or how I would actually do it .and I would never go through with it. 4) Have you had these thoughts and had some intention of acting on them? As opposed to I have the thoughts but I definitely will not do anything about them. 5) Have you started to work out or worked out the details of how to kill yourself? Do you intend to carry out this plan? 6) Have you ever done anything, started to do anything, or prepared to do anything to end your life? Examples: Collected pills, obtained a gun, gave away valuables, wrote a will or suicide note, took out pills but didn't swallow any, held a gun but changed your mind or it was grabbed from your hand, went to the roof but didn't jump; or actually took pills, tried to shoot yourself, cut yourself, tried to hang yourself, etc. If YES, ask: Was this within the past three months? YES/NO No Low Risk Moderate Risk High Risk Patient reported he experiences fleeting SI. He reported he has no current plan, means, or intent. He reported he has no history of acting on SI. He reported he has a history of NSSI (burning and cutting), however he has not acted on these thoughts in about 8 months. SIGNATURE: KHARI Elmore PATIENT NAME: Macho Sanches DATE: January 23, 2023 TIME: 8:14 AM PAGER/CONTACT #: [phone] documented in this encounter [facility] 01-23-2023 Miscellaneous Notes IOP TEAM NOTE IOP TEAM MEETING DATE: 01/23/2023 RECENT ASSESSMENTS/TREATMENT PLAN REVIEWS: Per KHARI Haines, assessment. SUICIDE RISK AND MITIGATION PLAN Low to moderate risk. He presents with a history of NSSI and SI. He reported last NSSI being around 8 months ago and that his SI is fleeting, without plan or intent. WEEKLY REVIEW OF CLIENT PROGRESS: Patient has completed his first day of VIOP. He appeared overall open to the process and engaged. He had a difficult time answering certain questions and presenting insight on his current emotions and needs. He appeared to struggle with concrete thinking. He shared he feels his concentration and focus levels are a big struggle and he feels a stimulant would be beneficial. This therapist discussed with the team and will continue to reiterate need for the patient to manage depressive and anxious symptoms before any conversations of a possible stimulant med being added (as well as discussed with Dr. West in his initial meeting). He presented with a distressing affect when meeting individually and appeared to be struggling with emotional distress which presented as discomfort and restraint non-verbally. He has completed his treatment plan with this therapist and is working on safety plan on his own. DISCHARGE PLANNING/RECOMMENDATIONS: Patient is set for a tentative discharge date of 03/02/23. Patient will be provided with referrals for psychiatry and individual therapy to be scheduled for after IOP, specifically closer to his area ([place]). This consensus plan was developed by [facility] treatment team which met via teams on 01/23/2023. Team Members Participation in this Plan of Care: Attending: Dr. West Therapists: KHARI Elmore Nurse: Iram Gold RN DOCUMENTED BY: KHARI Elmore PATIENT NAME: Macho Sanches DATE: January 23, 2023 TIME: 1:57 PM documented in this encounter [facility] 01-19-2023 Note HNO ID: [id number] Author: Luis Antonio West MD Service: ? Author Type: Physician Type: Progress Notes Filed: 01/21/2023 8:05 PM Note Text: MOOD DISORDERS IOP (GROUP 3) INITIAL PSYCHIATRIC ASSESSMENT Visit completed via: [employer] I have communicated my name and active licensure. The patient's identity and physical location were verified at the time of this visit. Either the patient or their legal community engagement representative has been informed of the risks and benefits of -- and alternatives to -- treatment through a remote evaluation and consents to proceed with the evaluation remotely. Patient was seen for an initial evaluation. All information is from Patient report except when noted. This evaluation is NOT intended for forensic, disability or child custody purposes. AGE: [age] year old RACE: White MARITAL STATUS: Single (never ) OCCUPATION: Unemployed, not seeking work REFERRAL SOURCE: Iram Blair CNP CHIEF COMPLAINT: establish care for MDIOP HPI: In May going into June he was having a really bad reaction to something that happened. Was trying to get back into getting care for mental health in the past few months. Has been diagnosed with ADHD in adulthood but finds depression and anxiety most impairing now (depression more than anxiety). Would like to address ADHD again but is open to maximizing and improving management of depression and anxiety before discussing ADHD management any further to determine if issues with concentration remain after depression/anxiety symptoms are better controlled. 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 Is upset about the well visit that was called recently during his visit with Iram Blair CNP. Advised of escalation in IOP if patient does not communicate with team ahead of time and does not show to group including contacting patient and emergency contact before ultimately contacting police for well check. Expressed understanding of process and expressed appreciation for communication on this process. Will be out one day in February when he has to miss IOP to go to [place] and help a friend move but will communicate with team ahead of time. Sleep: sleep has always been chaotic and inconsistent . Tends to sleep 3-4 hours at a time and then will sleep up to 14 hours at a time. Progresses over time from one to the other Interest: spends time with people only, playing video games ( anything and everything ) and anything to do with stories Guilt: none Energy: low Concentration: awful , if he is able to play for 45 minutes to an hour it is a lot. Both low focus and interest Appetite: poor Psychomotor Activity: psychomotor activity was WNL. Suicide: None today, over this weekend had some not so healthy thoughts resulting from anxiety about his appointment with Iram Blair. [place] really anxious and really sad and very nervous . Peak anxiety was intolerable and he started having not so healthy thoughts . No development of suicidal plan or intent Anxiety: moderate Maria Victoria: Denies any symptoms of maria victoria PTSD: history of flashbacks and nightmares, none recently Self Mutilation: last self harm was May 2022, usually comes after great distress Information below in italics obtained from assessment completed by Ish Varghese [facility] on 01/18/23 - discussed and verified with patient Chief Complaint: I've had a history of depression since high school. History of Presenting Complaint: Macho is being referred to the IOP by Iram Blair [employer] whom he recently started seeing. He starts out by saying that he is not suicidal nor has he ever made any suicide attempts. He believes he was misunderstood at his last appointment at which time a wellness check was initiated and the police responded. He says he went to [facility] and was evaluated and discharged home. Macho denies having suicidal thoughts but says he has thoughts of not existing. He has learned to hold ice when he feels upset and this has helped him. He says his parents are the main protective factor. He reports symptoms of depression including no motivation, feeling empty, loss of interest, poor concentration, and no energy. His sleep is all over -he has difficulty falling asleep and waking early. His appetite has increased, and he now weighs 280 lbs. He states he was diagnosed with ADHD in 2018. He describes symptoms of anxiety as primarily freezing. Stressors are having to move back in with his parents at the end of October. He says his health is declining-he has problems with his right leg, which he believes is from playing soccer in high school. He has had PT but it continues to be a problem. He has difficulty wal (more content not included)... [facility] 01-19-2023 History of Presen t illness Narrative Images from the original note were not included. MOOD DISORDERS IOP (GROUP 3) INITIAL PSYCHIATRIC ASSESSMENT Visit completed via: [employer] I have communicated my name and active licensure. The patient's identity and physical location were verified at the time of this visit. Either the patient or their legal community engagement representative has been informed of the risks and benefits of -- and alternatives to -- treatment through a remote evaluation and consents to proceed with the evaluation remotely. Patient was seen for an initial evaluation. All information is from Patient report except when noted. This evaluation is NOT intended for forensic, disability or child custody purposes. AGE: [age] year old RACE: White MARITAL STATUS: Single (never ) OCCUPATION: Unemployed, not seeking work REFERRAL SOURCE: Iram Blair CNP CHIEF COMPLAINT: establish care for MDIOP HPI: In May going into June he was having a really bad reaction to something that happened. Was trying to get back into getting care for mental health in the past few months. Has been diagnosed with ADHD in adulthood but finds depression and anxiety most impairing now (depression more than anxiety). Would like to address ADHD again but is open to maximizing and improving management of depression and anxiety before discussing ADHD management any further to determine if issues with concentration remain after depression/anxiety symptoms are better controlled. 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 Is upset about the well visit that was called recently during his visit with Iram Blair CNP. Advised of escalation in IOP if patient does not communicate with team ahead of time and does not show to group including contacting patient and emergency contact before ultimately contacting police for well check. Expressed understanding of process and expressed appreciation for communication on this process. Will be out one day in February when he has to miss IOP to go to [place] and help a friend move but will communicate with team ahead of time. Sleep: sleep has always been chaotic and inconsistent . Tends to sleep 3-4 hours at a time and then will sleep up to 14 hours at a time. Progresses over time from one to the other Interest: spends time with people only, playing video games ( anything and everything ) and anything to do with stories Guilt: none Energy: low Concentration: awful , if he is able to play for 45 minutes to an hour it is a lot. Both low focus and interest Appetite: poor Psychomotor Activity: psychomotor activity was WNL. Suicide: None today, over this weekend had some not so healthy thoughts resulting from anxiety about his appointment with Iram Blair. [place] really anxious and really sad and very nervous . Peak anxiety was intolerable and he started having not so healthy thoughts . No development of suicidal plan or intent Anxiety: moderate Maria Victoria: Denies any symptoms of maria victoria PTSD: history of flashbacks and nightmares, none recently Self Mutilation: last self harm was May 2022, usually comes after great distress Information below in italics obtained from assessment completed by Ish Varghese [facility] on 01/18/23 - discussed and verified with patient Chief Complaint: I've had a history of depression since high school. History of Presenting Complaint: Macho is being referred to the [facility] by Iram Blair [employer] whom he recently started seeing. He starts out by saying that he is not suicidal nor has he ever made any suicide attempts. He believes he was misunderstood at his last appointment at which time a wellness check was initiated and the police responded. He says he went to [facility] and was evaluated and discharged home. Macho denies having suicidal thoughts but says he has thoughts of not existing. He has learned to hold ice when he feels upset and this has helped him. He says his parents are the main protective factor. He reports symptoms of depression including no motivation, feeling empty, loss of interest, poor concentration, and no energy. His sleep is all over -he has difficulty falling asleep and waking early. His appetite has increased, and he now weighs 280 lbs. He states he was diagnosed with ADHD in 2018. He describes symptoms of anxiety as primarily freezing. Stressors are having to move back in with his parents at the end of October. He says his health is declining-he has problems with his right leg, which he believes is from playing soccer in high school. He has had PT but it continues to be a problem. He has difficulty walking. He feels his mental health has declined. He was in a relationship of 10 years that his girlfriend broke off in 2018, and tings have been worse since then. He moved back home at that time also, but went back to [place] to try to work on the relationship, but broke it off in October 2021. 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 He says he has had nightmares about this. When asked to rate his level of depression today, he says it's hard to give a number because he feels numb. Macho appeared soft spoken and deferential. Most of his responses were yes sir, no sir. Strengths: Patient, good listener. Interests are stories. Patient Goals for Treatment: I'm open to listen; whatever is given. Review of Psychiatric Signs and Symptoms: Depressed mood, anxiety, loss of interest, low energy, poor concentration. KP Data PHQ-9 01/03/2023 01/12/2023 01/18/2023 Score 27 15 21 (0-4) minimal depression, (5-9) mild depression, (10-14) moderate depression, (15-19) moderately severe depression, (20-27) severe depression RICHARD - 7 SCORES 01/03/2023 01/12/2023 01/18/2023 RICHARD-7 Score 18 11 13 (0-4) minimal anxiety, (5-9) mild anxiety, (10-14) moderate anxiety, (15-21) severe anxiety PAST MEDICAL HISTORY Diagnosis Date Asthma seasonal Environmental allergies PAST SURGICAL HISTORY Procedure Laterality Date PAST SURGICAL HISTORY OF left testicle torsion VITAL SIGNS: There were no vitals filed for this visit. ROS: GENERAL: Negative for significant weight loss and fever. HEENT: Negative for changes in hearing or vision. RESPIRATORY: Negative for cough and shortness of breath. CARDIOVASCULAR: Negative for chest pain and palpitations. GI: Negative for nausea, vomiting, constipation, diarrhea, melena. : Negative for dysuria and incontinence. MUSCULOSKELETAL: Reports chronic pain in right knee, right hip, and right lower back (occasionally bilaterally) - typically treats with marijuana SKIN: Negative for rash and itching. HEMATOLOGY/LYMPHOLOGY Negative for bruising easily and swollen nodes. ENDOCRINE: Negative for goiter, polyuria and polydipsia. NEURO: Negative for headaches, syncope, and seizures. PSYCH: See HPI SINGLE ORGAN PSYCH EXAM: Constitutional: Casually dressed, fairly groomed Musculoskeletal: Gait: not tested, virtual visit Pain: okay (declined to provide rating out of 10) reports nerve damage in his right knee and his knee will just give out sometimes - appointment for assessment with orthopedics in February PSYCHIATRIC HISTORY: Prior Diagnosis: ADHD, MDD, Stimulant Abuse, Marijuana Abuse Current Provider: Iram Blair CNP (established care 01/03/23) Therapist: scheduled to see Palma Ambrosio in March Current Kiln Remover: None Last Hospitalization: Denies hospitalization, at the ED after a well check ECT: None Suicide Attempts: None Previous Discontinued Psychiatric Med Trials: Abilify, Adderall, Zoloft, Seroquel, Focalin CURRENT MEDICATIONS: Wellbutrin XL 150 mg daily Atarax 25 mg utilizing once daily on average - doesn't really work well PDMP website checked and validated. All prescriptions have been APPROPRIATELY filled. No suspicious activity was identified. 01/19/2023 by Luis Antonio West MD SUBSTANCE USE HISTORY: Nicotine: None Caffeine: coffee (4 cups per day) Alcohol: No history of use or dependence Marijuana: has been using the past 3 days but not before that, plans not to use as all during IOP Cocaine: No history of use or dependence Opiods: No history of use or dependence SPIRITUALITY: None PFSH: Macho grew up in [place]. He has one younger sister. He says he was lonely in elementary school, and bullied in middle and high school. He says he was cared for at home, and was closer to his mom, but didn't go any further. His mom is a professor at the [employer]. His dad is also employed working with various schools in the [place] area. He doesn't have contact with his sister. He says she was mean as a kid. Macho hs been living in [place] at various times over the years. He moved back in with his parents in October 2022. The patient lives with mother and father - they don't get along well ADLs/IADLs: independent Education: [employer] [place] Employment: Unemployed, not seeking work. Financial concerns: Yes, no income Marital Status: Single (never ) Children: none Current Supports: Include friends. Legal Hx: DUI 2009 Service: No ABUSE HISTORY (physical, mental, verbal, sexual): From Childhood: Bullied in middle and high school Response / Significance to Patient: Affected his self esteem. From Adulthood: None Response / Significance to Patient: NA Did you experience trauma?: Yes TRAUMA HISTORY (physical, mental, verbal, sexual): From Childhood: Bullied in school Response / Significance to Patient: Depression, low self esteem. 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 FAMILY PSYCHIATRIC HISTORY: Paternal family (dad, uncle, and grandmother)-numerous family members with depression, anxiety, alcohol use disorder Denies additional family history MENTAL STATUS EXAMINATION: Appearance: Casually dressed and fairly groomed Behavior: passive, withdrawn Social relatedness: Withdrawn and Melancholic Speech/Language: Soft , Underproductive, and Slow Mood: depressed Affect: mood congruent, restricted Orientation: Person, Place, Time and Situation Associations: Intact and linear Hallucinations: None Delusions: None Suicidal Ideation: No suicidal ideation, intent or plan. Homicidal Ideation: No homicidal ideation, intent or plan. Insight: Fair Judgment: Fair Most Recent Labs: TSH (uU/mL) Date Value 09/12/2012 3.100 No results found for: HBA1C Cholesterol, Total (mg/dL) Date Value 09/12/2012 187 HDL Cholesterol (mg/dL) Date Value 09/12/2012 51 LDL Cholesterol (mg/dL) Date Value 09/12/2012 117 Triglyceride (mg/dL) Date Value 09/12/2012 95 Sodium Date Value Ref Range Status 09/12/2012 140 135 - 146 mmol/L Final Creatinine Date Value Ref Range Status 09/12/2012 0.92 0.70 - 1.40 mg/dL Final No results found for: VITD25 AST Date Value Ref Range Status 09/12/2012 22 7 - 40 U/L Final ALT Date Value Ref Range Status 09/12/2012 26 5 - 50 U/L Final IMPRESSION: This is a 37 year old male who presents to establish care for MDIOP. Patient reports a history of worsening depression > anxiety over the past several months in the setting of multiple psychosocial stressor including moving back to [place] from [place] and losing his job. 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 Interested in improved management of these symptoms and has been tolerating Wellbutrin thus far without adverse effects, pleased with the small effects he has seen thus far since starting it and is open to further titration. Patient is appropriate for [facility] MDIOP Group 3. Medication management follow-up in 2 weeks as previously scheduled. DIAGNOSIS: PRIMARY: MDD, recurrent, severe without psychotic features SECONDARY: RICHARD, Stimulant Abuse, Marijuana Abuse GAF: 50-41 Serious symptoms or any serious impairment in social, occupational or school functioning. PLAN: Medications: Increase Wellbutrin XL 300 mg daily R/B/A of current course of recommended therapy discussed. Questions answered. Behavioral/Psychotherapy: Appropriate for MDIOP Group 3 Safety Precautions: Discussed calling 911 or presenting to Emergency Department should patient feel that they are a risk to themselves or others Labs: No additional labs indicated at this time Obtained Collateral From: [facility] DISPOSITION: Mood Disorders IOP, medication follow-up 2 weeks I spent a total of 60 minutes on the date of the service which included preparing to see the patient, [id number] patient care, completing clinical documentation, obtaining and/or reviewing separately obtained history, performing a medically appropriate examination, counseling and educating the patient/family/caregiver, ordering medications, tests, or procedures, and communicating with other HCPs (not separately reported). SIGNATURE: Luis Antonio West MD PATIENT NAME: Macho Sanches DATE: January 19, 2023 TIME: 11:45 AM PAGER/CONTACT #: documented in this encounter [facility] 01-18-2023 Note HNO ID: [id number] Author: Luz Maria Varghese [facility] Service: ? Author Type: Net Web Developer Type: Progress Notes Filed: 01/18/2023 12:21 PM Note Text: DIAGNOSTIC ASSESSMENT FOR IOP (INTENSIVE OUTPATIENT PROGRAM) SERVICE DATE: 01/18/2023 SERVICE TIME: 1234-9276 REFERRED BY: Iram Blair AREA SUPERVISOR Virtual Zoom visit Virtual IOP Emergency contact: Belkis Asher-[facility] [place]: [phone] Email: [email or web address]. I have communicated my name and active licensure. The patient's identity and physical location were verified at the time of this visit. Either the patient or their legal community engagement representative has been informed of the risks and benefits of -- and alternatives to -- treatment through a remote evaluation and consents to proceed with the evaluation remotely. Introductory letter was discussed with the patient. Patient was informed that as part of being accepted into the IOP, they will meet with the attending psychiatrist for an assessment, and if indicated, a follow up appointment. Upon discharge from the IOP, the patient will return to their current provider; if they do not have one, IOP staff will help arrange that. The IOP attending psychiatrist will not follow up with patients after they have completed the program. Patient agrees to reside in [facility] to participate in virtual [facility]. Identifying Information: Macho Sanches is a 37 year old male who is accompanied by Self Chief Complaint: I've had a history of depression since high school. History of Presenting Complaint: Macho is being referred to the IOP by Iram Blair AREA SUPERVISOR whom he recently started seeing. He starts out by saying that he is not suicidal nor has he ever made any suicide attempts. He believes he was misunderstood at his last appointment at which time a wellness check was initiated and the police responded. He says he went to [facility] and was evaluated and discharged home. Macho denies having suicidal thoughts but says he has thoughts of not existing. He has learned to hold ice when he feels upset and this has helped him. He says his parents are the main protective factor. He reports symptoms of depression including no motivation, feeling empty, loss of interest, poor concentration, and no energy. His sleep is all over -he has difficulty falling asleep and waking early. His appetite has increased, and he now weighs 280 lbs. He states he was diagnosed with ADHD in 2018. He describes symptoms of anxiety as primarily freezing. Stressors are having to move back in with his parents at the end of October. He says his health is declining-he has problems with his right leg, which he believes is from playing soccer in high school. He has had PT but it continues to be a problem. He has difficulty walking. He feels his mental health has declined. He was in a relationship of 10 years that his girlfriend broke off in 2018, and tings have been worse since then. He moved back home at that time also, but went back to [place] to try to work on the relationship, but broke it off in October 2021. 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 He says he has had nightmares about this. When asked to rate his level of depression today, he says it's hard to give a number because he feels numb. Macho appeared soft spoken and deferential. Most of his responses were yes sir, no sir. Strengths: Patient, good listener. Interests are stories. Patient Goals for Treatment: I'm open to listen; whatever is given. Review of Psychiatric Signs and Symptoms: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 identity and physical location were verified at the time of this visit. Either the patient or their legal community engagement representative has been informed of the risks and benefits of -- and alternatives to -- treatment through a remote evaluation and consents to proceed with the evaluation remotely. AGE: [age] year old RACE: White MARITAL STATUS: Single (never ) REFERRAL SOURCE: PCP CHIEF COMPLAINT: Depression and anxiety. HPI: Noted hx: Bipolar 1, MDD, RICHARD, ADHD Patient reports I have been dealing with depression and anxiety my entire life . Patient reports talk therapy for years and medications for the past 8 years. 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 Patient reports he was successful, and after 1 year of teaching, he started using Adderall to work and it spiral out of control. Reports last provider and therapist from [place] 8 months ago Patient reports I was overusing Adderall, not sleeping, not eating Patient reports this led to deterioration of his physical and mental health. Most recent psychiatrist and psychologist was in [place], [place]. Reports there was a lot of mismanagement of meds OCCUPATION: Unemployed, not seeking work Reports not working since 09/2021 Past meds -Effexor XR-reports 300 mg and reports I had to get off this med he reports numerous side effects, this was due to taking at different times each day. Stopped 5 days ago 37.5 mg -Adderall- -Trazodone 50 mg at bedtime as needed -effective -Atarax 25 mg three times a day as needed (takes 3-4 days a week) -Depakote-reported using for 2-3 years with no benefit -Zoloft-didn't like -Strattera-does not remember Patient reports thoughts of and suicidal ideation, denies plan or intent. Safety plan discussed with patient. Sleep: I just lie in bed and don't want to do anything I spend most of my time in bed Interest: no zest for life Guilt: none Energy: low Concentration: poor Appetite: normal Psychomotor Activity: psychomotor activity was WNL. Phobias: no irrational fears Memory: Fair Anxiety: moderate Obsessions: none Compulsions: none Maria Victoria: Denies any symptoms of maria victoria PTSD: The patient denies being expose to or witnessing traumatic events. Self Mutilation: fall 2021-burning, not able to state what occurred to stop this behavior PAST MEDICAL HISTORY Diagnosis Date Asthma seasonal Environmental allergies PAST SURGICAL HISTORY Procedure Laterality Date PAST SURGICAL HISTORY OF left testicle torsion Current Outpatient Medications Medication Sig Dispense Refill fluticasone-salmeterol (ADVAIR DISKUS) 100-50 mcg/dose inhaler 1 inhalation twice daily 1 Each 5 albuterol HFA (PROVENTIL HFA, VENTOLIN HFA) 90 mcg/actuation inhaler Inhale 2 Puffs as instructed every 4 hours as needed. dexmethylphenidate HCl (FOCALIN) 5 mg tablet TAKE ONE (1) TABLET(S) BY MOUTH THREE TIMES A DAY. OTC PRODUCT Medical Marijuana oil venlafaxine ER (EFFEXOR XR) 37.5 mg 24 hr capsule Take 1 capsule by mouth once daily. 30 capsule 11 traZODone (DESYREL) 50 mg tablet Take 50 mg by mouth. hydrOXYzine HCl (ATARAX) 25 mg tablet Take 25 mg by mouth three times daily as needed. No current facility-administered medications for this visit. VITAL SIGNS: There were no vitals filed for this visit. ROS: GENERAL: Negative HEENT: Negative NECK: Negative RESPIRATORY: Positive for shortness of breath after 2 flights of stairs CARDIOVASCULAR: Negative GI: Negative : Negative MUSCULOSKELETAL: Positive for joint pain: right hip and knee and pain SKIN: Negative PSYCH: See HPI HEMATOLOGY/LYMPHOLOGY Negative ENDOCRINE: Negative NEURO: Negative All other systems negative. PSYCHIATRIC HISTORY: Current Kiln Remover: Denies Last Hospitalization: Denies hospitalization. ECT: Denies Previous Discontinued Psychiatric Med Trials: Denies SUBSTANCE USE HISTORY: Nicotine: None Caffeine: Coffee, 2 cups/day Alcohol: Current usage is 2-3 glasses of wine or tequila shots / week Marijuana: Current usage is vape pen and oil daily Cocaine: No history of use or dependence Opiods: No history of use or dependence SPIRITUALITY: nothing PFSH: Macho Sanches is the oldest of 1 siblings. The patient was born and raised in [place], [place]. He completed College. He described his childhood as (more content not included)... [facility] 12-19-2022 Note HNO ID: [id number] Author: Anthony Loera PT Service: ? Author Type: Physical Therapist Type: Progress Notes Filed: 12/19/2022 9:17 AM Note Text: Episode Visit Count: 2 Therapist That Will Accept/Oversee The Plan Of Care: Anthony Loera Start of Care Date: 12/02/22 Onset Date: 12/02/02 (Started with knee pain from soccer injury at 17) Plan of Care Certification Date: 12/02/22 Next Certification Due Date: 01/06/23 Patient Identified by Name and Date of : Yes REHABILITATION AND SPORTS THERAPY PHYSICAL THERAPY TREATMENT NOTE ASSESSMENT: Macho Sanches tolerated the session with no issues. He demonstrated difficulty with feeling tightness in the R hip. The patient will continue to benefit from ongoing skilled physical therapy to progress toward set goals. PLAN FOR NEXT VISIT: PNE and hip mobility exercises SUBJECTIVE: Patient Reason for Visit: Feels the take home info was helpful. The information makes sense. Paying closer attention to what kind of pain he is feeling. Pain: Pain Pain Level: 0 Pain Location: Hip - Right OBJECTIVE MEASURES WITH LEVEL OF FUNCTION: R HS tightness > L HS R posterior capsule tightness and IR is 15 degrees R quad flexibility WNL R and L hip flexor flexibility WNL TREATMENT: Therapeutic Exercise: 1: Seated HS stretch 3 x 30 sec 2: Seated hip posterior capsule stretch 2 x 30 sec Skilled Intervention: Patient was educated in proper exercise technique and purpose for exercises. Correct performance of therapeutic exercises was facilitated with verbal and visual cuing. Self-Nursing Home Management: 1: PNE provided Calming Sensitive Nerves Patient was educated regarding endogenous mechanisms and strategies to increase the brain?s production of chemicals which decrease pain, such as aerobic exercise and improved pain knowledge. The concepts of pacing, graded exposure, ?sore but safe?, and ?hurt does not equal harm? were discussed. Sleep hygiene and diaphragmatic breathing topics introduced to help calm the nervous system and reduce stress. Homework: Patient provided with tools to start exercise log and sleep hygiene log. Skilled Intervention: Activity progression based on professional judgement. Billing Therapeutic Exercise Treatment Minutes: 14 Self-Care/Home Management Treatment Minutes: 20 Total Treatment Time Minutes (timed/untimed): 34 Anthony Loera PT [facility] 12-19-2022 History of Presen t illness Narrative Episode Visit Count: 2 Therapist That Will Accept/Oversee The Plan Of Care: Anthony Loera Start of Care Date: 12/02/22 Onset Date: 12/02/02 (Started with knee pain from soccer injury at 17) Plan of Care Certification Date: 12/02/22 Next Certification Due Date: 01/06/23 Patient Identified by Name and Date of : Yes REHABILITATION AND SPORTS THERAPY PHYSICAL THERAPY TREATMENT NOTE ASSESSMENT: Macho Sanches tolerated the session with no issues. He demonstrated difficulty with feeling tightness in the R hip. The patient will continue to benefit from ongoing skilled physical therapy to progress toward set goals. PLAN FOR NEXT VISIT: PNE and hip mobility exercises SUBJECTIVE: Patient Reason for Visit: Feels the take home info was helpful. The information makes sense. Paying closer attention to what kind of pain he is feeling. Pain: Pain Pain Level: 0 Pain Location: Hip - Right OBJECTIVE MEASURES WITH LEVEL OF FUNCTION: R HS tightness > L HS R posterior capsule tightness and IR is 15 degrees R quad flexibility WNL R and L hip flexor flexibility WNL TREATMENT: Therapeutic Exercise: 1: Seated HS stretch 3 x 30 sec 2: Seated hip posterior capsule stretch 2 x 30 sec Skilled Intervention: Patient was educated in proper exercise technique and purpose for exercises. Correct performance of therapeutic exercises was facilitated with verbal and visual cuing. Self-Nursing Home Management: 1: PNE provided Calming Sensitive Nerves Patient was educated regarding endogenous mechanisms and strategies to increase the brain s production of chemicals which decrease pain, such as aerobic exercise and improved pain knowledge. The concepts of pacing, graded exposure, sore but safe , and hurt does not equal harm were discussed. Sleep hygiene and diaphragmatic breathing topics introduced to help calm the nervous system and reduce stress. Homework: Patient provided with tools to start exercise log and sleep hygiene log. Skilled Intervention: Activity progression based on professional judgement. Billing Therapeutic Exercise Treatment Minutes: 14 Self-Care/Home Management Treatment Minutes: 20 Total Treatment Time Minutes (timed/untimed): 34 Anthony Loera PT documented in this encounter [facility] 12-09-2022 Note HNO ID: [id number] Author: ANALI Cat Service: ? Author Type: Net Web Developer Type: Progress Notes Filed: 12/09/2022 10:44 AM Note Text: GENERAL PSYCHOLOGY Patient was seen for an initial evaluation. All information is from Patient report except when noted. This evaluation is NOT intended for forensic, disability or child custody purposes. Visit Type:The patient e-signed the Informed Consent for Psychological Evaluation AND Care Form, and the behavioral health care insurance benefits, fees for service, emergency procedures, and the limits of confidentiality that may pertain with any given case were discussed with the patient. The patient was given a copy of the consent form on [employer]. The patient consented to a virtual visit and their location was confirmed. I have communicated my name and active licensure. The patient's identity and physical location were verified at the time of this visit. Either the patient or their legal community engagement representative has been informed of the risks and benefits of -- and alternatives to -- treatment through a remote evaluation and consents to proceed with the evaluation remotely. PRESENT: Self AGE: [age] year old RACE: White MARITAL STATUS: Single (never ) CHILDREN: No OCCUPATION: Unemployed, seeking work PAST MEDICAL HISTORY Diagnosis Date Asthma seasonal Environmental allergies PAST SURGICAL HISTORY Procedure Laterality Date PAST SURGICAL HISTORY OF left testicle torsion Current Outpatient Medications Medication Sig fluticasone-salmeterol (ADVAIR DISKUS) 100-50 mcg/dose inhaler 1 inhalation twice daily albuterol HFA (PROVENTIL HFA, VENTOLIN HFA) 90 mcg/actuation inhaler Inhale 2 Puffs as instructed every 4 hours as needed. dexmethylphenidate HCl (FOCALIN) 5 mg tablet TAKE ONE (1) TABLET(S) BY MOUTH THREE TIMES A DAY. OTC PRODUCT Medical Marijuana oil venlafaxine ER (EFFEXOR XR) 37.5 mg 24 hr capsule Take 1 capsule by mouth once daily. traZODone (DESYREL) 50 mg tablet Take 50 mg by mouth. hydrOXYzine HCl (ATARAX) 25 mg tablet Take 25 mg by mouth three times daily as needed. No current facility-administered medications for this visit. ALLERGIES Allergen Reactions Cats Shortness of Breath REFERRAL SOURCE: [facility] Physician - Zee Bryant CNP CHIEF COMPLAINT: I need help with my depression and anxiety. HPI: Patient is a 37 year old male seeking psychiatry and therapy. Patient is experiencing anxiety, depression, stress, sleep issues, appetite issues, low energy, concentration issues, and irritability. Patient denies suicidal or homicidal ideation. Patient does stated he does cut himself on his chest. Patient knows and agrees to call 911 or go the nearest ER if symptoms are overwhelming. Patient stated that his symptoms have been occurring since 2018 and he used to abuse Adderall in order to keep up with his work. 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 Patient is seeking to have his medications reviewed and adjusted. Patient is seeking therapy to process his feelings and work on coping skills. Sleep: difficulty staying asleep, difficulty falling asleep Interest: diminished Guilt: quite a bit Energy: low Concentration: fluctuates Appetite: poor Psychomotor activity: psychomotor activity was WNL. Suicide: None Phobias: heights Memory: Good Anxiety: mild Obsessions: none Compulsions: none Self mutilation: Cutting, Chest PSYCHIATRIC HISTORY: Prior Diagnosis: ADHD, Bipolar Affective Disorder, and Major Depressive Disorder Prior Psychiatrist: Previously followed by Himanshu Weaver in [place] Therapist: Previously followed by Himanshu Weaver in [place] Current Kiln Remover: None Last Hospitalization: None SUICIDE RISK ASSESSMENT: Suicide Attempt(s): Patient denies previous suicide attempts. Risk Factors: History of mental disorder and Feelings of hopelessness Protective Factors: Strong ties to medical/mental heatlh professionals FAMILY PSYCHIATRIC HISTORY: No family psychiatric or substance abuse history SUBSTANCE USE HISTORY: Nicotine: None Caffeine: Coffee, 3 cups/day Alcohol: No history of use or dependence Marijuana: No history of use or dependence Cocaine: No history of use or dependence Opiods: No history of use or dependence PFSH: Macho Sanches is the oldest of 1 siblings. The patient was born and raised in [place], [place]. He completed High school, College. He described his childhood as confusing. The patient lives with a family member - father and mother.. Service: None Legal: Charged DUI in 2009 Spirituality/Buddhism: Non-Hoahaoism PATIENT DATA: Generalized Anxiety Disorder Scale (RICHARD-7) RICHARD - 7 SCORES 12/09/2022 RICHARD-7 Score 10 (0-4) minimal anxiety, (5-9) mild anxiety, (10-14) moderate anxiety, (15-21) severe anxiety Patient Health Questionnaire (PHQ-9) PHQ-9 12/09/2022 Score 21 (0-4) (more content not included)... [facility] 12-09-2022 History of Presen t illness Narrative GENERAL PSYCHOLOGY Patient was seen for an initial evaluation. All information is from Patient report except when noted. This evaluation is NOT intended for forensic, disability or child custody purposes. Visit Type:The patient e-signed the Informed Consent for Psychological Evaluation & Care Form, and the behavioral health care insurance benefits, fees for service, emergency procedures, and the limits of confidentiality that may pertain with any given case were discussed with the patient. The patient was given a copy of the consent form on Kublaxhart. The patient consented to a virtual visit and their location was confirmed. I have communicated my name and active licensure. The patient's identity and physical location were verified at the time of this visit. Either the patient or their legal community engagement representative has been informed of the risks and benefits of -- and alternatives to -- treatment through a remote evaluation and consents to proceed with the evaluation remotely. PRESENT: Self AGE: [age] year old RACE: White MARITAL STATUS: Single (never ) CHILDREN: No OCCUPATION: Unemployed, seeking work PAST MEDICAL HISTORY Diagnosis Date Asthma seasonal Environmental allergies PAST SURGICAL HISTORY Procedure Laterality Date PAST SURGICAL HISTORY OF left testicle torsion Current Outpatient Medications Medication Sig fluticasone-salmeterol (ADVAIR DISKUS) 100-50 mcg/dose inhaler 1 inhalation twice daily albuterol HFA (PROVENTIL HFA, VENTOLIN HFA) 90 mcg/actuation inhaler Inhale 2 Puffs as instructed every 4 hours as needed. dexmethylphenidate HCl (FOCALIN) 5 mg tablet TAKE ONE (1) TABLET(S) BY MOUTH THREE TIMES A DAY. OTC PRODUCT Medical Marijuana oil venlafaxine ER (EFFEXOR XR) 37.5 mg 24 hr capsule Take 1 capsule by mouth once daily. traZODone (DESYREL) 50 mg tablet Take 50 mg by mouth. hydrOXYzine HCl (ATARAX) 25 mg tablet Take 25 mg by mouth three times daily as needed. No current facility-administered medications for this visit. ALLERGIES Allergen Reactions Cats Shortness of Breath REFERRAL SOURCE: [facility] Physician - Zee Bryant CNP CHIEF COMPLAINT: I need help with my depression and anxiety. HPI: Patient is a 37 year old male seeking psychiatry and therapy. Patient is experiencing anxiety, depression, stress, sleep issues, appetite issues, low energy, concentration issues, and irritability. Patient denies suicidal or homicidal ideation. Patient does stated he does cut himself on his chest. Patient knows and agrees to call 911 or go the nearest ER if symptoms are overwhelming. Patient stated that his symptoms have been occurring since 2018 and he used to abuse Adderall in order to keep up with his work. 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 Patient is seeking to have his medications reviewed and adjusted. Patient is seeking therapy to process his feelings and work on coping skills. Sleep: difficulty staying asleep, difficulty falling asleep Interest: diminished Guilt: quite a bit Energy: low Concentration: fluctuates Appetite: poor Psychomotor activity: psychomotor activity was WNL. Suicide: None Phobias: heights Memory: Good Anxiety: mild Obsessions: none Compulsions: none Self mutilation: Cutting, Chest PSYCHIATRIC HISTORY: Prior Diagnosis: ADHD, Bipolar Affective Disorder, and Major Depressive Disorder Prior Psychiatrist: Previously followed by Himanshu Dominguez Therapist: Previously followed by Himanshu Dominguez Current Kiln Remover: None Last Hospitalization: None SUICIDE RISK ASSESSMENT: Suicide Attempt(s): Patient denies previous suicide attempts. Risk Factors: History of mental disorder and Feelings of hopelessness Protective Factors: Strong ties to medical/mental heatlh professionals FAMILY PSYCHIATRIC HISTORY: No family psychiatric or substance abuse history SUBSTANCE USE HISTORY: Nicotine: None Caffeine: Coffee, 3 cups/day Alcohol: No history of use or dependence Marijuana: No history of use or dependence Cocaine: No history of use or dependence Opiods: No history of use or dependence PFSH: Macho Sanches is the oldest of 1 siblings. The patient was born and raised in [place], [place]. He completed High school, College. He described his childhood as confusing. The patient lives with a family member - father and mother.. Service: None Legal: Charged DUI in 2009 Spirituality/Buddhism: Non-Hoahaoism PATIENT DATA: Generalized Anxiety Disorder Scale (RICHARD-7) RICHARD - 7 SCORES 12/09/2022 RICHARD-7 Score 10 (0-4) minimal anxiety, (5-9) mild anxiety, (10-14) moderate anxiety, (15-21) severe anxiety Patient Health Questionnaire (PHQ-9) PHQ-9 12/09/2022 Score 21 (0-4) minimal depression, (5-9) mild depression, (10-14) moderate depression, (15-19) moderately severe depression, (20-27) severe depression Mental Status Exam: General/Sensorium: Interactive - Appearance: Appears well groomed and stated age - Eye Contact: Appropriate eye contact - Demeanor: Appropriately interactive - Motor Activity: Normal - Speech: Soft - Mood: Reports feeling depressed and Anxious - Affect: Congruent with mood and Flat - Thought Process: Linear, logical, and goal-directed - Associations: Normal - Thought Content: Appropriate with no SI/HI/AVH - Perceptions: The patient does not appear internally stimulated - Cognition: Appears intact in regards to memory, attention/concentration, fund of knowledge and language skills - Insight: Good - Judgment: Good - SUMMARY IMPRESSION: Patient was engaged throughout assessment, appeared to be a good historian, and appears to have good insight. During the assessment patient had depressed affect, but was able to discuss his symptoms and stresses . Patient recognizes the need for ongoing care and plans to engage in psychiatry and therapy through [facility] Patient appears generally motivated to get better. DIAGNOSIS: PRIMARY: 1: Mood Disorder Major Depressive Disorder, Recurrent, Severe Without Psychotic Symptoms Other: None PROVISIONAL: None GOALS/OBJECTIVES/INTERVENTIONS: 1. Referral information for [facility] and [facility] were provided. Patient was encouraged to consider options and, if comfortable, set up initial appointment. 2. Should a mental health emergency arise, patient was instructed to contact 911 or go to the local ER. Patient agreed to this. Contact information for was provided and patient was encouraged to call office if further questions arise. JONI Cat documented in this encounter [facility] 12-09-2022 Miscellaneous Notes Pt called in had video at 9 am was not able to get in zoom. Would like a phone call instead. [phone]. documented in this encounter [facility] 12-02-2022 Miscellaneous Notes [facility] calling, they need a new script for the Advair Diskus. They original Rx was sent for as needed. They needs specific directions for this medication. Please clarify and resend order. documented in this encounter [facility] 12-02-2022 Note HNO ID: [id number] Author: Anthony Loera PT Service: ? Author Type: Physical Therapist Type: Progress Notes Filed: 12/02/2022 11:05 AM Note Text: Episode Visit Count: 1 Therapist That Will Accept/Oversee The Plan Of Care: Anthony Loera Start of Care Date: 12/02/22 Onset Date: 12/02/02 (Started with knee pain from soccer injury at 17) Plan of Care Certification Date: 12/02/22 Next Certification Due Date: 01/06/23 Patient Identified by Name and Date of : Yes REHABILITATION AND SPORTS THERAPY PHYSICAL THERAPY EVALUATION PLAN OF CARE: Assessment: Macho Sanches presents with chief complaint of lower back and bilateral leg pain that interferes with walking, standing . He presents with impairments in ADL's, overall function, stress management, and symptom management. Patient did not complete the PROMIS? (Patient Reported Outcome Measures Information System). Prognosis for therapy is Good due to: good support system/ coping skills, current objective clinical presentation . Pt demonstrates pain that is non anatomical and pain that is not related to one position or activity. Pt may benefit from a graded exercise approach with PNE. He will benefit from skilled therapy services to meet the goals established for this plan of care as noted below. Goals for Episode of Care: created on 12/02/22 through 01/27/23 Pt will be able to stand for prolonged periods of time without increased symptoms in 8 weeks or less [place] in home exercise program. Perform walking, cleaning, and assisting parents with chores without pain. Patient Goals: Be able to help his parents around the house Planned Interventions, Frequency, and Duration: Current Frequency: 1x/week Duration: 4 weeks Total Number of Visits Planned: 4 Planned Treatment Interventions: Therapeutic exercise (25537), Neuromuscular re-education (31865), Manual therapy (32515), Self-[facility] management (51085), Patient/Family/Caregiver Education, Chronic Pain Rehabilitation Program PLAN FOR NEXT VISIT: PNE starting with Sensitive Nerves section Patient demonstrates good understanding of plan of care and treatment. The above goals and plan of care were discussed and agreed upon by patient/family. SUBJECTIVE: Macho Sanches is a 37 year old male seen today for R knee and hip pain. But feels th back and leg pain bilat occurs. Can press into a spot in the hip and he feels things into the lower leg. Pt can do nothing and it gets worse. Numbness in the lateral R knee. Laying on a lacrosse ball can make it better. Has a referral for behavioral health. Has had migraines in the past. No GI issues. Always stressed and does not know a time where he has not been stressed. Patient Goals: Be able to help his parents around the house Functional Limitations: walking, standing Prior Level of Function: Independent without limitations Intake Information: Prescription present Previous Treatment: Pain meds Pain: Pain Pain Level: 1 Pain Location: Low Back/Lumbar Spine- Midline, Leg - Right Description: Sharp, Burning, Dull PROMIS Scales T-scores: mean of general population = 50. 5 points is clinically meaningfully difference Percentiles provide an indication of how the patient's score ranks in relation to the general population. Higher percentile rankings indicate better function/quality of life. 50th percentile is the average of the general population and indicates half of respondents had a worse score. OBJECTIVE MEASURES WITH LEVEL OF FUNCTION: Lumbar Spine AROM Lumbar Flexion: Normal Lumbar Extension: Normal Lumbar R Side-Bend: Normal (Pain in the L hip) Lumbar L Side-Bend: Normal Lumbar R Rotation: Normal (R hip pain) Lumbar L Rotation: Normal LE AROM Tested?: Yes LE AROM R LE AROM: WNL L LE AROM: WNL Lumbar Spine Evaluated?: Yes LE PROM R LE PROM: WNL L LE PROM : WNL LE Flexibility Flexibility: Hip Internal Rotation Flexibility, Hip External Rotation Flexibility, Hamstring Flexibility R Hamstring Flexibility: Min tightness L Hamstring Flexibility: Min tightness R Hip Internal Rotation Flexibility: WNL L Hip Internal Rotation Flexibility: WNL R Hip External Rotation Flexibility: WNL L Hip External Rotation Flexibility: WNL Gait Gait Observation: WNL Education: Education Learning Preferences: Demonstration, Explanation, Performance, Printed Materials Barriers: None Learning/educational needs: Home exercise program, Health promotion, Plan of Care Education Provided: Yes, see treatment interventions for education provided Education Provided To: Patient Education Mode/Type: Demonstration, Explanation/Discussion, Literature/Printed Materials, Performance Response to Education/Teach Back: States/Identifies, Return Demonstration TREATMENT: PT Treatment Interventions: Self-Nursing Home Management Evaluation Self-Nursing Home Management: 1: Discussed therapy goals, exam findings, pu (more content not included)... [facility] 12-02-2022 Miscellaneous Notes BEHAVIORAL HEALTH SOCIAL WORK CONSULT NOTE Service Date: December 02, 2022 Patient was identified by name and Patient: Macho Sanches [address] [facility] [id number] (home) [phone] (cell) PCP: All Beckett MD [id number] [facility] [id number] Patient identified for [facility] from: PCP Reason for referral: Resources Behavioral Health Resources: Psychiatry med management, Psychology - talk therapy [facility] encounter type: Telephone Encounter, [employer] Message Assessment: Referral made to engage patient experiencing Bipolar and ADHD, and to provide behavioral health services. [facility] reviewed patient's chart and insurance to identify resources. Patient stated they are experiencing stress. Patient denies suicidal or homicidal ideation. Patient identified he is seeking psychiatry and therapy. [facility] scheduled a mental health assessment for 12/09/22, and informed patient if he did not show there would be a no show fee. [facility] will also send information for [facility] through patient's [employer]. Patient was appreciative for the information. Medications: Current Outpatient Medications on File Prior to Visit Medication Sig albuterol HFA (PROVENTIL HFA, VENTOLIN HFA) 90 mcg/actuation inhaler Inhale 2 Puffs as instructed every 4 hours as needed. dexmethylphenidate HCl (FOCALIN) 5 mg tablet TAKE ONE (1) TABLET(S) BY MOUTH THREE TIMES A DAY. OTC PRODUCT Medical Marijuana oil fluticasone-salmeterol (ADVAIR DISKUS) 100-50 mcg/dose inhaler as needed venlafaxine ER (EFFEXOR XR) 37.5 mg 24 hr capsule Take 1 capsule by mouth once daily. traZODone (DESYREL) 50 mg tablet Take 50 mg by mouth. hydrOXYzine HCl (ATARAX) 25 mg tablet Take 25 mg by mouth three times daily as needed. No current facility-administered medications on file prior to visit. Curbside: No Screening Tools: No Substance Use / Abuse: No Outcome / Plan / Referrals: Attempts to Outreach: 1 attempt Referral made: Psychiatry - Internal, Psychology - Internal, Psychology - External Psychiatry-Internal referral type: Medication Management Psychology-Internal referral type: Therapy Psychology-External referral type: Support Group Reason for external referral: Wait times at [facility] too long Final Disposition: Resources given Patient Discharged?: No Patient reported that caregiver was able to meet their needs today?: Yes Internal Referrals : Yes -Patient advised of treatment options available at [facility]. Patient was informed that they will be moving on for further evaluation if seeking treatment within the [facility] system. Reason for External Referrals : Wait is too long Intervention: Supportive Listening Scheduled Assessment Offered virtual visit Resources Provided: Medication Management Talk Therapy [facility] Virtual Visit Time Spent: 15 minutes ANALI Cat-S documented in this encounter [facility] 12-01-2022 Note HNO ID: [id number] Author: Zee Bryant APRN.BREAKFAST BAR ATTENDANT Service: ? Author Type: Nurse Specialist Type: Progress Notes Filed: 12/01/2022 1:58 PM Note Text: SUBJECTIVE: COVID-19 VACCINE(1) Never done PNEUMOCOCCAL(1 - PCV) Never done SPIROMETRY Never done ANNUAL PCP TEAM CHRONIC DISEASE VISIT Never done HEPATITIS C SCREENING Never done HIV SCREENING Never done DTAP,TDAP,TD(7 - Td or Tdap) due on 03/02/2016 LIPID SCREEN due on 2022 HPI Macho Sanches is a 37 year old male. PMH significant for ACTIVE PROBLEM LIST Unspecified Asthma(493.90) Pain in Ankle Joint Environmental Allergies Adjustment Disorder With Mixed Anxiety and Depressed Mood Depression Add (Attention Deficit Disorder) Anxiety Asthma Bipolar 1 Disorder (Hcc) Presents today to establish care with All Beckett MD Previous PCP:Anusha Hines MD [address] [place] [address] [address] [place] [address] Last seen:06/2022 Outside records: care everywhere He was seen at [facility] 1 week ago here for right leg pain thought to be related to IT band. Has been completing HEP. Has used ice and ibuprofen. Quit job about one year ago due to mental health. He notes quitting his job did not help much. Living with parents now. Notes lots of difficulties with previous psychology / psychiatry. Concern for harming himself. Did not feel well with previous treatments. Here he notes not feeling well with venlafaxine at higher doses which she was previously taking. He reports while living in [place] was considering harming himself. No current SI, HI. Psychiatry/counseling: in need of referral to psychiatry and psychology/ talk therapy. JANE TREADWELL-prescribed trazodone hydroxyzine. Dexmethylphenidate hydrochloride CRISTINA Salmeron Did go to counseling center in the past [place] He notes history of asthma previously taking Advair. Notes has albuterol at home. No recent exacerbations reported. He reports taking THC oil for leg pain and that is helpful. Notes he would like a referral to physical therapy for chronic right leg pain following an accident about 10 years ago. Review of Systems Constitutional: Negative. Respiratory: Negative. Cardiovascular: Negative. Endocrine: Negative. Musculoskeletal: Positive for arthralgias. Psychiatric/Behavioral: Positive for dysphoric mood. Objective BP 124/82 Pulse 98 Resp 16 Ht 185.4 cm (6' 1 ) Wt 126.6 kg (279 lb) SpO2 98% BMI 36.81 kg/m? Physical Exam Vitals and nursing note reviewed. Constitutional: Appearance: Normal appearance. HENT: Head: Normocephalic and atraumatic. Eyes: Conjunctiva/sclera: Conjunctivae normal. Cardiovascular: Rate and Rhythm: Normal rate and regular rhythm. Pulses: Carotid pulses are 2+ on the right side and 2+ on the left side. Radial pulses are 2+ on the right side and 2+ on the left side. Heart sounds: Normal heart sounds. Pulmonary: Effort: Pulmonary effort is normal. Breath sounds: Normal breath sounds. Abdominal: General: Bowel sounds are normal. Palpations: Abdomen is soft. Musculoskeletal: Right lower leg: No edema. Left lower leg: No edema. Skin: General: Skin is warm and dry. Neurological: General: No focal deficit present. Mental Status: He is alert and oriented to person, place, and time. ALLERGIES Allergen Reactions Cats Shortness of Breath Medications albuterol HFA (PROVENTIL HFA, VENTOLIN HFA) 90 mcg/actuation inhaler Inhale 2 Puffs as instructed every 4 hours as needed. dexmethylphenidate HCl (FOCALIN) 5 mg tablet TAKE ONE (1) TABLET(S) BY MOUTH THREE TIMES A DAY. OTC PRODUCT Medical Marijuana oil traZODone (DESYREL) 50 mg tablet Take 50 mg by mouth. hydrOXYzine HCl (ATARAX) 25 mg tablet Take 25 mg by mouth three times daily as needed. fluticasone-salmeterol (ADVAIR DISKUS) 100-50 mcg/dose inhaler as needed venlafaxine ER (EFFEXOR XR) 37.5 mg 24 hr capsule Take 1 capsule by mouth once daily. PAST MEDICAL HISTORY Diagnosis Date Asthma seasonal Environmental allergies PAST SURGICAL HISTORY Procedure Laterality Date PAST SURGICAL HISTORY OF left testicle torsion Social History Tobacco Use Smoking status: Former Packs/day: 0.30 Years: 1.50 Pack years: 0.45 Types: Cigarettes Smokeless tobacco: Never Tobacco comments: Rare cigarette Substance Use Topics Alcohol use: Yes Alcohol/week: 5.0 standard drinks Types: 5 Cans of Beer (12oz) per week Drug use: No FAMILY HISTORY Problem Relation Age of Onset Asthma Mother Breast Cancer Mother Prostate Cancer Father Thyroid Father Hypothyroidism Stroke Maternal Grandfather in 80s ASSESSMENT/PLAN: 1. Routine medical exam - ICD9: V70.0, ICD10: Z00.00 (primary diagnosis) -Endorse healthy diet and regular exercise - HEP C AB IA W/CONF SCRN - HIV 1 2 COMBO(AG/AB),WITH REFLEX TO DIFFERENTIATION - LIPID PANEL BASIC - COMP (more content not included)... [facility] 12-01-2022 History of Presen t illness Narrative SUBJECTIVE: COVID-19 VACCINE(1) Never done PNEUMOCOCCAL(1 - PCV) Never done SPIROMETRY Never done ANNUAL PCP TEAM CHRONIC DISEASE VISIT Never done HEPATITIS C SCREENING Never done HIV SCREENING Never done DTAP,TDAP,TD(7 - Td or Tdap) due on 03/02/2016 LIPID SCREEN due on 2022 HPI Macho Sanches is a 37 year old male. PMH significant for ACTIVE PROBLEM LIST Unspecified Asthma(493.90) Pain in Ankle Joint Environmental Allergies Adjustment Disorder With Mixed Anxiety and Depressed Mood Depression Add (Attention Deficit Disorder) Anxiety Asthma Bipolar 1 Disorder (Hcc) Presents today to establish care with All Beckett MD Previous PCP:Anusha Hines MD [address] [facility] [address] [place], [place] [id number] Last seen:06/2022 Outside records: care everywhere He was seen at [facility] 1 week ago here for right leg pain thought to be related to IT band. Has been completing HEP. Has used ice and ibuprofen. Quit job about one year ago due to mental health. He notes quitting his job did not help much. Living with parents now. Notes lots of difficulties with previous psychology / psychiatry. Concern for harming himself. Did not feel well with previous treatments. Here he notes not feeling well with venlafaxine at higher doses which she was previously taking. He reports while living in [place] was considering harming himself. No current SI, HI. Psychiatry/counseling: in need of referral to psychiatry and psychology/ talk therapy. JANE TREADWELL-prescribed trazodone hydroxyzine. Dexmethylphenidate hydrochloride CRISTINA Salmeron Did go to counseling center in the past [place] He notes history of asthma previously taking Advair. Notes has albuterol at home. No recent exacerbations reported. He reports taking THC oil for leg pain and that is helpful. Notes he would like a referral to physical therapy for chronic right leg pain following an accident about 10 years ago. Review of Systems Constitutional: Negative. Respiratory: Negative. Cardiovascular: Negative. Endocrine: Negative. Musculoskeletal: Positive for arthralgias. Psychiatric/Behavioral: Positive for dysphoric mood. Objective BP 124/82 Pulse 98 Resp 16 Ht 185.4 cm (6' 1 ) Wt 126.6 kg (279 lb) SpO2 98% BMI 36.81 kg/m Physical Exam Vitals and nursing note reviewed. Constitutional: Appearance: Normal appearance. HENT: Head: Normocephalic and atraumatic. Eyes: Conjunctiva/sclera: Conjunctivae normal. Cardiovascular: Rate and Rhythm: Normal rate and regular rhythm. Pulses: Carotid pulses are 2+ on the right side and 2+ on the left side. Radial pulses are 2+ on the right side and 2+ on the left side. Heart sounds: Normal heart sounds. Pulmonary: Effort: Pulmonary effort is normal. Breath sounds: Normal breath sounds. Abdominal: General: Bowel sounds are normal. Palpations: Abdomen is soft. Musculoskeletal: Right lower leg: No edema. Left lower leg: No edema. Skin: General: Skin is warm and dry. Neurological: General: No focal deficit present. Mental Status: He is alert and oriented to person, place, and time. ALLERGIES Allergen Reactions Cats Shortness of Breath Medications albuterol HFA (PROVENTIL HFA, VENTOLIN HFA) 90 mcg/actuation inhaler Inhale 2 Puffs as instructed every 4 hours as needed. dexmethylphenidate HCl (FOCALIN) 5 mg tablet TAKE ONE (1) TABLET(S) BY MOUTH THREE TIMES A DAY. OTC PRODUCT Medical Marijuana oil traZODone (DESYREL) 50 mg tablet Take 50 mg by mouth. hydrOXYzine HCl (ATARAX) 25 mg tablet Take 25 mg by mouth three times daily as needed. fluticasone-salmeterol (ADVAIR DISKUS) 100-50 mcg/dose inhaler as needed venlafaxine ER (EFFEXOR XR) 37.5 mg 24 hr capsule Take 1 capsule by mouth once daily. PAST MEDICAL HISTORY Diagnosis Date Asthma seasonal Environmental allergies PAST SURGICAL HISTORY Procedure Laterality Date PAST SURGICAL HISTORY OF left testicle torsion Social History Tobacco Use Smoking status: Former Packs/day: 0.30 Years: 1.50 Pack years: 0.45 Types: Cigarettes Smokeless tobacco: Never Tobacco comments: Rare cigarette Substance Use Topics Alcohol use: Yes Alcohol/week: 5.0 standard drinks Types: 5 Cans of Beer (12oz) per week Drug use: No FAMILY HISTORY Problem Relation Age of Onset Asthma Mother Breast Cancer Mother Prostate Cancer Father Thyroid Father Hypothyroidism Stroke Maternal Grandfather in 80s ASSESSMENT/PLAN: 1. Routine medical exam - ICD9: V70.0, ICD10: Z00.00 (primary diagnosis) -Endorse healthy diet and regular exercise - HEP C AB IA W/CONF SCRN - HIV 1 2 COMBO(AG/AB),WITH REFLEX TO DIFFERENTIATION - LIPID PANEL BASIC - COMP METABOLIC PANEL - CBC + DIFF 2. Uncomplicated asthma, unspecified asthma severity, unspecified whether persistent - ICD9: 493.90, ICD10: J45.909 - Continue current meds - Avoidance of triggers recommended 3. Bipolar 1 disorder (HCC) - ICD9: 296.7, ICD10: F31.9 4. Attention deficit disorder, unspecified hyperactivity presence - ICD9: 314.00, ICD10: F98.8 5. Adjustment disorder with mixed anxiety and depressed mood - ICD9: 309.28, ICD10: F43.23 He reports wanting to discontinue venlafaxine. Can decrease from 75 mg to 37.5 mg daily today. - CONSULT TO [facility] 6. Encounter for immunization - ICD9: V03.89, ICD10: Z23 - PFIZER[employer] COVID-19 BIVALENT VACCINE, AGE 12+ YR - TDAP VACCINE, AGE 7+ YR (ADACEL, BOOSTRIX) 7. Special screening examination for viral disease - ICD9: V73.99, ICD10: Z11.59 - HEP C AB IA W/CONF SCRN 8. Screening for HIV (human immunodeficiency virus) - ICD9: V73.89, ICD10: Z11.4 - HIV 1 2 COMBO(AG/AB),WITH REFLEX TO DIFFERENTIATION 9. Screening for lipid disorders - ICD9: V77.91, ICD10: Z13.220 - LIPID PANEL BASIC 10. Right leg pain - ICD9: 729.5, ICD10: M79.604 - CONSULT TO PHYSICAL THERAPY - CONSULT TO ORTHOPAEDICS 6 mo follow up All Beckett MD - establish Labs today or near future Zee Bryant APRN.BREAKFAST BAR ATTENDANT Medical Decision Making: Problems: Moderate: 2+ stable chronic illnesses Data: Unique test(s) ordered: 3+ Risk: Moderate: Drug management Medical Decision Making Level: 4 - Moderate documented in this encounter [facility] 11-23-2022 Note HNO ID: [id number] Author: Oralia Shaikh PA-C Service: ? Author Type: Physician Rd Project Manager Type: Progress Notes Filed: 11/23/2022 3:01 PM Note Text: This note was created using [email or web address]. Subjective Macho Sanches is a 37 year old male. HPI Patient presents with right knee and hip pain over the past 2 weeks. He states its more of a tightness feeling and sometimes he gets a burning pain on the outside of his right knee. He denies any injury or trauma. He would like to have a referral to physical therapy. Denies any new exercises. States he recently moved to the area and is establishing with a PCP next week. Denies significant back pain. No weakness or numbness. Review of Systems Musculoskeletal: Right leg pain/tightness All other systems reviewed and are negative. PAST MEDICAL HISTORY Diagnosis Date Asthma seasonal Environmental allergies Current Outpatient Medications Medication Sig Dispense Refill traZODone (DESYREL) 50 mg tablet Take 50 mg by mouth. venlafaxine ER (EFFEXOR XR) 75 mg 24 hr capsule Take 75 mg by mouth. hydrOXYzine HCl (ATARAX) 25 mg tablet Take 25 mg by mouth three times daily as needed. Dexmethylphenidate (FOCALIN XR) 20 mg Capsule ER Take 20 mg by mouth. amoxicillin 500 mg capsule Take 1 capsule by mouth three times daily. (Patient not taking: Reported on 11/23/2022) 30 capsule 0 No current facility-administered medications for this visit. PAST SURGICAL HISTORY Procedure Laterality Date PAST SURGICAL HISTORY OF left testicle torsion FAMILY HISTORY Problem Relation Age of Onset Asthma Mother Breast Cancer Mother Prostate Cancer Father Thyroid Father Hypothyroidism Stroke Maternal Grandfather in 80s Social History Tobacco Use Smoking status: Former Packs/day: 0.30 Years: 1.50 Pack years: 0.45 Types: Cigarettes Smokeless tobacco: Never Tobacco comments: Rare cigarette Substance Use Topics Alcohol use: Yes Alcohol/week: 15.0 standard drinks Types: 6 Cans of Beer (12oz) per week Drug use: No Objective BP 118/90 Pulse 85 Temp 36.8 ?C (98.3 ?F) Resp 21 Wt 126.8 kg (279 lb 9.6 oz) SpO2 98% Physical Exam Vitals reviewed. Constitutional: Appearance: Normal appearance. HENT: Head: Normocephalic and atraumatic. Musculoskeletal: Comments: No pain with range of motion of the right hip. He does have pain with flexion of the right knee on the lateral aspect of the knee. No redness or swelling. Able to ambulate normally. No laxity of the right knee. Skin: General: Skin is warm and dry. Neurological: Mental Status: He is alert. Assessment and Plan ASSESSMENT/PLAN: 1. Right leg pain - ICD9: 729.5, ICD10: M79.604 Likely related to the IT band. Given stretches. Discussed ice, ibuprofen. Patient would like referral to physical therapy which was provided. Keep appointment to establish with PCP next week as well. Patient agreeable. X-rays are unremarkable. - XR KNEE GENERAL 4V AP BOTH/PA BOTH/LAT/MERC RIGHT - XR HIP GENERAL 3V PELV/AP/LAT RIGHT - CONSULT TO PHYSICAL THERAPY Oralia Shaikh PA-C [facility] 11-23-2022 Note HNO ID: [id number] Author: RT Brandon(R) Service: ? Author Type: Family Development Extension Specialist Type: Progress Notes Filed: 11/23/2022 2:15 PM Note Text: Radiology Service Progress Note PATIENT NAME: Macho Sanches DATE OF SERVICE: November 23, 2022 TIME: 1:55 PM PATIENT IDENTITY VERIFICATION COMPLETED USING TWO (2) IDENTIFIERS: Name and Date of confirmed by patient verbally. FALL SCREENING: Has the patient had 2 falls in the last year or 1 fall with injury or currently using an Ambulatory Assistive Device (Walker, Cane, Wheelchair, Crutches, etc.)? No PATIENT GENDER DATA: Male PATIENT RELEVANT IMPLANT DATA REVIEWED: Yes RADIOLOGY DEPARTMENT: General X-ray: Exam(s) Completed: Pelvis X-Ray: Pelvis with Hip Right Lower Extremity X-Ray(s): Knee, AP / Lat / Tunne / Merchant Right PERIPHERAL IV DATA: Not applicable SIGNED BY: RT Brandon(R) November 23, 2022 1:55 PM [facility] 11-23-2022 History of Presen t illness Narrative This note was created using Thryve. Subjective Macho Sanches is a 37 year old male. HPI Patient presents with right knee and hip pain over the past 2 weeks. He states its more of a tightness feeling and sometimes he gets a burning pain on the outside of his right knee. He denies any injury or trauma. He would like to have a referral to physical therapy. Denies any new exercises. States he recently moved to the area and is establishing with a PCP next week. Denies significant back pain. No weakness or numbness. Review of Systems Musculoskeletal: Right leg pain/tightness All other systems reviewed and are negative. PAST MEDICAL HISTORY Diagnosis Date Asthma seasonal Environmental allergies Current Outpatient Medications Medication Sig Dispense Refill traZODone (DESYREL) 50 mg tablet Take 50 mg by mouth. venlafaxine ER (EFFEXOR XR) 75 mg 24 hr capsule Take 75 mg by mouth. hydrOXYzine HCl (ATARAX) 25 mg tablet Take 25 mg by mouth three times daily as needed. Dexmethylphenidate (FOCALIN XR) 20 mg Capsule ER Take 20 mg by mouth. amoxicillin 500 mg capsule Take 1 capsule by mouth three times daily. (Patient not taking: Reported on 11/23/2022) 30 capsule 0 No current facility-administered medications for this visit. PAST SURGICAL HISTORY Procedure Laterality Date PAST SURGICAL HISTORY OF left testicle torsion FAMILY HISTORY Problem Relation Age of Onset Asthma Mother Breast Cancer Mother Prostate Cancer Father Thyroid Father Hypothyroidism Stroke Maternal Grandfather in 80s Social History Tobacco Use Smoking status: Former Packs/day: 0.30 Years: 1.50 Pack years: 0.45 Types: Cigarettes Smokeless tobacco: Never Tobacco comments: Rare cigarette Substance Use Topics Alcohol use: Yes Alcohol/week: 15.0 standard drinks Types: 6 Cans of Beer (12oz) per week Drug use: No Objective BP 118/90 Pulse 85 Temp 36.8 C (98.3 F) Resp 21 Wt 126.8 kg (279 lb 9.6 oz) SpO2 98% Physical Exam Vitals reviewed. Constitutional: Appearance: Normal appearance. HENT: Head: Normocephalic and atraumatic. Musculoskeletal: Comments: No pain with range of motion of the right hip. He does have pain with flexion of the right knee on the lateral aspect of the knee. No redness or swelling. Able to ambulate normally. No laxity of the right knee. Skin: General: Skin is warm and dry. Neurological: Mental Status: He is alert. Assessment and Plan ASSESSMENT/PLAN: 1. Right leg pain - ICD9: 729.5, ICD10: M79.604 Likely related to the IT band. Given stretches. Discussed ice, ibuprofen. Patient would like referral to physical therapy which was provided. Keep appointment to establish with PCP next week as well. Patient agreeable. X-rays are unremarkable. - XR KNEE GENERAL 4V AP BOTH/PA BOTH/LAT/MERC RIGHT - XR HIP GENERAL 3V PELV/AP/LAT RIGHT - CONSULT TO PHYSICAL THERAPY Oralia Sahikh PA-C documented in this encounter [facility] 06-04-2012 Miscellaneous Notes error documented in this encounter [facility] Diagnosis Routine medical exam- Primary Routine general medical examination at a health care facility Uncomplicated asthma, unspecified asthma severity, unspecified whether persistent Bipolar 1 disorder (HCC) Bipolar I disorder, most recent episode (or current) unspecified Attention deficit disorder, unspecified hyperactivity presence Adjustment disorder with mixed anxiety and depressed mood Encounter for immunization Need for other specified prophylactic vaccination against single bacterial disease Special screening examination for viral disease Special screening examination for unspecified viral disease Screening for HIV (human immunodeficiency virus) Special screening examination for other specified viral diseases Screening for lipid disorders Right leg pain Pain in limb documented in this encounter [facility] note* Diagnosis Severe episode of recurrent major depressive disorder, 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 documented in this encounter [facility] note* Diagnosis Right leg pain- Primary Pain in limb documented in this encounter [facility] note* Diagnosis Severe episode of recurrent major depressive disorder, 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 documented in this encounter [facility] note* Diagnosis Severe episode of recurrent major depressive disorder, 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 RICHARD (generalized anxiety disorder) Generalized anxiety disorder Cannabis use disorder Stimulant abuse (HCC) Other, mixed, or unspecified nondependent drug abuse, unspecified documented in this encounter [facility] note* Diagnosis Severe episode of recurrent major depressive disorder, 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 RICHARD (generalized anxiety disorder) Generalized anxiety disorder Attention deficit hyperactivity disorder (ADHD), unspecified ADHD type documented in this encounter [facility] note* Diagnosis Chronic pain of right knee- Primary Right leg pain Pain in limb Chronic pain of right hip documented in this encounter [facility] note* Diagnosis Severe episode of recurrent major depressive disorder, 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 RICHARD (generalized anxiety disorder) Generalized anxiety disorder Attention deficit hyperactivity disorder (ADHD), unspecified ADHD type documented in this encounter [facility] note* Diagnosis Right leg pain Pain in limb Chronic pain of right knee documented in this encounter [facility] note* Diagnosis Severe episode of recurrent major depressive disorder, 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 RICHARD (generalized anxiety disorder) Generalized anxiety disorder Attention deficit hyperactivity disorder (ADHD), unspecified ADHD type documented in this encounter [facility] note* Diagnosis Severe episode of recurrent major depressive disorder, 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 Attention deficit hyperactivity disorder (ADHD), unspecified ADHD type RICHARD (generalized anxiety disorder) Generalized anxiety disorder documented in this encounter [facility] note* Diagnosis Elevated fasting glucose- Primary Impaired fasting glucose Chronic fatigue Other malaise and fatigue Class 2 obesity due to excess calories with body mass index (BMI) of 37.0 to 37.9 in adult, unspecified whether serious comorbidity present Mild intermittent asthma without complication Unspecified asthma Screening, lipid Screening for lipoid disorders Encounter for long-term current use of medication documented in this encounter [facility] note* Diagnosis Lumbar radiculopathy, chronic- Primary Thoracic or lumbosacral neuritis or radiculitis, unspecified [facility] Diagnosis Acute midline low back pain without sciatica- Primary documented in this encounter [facility] note* Diagnosis Vomiting and diarrhea- Primary Vomiting alone documented in this encounter [facility] for referral (narrative)* Diagnostic Procedure Only (Routine) - Closed Specialty Diagnoses / Procedures Referred By Contac t Referred To Contact MR IMAGING Diagnoses Right leg pain Chronic pain of right knee Procedures MRI KNEE WO IVCON RIGHT MRI ANY JT LOWER EXTREM W/O CONTRAST MATRL Roney Fraser MD [address] [place] [address] Mr Imaging Referral ID Status Reason Start Date Expiration Date V isits Requested Visits Authorized [id number] Closed Auto-Generat ed Referral Clearance Not Met - Admin/Chairm an/Director Advise to Postpone/Res chedule or Not Proceed 03/01/2023 04/30/2023 1 0 [facility] for referral (narrative)* Outpatient Procedure (Routine) - Pending Review Specialty Diagnoses / Procedures Referred By Contac t Referred To Contact [facility] Diagnoses Mild intermittent asthma without complication Procedures SPIROMETRY - BASELINE AND POST DILATOR BRNCDILAT RSPSE SPMTRY PRE&POST-BRNCDILAT All Rojas MD [address] [place] [address] [facility] [place] [address] [facility] [place] [address] Referral ID Status Reason Start Date Expiration Date Visits Requested Visits Authorized [id number] Pending Review Auto-Generat ed Referral 02/28/2023 03/29/2024 1 1 [facility] for referral (narrative)* Diagnostic Procedure Only (Routine) - Pending Review Specialty Diagnoses / Procedures Referred By Contac t Referred To Contact XR IMAGING Diagnoses Lumbar radiculopathy, chronic Procedures XR LUMBAR GENERAL 3V AP/LAT/L5-S1 RADEX SPINE LUMBOSACRAL 2/3 VIEWS Roney Fraser MD [address] [place] [address] [place] [address] Referral ID Status Reason Start Date Expiration Date Visits Requested Visits Authorized [id number] Pending Review Auto-Generat ed Referral 03/27/2023 04/25/2024 1 1 * Physical Therapy (Routine) - Pending Review Specialty Diagnoses / Procedures Referred By Contac t Referred To Contact [facility] Diagnoses Lumbar radiculopathy, chronic Procedures CONSULT TO PHYSICAL THERAPY PHYSICAL THERAPY EVALUATION HIGH COMPLEX 45 MINS Roney Fraser MD [address] [place] [address] [facility] [place] [address] [place] [address] Referral ID Status Reason Start Date Expiration Date Visits Requested Visits Authorized [id number] Pending Review Auto-Generat ed Referral 03/27/2023 03/26/2024 1 1 [facility] for referral (narrative)* Diagnostic Procedure Only (Urgent) - Closed Specialty Diagnoses / Procedures Referred By Contac t Referred To Contact XR IMAGING Diagnoses Acute midline low back pain without sciatica Procedures XR LUMBAR GENERAL 3V AP/LAT/L5-S1 RADEX SPINE LUMBOSACRAL 2/3 VIEWS Marisa Soto APRN.CNP [address] [place] [address] [place] [address] Referral ID Status Reason Start Date Expiration Date V isits Requested Visits Authorized [id number] Closed Auto-Generate d Referral 05/02/2023 08/06/2023 1 1 * Diagnostic Procedure Only (Urgent) - Closed Specialty Diagnoses / Procedures Referred By Contac t Referred To Contact XR IMAGING Diagnoses Acute midline low back pain without sciatica Procedures XR SACRUM/COCCYX 3V AP/LAT RADEX SACRUM & COCCYX MINIMUM 2 VIEWS Marisa Soto APRN.AREA SUPERVISOR [address] [place] [address] [place] [address] Referral ID Status Reason Start Date Expiration Date V isits Requested Visits Authorized [id number] Closed Auto-Generate d Referral 05/02/2023 05/31/2024 1 1 [facility] for visit Narrative* Diagnostic Procedure Only (Routine) - Closed Specialty Diagnoses / Procedures Referred By Contac t Referred To Contact MR IMAGING Diagnoses Right leg pain Chronic pain of right knee Procedures MRI KNEE WO IVCON RIGHT MRI ANY JT LOWER EXTREM W/O CONTRAST Roney Jackson MD [address] [place] [address] Mr Imaging Referral ID Status Reason Start Date Expiration Date V isits Requested Visits Authorized [id number] Closed Auto-Generat ed Referral Clearance Not Met - Admin/Chairm an/Director Advise to Postpone/Res chedule or Not Proceed 03/01/2023 04/30/2023 1 0 [facility] for visit Narrative* Diagnostic Procedure Only (Routine) - Closed Specialty Diagnoses / Procedures Referred By Contac t Referred To Contact MR IMAGING Diagnoses Right leg pain Chronic pain of right knee Procedures MRI KNEE WO IVCON RIGHT MRI ANY JT LOWER EXTREM W/O CONTRAST Roney Jackson MD [address] [place] [address] Mr Imaging Referral ID Status Reason Start Date Expiration Date V isits Requested Visits Authorized [id number] Closed Auto-Generat ed Referral Clearance Not Met - Admin/Chairm an/Director Advise to Postpone/Res chedule or Not Proceed Patient Cleared - Admin/Chairm an/Director advise to proceed or did not respond 03/01/2023 04/30/2023 1 1 [facility] Reason for Referral Specialty Diagnoses / Procedures Referred By Contac t Referred To Contact [facility] Diagnoses Right leg pain Procedures CONSULT TO PHYSICAL THERAPY PHYSICAL THERAPY EVALUATION HIGH COMPLEX 45 MINS Oralia Shaikh, PA-C [address] [place] [address] [facility] [place] [address] [place] [address] Referral ID Status Reason Start Date Expiration Date Visits Requested Visits Authorized [id number] Pending Review Auto-Generat ed Referral 11/23/2022 11/23/2023 1 1 Specialty Diagnoses / Procedures Referred By Contac t Referred To Contact XR IMAGING Diagnoses Right leg pain Procedures XR HIP GENERAL 3V PELV/AP/LAT RIGHT RADEX HIP UNILATERAL WITH PELVIS 2-3 VIEWS Oralia Shaikh PA-C [address] [place] [address] Xr Imaging Referral ID Status Reason Start Date Expiration Date Visits Requested Visits Authorized [id number] Pending Review Auto-Generat ed Referral 11/23/2022 12/23/2023 1 1 Specialty Diagnoses / Procedures Referred By Contac t Referred To Contact XR IMAGING Diagnoses Right leg pain Procedures XR KNEE GENERAL 4V AP BOTH/PA BOTH/LAT/MERC RIGHT RADIOLOGIC EXAM KNEE COMPLETE 4/MORE VIEWS Oralia Shaikh PA-C [address] [place] [address] Xr Imaging Referral ID Status Reason Start Date Expiration Date Visits Requested Visits Authorized [id number] Pending Review Auto-Generat ed Referral 11/23/2022 12/23/2023 1 1 Specialty Diagnoses / Procedures Referred By Contac t Referred To Contact Orthopedics Diagnoses Right leg pain Procedures CONSULT TO ORTHOPAEDICS OFFICE/OUTPATIENT [facility] MDM 60-74 MINUTES Zee Bryant, ELECTRONICS ENGINEERING MANAGER.BREAKFAST BAR ATTENDANT [address] [place] [address] Referral ID Status Reason Start Date Expiration Date Visits Requested Visits Authorized [id number] Pending Review PCP Requested Referral 12/01/2022 12/01/2023 1 1 Specialty Diagnoses / Procedures Referred By Contac t Referred To Contact [facility] Diagnoses Right leg pain Procedures CONSULT TO PHYSICAL THERAPY PHYSICAL THERAPY EVALUATION HIGH COMPLEX 45 MINS Zee Bryant, ELECTRONICS ENGINEERING MANAGER.BREAKFAST BAR ATTENDANT [address] [place] [address] [facility] [place] [address] [place] [address] Referral ID Status Reason Start Date Expiration Date Visits Requested Visits Authorized [id number] Pending Review Auto-Generat ed Referral 12/01/2022 12/01/2023 1 1 Summary Purpose Family History No Family History Records FoundNo Family History Records FoundNo Family History Records FoundNo Family History Records Found Advance Directives No Advanced Directives Records FoundNo Advanced Directives Records FoundNo Advanced Directives Records FoundNo Advanced Directives Records Found Additional Source Comments Source Comments (unrecognize d section and content) In the event this informatio n is protected by the Federal Confidentiality of Alcohol and Drug Abuse Patient Records regulations: The Federal rules restrict any use of the information to criminally investigate or prosecute any alcohol or drug abuse patient.[facility] the event this information is protected by the Federal Confidentiality of Alcohol and Drug Abuse Patient Records regulations: The Federal rules restrict any use of the information to criminally investigate or prosecute any alcohol or drug abuse patient.[facility] the event this information is protected by the Federal Confidentiality of Alcohol and Drug Abuse Patient Records regulations: The Federal rules restrict any use of the information to criminally investigate or prosecute any alcohol or drug abuse patient.[facility] the event this information is protected by the Federal Confidentiality of Alcohol and Drug Abuse Patient Records regulations: The Federal rules restrict any use of the information to criminally investigate or prosecute any alcohol or drug abuse patient.[facility] the event this information is protected by the Federal Confidentiality of Alcohol and Drug Abuse Patient Records regulations: The Federal rules restrict any use of the information to criminally investigate or prosecute any alcohol or drug abuse patient.[facility] the event this information is protected by the Federal Confidentiality of Alcohol and Drug Abuse Patient Records regulations: The Federal rules restrict any use of the information to criminally investigate or prosecute any alcohol or drug abuse patient.[facility] the event this information is protected by the Federal Confidentiality of Alcohol and Drug Abuse Patient Records regulations: The Federal rules restrict any use of the information to criminally investigate or prosecute any alcohol or drug abuse patient.[facility] [facility] HospitalIn the event this information is protected by the Federal Confidentiality of Alcohol and Drug Abuse Patient Records regulations: The Federal rules restrict any use of the information to criminally investigate or prosecute any alcohol or drug abuse patient.[facility] HospitalIn the event this information is protected by the Federal Confidentiality of Alcohol and Drug Abuse Patient Records regulations: The Federal rules restrict any use of the information to criminally investigate or prosecute any alcohol or drug abuse patient.[facility] HospitalIn the event this information is protected by the Federal Confidentiality of Alcohol and Drug Abuse Patient Records regulations: The Federal rules restrict any use of the information to criminally investigate or prosecute any alcohol or drug abuse patient.[facility] HospitalIn the event this information is protected by the Federal Confidentiality of Alcohol and Drug Abuse Patient Records regulations: The Federal rules restrict any use of the information to criminally investigate or prosecute any alcohol or drug abuse patient.[facility] HospitalIn the event this information is protected by the Federal Confidentiality of Alcohol and Drug Abuse Patient Records regulations: The Federal rules restrict any use of the information to criminally investigate or prosecute any alcohol or drug abuse patient.[facility] HospitalIn the event this information is protected by the Federal Confidentiality of Alcohol and Drug Abuse Patient Records regulations: The Federal rules restrict any use of the information to criminally investigate or prosecute any alcohol or drug abuse patient.[facility] HospitalIn the event this information is protected by the Federal Confidentiality of Alcohol and Drug Abuse Patient Records regulations: The Federal rules restrict any use of the information to criminally investigate or prosecute any alcohol or drug abuse patient.[facility] HospitalIn the event this information is protected by the Federal Confidentiality of Alcohol and Drug Abuse Patient Records regulations: The Federal rules restrict any use of the information to criminally investigate or prosecute any alcohol or drug abuse patient.[facility] HospitalIn the event this information is protected by the Federal Confidentiality of Alcohol and Drug Abuse Patient Records regulations: The Federal rules restrict any use of the information to criminally investigate or prosecute any alcohol or drug abuse patient.[facility] HospitalIn the event this information is protected by the Federal Confidentiality of Alcohol and Drug Abuse Patient Records regulations: The Federal rules restrict any use of the information to criminally investigate or prosecute any alcohol or drug abuse patient.[facility] HospitalIn the event this information is protected by the Federal Confidentiality of Alcohol and Drug Abuse Patient Records regulations: The Federal rules restrict any use of the information to criminally investigate or prosecute any alcohol or drug abuse patient.[facility] HospitalIn the event this information is protected by the Federal Confidentiality of Alcohol and Drug Abuse Patient Records regulations: The Federal rules restrict any use of the information to criminally investigate or prosecute any alcohol or drug abuse patient.[facility] HospitalIn the event this information is protected by the Federal Confidentiality of Alcohol and Drug Abuse Patient Records regulations: The Federal rules restrict any use of the information to criminally investigate or prosecute any alcohol or drug abuse patient.[facility] HospitalIn the event this information is protected by the Federal Confidentiality of Alcohol and Drug Abuse Patient Records regulations: The Federal rules restrict any use of the information to criminally investigate or prosecute any alcohol or drug abuse patient.[facility] HospitalIn the event this information is protected by the Federal Confidentiality of Alcohol and Drug Abuse Patient Records regulations: The Federal rules restrict any use of the information to criminally investigate or prosecute any alcohol or drug abuse patient.[facility] HospitalIn the event this information is protected by the Federal Confidentiality of Alcohol and Drug Abuse Patient Records regulations: The Federal rules restrict any use of the information to criminally investigate or prosecute any alcohol or drug abuse patient.[facility] HospitalIn the event this information is protected by the Federal Confidentiality of Alcohol and Drug Abuse Patient Records regulations: The Federal rules restrict any use of the information to criminally investigate or prosecute any alcohol or drug abuse patient.[facility] HospitalIn the event this information is protected by the Federal Confidentiality of Alcohol and Drug Abuse Patient Records regulations: The Federal rules restrict any use of the information to criminally investigate or prosecute any alcohol or drug abuse patient.[facility] HospitalIn the event this information is protected by the Federal Confidentiality of Alcohol and Drug Abuse Patient Records regulations: The Federal rules restrict any use of the information to criminally investigate or prosecute any alcohol or drug abuse patient.[facility] HospitalIn the event this information is protected by the Federal Confidentiality of Alcohol and Drug Abuse Patient Records regulations: The Federal rules restrict any use of the information to criminally investigate or prosecute any alcohol or drug abuse patient.[facility] HospitalIn the event this information is protected by the Federal Confidentiality of Alcohol and Drug Abuse Patient Records regulations: The Federal rules restrict any use of the information to criminally investigate or prosecute any alcohol or drug abuse patient.[facility] HospitalIn the event this information is protected by the Federal Confidentiality of Alcohol and Drug Abuse Patient Records regulations: The Federal rules restrict any use of the information to criminally investigate or prosecute any alcohol or drug abuse patient.[facility] HospitalIn the event this information is protected by the Federal Confidentiality of Alcohol and Drug Abuse Patient Records regulations: The Federal rules restrict any use of the information to criminally investigate or prosecute any alcohol or drug abuse patient.[facility] HospitalIn the event this information is protected by the Federal Confidentiality of Alcohol and Drug Abuse Patient Records regulations: The Federal rules restrict any use of the information to criminally investigate or prosecute any alcohol or drug abuse patient.[facility] HospitalIn the event this information is protected by the Federal Confidentiality of Alcohol and Drug Abuse Patient Records regulations: The Federal rules restrict any use of the information to criminally investigate or prosecute any alcohol or drug abuse patient.[facility] HospitalIn the event this information is protected by the Federal Confidentiality of Alcohol and Drug Abuse Patient Records regulations: The Federal rules restrict any use of the information to criminally investigate or prosecute any alcohol or drug abuse patient.[facility] HospitalIn the event this information is protected by the Federal Confidentiality of Alcohol and Drug Abuse Patient Records regulations: The Federal rules restrict any use of the information to criminally investigate or prosecute any alcohol or drug abuse patient.[facility] HospitalIn the event this information is protected by the Federal Confidentiality of Alcohol and Drug Abuse Patient Records regulations: The Federal rules restrict any use of the information to criminally investigate or prosecute any alcohol or drug abuse patient.[facility] HospitalIn the event this information is protected by the Federal Confidentiality of Alcohol and Drug Abuse Patient Records regulations: The Federal rules restrict any use of the information to criminally investigate or prosecute any alcohol or drug abuse patient.[facility] HospitalIn the event this information is protected by the Federal Confidentiality of Alcohol and Drug Abuse Patient Records regulations: The Federal rules restrict any use of the information to criminally investigate or prosecute any alcohol or drug abuse patient.[facility] HospitalIn the event this information is protected by the Federal Confidentiality of Alcohol and Drug Abuse Patient Records regulations: The Federal rules restrict any use of the information to criminally investigate or prosecute any alcohol or drug abuse patient.[facility] HospitalIn the event this information is protected by the Federal Confidentiality of Alcohol and Drug Abuse Patient Records regulations: The Federal rules restrict any use of the information to criminally investigate or prosecute any alcohol or drug abuse patient.[facility] HospitalIn the event this information is protected by the Federal Confidentiality of Alcohol and Drug Abuse Patient Records regulations: The Federal rules restrict any use of the information to criminally investigate or prosecute any alcohol or drug abuse patient.[facility] HospitalIn the event this information is protected by the Federal Confidentiality of Alcohol and Drug Abuse Patient Records regulations: The Federal rules restrict any use of the information to criminally investigate or prosecute any alcohol or drug abuse patient.[facility] HospitalIn the event this information is protected by the Federal Confidentiality of Alcohol and Drug Abuse Patient Records regulations: The Federal rules restrict any use of the information to criminally investigate or prosecute any alcohol or drug abuse patient.[facility] HospitalIn the event this information is protected by the Federal Confidentiality of Alcohol and Drug Abuse Patient Records regulations: The Federal rules restrict any use of the information to criminally investigate or prosecute any alcohol or drug abuse patient.[facility] HospitalIn the event this information is protected by the Federal Confidentiality of Alcohol and Drug Abuse Patient Records regulations: The Federal rules restrict any use of the information to criminally investigate or prosecute any alcohol or drug abuse patient.[facility] HospitalIn the event this information is protected by the Federal Confidentiality of Alcohol and Drug Abuse Patient Records regulations: The Federal rules restrict any use of the information to criminally investigate or prosecute any alcohol or drug abuse patient.[facility] HospitalIn the event this information is protected by the Federal Confidentiality of Alcohol and Drug Abuse Patient Records regulations: The Federal rules restrict any use of the information to criminally investigate or prosecute any alcohol or drug abuse patient.[facility] HospitalIn the event this information is protected by the Federal Confidentiality of Alcohol and Drug Abuse Patient Records regulations: The Federal rules restrict any use of the information to criminally investigate or prosecute any alcohol or drug abuse patient.[facility] HospitalIn the event this information is protected by the Federal Confidentiality of Alcohol and Drug Abuse Patient Records regulations: The Federal rules restrict any use of the information to criminally investigate or prosecute any alcohol or drug abuse patient.[facility] HospitalIn the event this information is protected by the Federal Confidentiality of Alcohol and Drug Abuse Patient Records regulations: The Federal rules restrict any use of the information to criminally investigate or prosecute any alcohol or drug abuse patient.[facility] HospitalIn the event this information is protected by the Federal Confidentiality of Alcohol and Drug Abuse Patient Records regulations: The Federal rules restrict any use of the information to criminally investigate or prosecute any alcohol or drug abuse patient.[facility] HospitalIn the event this information is protected by the Federal Confidentiality of Alcohol and Drug Abuse Patient Records regulations: The Federal rules restrict any use of the information to criminally investigate or prosecute any alcohol or drug abuse patient.[facility] HospitalIn the event this information is protected by the Federal Confidentiality of Alcohol and Drug Abuse Patient Records regulations: The Federal rules restrict any use of the information to criminally investigate or prosecute any alcohol or drug abuse patient.[facility] Reason for Visit (unrecogniz ed section and content) Specialty Diagnoses / Procedures Referred By Teresita t Referred To Contact Diagnoses physical, est care Procedures physical, est care Self [facility] Dept Referral ID Status Reason Start Date Expiration Date Visits Requested Visits Authorized [id number] Authorized Patient Cleared - Qualified 100% FAS 11/08/2022 02/06/2023 99 99 Reason Onset Date Comments Referral Request 06/04/2012 Reason Comments Knee Pain Right knee and hip p ain x 2 weeks Reason Comments Establish Care Specialty Diagnoses / Procedures Referred By Contac t Referred To Contact Diagnoses physical, est care Procedures physical, est care Self [facility] Dept Reason Comments Consult Patient Outreach [facility] W Reason Comments Med Change Request Reason Comments Orders Reason Comments Virtual Visit Referral ID Status Reason Start Date Expiration Date V isits Requested Visits Authorized [id number] Closed Patient Cleared - Qualified 100% FAS 11/08/2022 02/06/2023 99 99 Reason Comments Depression Anxiety New Patient Reason Comments Depression Anxiety Follow Up ADD/ADHD Reason Onset Date Comments Refill Request 02/21/2023 Reason Comments Pain New Specialty Diagnoses / Procedures Referred By Contac t Referred To Contact Orthopedics Diagnoses Right leg pain Procedures CONSULT TO ORTHOPAEDICS OFFICE/OUTPATIENT NEW HIGH MDM 60-74 MINUTES Zee Bryant, LEANNA.[employer]ST [employer] ATTENDANT [address] [place] [address] [address] [address] Referral ID Status Reason Start Date Expiration Date V isits Requested Visits Authorized [id number] Closed PCP Requested Referral Patient Cleared - Qualified 100% FAS 11/08/2022 02/06/2023 99 99 Reason Comments Anxiety Depression Follow Up Specialty Diagnoses / Procedures Referred By Contac t Referred To Contact ADULT PSYCHOLOGY Diagnoses Major depressive disorder, recurrent severe without psychotic features Generalized anxiety disorder Cannabis use, unspecified, uncomplicated Other stimulant abuse, uncomplicated Procedures GROUP PSYCHOTHERAPY IOP [facility] [address] [place] [address] Referral ID Status Reason Start Date Expiration Date Visits Re quested Visits Authorized [id number] 1 1 Reason Onset Date Comments Refill Request 03/14/2023 Reason Comments Appointment Reason Comments Depression Anxiety ADD/ADHD Follow Up Reason Comments Anxiety Depression ADD/ADHD Follow Up Specialty Diagnoses / Procedures Referred By Contac t Referred To Contact Psychiatry / ADULT PSYCHIATRY Diagnoses Bridge appointment post IOP Procedures Distance health established patient Rachelle Tava[place], [place] [address] [place] [address] Referral ID Status Reason Start Date Expiration Date V isits Requested Visits Authorized [id number] Outside PCP 03/14/2023 06/12/2023 2 2 Reason Comments Established Patient Discuss referral Reason Comments Established Patient MRI 03/09/2023 Reason Comments Back Pain Lower back, since no injury Specialty Diagnoses / Procedures Referred By Contac t Referred To Contact XR IMAGING Diagnoses Acute midline low back pain without sciatica Procedures XR SACRUM/COCCYX 3V AP/LAT RADEX SACRUM & COCCYX MINIMUM 2 VIEWS Marisa Soto APRN.AREA SUPERVISOR [address] [place] [address] [place] [address] Referral ID Status Reason Start Date Expiration Date V isits Requested Visits Authorized [id number] Closed Auto-Generate d Referral 05/02/2023 05/31/2024 1 1 Reason Comments Diarrhea bodyaches and fever x 4 days, was vomiting Care Teams (unrecognized sec tion and content) Research Administrator Relationship Specialty Start Date End Date All Beckett MD [address] [place] [address] PCP - General Internal Medicine 12/01/22 Research Administrator Relationship Specialty Start Date End Date All Beckett MD [facility] [place] [address] PCP - General Internal Medicine 12/01/22 Research Administrator Relationship Specialty Start Date End Date All Beckett MD [address] [place] [address] PCP - General Internal Medicine 12/01/22 Research Administrator Relationship Specialty Start Date End Date All Beckett MD [facility] [place] [address] PCP - General Internal Medicine 12/01/22 Research Administrator Relationship Specialty Start Date End Date All Bekcett MD [address] [place] [id number] PCP - General Internal Medicine 12/01/22 Research Administrator Relationship Specialty Start Date End Date All Beckett MD [address] [place] [address] PCP - General Internal Medicine 12/01/22 Research Administrator Relationship Specialty Start Date End Date All Beckett MD [address] [facility] [place] [address] PCP - General Internal Medicine 12/01/22 Research Administrator Relationship Specialty Start Date End Date All Beckett MD [address] [place] [address] PCP - General Internal Medicine 12/01/22 Research Administrator Relationship Specialty Start Date End Date All Beckett MD [address] [place] [address] PCP - General Internal Medicine 12/01/22 Research Administrator Relationship Specialty Start Date End Date All Beckett MD [address] [place] [address] PCP - General Internal Medicine 12/01/22 Research Administrator Relationship Specialty Start Date End Date All Beckett MD [address] [place] [address] PCP - General Internal Medicine 12/01/22 Research Administrator Relationship Specialty Start Date End Date All Beckett MD [address] [facility] [place] [place] [address] PCP - General Internal Medicine 12/01/22 Research Administrator Relationship Specialty Start Date End Date All Beckett MD [address] [facility] [place] [place] [address] PCP - General Internal Medicine 12/01/22 Research Administrator Relationship Specialty Start Date End Date All Beckett MD [address] [facility] [place] [place] [address] PCP - General Internal Medicine 12/01/22 Research Administrator Relationship Specialty Start Date End Date All Beckett MD [address] [facility] [place] [place] [address] PCP - General Internal Medicine 12/01/22 Research Administrator Relationship Specialty Start Date End Date All Beckett MD [address] [facility] [place] [place] [address] PCP - General Internal Medicine 12/01/22 Research Administrator Relationship Specialty Start Date End Date All Beckett MD [address] [facility] [place] [place] [address] PCP - General Internal Medicine 12/01/22 Research Administrator Relationship Specialty Start Date End Date All Beckett MD [address] [facility] [place] [place] [address] PCP - General Internal Medicine 12/01/22 Research Administrator Relationship Specialty Start Date End Date All Beckett MD [address] [facility] [place] [place] [address] PCP - General Internal Medicine 12/01/22 Research Administrator Relationship Specialty Start Date End Date All Beckett MD [address] [facility] [place] [place] [address] PCP - General Internal Medicine 12/01/22 Research Administrator Relationship Specialty Start Date End Date All Beckett MD [address] [facility] [place] [place] [address] PCP - General Internal Medicine 12/01/22 Research Administrator Relationship Specialty Start Date End Date All Beckett MD [address] [facility] [place] [place] [address] PCP - General Internal Medicine 12/01/22 Research Administrator Relationship Specialty Start Date End Date All Beckett MD [address] [place], [place] [address] PCP - General Internal Medicine 12/01/22 Research Administrator Relationship Specialty Start Date End Date All Beckett MD [address] [facility] [place], [place] [address] PCP - General Internal Medicine 12/01/22 Research Administrator Relationship Specialty Start Date End Date All Beckett MD [address] [place] [address] PCP - General Internal Medicine 12/01/22 Research Administrator Relationship Specialty Start Date End Date All Beckett MD [address] [place], [place] [address] PCP - General Internal Medicine 12/01/22 (unrecognized sect ion and content) No Status Records FoundNo Status Records FoundNo Status Records FoundNo Status Records Found INFORMATION SOURCE (unrecogn ized section and content) DATE CREATED AUTHOR AUTHOR[facility]S [facility]IZ AT[facility] DATE CREATED AUTHOR AUTHOR'S ORGANIZ ATION 05/14/2023 [facility] DATE CREATED AUTHOR AUTHOR'S ORGANIZ ATION 07/27/2023 [facility] FOR RECORDS PERTAINING TO PATIENTS WHO ARE OR HAVE BEEN ENROLLED IN A CHEMICAL DEPENDENCY/SUBSTANCEABUSE PROGRAM, SOME INFORMATION MAY BE OMITTED. This clinical summary was aggregated from multiple sources. Caution should be exercised in using it in the provision of clinical care. This summary normalizes information from multiple sources, and as a consequence, information in this document may materially change the coding, format and clinical context of patient data. In addition, data may be omitted in some cases. CLINICAL DECISIONS SHOULD BE BASED ON THE PRIMARY CLINICAL RECORDS. [facility] [employer] [facility]. provides no warranty or guarantee of the accuracy or completeness of information in this document.
[2023-09-14 12:07] LABS: AST(SGOT) 16 U/L (15-37); Alanine Aminotransfer ALT/SGPT 40 U/L (16-61); Alkaline Phosphatase 111 U/L (45-117); Anion Gap 2 (5-15); BUN 13 mg/dL (7-18); BUN/Creat Ratio 10.5 RATIO (10-20); Calcium,Total 9.2 mg/dL (8.5-10.1); Chloride 106 mmol/L (98-107); Creatinine, Serum 1.24 mg/dL (0.70-1.30); EST Glomerular Filtration Rate 70 mL/min (>60); Est Glom Filt Rate - Afr Amer 85 mL/min (>60); Estimated Creatinine Clearance 109.82 ml/min; Globulin 4.2 g/dL (2.2-4.2); Glucose 97 mg/dL (74-106); Potassium 3.7 mmol/L (3.5-5.1); Protein, Total 8.2 g/dL (6.4-8.2); Sodium Level 137 mmol/L (136-145)
[2023-09-14] MEDS: 0.9% Normal Saline (1000mL) 1,000 ML 999 ML IV (12:20)
[2023-09-14 12:21] VITALS: BP 132/79; PULSE 68; RESP 16; O2SAT 97
[2023-09-14 13:57] VITALS: BP 141/74; PULSE 71; RESP 16; O2SAT 98
== END 2023-09-14 13:58 | disposition home or self-care (01) ==
PROVIDERS: Nurse Practitioner; Emergency Provider Student in an Organized Health Care Education/Training Program; PCP Internal Medicine; Visit Provider Student in an Organized Health Care Education/Training Program
DX: E86.0 Dehydration (principal); F41.9 Anxiety disorder, unspecified; R11.0 Nausea; B34.9 Viral infection, unspecified; F90.9 Attention-deficit hyperactivity disorder, unspecified type; F32.A Depression, unspecified; Z79.899 Other long term (current) drug therapy
CPT/HCPCS: 80053; 81001; 85025; 87631; 96360; 96361; 99283; J7030; A4216

== ENCOUNTER 2024-05-02 10:00 | Outpatient (RCR) | payer MEDICAID, SELFPAY ==
--- NOTE | 2024-04-16 12:25 | HP.PTEVAL_ITS ---
Patient's Visit Information Visit Information Visit Information: CHARLES FOY is a 38 year old M referred to Physical Therapy by MILO Henning with a diagnosis of Chronic R knee pain. Date of Evaluation: 04/16/24 Physical Therapist: JEROMY Charles Visit Plan Frequency: 2x /Week Duration: 2 Months Plan: 2X/ week for 4-8 weeks for core stability, hip strength (jose hip ext/abd), stretching of piriformis, HS, IT band, with HEP HEP: seated and supine R piriformis stretch, single leg bridges Subjective Subjective: Pt has chronic R knee pain. He reports that he has IT band issues, partial tear of a ligament and significant cartilage loss in his R knee. He thinks he had a soccer injury in college. He has had a lot of hip and ankle issues since then. Over the past 8 years he has had steady consistent pain. He has seen his PCP. [facility] for a second opinion an ortho Dr. He is taking anti- inflammatories. He was told to take PT. Running hurts the knee pain. He is looking to strengthen his hip and his back because there is not much to do for his knee. His back pain acts up when he sits for a long time and that is the same with his R hip. The knee pain is pretty constant. Stairs: increases his pain if he does them a lot. He has twitching in his hip that will wake him up at night. He is not currently working. He exercises a lot....he glut and hip workout and does biking and walks. Pain R knee pain: Pain Intensity (Out of 10): 2 R hip pain: Pain Intensity (Out of 10): 0 back pain: Pain Intensity (Out of 10): 0 Objective Objective: Gait: Normal gait pattern Pt is able to walk on heels and toes without issue Stairs: up and down recip without any issue LE MMT: R hip flex 18.8 and L 18.8 R knee ext 37.8 and L 38.1 R knee flex 20.1 and L 21.8 R hip abd 18.6 and L 21.7 R hip ext 18.4 and L 18.8 Tight R piriformis compared to L Some pain of the R hip with IT band stretching B HS tightness Pt was demonstrating Firehydrants, donkey kicks etc all with wrong form... told we would help break that form down with less trunk rotation Bridges: full bridge..pt thought single leg bridge was much harder to do Trunk AROM: flexion 80%, ext 80%, SB B 80%, Rot B 100% Balance/Special Test Scores Lower Extremity Functional Score: 59 Goals Goal 1:: I HEP Goal Time Frame: 6-8 Weeks Goal 2:: Increase R hip strength (at the time of the eval: LE MMT: R hip flex 18.8 and L 18.8 R knee ext 37.8 and L 38.1 R knee flex 20.1 and L 21.8 R hip abd 18.6 and L 21.7 R hip ext 18.4 and L 18.8) Goal Time Frame: 6-8 Weeks Goal 3:: Decrease freq of R hip and back pain by 25% Goal Time Frame: 6-8 Weeks Rehabilitation Potential Rehabilitation Potential: Good Anticipated Interventions Patient/Client Instruction: Educate patient on: Condition and Plan of Care For the Purpose of:: To decrease pain, To increase ROM, To improve nutrient delivery to tissue, To improve muscle performance and motor function, To improve ability to perform ADL's, To increase tolerance to activity/condition/position, To improve performance and independence with ADL's, To decrease level of supervision to perform tasks, To improve gait and locomotor functions, To improve health of tissue, To decrease soft tissue restriction and To increase flexibility/ROM Therapeutic Exercise to Include: Strength training, Endurance training, Body mechanics, Postural training, Flexibilty training, Gait and locomotor training, Passive ROM, Active ROM, Dynamic Lumbar Stabilization and Scapular Strength/Stabilization For the Purpose of:: To decrease pain, To increase ROM, To improve nutrient delivery to tissue, To increase oxygenation perfusion, To improve muscle performance and motor function, To improve ability to perform ADL's, To increase tolerance to activity/condition/position, To improve performance and independence with ADL's, To decrease level of supervision to perform tasks, To improve ability of physical actions for home/community/work/leisure, To improve health of tissue, To decrease soft tissue restriction, To increase flexibility/ROM and To improve endurance Manual Therapy Techniques to Include: Mobilization, Passive ROM and Soft tissue mobilization For the Purpose of:: To decrease pain, To increase ROM, To improve nutrient delivery to tissue, To improve muscle performance and motor function and To improve ability to perform ADL's Text: Thank you for the opportunity to evaluate your patient. For Medicare and Medicare HMO plans, please review the plan of care and approve it. It will need to be FAXED BACK to us at [phone] for Medicare purposes. For Medicare only, by signing this I certify the plan of care. Please let me know if there are questions or concerns regarding this plan of care. Physician Signature: Date:
--- NOTE | 2024-06-11 07:18 | HP.PT.NRP ---
Patient Information Patient Information: CHARLES FOY was seen in my office for initial evaluation on 04/16/24. The following Plan of Care was established for this patient: POC Established Initial Frequency: 2x /Week Initial Duration: 2 Months Anticipated Interventions Patient/Client Instruction: Educate patient on: Condition and Plan of Care For the Purpose of:: To decrease pain, To increase ROM, To improve nutrient delivery to tissue, To improve muscle performance and motor function, To improve ability to perform ADL's, To increase tolerance to activity/condition/position, To improve performance and independence with ADL's, To decrease level of supervision to perform tasks, To improve gait and locomotor functions, To improve health of tissue, To decrease soft tissue restriction and To increase flexibility/ROM Therapeutic Exercise to Include: Strength training, Endurance training, Body mechanics, Postural training, Flexibilty training, Gait and locomotor training, Passive ROM, Active ROM, Dynamic Lumbar Stabilization and Scapular Strength/Stabilization For the Purpose of:: To decrease pain, To increase ROM, To improve nutrient delivery to tissue, To increase oxygenation perfusion, To improve muscle performance and motor function, To improve ability to perform ADL's, To increase tolerance to activity/condition/position, To improve performance and independence with ADL's, To decrease level of supervision to perform tasks, To improve ability of physical actions for home/community/work/leisure, To improve health of tissue, To decrease soft tissue restriction, To increase flexibility/ROM and To improve endurance Manual Therapy Techniques to Include: Mobilization, Passive ROM and Soft tissue mobilization For the Purpose of:: To decrease pain, To increase ROM, To improve nutrient delivery to tissue, To improve muscle performance and motor function and To improve ability to perform ADL's Last Seen Last Seen: This patient was last seen in our office 05/02/24. Pertinent comments regarding their Physical therapy will appear below: DC PT At this point I will be discontinuing this patient from physical therapy. I would be happy to see this patient again in the future if found appropriate by the physician. Thank you! Wanda Allen, JEROMY Balance/Gait/Functional tests Balance/Special Test Scores Lower Extremity Functional Score: 59
== END 2024-05-02 19:00 | disposition home or self-care (01) ==
LOC: PT 10:00
PROVIDERS: PCP Internal Medicine; Referring Provider Clinical Nurse Specialist; Visit Provider Clinical Nurse Specialist
DX: M25.561 Pain in right knee (principal); G89.29 Other chronic pain
CPT/HCPCS: 97110; 97161

== ENCOUNTER 2024-06-16 10:11 | Emergency (ER) | payer MEDICAID, SELFPAY ==
[2024-06-16 10:12] VITALS: BP 143/92; PULSE 87; RESP 18; TEMP 37.2; O2SAT 100; BMI 29.5
[2024-06-16 10:24] VITALS: O2SAT 99
[2024-06-16 11:11] VITALS: BP 125/89; PULSE 70; RESP 16; O2SAT 98
[2024-06-16 11:25] LABS: Absolute Lymphocyte Count 4.05 X10^3/uL (0.83-4.51); Absolute Neutrophil Count 5.8 X10^3/uL (2.0-7.7); Basophil# 0.07 X10^3/uL; Basophil% 0.6 % (0-1); Eosinophil# 0.44 X10^3/uL; Eosinophils% 3.9 % (0-5); Hematocrit 47.4 % (40-54); Hemoglobin 15.7 g/dL (13.0-16.5); Lymphocyte # 4.05 X10^3/ul (0.83-4.51); Lymphocyte % 36.2 % (19-41); Mean Corp Hgb Conc 33.1 g/dL (32-36); Mean Corpuscular Hgb 26.9 pg (27.0-32.0); Mean Corpuscular Volume 81.3 fL (80-94); Monocyte# 0.76 X10^3/uL; Monocyte% 6.8 % (0-10); NRBC Flagged by Analyzer 0 % (0-5); Neutrophil # 5.83 X10^3/uL (2.7-7.7); Neutrophil % 52.2 % (47-70); Platelet Count 348 K/mm3 (150-450); RBC Distribution Width CV 12.8 % (11.6-14.6); RBC Distribution Width SD 37.8 fl (35.1-43.9); Red Blood Count 5.83 M/mm3 (4.6-6.2); White Blood Count 11.2 K/mm3 (4.4-11.0)
[2024-06-16 11:41] LABS: D-Dimer Quantitative (DVT/PE) 0.27 FEU/ug/m (0.27-0.49)
[2024-06-16 11:43] LABS: AST(SGOT) 34 U/L (15-37); Alanine Aminotransfer ALT/SGPT 61 U/L (16-61); Alkaline Phosphatase 107 U/L (45-117); Anion Gap 4 (5-15); BUN 11 mg/dL (7-18); BUN/Creat Ratio 10.5 RATIO (10-20); Bilirubin, Direct 0.09 mg/dL (0.00-0.30); Calcium,Total 8.8 mg/dL (8.5-10.1); Chloride 107 mmol/L (98-107); Creatinine, Serum 1.05 mg/dL (0.70-1.30); EST Glomerular Filtration Rate 85 mL/min (>60); Est Glom Filt Rate - Afr Amer 102 mL/min (>60); Estimated Creatinine Clearance 124.05 ml/min; Globulin 3.7 g/dL (2.2-4.2); Glucose 99 mg/dL (74-106); Potassium 3.7 mmol/L (3.5-5.1); Protein, Total 7.7 g/dL (6.4-8.2); Sodium Level 140 mmol/L (136-145); Troponin-I HS < 3 pg/mL (3.0-78.0)
[2024-06-16 12:15] VITALS: BP 119/87; PULSE 69; RESP 18; TEMP 36.4; O2SAT 100
== END 2024-06-16 12:18 | disposition home or self-care (01) ==
PROVIDERS: Emergency Provider Emergency Medicine; PCP Internal Medicine; Visit Provider Emergency Medicine
DX: U07.1 COVID-19 (principal); J45.909 Unspecified asthma, uncomplicated; F32.A Depression, unspecified; Z79.899 Other long term (current) drug therapy
CPT/HCPCS: 71045; 80048; 80076; 84484; 85025; 85379; 93005; 99284; A4216